=== PATIENT | female | born 1940 | race Caucasian/White ===

== ENCOUNTER 2017-06-15 20:55 | Inpatient (IN) | payer MEDICARE ==
[~2017-06-15] VITALS: Ht 167.6 cm; Wt 92.1 kg
[~2017-06-15 20:55] MED LIST: ARTHROTEC 75 M1 EACH PO; GABAPENTIN300 MG PO; HYDROCODON-ACE1 EA10 PO; IMITREX100 MG PO; KONDREMUL2.5 ML/5 M PO; LISINOPRIL20 MG PO; MOTRIN IB200 MG PO; NORCO 5-325 TA1 EACH PO; PRIMIDONE50 MG PO; PROMETHAZINE HC25 M1 PO; SENNA8.6 MG PO; TOPROL XL100 MG PO; TOPROL XL50 MG PO; TYLENOL WITH C1 EACH PO; ZOCOR20 MG PO
[2017-06-15] MEDS ORDERED: ARTHROTEC 75 M1 EACH PO (21:33)
[2017-06-15] MEDS ORDERED: NORVASC5 MG PO (21:38)
[2017-06-16] MEDS ORDERED: CARBIDOPA-LEVO1 EACH PO (17:01)
--- NOTE | 2017-06-16 17:22 | EKG ---
[facility] [address] [facility] [place] [address] Signed Normal sinus rhythm Normal ECG No previous ECGs available Confirmed by SHYANN CASTAÑEDA MD ([id number]) on 06/16/2017 5:22:24 PM Electronically Signed By: SHYANN CASTAÑEDA MD 06/16/17 1722 PATIENT NAME: LINDSEY SHELLEY Electrocardiogram DATE OF : 42 PHYSICIAN: SHYANN CASTAÑEDA MD REPORT #: [id number] REPORT IS CONFIDENTIAL AND NOT TO BE RELEASED WITHOUT AUTHORIZATION
[2017-06-20] MEDS ORDERED: CEFPODOXIME PR200 MG PO (13:09)
[2017-06-21] MEDS ORDERED: TESSALON PERLE100 MG PO (10:07)
== END 2017-06-21 16:57 | disposition home or self-care (01) | DRG 872 ==
LOC: ED 20:55 → CCU 22:15 → MS 06-18 18:00
PROVIDERS: ADMIT Internal Medicine
PROC: 06HY33Z Insertion of Infusion Device into Lower Vein, Percutaneous Approach (ICD-10-PCS; principal; 2017-06-18 15:45)
DX: A41.51 Sepsis due to Escherichia coli [E. coli] (principal); N10 Acute pyelonephritis; N17.9 Acute kidney failure, unspecified; E87.2 Acidosis; R65.20 Severe sepsis without septic shock; R51 Headache; J01.90 Acute sinusitis, unspecified; D64.9 Anemia, unspecified; I12.9 Hypertensive chronic kidney disease with stage 1 through stage 4 chronic kidney disease, or unspecified chronic kidney disease; G25.0 Essential tremor; G25.81 Restless legs syndrome; E78.5 Hyperlipidemia, unspecified; N28.1 Cyst of kidney, acquired; K57.90 Diverticulosis of intestine, part unspecified, without perforation or abscess without bleeding; I70.0 Atherosclerosis of aorta; K42.9 Umbilical hernia without obstruction or gangrene; Z90.710 Acquired absence of both cervix and uterus; Z88.2 Allergy status to sulfonamides
CPT/HCPCS: 36415; 36556; 71010; 74176; 80053; 80069; 81001; 82607; 82728; 82746; 83540; 83605; 83735; 84100; 84466; 85025; 85045; 87040; 87077; 87088; 87186; 93005; 93010; 96523; 97110; 97116; 97162; J0696; J1650; J2405; J3475; J7030

== ENCOUNTER 2018-06-19 20:34 | Emergency (ER) | payer MEDICARE ==
[~2018-06-19] VITALS: Ht 167.6 cm; Wt 92.1 kg
[~2018-06-19 20:34] MED LIST changes: +CARBIDOPA-LEVO1 EACH PO; +CEFPODOXIME PR200 MG PO; +NORVASC5 MG PO; +TESSALON PERLE100 MG PO
[2018-06-19] MEDS ORDERED: PRIMIDONE50 MG PO ×2 (20:59→21:01)
--- NOTE | 2018-06-20 11:37 | EKG ---
[facility] [address] [place] [address] Signed Poor data quality, interpretation may be adversely affected Undetermined rhythm , Likely Sinus Rhythm. ST \T\ T wave abnormality, consider anterior ischemia Abnormal ECG When compared with ECG of 19-JUN-2018 20:36, (Unconfirmed) Current undetermined rhythm precludes rhythm comparison, needs review ST more depressed in Anterior leads Confirmed by SHYANN CASTAÑEDA MD ([id number]) on 06/20/2018 11:36:27 AM Electronically Signed By: SHYANN CASTAÑEDA MD 06/20/18 1137 PATIENT NAME: LINDSEY SHELLEY Electrocardiogram DATE OF : 42 PHYSICIAN: SHYANN CASTAÑEDA MD REPORT #: [id number] REPORT IS CONFIDENTIAL AND NOT TO BE RELEASED WITHOUT AUTHORIZATION
== END 2018-06-20 00:16 | disposition home or self-care (01) ==
LOC: ED 20:34
DX: R07.9 Chest pain, unspecified (principal); Z88.2 Allergy status to sulfonamides; Z88.8 Allergy status to other drugs, medicaments and biological substances; Z79.899 Other long term (current) drug therapy
CPT/HCPCS: 36415; 71045; 80053; 84484; 85025; 93005; 93010; 99285

== ENCOUNTER 2020-08-07 19:04 | Emergency (ER) | payer MEDICARE, OTHER ==
[~2020-08-07] VITALS: Ht 167.6 cm; Wt 80.7 kg
--- OUTSIDE RECORDS SUMMARY | ~2020-08-07 | XMS | Encounter Summary ---
Demographics + + + | Address | [address] | | | [place] [address] | + + + | Home Phone | | + + + | Preferred Language | Unknown | + + + | Marital Status | Single | + + + | Lutheran Affiliation | LDS | + + + | Race | White | + + + | Ethnic Group | Not or | + + + Author + + + | Organization | Unknown | + + + | Address | Unknown | + + + | Phone | Unavailable | + + + Support + + + + + | Name | Relationship | Address | Phone | + + + + + | Petrona Reece | ECON | [address] | | | | | [place], [place] | | | | | [address] | | + + + + + | Michael Reece | ECON | [address] | | | | | [place], [place] | | | | | [address] | | + + + + + | Wolfjose Reece | ECON | [address] | | | | | [place] | | | | | [address] | | + + + + + Care Team Providers + +------+ + | Care Case Worker Name | Role | Phone | + +------+ + | Agustin Palomares MD | PCP | | + +------+ + Encounter Details +--------+--------+ + + + | Date | Type | Department | Care Team | Description | +--------+--------+ + + + | 10/19/ | Travel | | | | | 2018 | | | | | +--------+--------+ + + + Social History + +-------+ +--------+------+ | Tobacco Use | Types | Packs/Day | Years | Date | | | | | Used | | + +-------+ +--------+------+ | Never Smoker | | | | | + +-------+ +--------+------+ + +---+---+---+ | Smokeless Tobacco: | | | | | Never Used | | | | + +---+---+---+ + + +---------+ + | Alcohol Use | Drinks/Week | oz/Week | Comments | + + +---------+ + | No | | | | + + +---------+ + + + + | Sex Assigned at | Date Recorded | | | | + + + | Not on file | | + + + documented as of this encounter Plan of Treatment +--------+ + + + + | Date | Type | Specialty | Care Team | Description | +--------+ + + + + | 08/22/ | Procedure | Neurology | Cristopher Rosa, | | | 2019 | | | [address] | | | | | | [place], [place] | | | | | | [address] | | | | | | [phone] | | | | | | | | +--------+ + + + + documented as of this encounter Visit Diagnoses Not on filedocumented in this encounter"
--- OUTSIDE RECORDS SUMMARY | ~2020-08-07 | XMS | Encounter Summary ---
Demographics + + + | Address | [address] | | | [place] [address] | + + + | Home Phone | | + + + | Preferred Language | Unknown | + + + | Marital Status | | + + + | Latter-Day Affiliation | 1027 | + + + | Race | White | + + + | Ethnic Group | Not or | + + + Author + + + | Author | [facility] | | | and [place] | + + + | Organization | [facility] | | | and [place] | + + + | Address | Unknown | + + + | Phone | Unavailable | + + + Support + + +---------+ + | Name | Relationship | Address | Phone | + + +---------+ + | Petrona Reece | ECON | Unknown | | + + +---------+ + | Michael Reece | ECON | Unknown | | + + +---------+ + Care Team Providers + +------+ + | Care Client Relationship Manager Name | Role | Phone | + +------+ + | Agustin Palomares MD | PCP | | + +------+ + Encounter Details +--------+ + + + + | Date | Type | Department | Care Team | Description | +--------+ + + + + | 12/14/ | Orders Only | [facility] | Rinku Kim, | Age-related nuclear | | 2019 | | MED CTR PROVIDER | [address] | cataract, right eye | | | | SURGICAL [address] | [place], [place] | (Primary Dx) | | | | [place], | [id number] | | | | | [place] [address] | | | | | | [phone] | | | +--------+ + + + + Social History + +-------+ [...] | +--------+ + + + + | 08/14/ | Appointment | Radiology | Jonathan Farhana | | | 2019 | | | [address] | | | | | | [address] | | | | | | [place] [address] | | | | | | [phone] | | | | | | | | +--------+ + + + + | 09/13/ | Office | Cardiology | Farhana Castillo | | | 2019 | Visit | | [address] | | | | | | [place] [address] | | | | | | [place] [address] | | | | | | [phone] | | | | | | | | +--------+ + + + + documented as of this encounter Visit Diagnoses + + | Diagnosis | + + | Age-related nuclear cataract, right eye - Primary | + + documented in this encounter"
--- OUTSIDE RECORDS SUMMARY | ~2020-08-07 | XMS | Encounter Summary ---
Demographics + + + | Address | [address] | | | [place] [address] | + + + | Home Phone | | + + + | Preferred Language | Unknown | + + + | Marital Status | Single | + + + | Catholic Affiliation | LDS | + + + | Race | White | + + + | Ethnic Group | Not or | + + + Author + + + | Author | [facility] | + + + | Organization | [facility] | + + + | Address | Unknown | + + + | Phone | Unavailable | + + + Support + + + + + | Name | Relationship | Address | Phone | + + + + + | Petrona Reece | ECON | [address] | | | | | [place] | | | | | [phone] | | + + + + + | Michael Reece | ECON | [address] | | | | | [place] | | | | | [phone] | | + + + + + | Wolf Reece | ECON | [address] | | | | | [place] | | | | | [address] | | + + + + + Care Team Providers + +------+ + | Care Front Desk Team Member Name | Role | Phone | + +------+ + | Agustin Palomares MD | PCP | | + +------+ + Reason for Visit AUTH/CERT +--------+--------+ + + + + | Status | Reason | Specialty | Diagnoses / | Referred By | Referred To | | | | | Procedures | Contact | Contact | +--------+--------+ + + + + | | | | | | | +--------+--------+ + + + + Encounter Details +--------+---------+ + + + | Date | Type | Department | Care Team | Description | +--------+---------+ + + + | 07/22/ | Surgery | [facility] | Ne Guevara MD | LEFT ANTERIOR | | 2019 [facility] [address] | IMPLANT OF DEEP | | | | and Healing Surgery | [place], [place] | BRAIN STIMULATOR | | | | Center Admitting | [address] | GENERATOR | | | | Desk Located on the | [phone] | | | | | 4th floor [address] | | | | | | [address] [place], | | | | | | [place] [address] | | | +--------+---------+ + + + Social History + +-------+ [...] + + documented as of this encounter Last Filed Vital Signs + + + + + | Vital Sign | Reading | Time Taken | Comments | + + + + + | Blood Pressure | 127/67 | 07/22/2019 9:00 AM | | | | | PDT | | + + + + + | Pulse | 77 | 07/22/2019 9:00 AM | | | | | PDT | | + + + + + | Temperature | 36.3 C (97.3 F) | 07/22/2019 8:58 AM | | | | | PDT | | + + + + + | Respiratory Rate | 16 | 07/22/2019 9:00 AM | | | | | PDT | | + + + + + | Oxygen Saturation | 97% | 07/22/2019 9:00 AM | | | | | PDT | | + + + + + | Inhaled Oxygen | - | - | | | Concentration | | | | + + + + + | Weight | 87.1 kg (192 lb) | 07/22/2019 6:00 AM | | | | | PDT | | + + + + + | Height | 162.6 cm (5' 4") | 07/22/2019 6:00 AM | | | | | PDT | | + + + + + | Body Mass Index | 32.96 | 07/22/2019 6:00 AM | | | | | PDT | | + + + + + documented in this encounter Medications at Time of Discharge + + + +---------+ + + | Medication | Sig | Dispensed | Refills | Start | End Date | | | | | | Date | | + + + +---------+ + + | ACETAMINOPHEN | Take 650 mg by | | 0 | | | | ORALIndications: Per | mouth. Indications: | | | | | | patient, 2x daily | Per patient, 2x | | | | | | AM, 2x daily PM | daily AM, 2x daily | | | | | | | PM | | | | | + + + +---------+ + + | BENZONATATE ORAL | Take 100 mg by mouth | | 0 | | | | | three times daily | | | | | | | as needed. | | | | | + + + +---------+ + + | carbidopa-levodopa | 1 tablet two times | | 0 | 02/01/20 | | | 10-100 mg oral | daily. | | | 19 | | | tablet | | | | | | + + + +---------+ + + | dilTIAZem CD 24 | Take 180 mg by mouth | | 0 | 06/23/20 | | | hour release 180 mg | once daily. | | | 19 | | | oral | | | | | | | capsule,extended | | | | | | | release 24hr | | | | | | + + + +---------+ + + | fluticasone | Inhale 1 puff by | | 0 | | | | propionate 110 | mouth two times | | | | | | mcg/actuation | daily. | | | | | | inhalation HFA | | | | | | | aerosol inhaler | | | | | | + + + +---------+ + + | gabapentin 300 mg | Take 600 mg by mouth | | 0 | 02/10/20 | | | oral capsule | once daily at | | | 19 | | | | bedtime. | | | | | + + + +---------+ + + | nitroglycerin 0.4 | Place 0.4 mg under | | 0 | | | | mg sublingual | tongue every five | | | | | | tablet, sublingual | minutes as needed | | | | | | | for chest pain. | | | | | | | Place under tongue | | | | | | | and allow to | | | | | | | dissolve. | | | | | | | Administer every 5 | | | | | | | minutes, max of 3 | | | | | | | doses in 15 minutes. | | | | | + + + +---------+ + + | ondansetron ODT 4 | Dissolve 2 tablets | 10 | 1 | 07/21/20 | | | mg oral | on tongue and | tablet | | 19 | | | tablet,disintegratin | swallow every eight | | | | | | g | hours as needed. | | | | | + + + +---------+ + + | promethazine 25 mg | Take 25 mg by mouth. | | 0 | | | | oral tablet | | | | | | + + + +---------+ + + | propranolol 40 mg | 40 mg two times | | 0 | 02/10/20 | | | oral tablet | daily. | | | 19 | | + + + +---------+ + + | simvastatin 20 mg | 20 mg once daily in | | 0 | 02/18/20 | | | oral tablet | the evening. | | | 19 | | + + + +---------+ + + | SUMAtriptan 100 mg | Take 100 mg by | | 0 | | | | oral tablet | mouth. | | | | | + + + +---------+ + + | tamsulosin 0.4 mg | 0.4 mg once daily at | | 0 | 02/18/20 | | | oral capsule | bedtime. | | | 19 | | + + + +---------+ + + documented as of this encounter Progress Twin Boateng MD - 07/22/2019 10:18 AM PDTNeurosurgery Post-Op Check 07/22/2019 10:18 AM Examined in PACU Procedure performed: DBS generator placement Awakening from anesthesia, residual sedation still on board Appropriately interactive PERRL, EOMI FS WALKER AG Incisions c/d/i Please page [phone] with any questions Twin Gaytan M.D. Neurosurgery PGY-2 documented in this enc donovan H&P Abimael Louie MD - 07/22/2019 7:00 AM PDTI have examined the patient and reviewed the History and Physical and have confirmed that it is accurate and current with the following a dditions and or exceptions. S/p stage I DBS, for Stage II today. Abimael Patel MD amath, Abimael Bishop MD - 07/19/2019 9:00 AM PDTNSGY Pre Op Clinic Visit Ms. Reece presents with her family today to sign consents for pre op - bilateral VIM DBS placement scheduled for 07/20 and 07/22. See prior chart notes for full details. Briefly, she is a 79F with essential tremor since s he was a teenager, and was found to be a good candidate for bilateral VIM DBS. She report no new changes in health, and confirm not taking blood thinner/antiplatelet medi cations. Exam: AO x3, OE/reg/follows PERRL, EOMI, TML, FS WALKER good strength 2-3hz intention tremor involving BUEs, neck, jaw The indications, risks, benefits, and alternatives of bilateral VIM DBS placement were expl ained in detail to Ms. Reece and her and daughter in law, risks including bleeding , infection, and the remote possibilities of stroke, coma, or . They expressed understa nding and asked to proceed. Consents were signed today. She reports being claustrophobic and we have arranged for sedation to help facilitate her MRI this afternoon. Abimael Patel MD Fellow, Neurological Surgery documented in this e ncounter Procedure Notes Ne Guevara MD - 07/22/2019 9:48 AM PDTAssociated Order(s): TEACHING PHYSICIANDate of S ervice: 07/22/2019 Attending Surgeon:Ne Guevara MD Frameman(s): Abimael Patel MD Pursuant to Federal Medicare billing regulations, I certify that I was present for and part icipated in the critical parts of the procedure including implantation of DBS IPG, testing a nd programming of the IPG, and closure. I further certify that I was the principal surgeon for this procedure. Preoperative Diagnosis: Essential tremor. Postoperative Diagnosis: Essential tremor. Procedure: Implantation of deep brain stimulation (DBS) internal pulse generator (IPG). Ne Guevara MD KB/MODL /[id number] signed by Ne Guevara MD at 07/26/2019 10:33 AM PD Twin Villatoro MD - 07/22/2019 9:47 AM PDTAssociated Order(s): OPERATION RECORDDate of rvice: 07/22/2019 Attending Surgeon: Ne Guevara MD Frameman(s): Abimael Patel MD. Twin Gaytan MD. Preoperative Diagnosis: Essential tremor. Postoperative Diagnosis: Essential tremor. Procedure Performed: Placement of left-sided DBS [employer] generator. Indications For Procedure: Rula Reece is a 79-year-old female with a history of essentia l tremor since her teenage years. She was determined to be a good candidate for DBS placeme nt. She previously underwent placement of DBS leads on July 20. She returns today for generator placement. A full PARQ discussion was had with the patient including the risks, benefits, and alternatives of surgery, and she is in agreement to proceed. Description Of Procedure In Detail: The patient was identified in the preoperative holding area by name, date of , and medical record number. She was brought to the operating r oom on [facility]. She was transitioned to supine to a standard table. Following in duction of general anesthesia, the eyes were taped shut using Tegaderm, Xeroform gauze was p laced in the ear, and all pressure points were carefully padded. The left side of the head as well as the left anterior chest were then prepped and draped in the usual sterile fashion . A time-out was held confirming correct patient, operative site, and procedure to be perfo rmed. At this point, we were ready to proceed with the operation. Using a 10 blade, a 6 cm incision was made beneath the left clavicle. We used blunt dissec tion down to the level of the fascia and then proceeded to establish a generator pocket unde rneath the superficial adipose tissue. Hemostasis was achieved, at which point we turned ou r attention to the cranial incision. Again, using a 10 blade, a 2 cm incision was made media [facility] over the DBS generator leads. Using a tunneler, we created a passage from the cranial i ncision to the infraclavicular incision. We then passed our electrode leads through this ch olya. Both wires were then connected, ensuring that electrodes were correctly aligned. Th e wires were then connected to our generator battery, again ensuring that the left and right sides corresponded to the correct electrodes. Care was then taken to relieve any tension o n the generator wires so as to prevent the wires from kinking underneath the skin. The gene rator was then placed in our pocket and was interrogated, confirming all settings were corre ct. At this point, we were ready to begin with our closure. Both incisions were irrigated copi ously using a combination of bacitracin and normal saline. For the cranial incision, galea w as closed using interrupted 3-0 Vicryl and skin was closed using a Rapide. The generator wa s secured using two 2-0 tycron ties. For the generator pocket, first, the soft tissue was re approximated using interrupted 3-0 Vicryl. Fascia was closed with interrupted 3-0 Vicryl. Sk in was closed using with running Rapide. irrigant was injected into both incisions prior to skin closure. Both incisions were dressed using Dermabond. The patient was then extubat ed and returned to the recovery area in good condition. There were no complications. All n eedle, sponge, and instrument counts were correct x2 at the end of the case. Dr. Guevara was present for the entire procedure. MD Ne Ferris MD DM/MODL /[id number] documented in this enco unter Miscellaneous Notes Brief Op Note - Twin Gaytan MD - 07/22/2019 8:54 AM PDTFormatting of this note might b e different from the original. Date of procedure: 07/22/2019 Time Time In Time Out Procedure Start 811 [facility] Surgeon(s) and Role: * Ne Guevara MD - Primary Staff: Consultants Intern: Chuyita Osuna RN Scrub: ST [employer]ograph[employer] Machine Operator: Luisito Gaytan MD; Twin Gaytan MD Correction: fellow is Abimael Patel MD Pre Op Dx Essential Tremor Post Op Dx: same Procedure: Left-sided implant of deep brain stimulator generator Anesthesia: General Estimated Blood Loss: minimal Specimens None Implants/Grafts Implant Name Type Inv. Item Serial No. Varnish Melter Lot No. LRB No. Used Action Model Contact Extension Kit [id number] [employer] [id number] Right 1 Implanted Contact Extension Kit [id number] [employer] [id number] Left 1 Implanted Implantable Pulse Generator Kit [id number] [employer] Left 1 Implanted Complications: None Twin Gaytan MD documented in this enc ounter Plan of Treatment +--------+ + + + + | Date | Type | Specialty | Care Team | Description | +--------+ + + + + | 08/22/ | Procedure | Neurology | Cristopher Rosa, | | | 2019 | | | [address] | | | | | | [place], [place] | | | | | | [address] | | | | | | [phone] | | | | | | | | +--------+ + + + + + +---------+--------+ + + | Name | Type | Priori | Associated Diagnoses | Order Schedule | | | | ty | | | + +---------+--------+ + + | INTRAPROCEDURE | Imaging | Routin | | One Time for 1 | | IMAGING | | e | | Occurrences starting | | | | | | 07/22/2019 until | | | | | | 07/22/2019, 1 | | | | | | completed | + +---------+--------+ + + documented as of this encounter Procedures + +--------+ + + + | Procedure Name | Priori | Date/Time | Associated Diagnosis | Comments | | | ty | | | | + +--------+ + + + | PROCEDURE NOTE | Routin | 07/22/2019 | | Results for this | | | e | 10:50 AM | | procedure are in the | | | | PDT | | results section. | + +--------+ + + + | TEACHING PHYSICIAN | | 07/22/2019 | | Results for this | | | | 9:48 AM | | procedure are in the | | | | PDT | | results section. | + +--------+ + + + | OPERATION RECORD | | 07/22/2019 | | Results for this | | | | 9:47 AM | | procedure are in the | | | | PDT | | results section. | + +--------+ + + + | DEEP BRAIN GENERATOR | Electi | 07/22/2019 | Essential Tremor | | | STIMULATOR IMPLANT | ve | 7:36 AM | | | | | Surgic | PDT | | | | | al | | | | + +--------+ + + + | INTRAPROCEDURE | Routin | 07/22/2019 | | Results for this | | IMAGING | e | 6:49 AM | | procedure are in the | | | | PDT | | results section. | + +--------+ + + + documented in this encounter Results PROCEDURE NOTE (07/22/2019 10:50 AM PDT)TEACHING PHYSICIAN (07/22/2019 9:48 AM PDT) + + | Procedure Note | + + | Ne Guevara MD - 07/22/2019 9:48 AM PDT Date of Service: 07/22/2019 Attending | | Surgeon:Ne Guevara MD Frameman(s): Abimael Patel MD Pursuant to Federal | | Medicare billing regulations, I certify that I was present for and participated in the | | critical parts of the procedure including implantation of DBS IPG, testing and | | programming of the IPG, and closure. I further certify that I was the principal surgeon | | for this procedure.Preoperative Diagnosis: Essential tremor.Postoperative Diagnosis: | | Essential tremor.Procedure: Implantation of deep brain stimulation (DBS) internal pulse | | generator (IPG).Ne Guevara MDKB/MODLDD: 07/22/2019 09:24:55DT: 07/22/2019 | | 09:48:11Job #: [id number] | | | | | |Preoperative Diagnosis: Essential tremor. | | | |Postoperative Diagnosis: Essential tremor. | | | |Procedure: Implantation of deep brain stimulation (DBS) internal pulse generator (IPG). | | | | | | | |Ne Guevara MD | |NAYLA/DICKL | | | | | | /[id number] | + + OPERATION RECORD (07/22/2019 9:47 AM PDT) + + | Procedure Note | + + | Twin Gaytan MD - 07/22/2019 9:47 AM PDT Date of Service: 07/22/2019 Attending | | Surgeon: Ne Guveara MD Frameman(s): Abimael Patel MD.Twin Gaytan, | | .Preoperative Diagnosis: Essential tremor.Postoperative Diagnosis: Essential | | tremor.Procedure Performed: Placement of left-sided DBS [employer] | | generator.Indications For Procedure: Rula Reece is a 79-year-old female with a | | history of essential tremor since her teenage years. She was determined to be a good | | candidate for DBS placement. She previously underwent placement of DBS leads on | | July 20. She returns today for generator placement. A full PARQ discussion was | | had with the patient including the risks, benefits, and alternatives of surgery, and she | | is in agreement to proceed.Description Of Procedure In Detail: The patient was | | identified in the preoperative holding area by name, date of , and medical record | | number. She was brought to the operating room on [facility]. She was | | transitioned to supine to a standard table. Following induction of general anesthesia, | | the eyes were taped shut using Tegaderm, Xeroform gauze was placed in the ear, and all | | pressure points were carefully padded. The left side of the head as well as the left | | anterior chest were then prepped and draped in the usual sterile fashion. A time-out | | was held confirming correct patient, operative site, and procedure to be performed. At | | this point, we were ready to proceed with the operation. Using a 10 blade, a 6 cm | | incision was made beneath the left clavicle. We used blunt dissection down to the level | | of the fascia and then proceeded to establish a generator pocket underneath the | | superficial adipose tissue. Hemostasis was achieved, at which point we turned our | | attention to the cranial incision. Again, using a 10 blade, a 2 cm incision was made | | medially over the DBS generator leads. Using a tunneler, we created a passage from the | | cranial incision to the infraclavicular incision. We then passed our electrode leads | | through this channel. Both wires were then connected, ensuring that electrodes were | | correctly aligned. The wires were then connected to our generator battery, again | | ensuring that the left and right sides corresponded to the correct electrodes. Care was | | then taken to relieve any tension on the generator wires so as to prevent the wires | | from kinking underneath the skin. The generator was then placed in our pocket and was | | interrogated, confirming all settings were correct.At this point, we were ready to begin | | with our closure. Both incisions were irrigated copiously using a combination of | | bacitracin and normal saline. For the cranial incision, galea was closed using | | interrupted 3-0 Vicryl and skin was closed using a Rapide. The generator was secured | | using two 2-0 tycron ties. For the generator pocket, first, the soft tissue was | | reapproximated using interrupted 3-0 Vicryl. Fascia was closed with interrupted 3-0 | | Vicryl. Skin was closed using with running Rapide. irrigant was injected into both | | incisions prior to skin closure. Both incisions were dressed using Dermabond. The | | patient was then extubated and returned to the recovery area in good condition. There | | were no complications. All needle, sponge, and instrument counts were correct x2 at the | | end of the case. Dr. Guevara was present for the entire procedure.Sarah Ferris | | ROBERT Guevara/AMINAHD: 07/22/2019 09:14:13DT: 07/22/2019 09:47:14Job #: | | [id number] | |Ne Guevara MD | |ANTONY/DAMIAN | | | | | | /[id number] | + + INTRAPROCEDURE IMAGING (07/22/2019 6:49 AM PDT) + + | Specimen | + + | | + + + + + | Narrative | Performed At | + + + | See admission or procedure notes for details of any intraprocedure | [facility] | | images obtained. | RAD[facility] | + + + + +---------+ + + | Performing | Address | City/State/Zipcode | Phone Number | | Organization | | | | + +---------+ + + | [facility] | | | | + +---------+ + + documented in this encounter Visit Diagnoses Not on filedocumented in this encounter Administered Medications + +--------+ +------+------+ + | Medication Order | MAR | Action | Dose | Rate | Site | | | Action | Date | | | | + +--------+ +------+------+ + | bacitracin 50,000 Units, | Given | 07/22/20 | | | Surgical | | ringers (TIS-U-ROSITA) 1,000 mL | | 19 8:11 | | | Site | | INTRAPROCEDURE PRN, Starting Fri | | AM PDT | | | | | 07/22/19 at 0811, Until Fri | | | | | | | 07/22/19 at 0856 | | | | | | + +--------+ +------+------+ + + +---+ | | | + +---+ | fentaNYL (SUBLIMAZE) injection | | | 25 mcg 25 mcg, intravenous, | | | POSTPROCEDURE PRN, 8 doses, | | | Starting Thu07/22/19 at 0822, | | | Until Thu07/22/19 at 1700, severe | | | pain while in Phase I Recovery | | + +---+ | | | + +---+ | lactated ringers IV 500 mL, | | | intravenous, POSTPROCEDURE PRN, 1 | | | dose, Starting Thu07/22/19 at | | | 0822, Until Thu07/22/19 at 1700, | | | nausea/vomiting due to | | | dehydration | | + +---+ | | | + +---+ | lidocaine (XYLOCAINE) 10 mg/mL | | | (1 %) injection subcutaneous, | | | PREPROCEDURE PRN, Starting Fri | | | 07/22/19 at 0649, Until Fri | | | 07/22/19 at 1700, IV start | | + +---+ | | | + +---+ + +-------+ +-------+---+ + | lidocaine 1% w/ EPI | Given | 07/22/20 | 10 mL | | Surgical | | 1:100K-bupivacaine 0.5% injection | | 19 8:15 | | | Site | | INTRAPROCEDURE PRN, Starting | | AM PDT | | | | | 07/22/19 at 0815, Until Fri | | | | | | | 07/22/19 at 0856 | | | | | | + +-------+ +-------+---+ + +---+---+ | | | +---+---+ + +-------+ +---+---+ + | Mixture - neomycin-polymixin B | Given | 07/22/20 | | | Surgical | | irrigant-NS injection | | 19 8:16 | | | Site | | INTRAPROCEDURE PRN, Starting Fri | | AM PDT | | | | | 07/22/19 at 0816, Until Fri | | | | | | | 07/22/19 at 0856 | | | | | | + +-------+ +---+---+ + + +---+ | | | + +---+ | naloxone (NARCAN) injection | | | intravenous, POSTPROCEDURE PRN, | | | Starting Thu07/22/19 at 0822, | | | Until Thu07/22/19 at 1700, | | | hypopnea | | + +---+ | | | + +---+ + +-------+ +------+---+---+ | oxyCODONE (immediate release) | Given | 07/22/20 | 5 mg | | | | (ROXICODONE) tablet 5-10 mg 5-10 | | 19 9:15 | | | | | mg, oral, EVERY 4 HOURS | | AM PDT | | | | | NEEDED, Starting Thu07/22/19 at | | | | | | | 0702, Until Thu07/22/19 at 1700, | | | | | | | severe pain | | | | | | + +-------+ +------+---+---+ + +---+ | | | + +---+ | PHENYLEPHrine 100 mcg/mL IV | | | syringe 50 mcg, intravenous, | | | POSTPROCEDURE PRN, 4 doses, | | | Starting Thu07/22/19 at 0822, | | | Until Thu07/22/19 at 1700, | | | systolic blood pressure less than | | | 80 mmHg refractory to IV fluids. | | + +---+ | | | + +---+ + + + +---+---+---+ | sodium chloride 0.9 % (NS) IV | given by | 07/22/20 | | | | | infusion 10 mL/hr, intravenous, | | 19 8:41 | | | | | PROCEDURE CONTINUOUS, Starting | anesthes | AM PDT | | | | | Thu07/22/19 at 0700, Until Fri | iology | | | | | | 07/22/19 at 1700 | | | | | | + + + +---+---+---+ +---------+ +---+---+---+ | New Bag | 07/22/20 | | | | | | 19 7:25 | | | | | | AM PDT | | | | +---------+ +---+---+---+ + +---+ | | | + +---+ | sodium chloride 0.9 % (NS) IV | | | infusion 500 mL, intravenous, | | | POSTPROCEDURE PRN, 1 dose, | | | Starting Thu07/22/19 at 0822, | | | Until Thu07/22/19 at 1700, | | | systolic blood pressure less than | | | 80 mmHg. 1st line | | + +---+ | | | + +---+ documented in this encounter
--- OUTSIDE RECORDS SUMMARY | ~2020-08-07 | XMS | Encounter Summary ---
Demographics + + + | Address | [address] | | | [place] [address] | + + + | Home Phone | | + + + | Preferred Language | Unknown | + + + | Marital Status | Single | + + + | Roman Catholic Affiliation | LDS | + + + | Race | White | + + + | Ethnic Group | Not or | + + + Author + + + | Author | [facility] | + + + | Organization | [facility] | + + + | Address | Unknown | + + + | Phone | Unavailable | + + + Support + + + + + | Name | Relationship | Address | Phone | + + + + + | Petrona Reeec | ECON | [address] | | | | | [place] | | | | | [address] | | + + + + + | Michael Reece | ECON | [address] | | | | | [place] | | | | | [address] | | + + + + + | Wolf Reece | ECON | [address] | | | | | [place] | | | | | [address] | | + + + + + Care Team Providers + +------+ + | Care Dump Grader Name | Role | Phone | + +------+ + | Agustin Palomares MD | PCP | | + +------+ + Reason for Referral Diagnostic Testing (Routine) +--------+--------+ + + + + | Status | Reason | Specialty | Diagnoses / | Referred By | Referred To | | | | | Procedures | Contact | Contact | +--------+--------+ + + + + | Closed | | Radiology | Diagnoses | [place], | | | | | | Tremor | Elizabeth Beltran, | | | | | | Disabling | DEAN [address] | | | | | | essential | [address] | | | | | | tremor | [place], [place] | | | | | | Procedures | [address] | | | | | | MRI BRAIN WO | Phone: | | | | | | CONTRAST | [phone] | | | | | | PRE DBS VIM | Fax: | | | | | | | [phone] | | +--------+--------+ + + + + PROC - Inpatient Surgery (Routine) +--------+--------+ + + + + | Status | Reason | Specialty | Diagnoses / | Referred By | Referred To | | | | | Procedures | Contact | Contact | +--------+--------+ + + + + | Closed | | Neurological | Diagnoses | [place], | Alvaradoel, | | | | Surgery | Disabling | Elizabeth L, | MD [address] | | | | | essential | PA-C [address] | | | | | tremor | [address] | [place], [place] | | | | | Procedures | [place], [place] | [address] | | | | | REQUEST TO | [address] | Phone: | | | | | SURGERY | Phone: | [phone] | | | | | BODY LINER | [phone] | Fax: | | | | | [place] IMPLANT | Fax: | [phone] | | | | | NEUROELECTRO | [phone] | | | | | | DE,FIRST [place] | | | | | | | IMPLANT | | | | | | | NEUROELECTRO | | | | | | | DE,ADDL NC | | | | | | | IMP | | | | | | | STIM,CRANIAL | | | | | | | ,SUBQ,1 | | | | | | | ARRAY NC | | | | | | | IMP | | | | | | | STIM,CRANIAL | | | | | | | ,SUBQ,>1 | | | | | | | ARRAY NC | | | | | | | ELECTRONIC | | | | | | | ANALYSIS | | | | | | | BRAIN | | | | | | | NEUROSTIMULA | | | | | | | TOR PGT, 15 | | | | | | | MIN NC | | | | | | | ELECTRONIC | | | | | | | ANALYSIS | | | | | | | BRAIN | | | | | | | NEUROSTIMULA | | | | | | | TOR PGT, EA | | | | | | | ADDL 15 MIN | | | | | | | [address], | | | | | | | [address] - | | | | | | | inpatient | | | | | | | [address], | | | | | | | [address], | | | | | | | [address], [address] | | | | | | | - | | | | | | | outpatient | | | +--------+--------+ + + + + Reason for Visit + + + | Reason | Comments | + + + | Pre-Admission | | + + + Encounter Details +--------+ + + + + | Date | Type | Department | Care Team | Description | +--------+ + + + + | 04/12/ | PreAdmit | Neurosurgery at | Elizabeth Bustillo, | Pre-Admission | | 2019 | Orders | [facility] [address] | PA-C [address] | | | | | [address] [place] for | Ave [facility] [place] | | | | | Health and Healing, | [address] | | | | | [facility] | [phone] | | | | | floor [place], [place] | | | | | | [address] | | | | | | [phone] | | | +--------+ + + + [...] Neurology | Cristopher Rosa, | | | 2020 | | | [address] | | | | | | [place], [place] | | | | | | [address] | | | | | | [phone] | | | | | | | | +--------+ + + + + documented as of this encounter Results MRI BRAIN WO CONTRAST PRE DBS VIM (07/19/2019 6:05 PM PDT) + + | Specimen | + + | | + + + + + | Narrative | Performed At | + + + | EXAM: MRI BRAIN WO PRE DBS- VIM HISTORY: pre-surgery planning | [facility] | | Deep Brain Stimulator COMPARISON: None. TECHNIQUE: | RADIOLOGY VOICE | | Multiplanar multi-sequence MRI of the brain without contrast. | RECOGNITION 2 | | FINDINGS: BRAIN: No acute intracranial abnormality. No evidence of | | | hemorrhage, mass, or acute infarction. The ventricles are normal in | | | size and morphology. SOFT TISSUES AND MARROW: Unremarkable. FACE | | | AND ORBITS: Visualized portions are unremarkable. IMPRESSION: | | | No acute intracranial abnormality. Images acquired for presurgical | | | planning. I have personally reviewed the images and, if necessary, | | | edited the report. I agree with the report as now presented. | | | Final signature: Hipolito Diaz MD 07/19/2019 6:42 PM | | | Preliminary: Hipolito Diaz MD Dictation initiated: Hipolito Ruby | | | MD Emily 07/19/2019 6:42 PM | | + + + + + | Procedure Note | + + | Service Account, Radiant Res In Interface - 07/19/2019 6:43 PM PDT EXAM: MRI BRAIN | | WO PRE DBS- VIM HISTORY: pre-surgery planning Deep Brain Stimulator COMPARISON: None. | | TECHNIQUE: Multiplanar multi-sequence MRI of the brain without contrast. FINDINGS: | | BRAIN: No acute intracranial abnormality. No evidence of hemorrhage, mass, or acute | | infarction. The ventricles are normal in size and morphology. SOFT TISSUES AND MARROW: | | Unremarkable.FACE AND ORBITS: Visualized portions are unremarkable. IMPRESSION: No acute | | intracranial abnormality. Images acquired for presurgical planning. I have personally | | reviewed the images and, if necessary, edited the report. I agree with the report as now | | presented. Final signature: Hipolito Diaz MD 07/19/2019 6:42 PM Preliminary: Hipolito Ruby | | MD Emily Dictation initiated: Hipolito Diaz MD 07/19/2019 6:42 PM | |BRAIN: No acute intracranial abnormality. No evidence of hemorrhage, mass, or acute infarct ion. The ventricles are normal in size and morphology. | | | |SOFT TISSUES AND MARROW: Unremarkable. | |FACE AND ORBITS: Visualized portions are unremarkable. | | | |IMPRESSION: | | | |No acute intracranial abnormality. Images acquired for presurgical planning. | | | |I have personally reviewed the images and, if necessary, edited the report. I agree with [facility] report as now presented. | | | |Final signature: Hipolito Diaz MD 07/19/2019 6:42 PM | |Preliminary: Hipolito Diaz MD | |Dictation initiated: Hipolito Diaz MD 07/19/2019 6:42 PM | + + + +---------+ + + | Performing | Address | City/State/Zipcode | Phone Number | | Organization | | | | + +---------+ + + | [facility] | | | | | VOICE RECOGNITION 2 | | | | + +---------+ + + documented in this encounter Visit Diagnoses + + | Diagnosis | + + | Disabling essential tremor - Primary Essential and other specified forms of tremor | + + | Tremor Abnormal involuntary movements | + + documented in this encounter"
--- OUTSIDE RECORDS SUMMARY | ~2020-08-07 | XMS | Encounter Summary ---
Demographics + + + | Address | [address] | | | [place] [address] | + + + | Home Phone | | + + + | Preferred Language | Unknown | + + + | Marital Status | Single | + + + | Baptist Affiliation | LDS | + + + | Race | White | + + + | Ethnic Group | Not or | + + + Author + + + | Author | [facility] | + + + | Organization | [facility] | + + + | Address | Unknown | + + + | Phone | Unavailable | + + + Support + + + + + | Name | Relationship | Address | Phone | + + + + + | Petrona Reece | ECON | [address] | | | | | [place] | | | | | [address] | | + + + + + | Michael Reece | ECON | [address] | | | | | [place] | | | | | [address] | | + + + + + | Wolf Reece | ECON | [address] | | | | | [place] | | | | | [address] | | + + + + + Care Team Providers + +------+ + | Care Release Engineer Name | Role | Phone | + +------+ + | Agustin Palomares MD | PCP | | + +------+ + Encounter Details +--------+ + + + + | Date | Type | Department | Care Team | Description | +--------+ + + + + | 07/19/ | Pharmacy | Outpatient Retail | | | | 2019 | Visit | [facility] | | | | | | [address] | | | | | | [address] [place], [place] | | | | | | [address] | | | | | | [phone] | | | +--------+ + + + [...] [address] | | | | | | [place], [place] | | | | | | [address] | | | | | | [phone] | | | | | | | | +--------+ + + + + documented as of this encounter Visit Diagnoses Not on filedocumented in this encounter"
--- OUTSIDE RECORDS SUMMARY | ~2020-08-07 | XMS | Encounter Summary ---
Demographics + + + | Address | [address] | | | [place] [address] | + + + | Home Phone | | + + + | Preferred Language | Unknown | + + + | Marital Status | Single | + + + | Oriental Orthodox Affiliation | LDS | + + + | Race | White | + + + | Ethnic Group | Not or | + + + Author + + + | Author | [facility] | + + + | Organization | [facility] | + + + | Address | Unknown | + + + | Phone | Unavailable | + + + Support + + + + + | Name | Relationship | Address | Phone | + + + + + | Petrona Reece | ECON | [address] | | | | | [place] | | | | | [address] | | + + + + + | Michael Reece | ECON | [address] | | | | | [place] | | | | | [address] | | + + + + + | Wolf Reece | ECON | [address] | | | | | [place] | | | | | [address] | | + + + + + Care Team Providers + +------+ + | Care Drapery Rod Assembler Name | Role | Phone | + +------+ + | Agustin Palomares MD | PCP | | + +------+ + Encounter Details +--------+ + + + + | Date | Type | Department | Care Team | Description | +--------+ + + + + | 08/17/ | Documentati | Neurosurgery at | Ne Guevara MD | | | 2019 | on | [facility] [address] | [address] | | | | | Ave [facility] | [place], [place] | | | | | Health and Healing, | [address] | | | | | [facility] | [phone] | | | | | floor [place], [place] | | | | | | [address] | | | | | | [phone] | | | +--------+ + + + [...] + + documented as of this encounter Miscellaneous Notes Telephone Encounter - Chavo Carrero MA - 08/19/2019 6:58 AM PDTFaxed signed documents to [facility], fax #: [phone] Scanned faxed documents to [facility]olo [facility]. elephone Encounter - Elizabeth Ruelas PA-C - 08/18/2019 2:58 PM PDTSigned elephone Encounter - Chavo Carrero MA - 08/17/2019 11:12 AM PDTReceived speech language pathology plan of care from [facility]. Placed plan of care documents in red folder to be reviewed and signed. Electronically sandy d by Chavo Carrero MA at 08/17/2019 11:13 AM PDTdocumented in this encounter Plan of Treatment +--------+ + + + + | Date | Type | Specialty | Care Team | Description | +--------+ + + + + | 08/22/ | Procedure | Neurology | Cristopher Rosa, | | | 2019 | | | [address] | | | | | | [facility] [place] | | | | | | [address] | | | | | | [phone] | | | | | | | | +--------+ + + + + documented as of this encounter Visit Diagnoses Not on filedocumented in this encounter"
--- OUTSIDE RECORDS SUMMARY | ~2020-08-07 | XMS | Encounter Summary ---
Demographics + + + | Address | [address] | | | [place] [address] | + + + | Home Phone | | + + + | Preferred Language | Unknown | + + + | Marital Status | Single | + + + | Congregation Affiliation | LDS | + + + | Race | White | + + + | Ethnic Group | Not or | + + + Author + + + | Author | [facility] | + + + | Organization | [facility] | + + + | Address | Unknown | + + + | Phone | Unavailable | + + + Support + + + + + | Name | Relationship | Address | Phone | + + + + + | Petrona Reece | ECON | [address] | | | | | [place] | | | | | [address] | | + + + + + | Michael Reece | ECON | [address] | | | | | [place] | | | | | [address] | | + + + + + | Wolf Reece | ECON | [address] | | | | | [place] | | | | | [address] | | + + + + + Care Team Providers + +------+ + | Care Perinatal Instructor Name | Role | Phone | + +------+ + | Agustin Palomares MD | PCP | | + +------+ + Encounter Details +--------+ + + + + | Date | Type | Department | Care Team | Description | +--------+ + + + + | 04/12/ | Telephone | Neurology at | Cristopher Rosa, | | | 2019 | | [facility] & | [address] | | | | | [place] [address] | [place], [place] | | | | | Alyce [facility] | [address] | | | | | Health and Healing, | [phone] | | | | | [facility] | | | | | | Floor [place], [place] | | | | | | [address] | | | | | | [phone] | | | +--------+ + + + [...] this encounter Miscellaneous Notes Telephone Encounter - Cristopher Rosa MD - 04/12/2019 3:10 PM PDTI spoke with Ms Reece and answered any remaining questions. She is ready for DBS surgery, and we'll move forward with scheduling this. Target is VIM. Indication is essential tremor. Platform is Acupera . documented in this e ncounter Plan of Treatment +--------+ + + + + | Date | Type | Specialty | Care Team | Description | +--------+ + + + + | 08/22/ | Procedure | Neurology | Cristopher Rosa, | | | 2019 | | | [address] | | | | | | [place], [place] | | | | | | [address] | | | | | | [phone] | | | | | | | | +--------+ + + + + documented as of this encounter Visit Diagnoses Not on filedocumented in this encounter"
--- OUTSIDE RECORDS SUMMARY | ~2020-08-07 | XMS | Encounter Summary ---
Demographics + + + | Address | [address] | | | [place] [address] | + + + | Home Phone | | + + + | Preferred Language | Unknown | + + + | Marital Status | Single | + + + | Shinto Affiliation | LDS | + + + [...] [place], [place] | | | | | [address] | | + + + + + | Michael Reece | ECON | [address] | | | | | [place], [place] | | | | | [address] | | + + + + + | Wolfjose Reece | ECON | [address] | | | | | [place] | | | | | [address] | | + + + + + Care Team Providers + +------+ + | Care Furnace Repairer Name | Role | Phone | + +------+ + | Agustin Palomares MD | PCP | | + +------+ + Encounter Details +--------+--------+ + + + | Date | Type | Department | Care Team | Description | +--------+--------+ + + + | 08/04/ | Travel | | | | | [...] [address] | | | | | | [place], [place] | | | | | | [address] | | | | | | [phone] | | | | | | | | +--------+ + + + + documented as of this encounter Visit Diagnoses Not on filedocumented in this encounter"
--- OUTSIDE RECORDS SUMMARY | ~2020-08-07 | XMS | Encounter Summary ---
Demographics + + + | Address | [address] | | | [place] [address] | + + + | Home Phone | | + + + | Preferred Language | Unknown | + + + | Marital Status | Single | + + + | Episcopal Affiliation | LDS | + + + [...] [place] | | | | | [address] | | + + + + + | Michael Reece | ECON | [address] | | | | | [place] | | | | | [address] | | + + + + + | Wolf Reece | ECON | [address] | | | | | [place] | | | | | [address] | | + + + + + Care Team Providers + +------+ + | Care Mental Health Clinician Name | Role | Phone | + [...] +--------+--------+ + + + + Encounter Details +--------+ + + + + | Date | Type | Department | Care Team | Description | +--------+ + + + + | 07/22/ | Hospital | [facility] | Ne Guevara MD | | | 2019 | Encounter | [facility]AY [address] | [address] | | | | | Ave Mailcode: [facility] | [place], [place] | | | | | [facility] | [address] | | | | | Health and Healing, | [phone] | | | | | [address] | | | | | | [place], [place] | | | | | | [address] | | | | | | [phone] | | | +--------+ + + + [...] + + + | Blood Pressure | 146/67 | 07/22/2019 10:50 AM | | | | | PDT | | + + + + + | Pulse | 63 | 07/22/2019 10:50 AM | | | | | PDT | | + + + + + | Temperature | 37 C (98.6 F) | 07/22/2019 10:50 AM | | | | | PDT | | + + + + + | Respiratory Rate | 18 | 07/22/2019 10:50 AM | | | | | PDT | | + + + + + | Oxygen Saturation | 95% | 07/22/2019 10:50 AM | | | | | PDT [...] FS WALKER AG Incisions c/d/i Please page [phone] with any questions Tiwn Gaytan M.D. Neurosurgery PGY-2 documented in this enc ounter H&P Abimael Louie MD - 07/22/2019 7:00 AM PDTI have examined the patient and reviewed the History and Physical and have confirmed that it is accurate and current with the following a dditions and or exceptions. S/p stage I DBS, for Stage II today. Abimael Patel MD ama, Abimael Bishop MD - 07/19/2019 9:00 AM [...] S ervice: 07/22/2019 Attending Surgeon:Ne Guevara MD Oyster Culturist(s): Abimael Patel MD Pursuant to Federal Medicare [...] pulse generator (IPG). Ne Guevara MD KB/MODL /[id number] signed by Ne Guevara MD at 07/26/2019 10:33 AM PD Twin Villatoro MD - 07/22/2019 9:47 AM PDTAssociated Order(s): OPERATION RECORDDate of rvice: 07/22/2019 Attending Surgeon: Ne Guevara MD Oyster Culturist(s): Abimael Patel MD. Twin Gaytan MD. Preoperative Diagnosis: Essential tremor. Postoperative Diagnosis: Essential tremor. Procedure Performed: Placement of left-sided DBS [employer] generator. Indications For Procedure: Rula Reece [...] brought to the operating r oom on [facility]. She was transitioned to supine to a [...] a 2 cm incision was made media lly over the DBS generator leads. Using a [...] entire procedure. MD Ne Ferris MD DM/MODL /[id number] documented in this enco unter Miscellaneous Notes Brief Op Note - Twin Gaytan MD - 07/22/2019 8:54 AM PDTFormatting of this note might b e different from the original. Date of procedure: 07/22/2019 Time Time In Time Out Procedure Start 811 Location: [facility] SURGERY Surgeon(s) and Role: * Ne Guevara MD - Primary Staff: Franchise Specialist: Chuyita Osuna RN Scrub: ST Toni Glazier Metal Furniture: Luisito Gaytan MD; Twin Gaytan MD Correction: fellow is Abimael Patel MD Pre Op Dx Essential Tremor Post Op Dx: same Procedure: Left-sided implant of deep brain stimulator generator Anesthesia: General Estimated Blood Loss: minimal Specimens None Implants/Grafts Implant Name Type Inv. Item Serial No. Medical Pathology Teacher Lot No. LRB No. Used Action Model Contact Extension Kit [id number] imageloop [id number] Right 1 Implanted Contact Extension Kit [id number] imageloop [id number] Left 1 Implanted Implantable Pulse Generator Kit [id number] imageloop Left 1 Implanted Complications: None Twin Gaytan MD documented in this enc ounter Plan of Treatment +--------+ + + + + | Date | Type | Specialty | Care Team | Description | +--------+ + + + + | 08/22/ | Procedure | Neurology | Cristopher Rosa, | | | 2019 | | | [address] | | | | | | [place], [place] | | | | | | [address] | | | | | | [phone] | | | | | | | [...] 07/22/2019 Attending | | Surgeon:Ne Guevara MD Oyster Culturist(s): Abimael Patel MD Pursuant to Federal | [...] stimulation (DBS) internal pulse | | generator (IPG).FAINA Milton/MODLDD: 07/22/2019 09:24:55DT: 07/22/2019 | | 09:48:11Job #: [id number] | | | | | |Preoperative Diagnosis: Essential tremor. | | | |Postoperative Diagnosis: Essential tremor. | | | |Procedure: Implantation of deep brain stimulation (DBS) internal pulse generator (IPG). | | | | | | | |Ne Guevara MD | |NAYLA/DAMIAN | | | | | | /[id number] | + + OPERATION RECORD (07/22/2019 9:47 AM PDT) + + | Procedure Note | + + | Twin Gaytan MD - 07/22/2019 9:47 AM PDT Date of Service: 07/22/2019 Attending | | Surgeon: Ne Guevara MD Oyster Culturist(s): Abimael Patel MD.Twin Gaytan, | | .Preoperative Diagnosis: Essential tremor.Postoperative Diagnosis: Essential | | tremor.Procedure Performed: Placement of left-sided DBS [employer] | | generator.Indications For Procedure: Rula [...] was brought to the operating room on [facility]. She was | | transitioned to supine [...] the entire procedure.Sarah Ferris | | ROBERT Guevara/DICKLDD: 07/22/2019 09:14:13DT: 07/22/2019 09:47:14Job #: | | [id number] | |Ne Guevara MD | |ANTONY/DAMIAN | | | | | | /[id number] | + + INTRAPROCEDURE IMAGING (07/22/2019 6:49 [...] specified forms of tremor | + + documented in this encounter Administered Medications + +--------+---------+------+------+------+ | Medication Order | MAR | Action | Dose | Rate | Site | | | Action | Date | | | | + +--------+---------+------+------+------+ + +---+ | fentaNYL (SUBLIMAZE) injection | [...]
--- OUTSIDE RECORDS SUMMARY | ~2020-08-07 | XMS | Encounter Summary ---
Demographics + + + | Address | [address] | | | [place] [address] | + + + | Home Phone | | + + + | Preferred Language | Unknown | + + + | Marital Status | Single | + + + | Quaker Affiliation | LDS | + + + | Race | White | + + + | Ethnic Group | Not or | + + + Author + + + | Author | [facility] | + + + | Organization | [facility] | + + + | Address | Unknown | + + + | Phone | Unavailable | + + + Support + + + + + | Name | Relationship | Address | Phone | + + + + + | Petrona Reece | ECON | [address] | | | | | [place] | | | | | [address] | | + + + + + | Michael Reece | ECON | [address] | | | | | [place] | | | | | [address] | | + + + + + | Wolf Reece | ECON | [address] | | | | | [place] | | | | | [address] | | + + + + + Care Team Providers + +------+ + | Care Side Framer Name | Role | Phone | + [...] | | | | Disabling | [address] | | | | | | essential | [address] | | | | | | tremor | [place], [place] | | | | | | Procedures | [address] | | | | | | MRI BRAIN WO | Phone: | | | | | | CONTRAST | [phone] | | | | | | PRE DBS VIM | Fax: | | | | | | | [phone] | | +--------+--------+ + + + + Reason for Visit Diagnostic Testing (Routine) +--------+--------+ + + + [...] | | | | Disabling | [address] | | | | | | essential | [address] | | | | | | tremor | [facility] [place] | | | | | | Procedures | [address] | | | | | | MRI BRAIN WO | Phone: | | | | | | CONTRAST | [phone] | | | | | | PRE DBS VIM | Fax: | | | | | | | [phone] | | +--------+--------+ + + + + Encounter Details +--------+ + + + + | Date | Type | Department | Care Team | Description | +--------+ + + + + | 07/19/ | Hospital | Diagnostic Imaging | Elizabeth Bustillo, | | | 2019 | Encounter | Services at [facility] | [address] | | | | | [address] | [place] [facility] [place] | | | | | Suzie Hinds | [address] | | | | | [facility] | [phone] | | | | | [place], [place] | | | | | | [address] | | | | | | [phone] | | | +--------+ + + + [...] + + documented as of this encounter Medications at Time of Discharge [...] | | | 2019 | | | [address] | | | | | | [place], [place] | | | | | | [address] | | | | | | [phone] | | | | | | | | +--------+ + + + + documented as of this encounter Procedures + +--------+ + + + | Procedure Name | Priori | Date/Time | Associated Diagnosis | Comments | | | ty | | | | + +--------+ + + + | MRI BRAIN WO | Routin | 07/19/2019 | Tremor Disabling | Results for this | | CONTRAST PRE DBS VIM | e | 6:05 PM | essential tremor | procedure are in the | | | | PDT | | results section. | + +--------+ + + + documented in this encounter Results MRI BRAIN WO CONTRAST [...] Preliminary: Hipolito Diaz MD Dictation initiated: Hipolito Modi | Ly Diaz MD 07/19/2019 6:42 PM | | + + [...] necessary, edited the report. I agree [facility] as now presented. | | | [...] + | Diagnosis | + + | Tremor Abnormal involuntary movements | + + | Disabling essential tremor Essential and other specified forms of tremor | + + documented in this encounter Administered Medications + +--------+ +------+------+------+ | Medication Order | MAR | Action | Dose | Rate | Site | | | Action | Date | | | | + +--------+ +------+------+------+ | LORazepam (ATIVAN) tablet 1 mg | Given | 07/19/20 | 1 mg | | | | 1 mg, oral, EVERY 30 MINUTES | | 19 4:45 | | | | | NEEDED, 2 doses, Starting Tue | | PM PDT | | | | | 07/19/19 at 1641, Until Wed | | | | | | | 07/20/19 at 0552, anxiety | | | | | | + +--------+ +------+------+------+ +---+---+ | | | +---+---+ documented in this encounter"
--- OUTSIDE RECORDS SUMMARY | ~2020-08-07 | XMS | Encounter Summary ---
Demographics + + + | Address | [address] | | | [place] [address] | + + + | Home Phone | | + + + | Preferred Language | Unknown | + + + | Marital Status | | + + + | Sabianist Affiliation | [id number] | + + + | Race | White | + + + | Ethnic Group | Not or | + + + Author + + + | Author | [facility] | | | and [place] | + + + | Organization | [facility] | | | and [...] Team Providers + +------+ + | Care Car And Yard Supervisor Name | Role | Phone | + +------+ + | Garfield Palomares MD | PCP | | + +------+ + Reason for Visit + + + | Reason | Comments | + + + | Follow-up | 3 month | + + + Encounter Details +--------+---------+ + + + | Date | Type | Department | Care Team | Description | +--------+---------+ + + + | 09/15/ | Office | [facility] | Rowena Kearney DO | Palpitations | | 2019 | Visit | CARDIOLOGY TI[facility] | [address] | (Primary Dx); SVT | | | | [address] | [place], [place] | (supraventricular | | | | [address] | [id number] | tachycardia) ([facility]LY [facility]); | | | | [place] | | Hypertension, | | | | [address] | | unspecified type | | | | [phone] | | | +--------+---------+ + + + [...] + + + | Blood Pressure | 122/72 | 09/15/2019 9:18 AM | | | | | PST | | + + + + + | Pulse | 85 | 09/15/2019 9:18 AM | | | | | PST | | + + + + + | Temperature | - | - | | + + + + + | Respiratory Rate | - | - | | + + + + + | Oxygen Saturation | 92% | 09/15/2019 9:18 AM | | | | | PST | | + + + + + | Inhaled Oxygen | - | - | | | Concentration | | | | + + + + + | Weight | 86.6 kg (191 lb) | 09/15/2019 9:18 AM | | | | | PST | | + + + + + | Height | 162.6 cm (5' 4") | 09/15/2019 9:18 AM | | | | | PST | | + + + + + | Body Mass Index | 32.79 | 09/15/2019 9:18 AM | | | | | PST | | + + + + + documented in this encounter Progress Notes Rowena Kearney DO - 09/15/2019 9:20 AM PST [facility] Cardiology Follow Up Note Reason for Consultation: PACs Requesting Physician: Garfield Palomares History Obtained From: patient HISTORY OF PRESENT ILLNESS: Cardiac Problem List SVT HTN HLD Non cardiac problem list Essential tremor, ?Parkinsons Arthritis UTIs CKD The patient is a 79-year-old female who presents to the cardiology office for initial consu ltation regarding tachycardia. The patient reports that she first started experiencing episo steve of fast heart rates a few months ago. She noticed them at various times the day, she has noticed them at nighttime and they have woken her up at night in the past. The fast heart r ates are associated with some fatigue. She has checked her heart rates during episodes and t hey have been as high as the 190s but have been lower than this as well. She denies any [facility] triggers. She has not tried any maneuvers to try to break the episodes. She denies any syncopal episodes previously. She does have a history of hypertension and has noticed that h er blood pressures fluctuate quite a bit. She went to the ER for an episode of chest pain re cently, work-up there was negative. The patient denies any exertional chest pains recently. She was given nitroglycerin during that visit which did not help. 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 She does n ot partake in any exercise regularly. She does report that she drinks Pepsi sometimes up to 32 ounces a day. She has never had any thyroid issues in the past. She had a recent 48-hour Holter monitor followed up by a 2-week Zio patch monitor. She christian eves that she had symptoms while wearing the Zio patch. She is unsure is she was symptomatic while wearing the holter monitor. Interim history I last saw the patient 3 months ago. At that time, we increased her diltiazem to 180 mg by mouth daily. Since we last saw each other, she had a deep brain stimulator to help with he r tremors. She has had significant improvement in her tremors since it was placed. With re gards to her palpitations, she has had episodes about twice a week of palpitations. She Christel salvas and this is usually successful in breaking the palpitations. She denies any episode s of syncope or presyncope. She denies any chest pains or shortness of breath. She has oth erwise done well from a cardiac standpoint. She does feel that her palpitations are less fr equent and less intense with the addition of diltiazem. We discussed doing a repeat monitor ing in order to see exactly what arrhythmias precipitating her symptoms. Review of Systems Constitutional: Negative for fatigue. HENT: Negative for nosebleeds. Eyes: Negative for visual disturbance. Respiratory: Negative for cough and shortness of breath. Cardiovascular:see HPI Gastrointestinal: Negative for nausea, vomiting, abdominal pain and blood in stool. Genitourinary: Negative for hematuria or dysuria. Frequent UTIs. Musculoskeletal: Negative for myalgias, back pain. Positive for arthralgias. Skin: Negative for color change. Neurological: Negative for dizziness, syncope and numbness. Positive for essential tremor. Hematological: Does not bruise/bleed easily. Psychiatric/Behavioral: The patient is not nervous/anxious. PAST MEDICAL & SURGICAL HISTORY Past Medical History Diagnosis Date Arthralgia Asthma Atrial premature depolarization Hyperlipidemia Hypertension Osteoarthritis Tremors of nervous system Past Surgical History Procedure Laterality Date APPENDECTOMY CATARACT EXTRACTION Bilateral HYSTERECTOMY TONSILLECTOMY TOTAL HIP ARTHROPLASTY Bilateral TOTAL KNEE ARTHROPLASTY Left MEDICATIONS Home Medications Outpatient Encounter Prescriptions as of 03/17/2019 Medication Sig Dispense Refill ACETAMINOPHEN PO Take 650 mg by mouth. benzonatate (TESSALON) 100 MG capsule Take 100 mg by mouth 3 (three) times daily as nee ded for Cough. carbidopa-levodopa (SINEMET) 10-100 MG per tablet Take 1 tablet by mouth 3 (three) time s daily. fluticasone (FLOVENT HFA) 110 MCG/ACT inhaler Inhale 1 puff into the lungs 2 (two) time s daily. Rinse mouth after use gabapentin (NEURONTIN) 300 MG capsule Take 300 mg by mouth 3 (three) times daily. lisinopril (ZESTRIL) 20 MG tablet Take 20 mg by mouth daily. Metoprolol Succinate 100 MG CS24 Take by mouth. nitroGLYCERIN (NITROSTAT) 0.[address] 0.4 mg under the tongue every 5 (five) minutes as needed for Chest pain. ondansetron (ZOFRAN) 4 MG tablet Take 4 mg by mouth 3 (three) times daily as needed for Nausea. primidone (MYSOLINE) 50 MG tablet Take 50 mg by mouth 4 (four) times daily. promethazine (PHENERGAN) 25 MG tablet Take 25 mg by mouth every 6 (six) hours as needed for Nausea. propranolol (INDERAL) 40 MG tablet Take 40 mg by mouth 3 (three) times daily. simvastatin (ZOCOR) 20 MG tablet Take 20 mg by mouth nightly. sumatriptan (IMITREX) 100 MG tablet Take 100 mg by mouth as needed for Migraine. May re peat dose in 2 hours if no relief. Do not exceed 2 doses in 24 hours. tamsulosin (FLOMAX) 0.4 MG capsule Take 0.4 mg by mouth After dinner. [DISCONTINUED] amLODIPine (NORVASC) 5 MG tablet Take 5 mg by mouth daily. diltiazem (CARDIZEM LA) 120 MG 24 hr tablet Take 1 tablet by mouth daily. 30 tablet 11 No facility-administered encounter medications on file as of 03/17/2019. Allergies Allergies Allergen Reactions Sulfa Antibiotics Hives Amitriptyline Other (See Comments) "just felt weird" FAMILY HISTORY Family History Problem Relation Age of Onset Arrhythmia Mother Heart Problems Mother alcides valve Heart attack Father x 2 Heart Problems Father SOCIAL HISTORY Social History Social History Marital status: Spouse name: N/A Number of children: N/A Years of education: N/A Occupational History Not on file. Social History Main Topics Smoking status: Never Smoker Smokeless tobacco: Never Used Alcohol use No Drug use: No Sexual activity: Not on file Other Topics Concern Not on file Social History Narrative No narrative on file PHYSICAL EXAM Vitals: 09/15/19 0918 BP: 122/72 Pulse: 85 SpO2: 92% Weight: 86.6 kg (191 lb) Height: 1.626 m (5' 4") Physical Exam GENERAL: Well developed, well nourished, in no distress. Appears approximately stated age. Resting tremor. HEENT: Normocephalic, atraumatic. EYES: PERRL, sclerae anicteric, no xanthelsasmas NECK: No JVD, lymphadenopathy, thyromegaly, bruits. Carotid pulses are 2+ bilaterally LUNGS: Clear bilaterally, with no rales, rhonchi or wheezing noted, respirations unlabored HEART: Nondisplaced PMI, regular rate and rhythm, S1, S2 normal. No murmurs, rubs or gallop s noted. ABDOMEN: Soft, nontender, no organomegaly, masses or bruits. Bowel sounds are normal in all 4 quadrants. EXTREMITIES: No edema. Radial pulses 2+ bilaterally. DP and PT pulses are 2+ bilaterally. SKIN: Warm and dry, capillary refill is normal, no lesions. NEUROLOGIC: Awake, alert and oriented x 3. No focal motor deficits. PSYCHIATRIC: Appropriate, affect appears normal DATA Most recent blood work from 08/05/2019 reviewed including total sodium 140, potassium 3.9, chloride 102, carbon dioxide 28, glucose 103, BUN 18, creatinine 1.09, GFR 49, calcium 9.7, AST 12, ALT 10, alkaline phosphatase 60, total bilirubin 0.5, total protein 6.9. EK03/17/2019 ordered and reviewed by myself normal sinus rhythm 70 bpm, normal EKG Last Echo: Impression 1. Left ventricular systolic function is hyperdynamic with an estimated EF of >70%. 2. The left ventricle cavity size is normal. 3. The right ventricle is normal in size and function. 4. The left and right atria are mildly enlarged. 5. There are no hemodynamically significant valve abnormalities. Last stress test: 06/30/2018 Lexiscan Cardiolite stress test was normal Last cath: Carotid US: AAA screening: Lower extremity US: OTHERS: Zio patch 14 day 08/10/18 Predominant rhythm was normal sinus rhythm she had rare PACs and PVCs, there was rare short paroxysmal episodes of SVT, longest of which was 16 beats 48 hour monitor 11/22/18 Normal sinus rhythm episodes of short runs of SVT noted ASSESSMENT & PLAN 1. Paroxysmal SVT 2. HTN 3. HLD 4. Essential tremor 5. Arthritis 6. CKD -The patient is a 79-year-old female who presents to the cardiology office for follow up re garding symptomatic episodes of SVT. Prior Holter monitoring demonstrated short runs of SVT. She had a recent stress test which was normal. Her echo demonstrates normal LF function and mildly enlarged left and right atria. She has had symptom improvement with diltiazem but co ntinues to have break through episodes. These episodes have been successfully broken with va gal maneuvers. We will repeat an ambulatory monitor to try to capture the specific etiology of her palpitations. - Continue Diltiazem to 180 mg by mouth daily - Obtain a 2 week event monitor -The patient was advised to avoid drinking excessive amounts of Pepsi. She was instructed t o drink no more than 1 caffeinated drink per day otherwise, she should switch to decaf. - Follow up in 3 months Thank you for allowing me to participate in the care of this patient. Primary Care Physician: GARFIELD Kearney DO documented in this enco unter Plan of Treatment +--------+ + + + + | Date | Type | Specialty | Care Team | Description | +--------+ + + + + | 08/14/ | Appointment | Radiology | Farhana Castillo | | | 2019 | | | [address] | | | | | | [address] | | | | | | [place] [address] | | | | | | [phone] | | | | | | | | +--------+ + + + + | 09/13/ | Office | Cardiology | GraceFarhana wiseman | | | 2019 | Visit | | [address] | | | | | | [address] | | | | | | [place] [address] | | | | | | [phone] | | | | | | | | +--------+ + + + + + +------+--------+ + + | Name | Type | Priori | Associated Diagnoses | Order Schedule | | | | ty | | | + +------+--------+ + + | Event monitor - 2 | ECG | Routin | Palpitations | Expected: | | week | | e | | 09/22/2019, Expires: | | | | | | 09/15/2020 | + +------+--------+ + + documented as of this encounter Visit Diagnoses + + | Diagnosis | + + | Palpitations - Primary | + + | SVT (supraventricular tachycardia) (HCC) Other specified cardiac dysrhythmias | + + | Hypertension, unspecified type | + + documented in this encounter
--- OUTSIDE RECORDS SUMMARY | ~2020-08-07 | XMS | Encounter Summary ---
Demographics + + + | Address | [address] | | | [place] [address] | + + + | Home Phone | | + + + | Preferred Language | Unknown | + + + | Marital Status | Single | + + + | Jainism Affiliation | LDS | + + + | Race | White | + + + | Ethnic Group | Not or | + + + Author + + + | Author | [facility] | + + + | Organization | [facility] | + + + | Address | Unknown | + + + | Phone | Unavailable | + + + Support + + + + + | Name | Relationship | Address | Phone | + + + + + | Petrona Reece | ECON | [address] | | | | | [place] | | | | | [address] | | + + + + + | Michael Reece | ECON | [address] | | | | | [place] | | | | | [address] | | + + + + + | Wolf Reece | ECON | [address] | | | | | [place] | | | | | [address] | | + + + + + Care Team Providers + +------+ + | Care Production Sound Mixer Name | Role | Phone | + +------+ + | Agustin Palomares MD | PCP | | + +------+ + Encounter Details +--------+---------+ + + + | Date | Type | Department | Care Team | Description | +--------+---------+ + + + | 07/19/ | Office | Preoperative | Olimpia Mireles, | Preop examination | | 2019 | Visit | Medicine Clinic at | [facility]ER [address] [facility] | (Primary Dx); | | | | [facility] | [facility] | Disabling essential | | | | [address] | [place], [place] | tremor; Paroxysmal | | | | [facility] | [address] | SVT | | | | and Healing, | [phone] | (supraventricular | | | | Building [address] | | tachycardia) (HCC); | | | | [place], [place] | | Hypertension, | | | | [address] | | unspecified type; | | | | [phone] | | Hyperlipidemia, | | | | | | unspecified | | | | | | hyperlipidemia type; | | | | | | Asthma, unspecified | | | | | | asthma severity, | | | | | | unspecified whether | | | | | | complicated, | | | | | | unspecified whether | | | | | | persistent; | | | | | | Gastroesophageal | | | | | | reflux disease, | | | | | | esophagitis presence | | | | | | not specified | +--------+---------+ + + + Anesthesia Record + + + + + | Procedure Name | Responsible | Anesthesia Start | Anesthesia Stop Time | | | Anesthesiologist | Time | | + + + + + | LEFT ANTERIOR | Fernanda De Santiago MD | 07/22/19 0734 | 07/22/19 0859 | | IMPLANT OF DEEP | | | | | BRAIN STIMULATOR | | | | | GENERATOR (Left | | | | | Chest) | | | | + + + + + +----+---+ + + | Da | T | Event | Comment | | te | i | | | | | m | | | | | e | | | +----+---+ + + | 09 | 0 | | | | /2 | 7 | | | | 0/ | 3 | | | | 20 | 3 | | | | 19 | | | | +----+---+ + + | | 0 | Pt. Check | Prior to anesthesia start, pt. Identified, examined, chart | | | 7 | | reviewed, PARQ held, anesthetic plan made or approved by | | | 3 | | attending anesthesiologist. NPO status confirmed as appropriate | | | 3 | | for procedure Preoperative evaluation: unchanged | +----+---+ + + | | 0 | An Start | | | | 7 | | | | | 3 | | | | | 4 | | | +----+---+ + + | | 0 | Eq Check | Anesthesia machine checked Equipment verified | | | 7 | | | | | 3 | | | | | 8 | | | +----+---+ + + | | 0 | An Start | | | | 7 | Data | | | | 3 | | | | | 8 | | | +----+---+ + + | | 0 | Vitals | Monitors applied Vital signs checked Patient ready for anesthesia | | | 7 | Checked | | | | 4 | | | | | 2 | | | +----+---+ + + | | 0 | ETT | | | | 7 | | | | | 5 | | | | | 0 | | | +----+---+ + + | | 0 | Ready | | | | 7 | | | | | 5 | | | | | 1 | | | +----+---+ + + | | 0 | Abx | | | | 7 | Administere | | | | 5 | d | | | | 6 | | | +----+---+ + + | | 0 | Local | | | | 8 | Anesthetic | | | | 1 | by Surgeon | | | | 1 | | | +----+---+ + + | | 0 | Incision | | | | 8 | | | | | 1 | | | | | 2 | | | +----+---+ + + | | 0 | Surgery end | | | | 8 | | | | | 5 | | | | | 1 | | | +----+---+ + + | | 0 | An Extubate | Neuromuscular function Intact. Pharynx suctioned. Patient obeys | | | 8 | | commands. Adequate pulmonary mechanics. | | | 5 | | | | | 5 | | | +----+---+ + + | | 0 | an stop | | | | 8 | data | | | | 5 | | | | | 5 | | | +----+---+ + + | | 0 | PACU Rpt | | | | 8 | Given | | | | 5 | | | | | 9 | | | +----+---+ + + | | 0 | Anesthesia | | | | 8 | End | | | | 5 | | | | | 9 | | | +----+---+ + + | | 0 | Post-Op | | | | 9 | Page | | | | 4 | | | | | 5 | | | +----+---+ + + +------+ | Meds | +------+ + + + No medications | on file. | + + + + + | No agents on file. | + + + + | No blood administrations on file. | + + +--------+ + + + | Type | Details | Placement | Removal | +--------+ + + + | Incisi | 07/20/19; Dr. Patel; Left; head | 07/20/19 0000 by | | | on | | Kacey Vann RN | | +--------+ + + + | Incisi | 07/20/19; Dr. Guevara; Right; | 07/20/19 0000 by | | | on | head | Kacey Vann RN | | +--------+ + + + | Periph | 07/22/19; 721; Mame Talamantes RN ; | 07/22/19721 by | | | eral | Right; Forearm; 22 g; Lidocaine; | Bree Talamantes RN | | | IV | Positive | | | +--------+ + + + | Incisi | 07/22/19; 828; MD Paola; | 07/22/19828 by | | | on | Left; head | Chuyita Osuna RN | | +--------+ + + + | Incisi | 07/22/19; 0830; MD Paola; | 07/22/19829 by | | | on | Left; chest | Chuyita Osuna RN | | +--------+ + + + | ETT | 07/22/19; 0750 (created via | 07/22/19 0750 by | 07/22/19 08 by | | | procedure documentation); 7; | Paula Orellana, | Paula Orellana, | | | Oral; Cuffed; 07/22/19; 0851 | SEO STRATEGIST | SEO STRATEGIST | +--------+ + + + documented in this encounter Social History + +-------+ +--------+------+ | Tobacco [...] + + + | Blood Pressure | 119/63 | 07/19/2019 8:11 AM | | | | | PDT | | + + + + + | Pulse | 67 | 07/19/2019 8:11 AM | | | | | PDT | | + + + + + | Temperature | 36.4 C (97.6 F) | 07/19/2019 8:11 AM | | | | | PDT | | + + + + + | Respiratory Rate | 15 | 07/19/2019 8:11 AM | | | | | PDT | | + + + + + | Oxygen Saturation | 97% | 07/19/2019 8:11 AM | | | | | PDT | | + + + + + | Inhaled Oxygen | - | - | | | Concentration | | | | + + + + + | Weight | 87.1 kg (192 lb) | 07/19/2019 8:11 AM | | | | | PDT | | + + + + + | Height | 162.6 cm (5' 4") | 07/19/2019 8:11 AM | neck: 37.8 cm | | | | PDT | | + + + + + | Body Mass Index | 32.96 | 07/19/2019 8:11 AM | | | | | PDT | | + + + + + documented in this encounter Patient Instructions Patient Instructions Olimpia Mireles FNP - 07/19/2019 8:10 AM PDT PREOPERATIVE INSTRUCTIONS If you have a CPAP/BiPAP machine (or other device for Sleep Apnea treatment like a mouth gu emil), please bring it with you on the day of your surgery. Please consider having an influenza vaccination in the near future. There is no contraindic ation to having this done before your surgery. Empty stomach before surgery On the day BEFORE your surgery, drink plenty of fluids and stay well hydrated NOTHING to eat or drink after midnight the night before surgery. This includes water, coffee, candy, mints, gum. Medications Instructions On the evening before your surgery, take ALL your usual evening medications On the morning of surgery TAKE the following medications with a sip of water: Diltiazem Carbidopa-Levodopa Metoprolol Propranolol On the morning of surgery DO NOT TAKE the following medications: Vitamins or Minerals Other medications not specifically mentioned are at your discretion as to taking or not taking on the morning of surgery. Unless otherwise directed by your surgeon, do not take any Aspirin, fish oil supplements , vitamin E or non-steroidal anti-inflammatory (NSAIDs i.e. Advil, Aleve, Ibuprofen, Diclofe nac) or herbal supplements 7 days prior to your surgery. These drugs may interfere with norm al blood clotting and may cause excessive bleeding and bruising during or after the surgery. If you need a pain medication for general purposes, use Tylenol as directed. OK to take it even on the morning of surgery, if needed. If you are in doubt about any medications that you are taking, please contact our office . Skin preparation to help avoid surgical site infections HIBICLENS GUIDE TO GENERAL SKIN CLEANSING AT HOME BEFORE SURGERY Before you bathe or shower: ? Read the instructions given to you by your healthcare practitioner, and begin your genera l skin cleansing protocol as directed. ? Carefully read all directions on the product label. ? Hibiclens is not to be used on the head or face, keep out of the eyes, ears and mouth. ? Hibiclens is not to be used in the genital area. ? Hibiclens should not be used if you are allergic to chlorhexidine gluconate or any other ingredients in this preparation. *See Hibiclens label for full product information and precautions. When you bathe or shower the night before your surgery: ? If you plan to wash your hair, do so with your regular shampoo. Then rinse hair and body thoroughly to remove any shampoo residue. ? Wash your face with your regular soap or water only. ? Thoroughly rinse your body with warm water from neck down. ? Use Hibiclens as you would any other liquid soap. Please do not put the Hibiclens on a wa sh cloth, apply directly to the skin and wash gently. Apply the minimum amount of Hibiclens necessary to cover the skin. Leave the Hibiclens on your skin for 1 minute, then rinse off. ? Rinse thoroughly with warm water. ? Do not use your regular soap after applying and rinsing Hibiclens. When using Hibiclens for a second day in a row (morning of surgery, as soon as you wake up) : ? Shower/bathe again using Hibiclens in the same method as described above. ? Do not apply any lotions, deodorants, powders or perfumes to the body areas that have been cleaned with Hibiclens. Other Important Guidelines ? Do not shave the surgical area Do not smoke, drink alcohol or use recreational drugs for 24 hours before your surgery Watch for any change in your health condition. Let your surgeon know right away if you do not feel well. ? Do not wear makeup, perfume, lotions, deodorant, powder or hairspray. Do not wear any jewelry to the hospital. Wear loose, comfortable clothing. Leave all your valuables at home. Allow enough travel time so you re not late for your check in for surgery. Please remember to brush your teeth the night before and the morning of your procedure. Preventing post op complications while you are in the hospital Use an incentive spirometer or peep breathe to keep your lungs working properly an d to help prevent respiratory complications. It helps you take long, deep breaths. Use it at least once every hour while you are awake. Leg and feet exercises will maintain good circulation and help prevent blood clots in yo ur legs. Sometimes your doctor will order sequential air compression stockings. Compressed air helps the circulation in your legs. Walking and moving will help stimulate normal circulation and deep breathing. After you r surgery, your nurse may ask you to sit, stand or walk. Surgery check-in location: Admitting - [facility], ninth floor lobby--1st Procedure [facility] [place] [address], 1st Floor Lobby--2nd Procedure Surgery Check in Time: The Preoperative Medicine Clinic is not in the position to give you accurate information regarding surgical check in time. We refer you back to your surgical office regarding this important information. Going Home Your surgical team will decide when you are medically ready to go home. If you are released to go home on the same day as your procedure/surgery please note the following: You will not be able to drive yourself A responsible adult MUST escort you home. You may not drive yourself Your responsible adult can drive you or they can accompany you in a taxi, ride share (zazueta ch as Uber/Lyft), or public transportation. An Uber/Lyft/bung driver does not count as the responsible adult who accompanies you. Certified Medical Transport can transport you after surgery as long as a competent adult is waiting for you on arrival at your destination Although not mandatory, it is highly recommended that a patient has a responsible person with you to provide overnight monitoring/support following discharge. It IS required that you have a competent person assist you and look after you on the st night after you have undergone regional blocks (72 hours for patients going home with reg ional block pump) If you stayed in the hospital after surgery, please discuss anticipated discharge time a nd plans with your inpatient team so that transportation plans and other going home arrangem ents can be coordinated If you have questions or concerns after you go home, call your doctor s office. If it is after office hours, call the [facility] wharf operator at [phone] and ask them to page him or h er. documented in this encounter Progress Notes Olimpia Mireles FNP - 07/19/2019 8:10 AM PDTFormatting of this note might be different fro m the original. PREOPERATIVE CONSULT NOTE Author: HAN Luong Referring Physician: Ne Guevara MD Primary Care Provider: Agustin Palomares MD Reason for Consult: Preoperative evaluation and risk assessment Proposed Procedure/Date: BILATERAL CRANIAL IMPLANT OF DEEP BRAIN STIMULATOR ELECTRODES WITH INTRA-OPERATIVE CT on 07/20/2019 LEFT ANTERIOR IMPLANT OF DEEP BRAIN STIMULATOR GENERATOR on 07/22/2019 Proposed Procedure Location: [facility] HISTORY OF PRESENT ILLNESS: Rula Reece is a 79 y.o. female here for preoperative evalua tion of medical problems in anticipation of the above procedure. Pt has dx of Essential Kenny mor. Symptoms related to the diagnosis: poorly controlled tremor. Pertinent medical problems discussed during this visit: Paroxysmal SVT--stable on Diltiazem and Propranolol. Prior Holter monitoring demonstrate d short runs of SVT. She had a recent stress test which was normal. Her echo demonstrates no rmal LF function and mildly enlarged left and right atria, findings included in the note. Fermin barone f/u with Dr. Kearney cardiology in [place], [place]. Hypertension--well controlled Asthma--mild, optimized on daily inhaler HLD--continue statin therapy. GERD--diet controlled and OTC prn At high risk for JOANNE based on today's assessment Frail elderly patient but medically stable Perioperative cardiac risks: CAD no CHF no CVA no CKD with creatinine >2 no DM treated with insulin no Functional Capacity: Low (1-4 mets) Prior complications of anesthesia: none ROS: Prior Anesthetic Problems: No Pulmonary: no shortness of breath no cough no stridor no wheezing no Recent Respiratory Infectio n Pt. Has asthma Classification: allergic asthma Frequency of rescue inhaler use: infrequen t ER Visits/Hospitalizations: none no COPD No dx of sleep apnea Risk factors for sleep ap kelly: Pt SNORE's loudly (louder than talking) Pt. being treated for high blood pressure Age>5 0 pt. 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 Low activity, water aerobics 3 times per week. Endorses sob with activity resolves with rest; no CP. Functional Capacity: Low - cyanosis, palpitations and syncope no chest pain no CHF hypertension well controlled n o CAD Sx no valvular problems/murmurs arrhythmia SVT no Cardiac assist devices no pacemak er/ICD GI/Hepatic: no GI Bleed GERD Control: rare/only with certain foods no liver disease no hepatitis Renal: Patient reports renal insufficiency no renal failure no electrolyte abnormalities no di alysis Urology/Electronic Design Engineer: Urologic Conditions: bladder spasms Endo: no Diabetes: no Endocrine Other no Hx Corticosteroid Use Neuro/Psych: Head Conditions: Parkinson's disease No Spine Conditions No Neuromuscular Conditions Othe r symptoms tremors no Psych Disorder pain (arthritis joint pain.) Current pain score: 2 Chr onic Pain Musculoskeletal: arthritis Type: osteoarthritis Manifestations: TMJ (limited mouth opening) Additional Comme nts: No Muscular Disorders Heme/Onc: Pt. has: no active bleeding no bleeding disorder No clotting disorders No hemoglobin d isorders no malignancy Infectious Disease: no MRSA no VRE Skin: no open wounds no skin conditions AutoImmune Disorders: No autoimmune disorders Current medications reviewed / updated Current Outpatient Medications Medication Sig ACETAMINOPHEN ORAL Take 650 mg by mouth. Indications: Per patient, 2x daily AM, 2x araseli y PM BENZONATATE ORAL Take 100 mg by mouth. carbidopa-levodopa 10-100 mg oral tablet 1 tablet two times daily. cholecalciferol (Vitamin D3) (VITAMIN D3) 1,000 unit oral capsule Take 1,000 Units by m outh once daily. dilTIAZem CD 24 hour release 180 mg oral capsule,extended release 24hr Take 180 mg by m outh once daily. fluticasone propionate (FLOVENT HFA INHL) Inhale 2 puffs once daily. gabapentin 300 mg oral capsule Take 600 mg by mouth once daily at bedtime. nitroglycerin 0.4 mg sublingual tablet, sublingual Place 0.4 mg under tongue every five minutes as needed for chest pain. Place under tongue and allow to dissolve. Administer malika ry 5 minutes, max of 3 doses in 15 minutes. ONDANSETRON ORAL Take 4 mg by mouth as needed. promethazine 25 mg oral tablet Take 25 mg by mouth. propranolol 40 mg oral tablet 80 mg two times daily. simvastatin 20 mg oral tablet 20 mg once daily in the evening. SUMAtriptan 100 mg oral tablet Take 100 mg by mouth. tamsulosin 0.4 mg oral capsule 0.4 mg once daily at bedtime. Level of confidence in medication reconciliation accuracy: High Allergies reviewed / updated Allergies Allergen Reactions Primidone Bleeding Pt states nose bleeds occurs Sulfa (Sulfonamide Antibiotics) Unknown Told I had reaction as a child Amitriptyline Unknown "The feeling is not good even at 1/4 pill" Past medical history reviewed / updated Past Medical History: Diagnosis Date HLD (hyperlipidemia) Hypertension SVT (supraventricular tachycardia) (HCC) Tremor Past surgery reviewed / updated Past Surgical History Procedure Laterality Date Appendectomy Tonsillectomy Left total knee arthroplasty Hip arthroplasty Bilateral Hysterectomy D&c (dilatation and curettage) x3 Cataract surgery Bilateral Sinus surgery Family history reviewed / updated Family History Non contributory Social history reviewed / updated Social History Tobacco Use Smoking status: Never Smoker Smokeless tobacco: Never Used Substance Use Topics Alcohol use: No Drug use: No PHYSICAL EXAM: Last Vitals: BP 119/63 | Pulse 67 | Temp 36.4 C (97.6 F) (Oral) | Resp 15 | Ht 1.62 6 m (5' 4") Comment: neck: 37.8 cm | Wt 87.1 kg (192 lb) | SpO2 97% | BMI 32.96 kg/m | BSA 1.98 m Body mass index is 32.96 kg/m. General: Appearance: Healthy, Age appropriate and No distress LOC: Alert HEENT: Normocephalic/Atraumatic, Normal sclerae/conjunctivae, PERRL, EOMI and No thyromegaly Airway: Dentition: dentures-upper dentures-lower missing teeth Dentition Comments: TMJ Mallampati: 4 Mouth Opening: > 3 cm TM Distance:> 6 cm C-Spine ROM: Limited extension Neck Anatomy: Normal Neck Circumference: 37.8 cm. Jaw Protrusion: Limited (lower incisors only meet upper incis ors) Pulmonary: Respiratory: pulmonary exam normal Breath Sounds: breath sounds normal Cardiovascular: Rhythm: Regular Rate: Normal Cardiovascular comments: No M/G/R; no pedal edema Abdomen: General: Normal Body Habitus: normal Musculoskeletal: Range of Motion: Normal range of motion Musculoskeletal Comments: No obvious deformities n oted. Neuro/Psych: Affect: Normal Cognitive Status: Normal Speech: Normal speech Strength: Normal Muscle Tone: Normal Movement: Normal Gait Station: Normal Cranial Nerves: Normal Sensation: Normal to light touch Comments: No obvious neurologic deficits noted Skin: Color: skin color normal Texture: Normal Turgor: turgor normal Temperature: Warm Other Implanted Devices: Implanted devices: None LABS & DATA REVIEWED/ORDERED No results found for: WBC, HB, HCT, PLT, MCV, RDW No results found for: NA, K, CL, BICARB, BUN, CR, GLU, CA, AST, ALT, AP, TBILI, TP, ALB, DI RBILI No results found for: ABO, RH No results found for: A1C EKG: Personally reviewed. Sinus Rhythm HR:64 normal EKG Outside records reviewed from [facility] and "media" tab. Findings pertinent to this pr eoperative visit are as follows: Echo done on 04/04/2019--[facility] Impression 1. Left ventricular systolic function is hyperdynamic with an estimated EF of >70%. 2. The left ventricle cavity size is normal. 3. The right ventricle is normal in size and function. 4. The left and right atria are mildly enlarged. 5. There are no hemodynamically significant valve abnormalities. Last stress test: 06/30/2018 Lexiscan Cardiolite stress test was normal Zio patch 14 day 08/10/18 Predominant rhythm was normal sinus rhythm she had rare PACs and PVCs, there was rare short paroxysmal episodes of SVT, longest of which was 16 beats 48 hour monitor 11/22/18 Normal sinus rhythm episodes of short runs of SVT noted Perioperative risk calculators 2014 ACC/AHA Perioperative Cardiac Risk Stratification (assumes non-emergent, non-cardiac p rocedure) Are active cardiac conditions present? No Calculate the combined surgical and patient-specific risk: using the [employer]ia perioperative ca rdiac risk calculator, the risk of major adverse cardiac event (MACE) is: less than 1%. No further risk stratification for coronary disease is indicated. Estimated ASA class 3 Other perioperative risk calculators: Not Applicable ASSESSMENT and RECOMMENDATIONS: Perioperative risk assessment: Rula Reece is a 79 y.o. female with diagnosis of Essen tial Tremor, scheduled for BILATERAL CRANIAL IMPLANT OF DEEP BRAIN STIMULATOR ELECTRODES WIT H INTRA-OPERATIVE CT on 07/20/2019, LEFT ANTERIOR IMPLANT OF DEEP BRAIN STIMULATOR GENERATOR on 07/22/2019. Based on the clinical information obtained and reviewed during this visit, th e overall assessment is that the patient is having elective major surgery with identified ri sk factors. The patient is stable / optimized for surgery. Additional testing/optimizatio n is not needed. The patient is also currently scheduled at [facility] and is meeting inclusion criteria for that venue. Medication management recommendations: The patient was advised to continue all usual med ications except as noted in Patient Instructions (After Visit Summary given to pt) Pre-procedure antibiotic recommendation: Per standard protocol. Paroxysmal SVT--stable on Diltiazem and Propranolol. Prior Holter monitoring demonstrate d short runs of SVT. She had a recent stress test which was normal. Her echo demonstrates no rmal LF function and mildly enlarged left and right atria, findings included in the note. Fermin barone f/u with Dr. Kearney cardiology in [place], [place]. Hypertension--well controlled Asthma--mild, optimized on daily inhaler HLD--continue statin therapy. GERD--diet controlled and OTC prn At high risk for JOANNE based on today's assessment Frail elderly patient but medically stable Thank you for the opportunity to contribute to this patient's care. HAN Luong [facility] [address] [place] [id number] I spent time counseling the pt regarding perioperative risk (cardiac/bleeding/ DVT/ respir atory failure/ infection, etc) and methods to mitigate risk. I advised the patient regardin g NPO requirements, hydration before surgery, showering, general body hygiene. All pre-proc edure instructions given to the patient (after-visit summary). All of patient's questions w ere addressed. The patient verbalized understanding of the instructions given. Electronica lly signed by HAN Luong at 07/19/2019 9:56 AM Anne Marie Fish MA - 07/19/2019 8:10 AM PDTVenipuncture performed in clinic, blood sample obtained from Right antecubital s ite documented in this encounter Plan of Treatment +--------+ + + + + | Date | Type | Specialty | Care Team | Description | +--------+ + + + + | 08/22/ | Procedure | Neurology | Cristopher Rosa, | | | 2019 | | | [address] | | | | | | [place], [place] | | | | | | [address] | | | | | | [phone] | | | | | | | | +--------+ + + + + + + +--------+ + + | Name | Type | Priori | Associated Diagnoses | Order Schedule | | | | ty | | | + + +--------+ + + | COMMUNICATION TO [facility] | Procedures | Routin | Preop examination | Ordered: 07/19/2019 | | LAB DRAW | | e | | | + + +--------+ + + documented as of this encounter Procedures + +--------+ + + + | Procedure Name | Priori | Date/Time | Associated Diagnosis | Comments | | | ty | | | | + +--------+ + + + | SC COLLECTION VENOUS | Routin | 07/19/2019 | Preop examination | | | BLOOD,VENIPUNCTURE | e | 9:45 AM | | | | | | PDT | | | + +--------+ + + + | [facility] - CBC ONLY | Routin | 07/19/2019 | Preop examination | Results for this | | | e | 9:45 AM | | procedure are in the | | | | PDT | | results section. | + +--------+ + + + | ANTIBODY SCREEN | Routin | 07/19/2019 | Preop examination | Results for this | | | e | 9:45 AM | | procedure are in the | | | | PDT | | results section. | + +--------+ + + + | TYPE AND SCREEN | Routin | 07/19/2019 | Preop examination | Results for this | | | e | 9:45 AM | | procedure are in the | | | | PDT | | results section. | + +--------+ + + + | ABO & RH TYPE | Routin | 07/19/2019 | Preop examination | Results for this | | | e | 9:45 AM | | procedure are in the | | | | PDT | | results section. | + +--------+ + + + | [facility] - BASIC | Routin | 07/19/2019 | Preop examination | Results for this | | METABOLIC SET | e | 9:44 AM | | procedure are in the | | | | PDT | | results section. | + +--------+ + + + | 12 LEAD ECG | Routin | 07/19/2019 | Preop examination | Results for this | | | e | 9:39 AM | | procedure are in the | | | | PDT | | results section. | + +--------+ + + + documented in this encounter Results ANTIBODY SCREEN (07/19/2019 9:45 AM PDT) + + + + + + | Component | Value | Ref Range | Performed | Pathologist | | | | | At | Signature | + + + + + + | Antibody | Negative | | [facility] | | | Screen | | | LABORATORY | | | | | | SERVICES, | | | | | | TRANSFUSION | | | | | | MEDICINE | | + + + + + + + + | Specimen | + + | Blood - Blood | | (substance) | + + + + + + + | Performing | Address | City/State/Zipcode | Phone Number | | Organization | | | | + + + + + | [facility] | [address] | [place] [address] | | | SERVICES, | [address] | | | | TRANSFUSION MEDICINE | | | | + + + + + ABO & RH TYPE (07/19/2019 9:45 AM PDT) + + + + + + | Component | Value | Ref Range | Performed | Pathologist | | | | | At | Signature | + + + + + + | ABO Group | A | | [facility] | | | | | | LABORATORY | | | | | | SERVICES, | | | | | | TRANSFUSION | | | | | | MEDICINE | | + + + + + + | Rh Type | Positive | | [facility] | | | | | | LABORATORY | | | | | | SERVICES, | | | | | | TRANSFUSION | | | | | | MEDICINE | | + + + + + + + + | Specimen | + + | Blood - Blood | | (substance) | + + + + + + + | Performing | Address | City/State/Zipcode | Phone Number | | Organization | | | | + + + + + | [facility] | [address] | [place] [address] | | | SERVICES, | [address] | | | | TRANSFUSION MEDICINE | | | | + + + + + [facility] - CBC ONLY (07/19/2019 9:45 AM PDT) + + + + + + | Component | Value | Ref Range | Performed | Pathologist | | | | | At | Signature | + + + + + + | WHITE CELL | 8.67 | 3.50 - 10.80 | [facility] | | | COUNT | | K/cu mm | LABORATORY | | | | | | SERVICES, | | | | | | [facility] + | | | | | | [facility]AL[facility] | | + + + + + + | RED CELL | 3.90 (L) | 4.00 - 5.20 | [facility] | | | COUNT | | M/cu mm | LABORATORY | | | | | | SERVICES, | | | | | | [facility] + | | | | | | [facility]AL[facility] | | + + + + + + | HEMOGLOBIN | 12.3 | 12.0 - 16.0 | [facility] | | | | | g/dL | LABORATORY | | | | | | SERVICES, | | | | | | [facility] | [facility] + | | | | | | HEALING | | + + + + + + | HEMATOCRIT | 38.0 | 36.0 - 46.0 % | [facility] | | | | | | LABORATORY | | | | | | SERVICES, | | | | | | [facility] | [facility] + | | | | | | [facility]ALING | | + + + + + + | MCV | 97.4 | 80.0 - 100.0 fL | [facility] | | | | | | LABORATORY | | | | | | SERVICES, | | | | | | [facility] | [facility] + | | | | | | [facility]ALING | | + + + + + + | MCHC | 32.4 | 32.0 - 36.0 | [facility] | | | | | g/dL | LABORATORY | | | | | | SERVICES, | | | | | | [facility] | [facility] + | | | | | | [facility]ALING | | + + + + + + | RDW SD | 47.8 (H) | 35.1 - 46.3 fL | [facility] | | | | | | LABORATORY | | | | | | SERVICES, | | | | | | [facility] + | | | | | | [facility]ALING | | + + + + + + | PLATELET | 288 | 150 - 400 K/cu | [facility] | | | COUNT | | mm | LABORATORY | | | | | | SERVICES, | | | | | | [facility] | [facility] + | | | | | | [facility]ALING | | + + + + + + | MPV | 8.5 (L) | 9.7 - 12.3 fL | [facility] | | | | | | LABORATORY | | | | | | SERVICES, | | | | | | [facility] | [facility] + | | | | | | [facility]ALING | | + + + + + + | NRBC% | 0.0 | 0.0 - 0.3 % | [facility] | | | | | | LABORATORY | | | | | | SERVICES, | | | | | | [facility] | [facility] + | | | | | | [facility]ALING | | + + + + + + | NRBC# | 0.00 | 0.00 - 0.02 | [facility] | | | | | K/cu mm | LABORATORY | | | | | | SERVICES, | | | | | | [facility] | [facility] + | | | | | | [facility]ALING | | + + + + + + + + | Specimen | + + | Blood - Blood | | (substance) | + + + + + + + | Performing | Address | City/State/Zipcode | Phone Number | | Organization | | | | + + + + + | [facility] | [address] | [place] [address] | | | [facility] | | | | | HEALTH + HEALING | | | | + + + + + [facility] - BASIC METABOLIC SET (07/19/2019 9:44 AM PDT) + + + + + + | Component | Value | Ref Range | Performed | Pathologist | | | | | At | Signature | + + + + + + | GLUCOSE, | 126 (H) | 70 - 99 mg/dL | [facility] | | | PLASMA | | | LABORATORY | | | (LAB) | | | SERVICES, | | | | | | [facility] + | | | | | | [facility]ALING | | + + + + + + | BUN, PLASMA | 22 (H) | 6 - 20 mg/dL | [facility] | | | (LAB) | | | LABORATORY | | | | | | SERVICES, | | | | | | [facility] | [facility] + | | | | | | HEALING | | + + + + + + | CREATININE | 1.29 (H) | 0.60 - 1.10 | [facility] | | | PLASMA | | mg/dL | LABORATORY | | | (LAB) | | | SERVICES, | | | | | | [facility] | [facility] | [facility] + | | | | | | HEALING | | + + + + + + | EGFR | 48 (L) | >60 mL/min | [facility] | | | - | | | LABORATORY | | | STATELESS | | | SERVICES, | | | | | | [facility] | [facility] + | | | | | | HEALING | | + + + + + + | EGFR NON | 40 (L) | >60 mL/min | [facility] | | | -ELOY | | | LABORATORY | | | RICAN | | | SERVICES, | | | | | | [facility] | | [facility] + | | | | | | HEALING | | + + + + + + | SODIUM, | 142 | 136 - 145 | [facility] | | | PLASMA | | mmol/L | LABORATORY | | | (LAB) | | | SERVICES, | | | | | | [facility] | [facility] + | | | | | | HEALING | | + + + + + + | POTASSIUM, | 4.1 | 3.4 - 5.0 | [facility] | | | PLASMA | | mmol/L | LABORATORY | | | (LAB) | | | SERVICES, | | | | | | [facility] | | [facility] + | | | | | | HEALING | | + + + + + + | CHLORIDE, | 105 | 97 - 108 mmol/L | [facility] | | | PLASMA | | | LABORATORY | | | (LAB) | | | SERVICES, | | | | | | [facility] | | | [facility] + | | | | | | HEALING | | + + + + + + | TOTAL CO2, | 26 | 21 - 32 mmol/L | [facility] | | | PLASMA | | | LABORATORY | | | (LAB) | | | SERVICES, | | | | | | [facility] | | [facility] + | | | | | | HEALING | | + + + + + + | CALCIUM, | 9.2 | 8.6 - 10.2 | [facility] | | | PLASMA | | mg/dL | LABORATORY | | | (LAB) | | | SERVICES, | | | | | | [facility] | [facility] | | [facility] + | | | | | | HEALING | | + + + + + + | ANION GAP | 11 | 4 - 11 mmol/L | [facility] | | | | | | LABORATORY | | | | | | SERVICES, | | | | | | [facility] | | | [facility] + | | | | | | HEALING | | + + + + + + | POTASSIUM | No Hemo | | [facility] | | | CMNT | | | LABORATORY | | | | | | SERVICES, | | | | | | [facility] | | | | [facility] + | | | | | | HEALING | | + + + + + + + + | Specimen | + + | Blood - Blood | | (substance) | + + + + + | Narrative | Performed At | + + + | GFR is estimated using the MDRD equation recommended by the National | [facility] | | Kidney Disease Education Program. Estimated GFR Interpretive | LABORATORY | | Information: <60 mL/min/1.73 sq m Chronic Kidney | SERVICES, | | Disease <15 mL/min/1.73 sq m Kidney Failure | [facility] FOR | | Estimated GFR greater than 60 mL/min/1.73 sq m is of limited clinical | HEALTH + | | value. The MDRD equation is not valid in the following situations: - | HEALING | | Patients under 18 years of age - Severe malnutrition or obesity - | | | Vegetarian diet - Rapidly changing kidney function - Amputees, | | | paraplegics, or other muscle-wasting diseases | | + + + + + + + + | Performing | Address | City/State/Zipcode | Phone Number | | Organization | | | | + + + + + | [facility] | [address] | [place] [address] | | | SERVICES, [facility] | | | | | [facility] + HEALING | | | | + + + + + 12 LEAD ECG (07/19/2019 9:39 AM PDT) + + + + + + | Component | Value | Ref Range | Performed | Pathologist | | | | | At | Signature | + + + + + + | VENTRICULAR | 64 | bpm | [facility] | | | RATE | | | OF | | | | | | CARDIOLOGY | | + + + + + + | ATRIAL RATE | 64 | ms | [facility] | | | | | | OF | | | | | | CARDIOLOGY | | + + + + + + | P-R | 184 | ms | [facility] | | | INTERVAL | | | OF | | | | | | CARDIOLOGY | | + + + + + + | P AXIS | 68 | deg | [facility] | | | | | | OF | | | | | | CARDIOLOGY | | + + + + + + | QRS | 98 | ms | [facility] | | | DURATION | | | OF | | | | | | CARDIOLOGY | | + + + + + + | QT | 421 | ms | [facility] | | | | | | OF | | | | | | CARDIOLOGY | | + + + + + + | LAMBERT-LALI | 434 | ms | [facility] | | | | | | OF | | | | | | CARDIOLOGY | | + + + + + + | R AXIS | 0 | deg | [facility] | | | | | | OF | | | | | | CARDIOLOGY | | + + + + + + | T AXIS | 27 | deg | [facility] | | | | | | OF | | | | | | CARDIOLOGY | | + + + + + + | ECG | Sinus rhythm- NORMAL ECG | | [facility] | | | IMPRESSION | - | | OF | | | | | | CARDIOLOGY | | + + + + + + | ECG | Electronically signed | | [facility] | | | IMPRESSION | by: EYAD COX | | OF | | | | 07-19-2019 11:44:28 | | CARDIOLOGY | | + + + + + + + + | Specimen | + + | | + + + + + | Narrative | Performed At | + + + | | | + + + + + + + + | Performing | Address | City/State/Zipcode | Phone Number | | Organization | | | | + + + + + | [facility] | [address] | [place], [place] | | | CARDIOLOGY | [address] | [address] | | + + + + + documented in this encounter Visit Diagnoses + + | Diagnosis | + + | Preop examination - Primary Preoperative examination, unspecified | + + | Disabling essential tremor Essential and other specified forms of tremor | + + | Paroxysmal SVT (supraventricular tachycardia) (HCC) Paroxysmal supraventricular | | tachycardia | + + | Hypertension, unspecified type | + + | Hyperlipidemia, unspecified hyperlipidemia type | + + | Asthma, unspecified asthma severity, unspecified whether complicated, unspecified | | whether persistent | + + | Gastroesophageal reflux disease, esophagitis presence not specified | + + documented in this encounter
--- OUTSIDE RECORDS SUMMARY | ~2020-08-07 | XMS | Encounter Summary ---
Demographics + + + | Address | [address] | | | [place] [address] | + + + | Home Phone | | + + + | Preferred Language | Unknown | + + + | Marital Status | | + + + | Bahai Affiliation | 1027 | + + + | Race | White | + + + | Ethnic Group | Not or | + + + Author + + + | Author | [facility] | | | and [place] | + + + | Organization | [facility] | | | and [place] | + + + | Address | Unknown | + + + | Phone | Unavailable | + + + Support + + +---------+ + | Name | Relationship | Address | Phone | + + +---------+ + | Petrona Shelley | ECON | Unknown | | + + +---------+ + | Michael Shelley | ECON | Unknown | | + + +---------+ + Care Team Providers + +------+ + | Care Pediatrics Teacher Name | Role | Phone | + +------+ + | Garfield Moss MD | PCP | | + +------+ + Reason for Visit Auth/Cert +--------+--------+ + + + + | Status | Reason | Specialty | Diagnoses / | Referred By | Referred To | | | | | Procedures | Contact | Contact | +--------+--------+ + + + + | | | | Diagnoses | | [place], | | | | | Chronic | | Jean-Pierre Ruby MD | | | | | pansinusitis | | [address] | | | | | Polyp of | | [address] | | | | | nasal cavity | | [place], | | | | | Procedures | | [place] [address] | | | | | ME EXPLORE | | Phone: | | | | | 3+ SINUSES | | [phone] | | | | | ME EXCISION | | Fax: | | | | | NOSE | | [phone] | | | | | POLYP(S),EXT | | | | | | | ENSIVE | | | | | | | Bilateral | | | | | | | pansinusotom | | | | | | | ies with | | | | | | | polypectomie | | | | | | | s | | | +--------+--------+ + + + + Encounter Details +--------+ + + + + | Date | Type | Department | Care Team | Description | +--------+ + + + + | 06/27/ | Hospital | [facility] | Herb Bostony Flori, | | | 2019 | Encounter | MED CTR [facility] OP | [address] | | | | | [address] | [address] [place], | | | | | [place], [place] | [place] [address] | | | | | [address] | [phone] | | | | | [phone] | | | +--------+ + + + [...] + + + | Blood Pressure | 114/78 | 06/27/2020 11:45 AM | | | | | PDT | | + + + + + | Pulse | 62 | 06/27/2020 11:50 AM | | | | | PDT | | + + + + + | Temperature | 36.2 C (97.2 F) | 06/27/2020 9:45 AM | | | | | PDT | | + + + + + | Respiratory Rate | 16 | 06/27/2020 11:50 AM | | | | | PDT | | + + + + + | Oxygen Saturation | 98% | 06/27/2020 11:50 AM | | | | | PDT | | + + + + + | Inhaled Oxygen | - | - | | | Concentration | | | | + + + + + | Weight | 92.2 kg (203 lb 4.2 | 06/27/2020 8:01 AM | | | | oz) | PDT | | + + + + + | Height | 162.6 cm (5' 4") | 06/27/2020 8:01 AM | | | | | PDT | | + + + + + | Body Mass Index | 34.89 | 06/27/2020 8:01 AM | | | | | PDT | | + + + + + documented in this encounter Medications at Time of Discharge + + + +---------+ + + | Medication | Sig | Dispensed | Refills | Start | End Date | | | | | | Date | | + + + +---------+ + + | acetaminophen | Take 500 mg by mouth | | 0 | | | | (TYLENOL) 500 mg | every 6 hours as | | | | | | tablet | needed for Pain. | | | | | + + + +---------+ + + | cephalexin | Take 1 capsule by | 20 | 0 | 06/27/20 | | | (KEFLEX) 500 mg | mouth 4 times daily. | capsule | | 20 | | | capsule | | | | | | + + + +---------+ + + | diclofenac | | | 0 | 06/25/20 | | | (VOLTAREN) 1% GEL | | | | 20 | | + + + +---------+ + + | dilTIAZem | Take 1 capsule by | 90 | 3 | 06/23/20 | | | (DILTIAZEM CD) 180 | mouth Daily. | capsule | | 19 | | | mg 24 hr capsule | | | | | | + + + +---------+ + + | docusate sodium | Take 100 mg by mouth | | 0 | | | | (COLACE) 100 mg | nightly. | | | | | | capsule | | | | | | + + + +---------+ + + | fluticasone | Inhale 1 puff into | | 0 | | | | (FLOVENT HFA) 110 | the lungs 2 times | | | | | | mcg/puff inhaler | daily. | | | | | + + + +---------+ + + | gabapentin | Take 600 mg by mouth | | 0 | | | | (NEURONTIN) 300 mg | nightly. | | | | | | capsule | | | | | | + + + +---------+ + + | Multiple | Take 1 tablet by | | 0 | | | | Vitamins-Minerals | mouth Daily . | | | | | | (CENTRUM SILVER PO) | | | | | | + + + +---------+ + + | nitrofurantoin | Take 100 mg by mouth | | 0 | | | | (MACROBID) 100 mg | 2 times daily. | | | | | | capsuleIndications: | Indications: Simple | | | | | | Uncomplicated | Infection of the | | | | | | Urinary Tract | Urinary Tract | | | | | | Infection | | | | | | + + + +---------+ + + | nitroglycerin | Place 0.4 mg under | | 0 | | | | (NITROSTAT) 0.4 mg | the tongue every 5 | | | | | | SL tablet | minutes as needed | | | | | | | for Chest pain. | | | | | + + + +---------+ + + | omeprazole | Take 20 mg by mouth | | 0 | | | | (PRILOSEC) 20 mg | 2 times daily. | | | | | | capsule | | | | | | + + + +---------+ + + | Ondansetron 4 MG | Take 4 mg by mouth | | 0 | | | | FILM | every 8 hours as | | | | | | | needed for Nausea. | | | | | + + + +---------+ + + | promethazine | Take 25 mg by mouth | | 0 | | | | (PHENERGAN) 25 mg | every 6 hours as | | | | | | tablet | needed. | | | | | + + + +---------+ + + | propranolol | Take 40 mg by mouth | | 0 | | | | (INDERAL) 40 mg | 2 times daily . | | | | | | tablet | | | | | | + + + +---------+ + + | sertraline | Take 50 mg by mouth | | 0 | | | | (ZOLOFT) 25 mg | every evening . | | | | | | tablet | | | | | | + + + +---------+ + + | simvastatin | Take 20 mg by mouth | | 0 | | | | (ZOCOR) 20 mg tablet | nightly. | | | | | + + + +---------+ + + | SUMAtriptan | Take 100 mg by mouth | | 0 | | | | (IMITREX) 100 mg | as needed for | | | | | | tablet | Migraine. | | | | | + + + +---------+ + + | tamsulosin | Take 0.4 mg by mouth | | 0 | | | | (FLOMAX) 0.4 mg CAPS | daily (after | | | | | | | breakfast). | | | | | + + + +---------+ + + | | Take 1-2 tablets by | 30 | 0 | 06/27/20 | | | HYDROcodone-acetamin | mouth every 4 hours | tablet | | 20 | 0 | | ophen (NORCO) 5-325 | as needed for Pain | | | | | | mg per tablet | for up to 20 days. | | | | | + + + +---------+ + + | rOPINIRole | Take by mouth 2 | | 0 | | | | (REQUIP) 5 MG tablet | times daily 0.5 mg | | | | 0 | | | am and 1 mg nightly. | | | | | + + + +---------+ + + documented as of this encounter Miscellaneous Notes Op Note - Jean-Pierre Boston MD - 06/27/2020 9:55 [address] [address] [id number] OPERATIVE REPORT JEAN-PIERRE BOSTON MD Patient: RULA SHELLEY Admitting: JEAN-PIERRE BOSTON MR #: [id number] LOC: PT TYPE: Adm Date: 06/27/2020 : 1940 OUTPATIENT SURGERY LOCATION: [facility]. DATE OF SERVICE: 06/27/2020. PREOPERATIVE DIAGNOSES: Pansinusitis, polyposis. POSTOPERATIVE DIAGNOSES: Pansinusitis, polyposis. PROCEDURES PERFORMED: Bilateral pansinusotomies, polypectomies. SURGEON: Jean-Pierre Boston MD. ANESTHESIA: General LMA. Luciano Patel MD. PREOPERATIVE HISTORY: Rula is a 80-year-old lady with a several-month history of sinus inf ections, unresponsive to appropriate medications. A CAT scan has shown opacification of the maxillary sinuses and sphenoid sinuses with exam in the office showing polypoid material, m ainly left-sided. She is taken to the operating room for the above-mentioned procedures. OPERATIVE PROCEDURE AND FINDINGS: After informed consent, the patient was taken to the ope rating room, placed in supine position, where general LMA anesthesia was induced. The patie nt and procedure were verified. The preoperative CT was viewed throughout. The patient rec eived preoperative intranasal oxymetazoline and intravenous Ancef. The patient was repositi oned. Headlight speculum exam of the nasal cavity starting on the left side showed extensi ve polypoid material filling the nasal cavity. This was removed with a Verna. This was followed into the maxillary sinus and this polypoid granular somewhat vascular material was removed from the maxillary sinus completely filling the sinus. Curved ring curette was use d to clean out the sinus. Curved Verna used. All material removed. The nasal antral w indow was widened with the Verna and it was deemed to be adequate. Minimal bleeding st opped afterwards. Packing was placed. Kaur pack coated with Neosporin in the middle meata l area and trimmed Merocel pack in the nasal cavity. Specimen was sent to Pathology. The right side was approached. Much less polypoid material on this side. The maxillary si nus was entered with a curved ring curette. There was a purulent mucoid material in the sin us, not much polypoid tissue. The maxillary sinus opening was widened with a Verna. Th e polypoid material was further back in the posterior ethmoid in the sphenoid area and all t his tissue was removed with Verna. The sphenoid sinus was opened. Minimal bleeding. Packing placed per the other side. Packing was tied anteriorly over a pad. Pharynx was suc tioned clear of blood and secretions. Hemostasis was verified. The patient was then awaken ed, extubated, transported to the recovery room in good condition. No complications. BLOOD LOSS: Around 150 mL, mostly left sided. PACKING: Two pieces of Merocel each side. SPECIMEN: Left and right sinus contents to pathology, permanent section separately. COMPLICATIONS: No complications. DRAINS: No drains. JEAN-PIERRE BOSTON MD Dictated by JEAN-PIERRE BOSTON MD 06/27/2020 09:55:37 Transcribed on 06/27/2020 10:04:08 by job# [id number] Confirmation #: [id number] cc: GARFIELD MOSS MD rief Op Note - Jean-Pierre Boston MD - 06/27/2020 9:47 AM PDTFormatting of this note mi ght be different from the original. BRIEF OPERATIVE NOTE [facility] Pt. Name/Age/: Rula Shelley 80 y.o. 1940 Med. 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 Estimated Blood Loss: Minimal, less than 100mL IV Fluids: refer to anesthesia record Blood Transfusion: None Drains: none Specimen (s): ID Type Source Tests Collected by Time Destination A : Left Sinus Tissue Tissue Sinus, Maxillary, Left SPECIMEN TO PATHOLOGY Jean-Pierre Boston MD 06/27/2020 0911 Pathology B : right Sinus Tissue Tissue Sinus, Maxillary, Right SPECIMEN TO PATHOLOGY Jean-Pierre Boston MD 06/27/2020 0934 Pathology Implants: * No implants in log * Counts: Instrument, sponge, and needle counts were correct prior to closure and at the con clusion of the case. Complications: None Disposition: The patient was taken to PACU Immediate Post-Operative Condition: Stable Electronically signed by: Jean-Pierre Boston MD, 06/27/2020, 9:47 AM PDTElectronically sig zan by Jean-Pierre Boston MD at 06/27/2020 9:47 AM PDTInterval H&P Note (unlinked) - Jean-Pierre Boston MD - 06/27/2020 8:48 AM PDT[facility] INTERIM HISTORY AND PHYSICAL UPDATE Pt. Name/Age/: Rula Shelley 80 y.o. 1940 Date of admission: 06/27/2020 The current H&P was reviewed. The patient was reexamined. Re-evaluation of the patient co nfirms the necessity for the scheduled procedure. No change has occurred in the patient s condition since the H&P was completed less than 30 days ago. Electronically signed by: Jean-Pierre Boston MD, 06/27/2020 8:48 AM PDT [facility] documented in this e ncounter Plan of Treatment +--------+ + + + + | Date | Type | Specialty | Care Team | Description | +--------+ + + + + | 08/14/ | Appointment | Radiology | Farhana Castillo | | | 2019 | | | [address] | | | | | | [address] [address] | | | | | | [place] [address] | | | | | | [phone] | | | | | | | | +--------+ + + + + | 09/13/ | Office | Cardiology | Farhana Castillo | | | 2019 | Visit | | [address] | | | | | | [address] | | | | | | [place] [address] | | | | | | [phone] | | | | | | | | +--------+ + + + + documented as of this encounter Procedures + +--------+ + + + | Procedure Name | Priori | Date/Time | Associated Diagnosis | Comments | | | ty | | | | + +--------+ + + + | SEPTOPLASTY W/ OR | | 06/27/2020 | Chronic | | | W/O TURBINATES | | 8:59 AM | pansinusitis Polyp | | | | | PDT | of nasal cavity | | + +--------+ + + + | ECG 12 LEAD | Routin | 06/27/2020 | | Results for this | | | e | 8:46 AM | | procedure are in the | | | | PDT | | results section. | + +--------+ + + + | HEMOGLOBIN | Routin | 06/27/2020 | | Results for this | | | e | 8:23 AM | | procedure are in the | | | | PDT | | results section. | + +--------+ + + + | SURGICAL PATHOLOGY | Routin | 06/27/2020 | | Results for this | | EXAM | e | 12:00 AM | | procedure are in the | | | | PDT | | results section. | + +--------+ + + + documented in this encounter Results ECG 12 lead (06/27/2020 8:46 AM PDT) + + + + + + | Component | Value | Ref Range | Performed | Pathologist | | | | | At | Signature | + + + + + + | VENTRICULAR | 60 | BPM | [facility] | | | RATE EKG | | | | | + + + + + + | ATRIAL RATE | 60 | BPM | [facility] | | + + + + + + | P-R | 196 | ms | [facility] | | | INTERVAL | | | | | + + + + + + | QRS | 54 | ms | [facility] | | | DURATION | | | | | + + + + + + | Q-T | 428 | ms | [facility] | | | INTERVAL | | | | | + + + + + + | Q-T | 428 | ms | [facility] | | | INTERVAL | | | | | | (CORRECTED) | | | | | + + + + + + | P WAVE AXIS | 64 | degrees | [facility] | | + + + + + + | QRS AXIS | 31 | degrees | [facility] | | + + + + + + | T AXIS | 40 | degrees | [facility] | | + + + + + + | INTERPRETAT | Normal sinus rhythmLow | | [facility] | | | ION TEXT | voltage QRSAbnormal | | | | | | ECGNo previous ECGs | | | | | | availableConfirmed by | | | | | | TASIA DUPONT MD ([id number]) | | | | | | on 06/28/2020 5:57:22 AM | | | | + + + + + + + + | Specimen | + + | | + + + + + | Narrative | Performed At | + + + | | | + + + + +---------+ + + | Performing | Address | City/State/Zipcode | Phone Number | | Organization | | | | + +---------+ + + | [facility] | | | | + +---------+ + + Hemoglobin (06/27/2020 8:23 AM PDT) + +-------+ + + + | Component | Value | Ref Range | Performed | Pathologist | | | | | At | Signature | + +-------+ + + + | Hemoglobin | 13.3 | 11.5 - 16.0 | [facility] | | | | | g/dL | [facility] | | | | | [facility] | | | | | [facility] - | | | | | | LABORATORY | | + +-------+ + + + + + | Specimen | + + | Blood | + + + + + + + | Performing | Address | City/State/Zipcode | Phone Number | | Organization | | | | + + + + + | [facility] | [address] | [place] | [phone] | | [facility] | | [id number] | | | - LABORATORY | | | | + + + + + Surgical Pathology Exam (06/27/2020 12:00 AM PDT) + + | Specimen | + + | | + + + + + | Narrative | Performed At | + + + | SPECIMEN(S): A LEFT SINUS SPECIMEN(S): B RIGHT SINUS SPECIMEN | [facility] | | SOURCE: A. LEFT SINUS B. RIGHT SINUS CLINICAL HISTORY: J32.4 | [facility] | | (chronic pansinusitis), J33.0 (polyp of nasal cavity) FINAL | | | PATHOLOGIC DIAGNOSIS: A. 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 B. Right sinus contents: - Inflammatory polyps. | | | DN:[facility]:C2NR MICROSCOPIC EXAMINATION: Histologic sections of all | | | submitted blocks are examined by light microscopy. These findings, | | | together with the gross examination, support the pathologic diagnosis. | | | GROSS DESCRIPTION: Two specimens are received in two containers, | | | labeled "DF." A. The specimen, labeled "DF, left sinus tissue," | | | is received in formalin and consists of multiple fragments of | | | pink-schilling to hemorrhagic soft tissue (4.4 x 4.3 x 1.0 cm in aggregate). | | | The specimen is submitted entirely in cassette A1-A4. | | | Decalcification was not required. B. The specimen, labeled | | | "DF, right sinus tissue," is received in formalin and consists of | | | multiple fragments of pink-schilling soft tissue and red-brown clot (1.7 x | | | 1.0 x 0.5 cm in aggregate). The specimen is submitted entirely in | | | cassette B1. Decalcification was not required. AC (under the direct | | | supervision of a pathologist) The Gross Description was prepared | | | using a voice recognition system. The report was reviewed for | | | accuracy; however, sound-alike word errors, addition and/or deletions | | | may occur. If there is any question about this report, please | | | contact Client Services. PERFORMING LABORATORY: The technical | | | component was performed by [facility], [address] [place] [address], | | | [facility] [address] (Melt Superintendant: Casie George MD; CLIA# [id number]). | | | Professional interpretation was performed by [facility], | | | [facility], [address] [place] [address] | | | [place] [address] (CLIA#: [id number]). Diagnostician: Rinku | | | Etta DEL CID Pathologist Electronically Signed 06/28/2020 | | + + + + +---------+ + + | Performing | Address | City/State/Zipcode | Phone Number | | Organization | | | | + +---------+ + + | [facility] | | | | | [facility] | | | | + +---------+ + + documented in this encounter Visit Diagnoses Not on filedocumented in this encounter Administered Medications + +--------+---------+------+------+------+ | Medication Order | MAR | Action | Dose | Rate | Site | | | Action | Date | | | | + +--------+---------+------+------+------+ + +---+ | acetaminophen (TYLENOL) tablet | | | 1,000 mg 1,000 mg, Oral, SEE | | | ADMIN INSTRUCTIONS, Starting Wed | | | 06/27/20 at 0758, For 1 dose, | | | Nursing to give 60 minutes before | | | time of surgery, Pre-op | | + +---+ | | | + +---+ | albuterol 2.5 mg/3 mL nebulizer | | | solution 2.5 mg 2.5 mg, | | | Nebulization, ONCE PRN, Wheezing, | | | Starting 06/27/20 at 0758, | | | For 1 dose, RT will administer., | | | Pre-op | | + +---+ | | | + +---+ | albuterol 2.5 mg/3 mL nebulizer | | | solution 2.5 mg 2.5 mg, | | | Nebulization, ONCE PRN, Wheezing, | | | Starting Thu06/27/20 at 0950, | | | For 1 dose, Notify anesthesia if | | | patient is wheezing and does not | | | have a history of asthma or COPD | | | or current smoking., | | | Recovery/Phase I | | + +---+ | | | + +---+ | dextrose 50% injection 12.5-25 | | | g 12.5-25 g, Intravenous, EVERY | | | 15 MIN PRN, Low Blood Sugar, Give | | | 12.5g (25 mL) IV if blood | | | glucose 50-69 mg/dL. Give 25g | | | (50 mL) IV if blood glucose < 50, | | | Starting Thu06/27/20 at 0758, | | | Repeat in 15 min if blood glucose | | | remains < 70 mg/dL. Repeat | | | blood glucose in 30 min once | | | blood glucose > 70., Pre-op | | + +---+ | | | + +---+ | dextrose 50% injection 12.5-25 | | | g 12.5-25 g, Intravenous, EVERY | | | 15 MIN PRN, Low Blood Sugar, For | | | hypoglycemia. Give 12.5g (25ml) | | | IV if blood glucose 50-69 | | | mg/dL. Give 25g (50ml) IV if | | | blood glucose < 50, Starting Wed | | | 06/27/20 at 0950, Give over 2 min. | | | Repeat in 15 min if blood | | | glucose remains < 70 mg/dL. | | | Repeat blood glucose in 30 min | | | once blood glucose > 70., | | | Recovery/Phase I | | + +---+ | | | + +---+ | ePHEDrine (AKOVAZ) 50 mg/mL | | | injection 5 mg 5 mg, | | | Intravenous, EVERY 5 MIN PRN, if | | | SBP <90., Starting 06/27/20 at | | | 0950, Hold if HR > 100. Maximum | | | total dose 20mg., Recovery/Phase | | | I | | + +---+ | | | + +---+ | fentaNYL (PF) injection 25-50 | | | mcg 25-50 mcg, Intravenous, | | | EVERY 15 MIN PRN, Pain, Give on | | | direction of physician, Starting | | | 06/27/20 at 0758, For 4 doses, | | | Max total dose 100 mcg., Pre-op | | + +---+ | | | + +---+ + +-------+ +--------+---+---+ | fentaNYL (PF) injection 25-50 | Given | 06/27/20 | 25 mcg | | | | mcg 25-50 mcg, Intravenous, | | 20 10:35 | | | | | EVERY 5 MIN PRN, Pain, Initial | | AM PDT | | | | | postop urgent pain or escalating | | | | | | | pain, Starting 06/27/20 at | | | | | | | 0950, For 4 doses, (2 doses | | | | | | | maximum for opioid naive, 4 doses | | | | | | | maximum for opioid tolerant) | | | | | | | First dose must be lowest dose. | | | | | | | Use Pasero Sedation Scale. | | | | | | | [Opioid tolerant = One week or | | | | | | | longer, etvtwq-two-imhjo use of | | | | | | | at least the following DAILY | | | | | | | dose: 60mg oral morphine, 60mg | | | | | | | oral hydrocodone, 30mg oral | | | | | | | oxycodone, 8mg oral | | | | | | | hydromorphone, fentanyl patch | | | | | | | 25mcg/hr, or equivalent dose of | | | | | | | another opioid], Recovery/Phase I | | | | | | + +-------+ +--------+---+---+ +-------+ +--------+---+---+ | Given | 06/27/20 | 25 mcg | | | | | 20 10:24 | | | | | | AM PDT | | | | +-------+ +--------+---+---+ | Given | 06/27/20 | 25 mcg | | | | | 20 10:03 | | | | | | AM PDT | | | | +-------+ +--------+---+---+ + +---+ | | | + +---+ | hydrALAZINE (APRESOLINE) | | | injection 5 mg 5 mg, | | | Intravenous, EVERY 20 MINUTES | | | PRN, For SBP > 180, DBP > 100, | | | Starting 06/27/20 at 0950, | | | Hold if HR > 100. Maximum total | | | dose 40 mg. Use labetalol first | | | if available., Recovery/Phase I | | + +---+ | | | + +---+ + +-------+ + +---+---+ | HYDROcodone-acetaminophen | Given | 06/27/20 | 1 tablet | | | | (NORCO) 5-325 mg per tablet 1-2 | | 20 11:33 | | | | | tablet 1-2 tablet, Oral, EVERY 4 | | AM PDT | | | | | HOURS PRN, Pain, Moderate Pain, | | | | | | | Starting Thu06/27/20 at 1122, | | | | | | | Post-op/Phase II | | | | | | + +-------+ + +---+---+ + +---+ | | | + +---+ | labetalol (TRANDATE) 5 mg/mL | | | injection 5 mg 5 mg, | | | Intravenous, EVERY 5 MIN PRN, For | | | SBP > 180, DBP > 100, Starting | | | Thu06/27/20 at 0950, Hold if HR < | | | 60. Maximum total dose 300mg. | | | Notify anesthesia if patient | | | requires more than 50mg., | | | Recovery/Phase I | | + +---+ | | | + +---+ + +---------+ +---+-------+---+ | lactated ringers (LR) infusion | New Bag | 06/27/20 | | 100 | | | at 10-100 mL/hr, Intravenous, | | 20 8:13 | | mL/hr | | | CONTINUOUS, Starting Thu06/27/20 | | AM PDT | | | | | at 0815, TKO., Pre-op | | | | | | + +---------+ +---+-------+---+ + +---+ | | | + +---+ | meperidine (DEMEROL) injection | | | 12.5-25 mg 12.5-25 mg, | | | Intravenous, PRN, Shivering, | | | Starting Thu06/27/20 at 0950, For | | | 2 doses, May Repeat once in 5 | | | min., Recovery/Phase I | | + +---+ | | | + +---+ | midazolam (VERSED) 1 mg/mL | | | injection 1 mg 1 mg, | | | Intravenous, PRN, Anxiety, May | | | repeat Q 5 minutes prn, Starting | | | Thu06/27/20 at 0758, For 2 doses, | | | May repeat once in 5min. Hold | | | anxiolytic until after anesthesia | | | and surgical consent is | | | obtained, Pre-op | | + +---+ | | | + +---+ | ondansetron (ZOFRAN) injection | | | 4 mg 4 mg, Intravenous, EVERY 4 | | | HOURS PRN, Nausea, Vomiting, | | | Starting Thu06/27/20 at 0950, | | | Recovery/Phase I | | + +---+ | | | + +---+ + +-------+ + +---+---+ | oxymetazoline (AFRIN) 0.05% | Given | 06/27/20 | 3 sprays | | | | nasal spray 3 spray 3 spray, | | 20 8:24 | | | | | Each Nare, EVERY 10 MIN, First | | AM PDT | | | | | dose on Thu06/27/20 at 0815, For | | | | | | | 2 doses, Administer in | | | | | | | pre-operative area, Pre-op | | | | | | + +-------+ + +---+---+ +-------+ + +---+---+ | Given | 06/27/20 | 3 sprays | | | | | 20 8:10 | | | | | | AM PDT | | | | +-------+ + +---+---+ +---+---+ | | | +---+---+ documented in this encounter
--- OUTSIDE RECORDS SUMMARY | ~2020-08-07 | XMS | Encounter Summary ---
Demographics + + + | Address | [address] | | | [place] [address] | + + + | Home Phone | | + + + | Preferred Language | Unknown | + + + | Marital Status | Single | + + + | Alevism Affiliation | LDS | + + + | Race | White | + + + | Ethnic Group | Not or | + + + Author + + + | Author | [facility] | + + + | Organization | [facility] | + + + | Address | Unknown | + + + | Phone | Unavailable | + + + Support + + + + + | Name | Relationship | Address | Phone | + + + + + | Petrona Reece | ECON | [address] | | | | | [place] | | | | | [address] | | + + + + + | Michael Reece | ECON | [address] | | | | | [place] | | | | | [address] | | + + + + + | Wolf Reece | ECON | [address] | | | | | [place] | | | | | [address] | | + + + + + Care Team Providers + +------+ + | Care Public Health Doctor Name | Role | Phone | + +------+ + PCP | Unavailable | + +------+ + Encounter Details +--------+ + + + + | Date | Type | Department | Care Team | Description | +--------+ + + + + | 11/24/ | Abstract | Neurology Movement | Clinic, Neurology | | | 2019 | | Disorders Clinic at | | | | | | [facility] | | | | | | and Healing [address] | | | | | [address] [facility] | | | | | | Health and Healing, | | | | | | Building [address], | | | | | | Floor [place], [place] | | | | | | [address] | | | | | | [phone] | | | +--------+ + + + + Social History + +-------+ +--------+------+ | Tobacco Use | Types | Packs/Day | Years | Date | | | | | Used | | + +-------+ +--------+------+ | Never Assessed | | | | | + +-------+ +--------+------+ + + + | Sex Assigned at [address] | | | | | | [place], [place] | | | | | | [address] | | | | | | [phone] | | | | | | | | +--------+ + + + + documented as of this encounter Visit Diagnoses Not on filedocumented in this encounter"
--- OUTSIDE RECORDS SUMMARY | ~2020-08-07 | XMS | Encounter Summary ---
Demographics + + + | Address | [address] | | | [place] [address] | + + + | Home Phone | | + + + | Preferred Language | Unknown | + + + | Marital Status | Single | + + + | Cheondoism Affiliation | LDS | + + + | Race | White | + + + | Ethnic Group | Not or | + + + Author + + + | Author | [facility] | + + + | Organization | [facility] | + + + | Address | Unknown | + + + | Phone | Unavailable | + + + Support + + + + + | Name | Relationship | Address | Phone | + + + + + | Petrona Reece | ECON | [address] | | | | | [place] | | | | | [address] | | + + + + + | Michael Reece | ECON | [address] | | | | | [place] | | | | | [address] | | + + + + + | Wolf Reece | ECON | [address] | | | | | [place] | | | | | [address] | | + + + + + Care Team Providers + +------+ + | Care Hand Molder Name | Role | Phone | + +------+ + | Agustin Palomares MD | PCP | | + +------+ + Encounter Details +--------+ + + + + | Date | Type | Department | Care Team | Description | +--------+ + + + + | 07/16/ | Video/TeleH | Neurology Movement | Cristopher Rosa, | | | 2019 | [facility] | Disorders Clinic at | [address] | | | | ulmary | [facility] | [place], [place] | | | | | and Healing [address] | [address] | | | | | [address] [facility] | [phone] | | | | | Health and Healing, | | | | | | [facility] | | | | | | [place], [place] | | | | | | [address] | | | | | | [phone] | | | +--------+ + + + [...] + documented as of this encounter Progress Notes Cristopher Rosa MD - 07/16/2020 2:00 PM PDTNeurology Movement Disorders Clinic at [facility] and [facility] [address] [facility] [address] FLOOR [facility] [address] Primary Care Doctor is Agustin Palomares MD Patient is calling from home today. Chief Complaint: No chief complaint on file. I conducted a virtual visit today with Rula Reece for essential tremor and restless leg s syndrome. Her last visit with me was approx 9 months ago. At that time I'd made some delgado nges to her bilateral VIM DBS settings to further optimize it. The last DBS settings ([employer]out[employer] Recomenda) were: L VIM: C+ 3/4- (25% each) and 6/7- (25% each) 1.3 mA, 185 Hz 60 usec. Right VIM: C+ 13/14- 60 usec 185 Hz 1.6 mA She's not made any changes since that visit. She reports that the R hand remains pretty steady. The L hand tremor breaks through at rosalie es. She is still taking propanolol 40mg BID. Her RLS symptoms have been under decent control; she is no longer taking sinemet, but rathe r continues the ropinirole, 0.5mg in the afternoon, and 1mg in the evening. On video exam: Speech is fluent. No aphasia. Vocal tremor is evident. There is a postural and kinetic tremor in the L hand rated at 2+. Tremor was not seen in th e R upper limb. [id number])@ Assessment/Plan: Ms Reece has essential tremor, and getting benefit with her b/l VIM DBS. The tremor in t he R hemibody remains under excellent control. The tremor in her L upper limb seems to have rebounded and increased somewhat; she would possibly benefit from increasing the current, ho wever her it programmer is not presently set to do this. I reviewed this by video visit with alma delia watson to confirm. I offered an in person appointment to make further DBS programming adjustme nts; there is no gauruntee that we'd get further improvement in her tremor; would likely try to just increase the current. The visit took place via secure, synchronous audio and video technology with the provider lee ann issa located at the distant site of his home office. The patient stated they were locat ed at the originating site of their home. and were in the state of [place] at the time of the virtual visit. The names of all additional persons participating in the virtual visit and their roles are: her daughter. I have spent a total of 44 minutes on this patient's care today. This time includes the vi rtual visit [id number] time with the patient as well as time spent reviewing patient recor ds, coordinating/communicating with care teams and documenting the patient visit. Cristopher Rosa MD documented in this e ncounter Plan of Treatment +--------+ + + + + | Date | Type | Specialty | Care Team | Description | +--------+ + + + + | 08/22/ | Procedure | Neurology | Cristopher Rosa, | | | 2019 | | | [address] | | | | | | [place], [place] | | | | | | [address] | | | | | | [phone] | | | | | | | | +--------+ + + + + documented as of this encounter Visit Diagnoses + + | Diagnosis | + + | Disabling essential tremor - Primary Essential and other specified forms of tremor | + + | Restless legs syndrome (RLS) | + + documented in this encounter"
--- OUTSIDE RECORDS SUMMARY | ~2020-08-07 | XMS | Encounter Summary ---
Demographics + + + | Address | [address] | | | [place] [address] | + + + | Home Phone | | + + + | Preferred Language | Unknown | + + + | Marital Status | Single | + + + | Sabianism Affiliation | LDS | + + + | Race | White | + + + | Ethnic Group | Not or | + + + Author + + + | Author | [facility] | + + + | Organization | [facility] | + + + | Address | Unknown | + + + | Phone | Unavailable | + + + Support + + + + + | Name | Relationship | Address | Phone | + + + + + | Petrona Reece | ECON | [address] | | | | | [place] | | | | | [address] | | + + + + + | Michael Reece | ECON | [address] | | | | | [place] | | | | | [address] | | + + + + + | Wolf Reece | ECON | [address] | | | | | [place] | | | | | [address] | | + + + + + Care Team Providers + +------+ + | Care Cushion Padder Name | Role | Phone | + +------+ + | Agustin Palomares MD | PCP | | + +------+ + Reason for Referral Consultation (Routine) + +--------+ + + + + | Status | Reason | Specialty | Diagnoses / | Referred By | Referred To | | | | | Procedures | Contact | Contact | + +--------+ + + + + | Authorized | | Sleep | Diagnoses | [place], | | | | | Medicine | Snoring | Elizabeth Beltran, | | | | | | Procedures | [address] [address] | | | | | | CONSULT TO | [address] | | | | | | ADULT SLEEP | [place], [place] | | | | | | MEDICINE | [address] | | | | | | | Phone: | | | | | | | [phone] | | | | | | | Fax: | | | | | | | [phone] | | + +--------+ + + + + Speech Therapy (Routine) + +--------+ + + + + | Status | Reason | Specialty | Diagnoses / | Referred By | Referred To | | | | | Procedures | Contact | Contact | + +--------+ + + + + | Authorized | | Speech | Diagnoses | [place], | | | | | Therapy | Disabling | Elizabeth Beltran, | | | | | | essential | PA-C [address] | | | | | | tremor | [address] | | | | | | Expressive | [place], [place] | | | | | | aphasia | [address] | | | | | | Gait | Phone: | | | | | | disturbance | [phone] | | | | | | Procedures | Fax: | | | | | | SPEECH | [phone] | | | | | | THERAPY | | | | | | | REFERRAL | | | + +--------+ + + + + Occupational Therapy (Routine) + +--------+ + + + + | Status | Reason | Specialty | Diagnoses / | Referred By | Referred To | | | | | Procedures | Contact | Contact | + +--------+ + + + + | Authorized | | Occupational | Diagnoses | [place], | | | | | Therapy | Disabling | Elizabeth Beltran, | | | | | | essential | PA-C [address] | | | | | | tremor | [address] | | | | | | Expressive | [place], [place] | | | | | | aphasia | [address] | | | | | | Gait | Phone: | | | | | | disturbance | [phone] | | | | | | Procedures | Fax: | | | | | | | [phone] | | | | | | OCCUPATIONAL | | | | | | | THERAPY | | | | | | | REFERRAL | | | + +--------+ + + + + Physical Therapy (Routine) + +--------+ + + + + | Status | Reason | Specialty | Diagnoses / | Referred By | Referred To | | | | | Procedures | Contact | Contact | + +--------+ + + + + | Authorized | | Physical | Diagnoses | [place], | | | | | Therapy | Disabling | Elizabeth Beltran, | | | | | | essential | PA-C [address] | | | | | | tremor | [address] | | | | | | Expressive | [place], [place] | | | | | | aphasia | [address] | | | | | | Gait | Phone: | | | | | | disturbance | [phone] | | | | | | Procedures | Fax: | | | | | | PHYSICAL | [phone] | | | | | | THERAPY | | | | | | | REFERRAL | | | + +--------+ + + + + Reason for Visit + + + | Reason | Comments | + + + | Postoperative visit | 2wks | + + + Other (Routine) +--------+--------+ + + + + | Status | Reason | Specialty | Diagnoses / | Referred By | Referred To | | | | | Procedures | Contact | Contact | +--------+--------+ + + + + | Closed | | Neurological | Diagnoses | [place] | [place], | | | | Surgery | Disabling | Elizabeth Beltran, | MD [address] | | | | | essential | [facility] [address] | | | | | tremor | [address] | [place], [place] | | | | | Procedures | [place], [place] | [address] | | | | | POSTOP VISIT | [address] | Phone: | | | | | ND IMPLANT | Phone: | [phone] | | | | | | [phone] | Fax: | | | | | NEUROELECTRO | Fax: | [phone] | | | | | DE,FIRST ND | | | | | | | IMPLANT | | | | | | | NEUROELECTRO | | | | | | | DE,ADDL ND | | | | | | | IMP | | | | | | | STIM,CRANIAL | | | | | | | ,SUBQ,1 | | | | | | | ARRAY ND | | | | | | | IMP | | | | | | | STIM,CRANIAL | | | | | | | ,SUBQ,>1 | | | | | | | ARRAY ND | | | | | | | ELECTRONIC | | | | | | | ANALYSIS | | | | | | | BRAIN | | | | | | | NEUROSTIMULA | | | | | | | TOR PGT, 15 | | | | | | | MIN ND | | | | | | | ELECTRONIC | | | | | | | ANALYSIS | | | | | | | BRAIN | | | | | | | NEUROSTIMULA | | | | | | | TOR PGT, EA | | | | | | | ADDL 15 MIN | | | | | | | [address], | | | | | | | [address] - | | | | | | | inpatient | | | | | | | [address], | | | | | | | [address], | | | | | | | [address], [address] | | | | | | | - | | | | | | | outpatient | | | +--------+--------+ + + + + Encounter Details +--------+---------+ + + + | Date | Type | Department | Care Team | Description | +--------+---------+ + + + | 08/04/ | Office | Neurosurgery at | Elizabeth Bustillo, | Disabling essential | | 2019 | Visit | [facility] [address] | PA-C [address] | tremor (Primary Dx); | | | | [facility] | Ave [place], [place] | Expressive aphasia; | | | | Health and Healing, | [address] | Gait disturbance; | | | | [facility] | [phone] | Snoring | | | | floor [place], [place] | | | | | | [address] | | | | | | [phone] | | | +--------+---------+ + + + [...] + + + | Blood Pressure | 123/66 | 08/04/2019 1:43 PM | | | | | PDT | | + + + + + | Pulse | 73 | 08/04/2019 1:43 PM | | | | | PDT | | + + + + + | Temperature | 36.7 C (98.1 F) | 08/04/2019 1:43 PM | | | | | PDT | | + + + + + | Respiratory Rate | 14 | 08/04/2019 1:43 PM | | | | | PDT | | + + + + + | Oxygen Saturation | - | - | | + + + + + | Inhaled Oxygen | - | - | | | Concentration | | | | + + + + + | Weight | 85.2 kg (187 lb 14.4 | 08/04/2019 1:43 PM | | | | oz) | PDT | | + + + + + | Height | - | - | | + + + + + | Body Mass Index | 32.25 | 07/22/2019 6:00 AM | | | | | PDT | | + + + + + documented in this encounter Progress Notes Elizabeth Bustillo PA-C - 08/04/2019 1:30 PM PDT POST OP VISIT Subjective: Rula Reece is a 79 year old female who underwent bilateral VIM DBS w [employer] system on 07/20 and 07/22/20. She came to clinic today with concerns of severe expre ssive aphasia, gait disturbance, and lethargy. Family notes this started the evening after the Stage 1 procedure and continued to worsen through the weekend. They initially attribute d it to the anesthesia but it did not improve so they came to clinic. She does have a history of balance issues but only needs her walker occasionally. She also had daytime sleepiness prior to the surgery, and would fall asleep during a tack, but not it is fatigue throughout the day. From PMC note, she was high risk JOANNE. Objective: BP 123/66 (BP Location: Left upper arm) | Pulse 73 | Temp 36.7 C (98.1 F) | Resp 14 | Wt 85.2 kg (187 lb 14.4 oz) | BMI 32.25 kg/m | BSA 1.96 m General: NAD Neuro: A+O x "[place]" "August" "1919". Severe expressive aphasia. Called hand "phalange s", named finger, glasses appropriately. PERRL, face symmetric, jaw tremor, L>R resting darien mor Incision: C/D/I, no erythema or edema, dissolvable sutures anterior scalp, posterior ear, a nd left chest Motor: 5/5 BUE, 5/5 BLE No pronator drift + rhomberg Wide based gait Assesment: Rula Reece is a 79 y.o. female s/p DBS generator replacement. The patient cuevas s post-operative issues of aphasia and gait disturbance. Plan: Dicussed that my recent research has shown high risk JOANNE patients are more likely to have a phasia, lethargy, and gait disturbance after DBS. This may improve in time, but she needs r ehab sangeeta. Referrals to [facility], PT, OT Advised to use a walker at all times Referral to sleep medicine for workup of JOANNE. Programming with Neurology as planned, emailed her Neurologist about these new issues Do not soak incision for one month post-op Follow up with Dr. Guevara as needed Elizabeth Bustillo PA-C NEUROSURGERY AT [facility] [address] Mailcode: [id number] [address] [phone] signed by Elizabeth Bustillo PA-C at 08/04/2019 3:30 PM PDTdocume nted in this encounter Plan of Treatment +--------+ + + + + | Date | Type | Specialty | Care Team | Description | +--------+ + + + + | 08/22/ | Procedure | Neurology | Cristopher Rosa, | | | 2019 | | | MD [address] | | | | | | [place], [place] | | | | | | [address] | | | | | | [phone] | | | | | | | | +--------+ + + + + documented as of this encounter Visit Diagnoses + + | Diagnosis | + + | Disabling essential tremor - Primary Essential and other specified forms of tremor | + + | Expressive aphasia Aphasia | + + | Gait disturbance Abnormality of gait | + + | Snoring Other dyspnea and respiratory abnormality | + + documented in this encounter
--- OUTSIDE RECORDS SUMMARY | ~2020-08-07 | XMS | Encounter Summary ---
Demographics + + + | Address | [address] | | | [place] [address] | + + + | Home Phone | | + + + | Preferred Language | Unknown | + + + | Marital Status | Single | + + + | Sikh Affiliation | LDS | + + + | Race | White | + + + | Ethnic Group | Not or | + + + Author + + + | Author | [facility] | + + + | Organization | [facility] | + + + | Address | Unknown | + + + | Phone | Unavailable | + + + Support + + + + + | Name | Relationship | Address | Phone | + + + + + | Petrona Reece | ECON | [address] | | | | | [place] | | | | | [address] | | + + + + + | Michael Reece | ECON | [address] | | | | | [place] | | | | | [address] | | + + + + + | Wolf Reece | ECON | [address] | | | | | [place] | | | | | [address] | | + + + + + Care Team Providers + +------+ + | Care Transportation Inspector Name | Role | Phone | + +------+ + | Agustin Palomares MD | PCP | | + +------+ + Reason for Visit + + + | Reason | Comments | + + + | New patient | | | consultation | | + + + Consultation (Routine) +--------+--------+ + + + + | Status | Reason | Specialty | Diagnoses / | Referred By | Referred To | | | | | Procedures | Contact | Contact | +--------+--------+ + + + + | Closed | | Neurological | Diagnoses | [facility] | Vebr[place], | | | | Surgery | Disabling | Disorder | Marcos, PhD | | | | | essential | [address] | [address] [facility] | | | | | tremor | [address] | [place] | | | | | Procedures | [facility] for | [address] [place], | | | | | CONSULT TO | Health and | [place] | | | | | NEUROSURGERY | Healing, | [address] | | | | | [place] NEW | [address], | Phone: | | | | | PATIENT | 8th Floor | [phone] | | | | | [address] [place] | [place], [place] | Fax: | | | | | EST PATIENT | [address] | [phone] | | | | | LEVEL V | Phone: | | | | | | | [phone] | | | | | | | Fax: | | | | | | | [phone] | | +--------+--------+ + + + + Encounter Details +--------+---------+ + + + | Date | Type | Department | Care Team | Description | +--------+---------+ + + + | 02/22/ | Office | Neurosurgery at | Marcos Mae, | Psychological | | 2019 | Visit | [facility] [address] | PhD [address] [facility] | factors affecting | | | | [facility] for | [facility] | medical condition | | | | Health and Healing, | [place], [place] | (Primary Dx) | | | | | [address] | | | | | [place], [place] | [phone] | | | | | [address] | | | | | | [phone] | | | +--------+---------+ + + + [...] documented as of this encounter Progress Notes Marcos Mae, PhD - 02/22/2019 12:30 PM PDTFormatting of this note might be different fr om the original. DBS PRESURGICAL COGNITIVE AND PSYCHOLOGICAL EVALUATION SUMMARY REPORT Patient: Rula Reece Education: 14 years Age: 79 Handedness: Right Date of : 1940 Date of Assessment: 02/22/2019 Date of Report: 02/22/2019 All aspects of the current evaluation were completed by Marcos Mae, Ph.D. Clinical inte rview: 45 minutes. Neuropsychological Assessment: Test administration, data interpretation, and report preparation = 2 hours 45 minutes. Psychological testing: Test administration, s billying, interpreting and report preparation = 25 minutes. PRESENTING PROBLEM: Mrs. Reece was seen for a screening assessment of cognitive and psychological functioning in consideration of deep brain stimulation (DBS). Mrs. Reece is currently considering DBS due to disabling essential tremor. MENTAL STATUS and BEHAVIORAL OBSERVATIONS: Mrs. Reece was accompanied by her oldest son and her ciqcssgb-jg-zsz. Mrs. Reece presen christina with a full-range of affect. Her mood was reported as euthymic in the weeks and months p rior to the current evaluation. Her thought content was organized. Her expressive speech was dysarthric but intelligible. Her grooming was unremarkable and her clothing was neatly arra nged. There were no significant impairments in hearing or vision which were reported to [facility] upon stimuli presented during the assessment. However, her severe tremor interfered with all tasks with a motoric component. Her effort was persistent and frustration tolerance was good. The current assessment is judged to be a valid estimate of Mrs. Reece's current cogn itive and psychological functioning. CURRENT MEDICATIONS: Per [facility] current outpatient medications include: ACETAMINOPHEN ORAL amLODIPine 5 mg oral tablet BENZONATATE ORAL carbidopa-levodopa 10-100 mg oral tablet diclofenac-misoprostol (ARTHROTEC 75) 75-200 mg-mcg oral tablet,IR,delayed rel,biphasic fluticasone propionate (FLOVENT HFA INHL) gabapentin 300 mg oral capsule lisinopril 20 mg oral tablet metoprolol succinate (TOPROL XL) 100 mg oral tablet extended release 24 hr nitroglycerin 0.4 mg sublingual tablet, sublingual ONDANSETRON ORAL primidone 50 mg oral tablet promethazine 25 mg oral tablet propranolol 40 mg oral tablet simvastatin 20 mg oral tablet SUMAtriptan 100 mg oral tablet tamsulosin 0.4 mg oral capsule MEDICAL HISTORY: Mrs. Reece developed a mild, benign tremor in her adolescence. It's grown progressively w orse and only a few months ago she was diagnosed with essential tremor. COGNITIVE FUNCTIONING & ADLS: In terms of cognitive functioning, Mrs. Reece really isn't aware of any notable decline b ut she becomes more frustrated with how hard tasks are for her to complete. She searches for words occasionally, but this is no different than others of her age. She's always struggled with absentmindedness but doesn't feel that her memory has declined. Her family members agr eed with this but her jayaxnzq-id-vku feel that the patient seems to be shorter with people and ill tempered due to her mounting frustration with completing tasks. Mrs. Reece continues to be independent in all ADLs but her uqycbmte-gv-mdw manages financ es because of the patient's difficulty using a keyboard and writing. Mrs. 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 MENTAL HEALTH HISTORY: Mrs. Reece s mental health history is generally non-significant aside from the increasi ng irritability and frustration (described above) related to her worsening ET. She takes no psychotropic medications and has never been diagnosed with any mental health disorders. She specifically denied impulse control disorders, substance use difficulties, or psychoses. She did once have an episode of suicidal ideation back in the when she was suffering from recurrent migraine headaches, but her condition improved dramatically with the use of Imitr ex. SOCIAL HISTORY: Mrs. Reece has no history of any learning disorders or academic difficulties. She graduat ed from high school with a standard diploma and went on to complete an associate's degree [employer]. Mrs. Reece currently lives with her youngest son, his , and their three lenora nicholas. She and her family described a strong support system should she require some assist ance in physical tasks during her post-surgical recovery period. EVALUATION RESULTS PROCEDURES ADMINISTERED: (see appendix for results summary table) ? Bhandari Depression Inventory-II (BDI-II) ? Controlled Oral Word Association Test (COWAT) ? Negro Index of [place] in Activities of Daily Living ? Breann Instrumental Activities of Daily Living Scale ? Luria's Contrasting & Go-No Go Motor Programmes ? Repeatable Battery for the Assessment of Neuropsychological Status (RBANS Version A) ? Oral Torrington Making Test A & B ? Parkinson's Disease Quality of Life Questionnaire (PDQ-39) ? Jam & Kristen Activities of Daily Living ? Stroop Color-Word Interference Task PROCESSING SPEED: Mrs. Jewell ability to quickly count from 1 to 25 (Oral Torrington Making Test Part A) was im paired in regards to speed and she made no errors during this task. On the Stroop task her s peed of word reading was impaired and color naming was impaired but compared to the normed s ample this task almost universally falls well-below average in our clinic population (likely to do with dyskinesias, tremors, or reduced visual tracking) because one is required to hol d a steady visual focus on the page in front of them. NEUROCOGNITIVE ASSESSMENT: Mrs. Jewell ability to immediately recall information on a word list was average. Immedi ate recall for a short story was average. Visuospatial and constructional skills consisting of figure copy were impaired due to her tremor but gross perception of line orientation was average. Crystallized word finding ability was average and more fluid expressive language sk ills (verbal fluency) was average. Mrs. Ramseys brief attention skills appeared to be in t he borderline impaired range (digit span) and her performance on a speeded attention and wor elizabeth memory task (coding) was borderline impaired but this latter task was affected by her t remor. Mrs. Jewell delayed memory was variable depending on task demands. Following a dis traction filled delay she recalled de-contextualized verbal information in the high average range and recognition of that information was borderline impaired. Recall of a story followi ng a distraction filled delay was average. Her recall of visual stimuli was low average. Her total index score of 82 places performance within the low average range for general neuroco gnitive status. VERBAL FLUENCY: On the Controlled Oral Word Association Test, the patient's categorical/semantic fluency pe rformance was in the average range. EXECUTIVE FUNCTIONING: Her verbal phonemic fluency (with rule constraints and therefore with executive functioning components) performance was borderline impaired. Oral set-shifting between numbers and lauren ers in alternating sequence (Oral Trails B) was borderline impaired in terms of speed and sh jose made two errors. Inhibitory control with contrasting responding (Luria's Contrasting) was characterized by no errors out of 20 trials which is within normal limits. Inhibitory contro l with interference resolution (Luria's Go-No Go) was characterized by no errors out of 20 t rials which is within normal limits. On the inhibitory control portion of the Stroop task he r performance was impaired, and borderline impaired relative to her color and word-reading s peeds. MOOD and SELF-REPORT: BDI-II: Mrs. Reece s Bhandari Depression Inventory-II score of 8 suggests minimal symptoms of depre ssion in the two weeks prior to the current evaluation. Parkinson's Disease Quality of Life Questionnaire (PDQ-39): Mrs. Reece completed a brief inventory of quality of life related to PD (but easily appli ed to ET as well) and functioning in multiple domains. Of particular importance to this eval uation were her responses in the Emotional Wellbeing and Cognitive Impairment domains. Her r esponses in those domains were within normal limits. Elevations, however, were seen in the d omains of mobility, efficiency in ADLs, feelings of social stigma, and physical discomfort. Jam & Kristen Activities of Daily Living: On a scale of overall functioning Mrs. Reece rated her functioning as: 70% - indicating that Mrs. Reece is not completely independent. She is having more diffic ulty with some chores and it takes three or four times as long to complete them. She must sp end a large part of the day with chores. Mrs. Reece's family members also completed this rating scale and indicated that the patie nt's functioning is: 50% - indicating that Mrs. Reece is becoming more dependent. She help s with about half of daily chores but at a very slow pace. Negro & [place] ADL Scales: Mrs. Reece's family members rated the patient as generally independent with regards to ph ysical and instrumental activities of daily living, although the ET is to interfere with lindsey e tasks with a motor component. DIAGNOSTIC ASSESSMENT: Essential Tremor SUMMARY AND IMPRESSIONS: Mrs. Reece is a 79 year-old women with essential tremor. She was a lucid personal histori an and is generally independent in ADLs from a cognitive perspective, but her juzjmpls-ta-rl ely does feel that the patient might be having some very mild, but hard to define, changes in her cognitive abilities - mainly how well she can complete instrumental tasks without succum bijan to frustration and irritability. During the current evaluation Mrs. Reece presented w ith a severe tremor which was distracting to her and also impaired her performances on all t asks with a motor component. With that qualification in mind, she did exhibit some mild diff iculties in brief attention and tracking information although her short-term memory abilitie s appear to be within normal limits. Her executive functioning abilities were generally bord rosmery impaired to impaired and this may certainly underscore some of her increased frustrat ion when multi-tasking and confronting IADLs. Although these test scores might be used to zazueta pport a provisional diagnosis of mild cognitive impairment, I think it would be most prudent to offer that diagnosis only after DBS when she can be reevaluated when her very disabling tremor has improved. Even if it is later established that she has some mild cognitive impair ment, she does not present with a cognitive decline at a level of contraindication for movin g forward with DBS. CONCLUSIONS: In sum, based upon this neuropsychological screening evaluation Mrs. Reece appears to be an appropriate candidate for the DBS procedure. PLAN: 1. These favorable neuropsychological test data may be used by the interdisciplinary team t o moving Mrs. Reece forward for DBS. 2. Repeat neuropsychological screening following to reassess for possible mild cognitive im pairment Marcos Mae, Ph.D. Licensed Clinical Psychologist Appendix A NORMS (Converted to Standard Scores M=100, SD=15, unless otherwise noted. WNL=Within Normal Limits. D/C = discontinued) PROCEDURES SCORE DESCRIPTOR INFORMATION PROCESSING SPEED Oral Torrington Making Test Part A Time (raw score:17") 40 Impaired Errors (raw score:0) 100 Average Stroop Word Naming 54 Impaired Stroop Color Naming 66 Impaired COGNITIVE STATUS Repeatable Battery for the Assessment of Neuropsychological Status Immediate Memory 97 Average List Learning 97 Average Story Memory 94 Average Visuospatial/Constructional 81 Low Average Figure Copy 41 Impaired Line Orientation 107 Average Language 99 Average Picture Naming 107 Average Semantic Fluency 97 Average Attention 72 Borderline Impaired Digit Span 73 Borderline Impaired Coding 78 Borderline Impaired Delayed Memory 84 Low Average List Recall 112 High Average List Recognition 72 Borderline Impaired Story Recall 100 Average Figure Recall 84 Low Average Total Score 82 Low Average LANGUAGE Controlled Oral Word Association (COWAT) Category Fluency (Animals, raw:20) 106 Average EXECUTIVE FUNCTIONING Controlled Oral Word Association (COWAT) Phonemic Fluency (FAS, raw:21) 75 Borderline Impaired Oral Torrington Making Test Part B Time (raw score:77") 78 Borderline Impaired Errors (raw score:2) 72 Borderline Impaired Luria's Contrasting & Go-No Go Motor Programmes Contrasting Raw Score 20/20 WNL Go-No Go Raw Score 20/20 WNL Stroop Color Word Interference Color-Word 63 Impaired Interference 75 Borderline Impaired PSYCHOLOGICAL & SELF-REPORT Bhandari Depression Inventory (BDI-II; raw score) 8 Minimal Symptoms Parkinson's Disease Quality of Life Questionnaire (PDQ-39) (Scores as Percentages) Mobility 88 Elevated ADLS 75 Elevated Emotional Wellbeing 46 WNL Stigma 69 Elevated Social Support 33 WNL Cognitive Impairment 31 WNL Communication 67 WNL Bodily Discomfort 83 Elevated [place] IADL Scale - Raw Score 5/8 Negro Index of Big Stone in ADL - Raw Score 5/6 Jam & Heidelberg Activities of Daily Living Patient Form 70% Caregiver/Family Member Form 50% documented in this e ncounter Plan of Treatment +--------+ + + + + | Date | Type | Specialty | Care Team | Description | +--------+ + + + + | 08/22/ | Procedure | Neurology | Cristopher Rosa, | | | 2019 | | | [address] | | | | | | [place], [place] | | | | | | [address] | | | | | | [phone] | | | | | | | | +--------+ + + + + documented as of this encounter Procedures + +--------+ + + + | Procedure Name | Priori | Date/Time | Associated Diagnosis | Comments | | | ty | | | | + +--------+ + + + | [place] | Routin | 02/24/2019 | Psychological | | | NEUROPSYCHOLOGICAL | e | 10:24 AM | factors affecting | | | TESTING EVAL | | PDT | medical condition | | | SERVICES QHP; EA | | | | | | ADDL HOUR | | | | | + +--------+ + + + | [place] | Routin | 02/24/2019 | Psychological | | | NEUROPSYCHOLOGICAL | e | 10:24 AM | factors affecting | | | TESTING EVAL | | PDT | medical condition | | | SERVICES QHP; FIRST | | | | | | HOUR | | | | | + +--------+ + + + | [place] PSYCHOLOGICAL | Routin | 02/24/2019 | Psychological | | | TESTING CIARRA WILLIAMSON; | e | 10:24 AM | factors affecting | | | FIRST HOUR | | PDT | medical condition | | + +--------+ + + + documented in this encounter Visit Diagnoses + + | Diagnosis | + + | Psychological factors affecting medical condition - Primary Psychic factors | | associated with diseases classified elsewhere | + + documented in this encounter
--- OUTSIDE RECORDS SUMMARY | ~2020-08-07 | XMS | Encounter Summary ---
Demographics + + + | Address | [address] | | | [place] [address] | + + + | Home Phone | | + + + | Preferred Language | Unknown | + + + | Marital Status | Single | + + + | Amish Affiliation | LDS | + + + | Race | White | + + + | Ethnic Group | Not or | + + + Author + + + | Author | [facility] | + + + | Organization | [facility] | + + + | Address | Unknown | + + + | Phone | Unavailable | + + + Support + + + + + | Name | Relationship | Address | Phone | + + + + + | Petrona Reece | ECON | [address] | | | | | [place] | | | | | [address] | | + + + + + | Michael Reece | ECON | [address] | | | | | [place] | | | | | [address] | | + + + + + | Wolf Reece | ECON | [address] | | | | | [place] | | | | | [address] | | + + + + + Care Team Providers + +------+ + | Care Superintendent [employer] Name | Role | Phone | + +------+ + | Agustin Palomares MD | PCP | | + +------+ + Encounter Details +--------+ + + + + | Date | Type | Department | Care Team | Description | +--------+ + + + + | 07/19/ | Supervisor Contingents | LAB CORE [address] | Eileen Espinoza, | Preop examination | | 2019 | | [address] | [address] | (Primary Dx) | | | | [place], [place] | [address] | | | | | [address] | [place], [place] | | | | | [phone] | [address] | | | | | | [phone] | | | | | | | [...] [address] | | | | | | [place], [place] | | | | | | [address] | | | | | | [phone] | | | | | | | | +--------+ + + + + documented as of this encounter Procedures + +--------+ + + + | Procedure Name | Priori | Date/Time | Associated Diagnosis | Comments | | | ty | | | | + +--------+ + + + | CONFIRMATORY ABO/RH | Routin | 07/20/2019 | Preop examination | Results for this | | | e | 7:45 AM | | procedure are in the | | | | PDT | | results section. | + +--------+ + + + documented in this encounter Results CONFIRMATORY ABO/RH (07/20/2019 7:45 AM PDT) + + + + + [...] | + + + + + | [facility] | [address] | [place] [address] | | | SERVICES, | [address] | | | | TRANSFUSION MEDICINE | | | | + + + + + documented in this encounter Visit Diagnoses + + | Diagnosis | + + | Preop examination - Primary Preoperative examination, unspecified | + + documented in this encounter"
--- OUTSIDE RECORDS SUMMARY | ~2020-08-07 | XMS | Clinical Summary ---
Demographics + + + | Address | [address] | | | [place] [address] | + + + | Home Phone | | + + + | Preferred Language | Unknown | + + + | Marital Status | | + + + | Catholic Affiliation | 1027 | + + + | Race | White | + + + | Ethnic Group | Not or | + + + Author + + + | Author | [facility] | | | and [place] | + + + | Organization | [facility] | | | [...] Team Providers + +------+ + | Care Digital Program Manager Name | Role | Phone | + +------+ + | Agustin Palomares MD | PCP | | + +------+ + Allergies + + + + + + | Active Allergy | Reactions | Severity | Noted | Comments | | | | | Date | | + + + + + + | Adhesive & Tape | Other (See Comments) | Low | 06/26/20 | Skin very | | | | | 20 | sensitive when | | | | | | bandage removed | + + + + + + | Amitriptyline | Patient's Preference | Low | 12/03/19 | "The feeling is | | | | | 19 | not good even at 11/05 | | | | | | pill" | + + + + + + | Primidone | Other (See Comments) | Low | 06/23/20 | They think it was | | | | | 19 | causing nose bleeds | + + + + + + | Sulfa Antibiotics | Other (See Comments) | | 12/03/19 | Told I had | | | | | 19 | reaction as a child | + + + + + + Medications + + + +---------+------+------+-------+ | Medication | Sig | Dispensed | Refills | Star | End | Statu | | | | | | t | Date | s | | | | | | Date | | | + + + +---------+------+------+-------+ | simvastatin | Take 20 mg by mouth | | 0 | | | Activ | | (ZOCOR) 20 mg tablet | nightly. | | | | | e | + + + +---------+------+------+-------+ | SUMAtriptan | Take 100 mg by mouth | | 0 | | | Activ | | (IMITREX) 100 mg | as needed for | | | | | e | | tablet | Migraine. | | | | | | + + + +---------+------+------+-------+ | promethazine | Take 25 mg by mouth | | 0 | | | Activ | | (PHENERGAN) 25 mg | every 6 hours as | | | | | e | | tablet | needed. | | | | | | + + + +---------+------+------+-------+ | gabapentin | Take 600 mg by mouth | | 0 | | | Activ | | (NEURONTIN) 300 mg | nightly. | | | | | e | | capsule | | | | | | | + + + +---------+------+------+-------+ | acetaminophen | Take 500 mg by mouth | | 0 | | | Activ | | (TYLENOL) 500 mg | every 6 hours as | | | | | e | | tablet | needed for Pain. | | | | | | + + + +---------+------+------+-------+ | propranolol | Take 40 mg by mouth | | 0 | | | Activ | | (INDERAL) 40 mg | 2 times daily . | | | | | e | | tablet | | | | | | | + + + +---------+------+------+-------+ | dilTIAZem | Take 1 capsule by | 90 | 3 | 08/2 | | Activ | | (DILTIAZEM CD) 180 | mouth Daily. | capsule | | 2/20 | | e | | mg 24 hr capsule | | | | 19 | | | + + + +---------+------+------+-------+ | nitrofurantoin | Take 100 mg by mouth | | 0 | | | Activ | | (MACROBID) 100 mg | 2 times daily. | | | | | e | | capsuleIndications: | Indications: Simple | | | | | | | Uncomplicated | Infection of the | | | | | | | Urinary Tract | Urinary Tract | | | | | | | Infection | | | | | | | + + + +---------+------+------+-------+ | Ondansetron 4 MG | Take 4 mg by mouth | | 0 | | | Activ | | FILM | every 8 hours as | | | | | e | | | needed for Nausea. | | | | | | + + + +---------+------+------+-------+ | Multiple | Take 1 tablet by | | 0 | | | Activ | | Vitamins-Minerals | mouth Daily . | | | | | e | | (CENTRUM SILVER PO) | | | | | | | + + + +---------+------+------+-------+ | nitroglycerin | Place 0.4 mg under | | 0 | | | Activ | | (NITROSTAT) 0.4 mg | the tongue every 5 | | | | | e | | SL tablet | minutes as needed | | | | | | | | for Chest pain. | | | | | | + + + +---------+------+------+-------+ | fluticasone | Inhale 1 puff into | | 0 | | | Activ | | (FLOVENT HFA) 110 | the lungs 2 times | | | | | e | | mcg/puff inhaler | daily. | | | | | | + + + +---------+------+------+-------+ | tamsulosin | Take 0.4 mg by mouth | | 0 | | | Activ | | (FLOMAX) 0.4 mg CAPS | daily (after | | | | | e | | | breakfast). | | | | | | + + + +---------+------+------+-------+ | docusate sodium | Take 100 mg by mouth | | 0 | | | Activ | | (COLACE) 100 mg | nightly. | | | | | e | | capsule | | | | | | | + + + +---------+------+------+-------+ | omeprazole | Take 20 mg by mouth | | 0 | | | Activ | | (PRILOSEC) 20 mg | 2 times daily. | | | | | e | | capsule | | | | | | | + + + +---------+------+------+-------+ | sertraline | Take 50 mg by mouth | | 0 | | | Activ | | (ZOLOFT) 25 mg | every evening . | | | | | e | | tablet | | | | | | | + + + +---------+------+------+-------+ | cephalexin | Take 1 capsule by | 20 | 0 | 08/2 | | Activ | | (KEFLEX) 500 mg | mouth 4 times daily. | capsule | | 6/20 | | e | | capsule | | | | 20 | | | + + + +---------+------+------+-------+ +---+ + | | Additional | | | InformationPatient | | | not taking. Reported | | | on 08/01/2020 1:13 | | | PM | +---+ + + + +--------+---+------+------+-------+ | diclofenac | | | 0 | 08/2 | | Activ | | (VOLTAREN) 1% GEL | | | | 4/20 | | e | | | | | | 20 | | | + + +--------+---+------+------+-------+ | rOPINIRole | Take 1 mg by mouth | | 0 | 09/2 | | Activ | | (REQUIP) 1 mg tablet | nightly. | | | 8/ | | e | | | | | | 20 | | | + + +--------+---+------+------+-------+ | rOPINIRole | Take by mouth 2 | | 0 | | /3 | Disco | | (REQUIP) 5 MG tablet | times daily 0.5 mg | | | | 0/20 | ntinu | | | am and 1 mg nightly. | | | | 20 | ed | | | | | | | | (Ther | | | | | | | | apy | | | | | | | | compl | | | | | | | | eted) | + + +--------+---+------+------+-------+ | | Take 1-2 tablets by | 30 | 0 | 08/2 | / | Expir | | HYDROcodone-acetamin | mouth every 4 hours | tablet | | 6/20 | 5/20 | ed | | ophen (NORCO) 5-325 | as needed for Pain | | | 20 | 20 | | | mg per tablet | for up to 20 days. | | | | | | + + +--------+---+------+------+-------+ Active Problems + + + | Problem | Noted Date | + + + | Chest tightness | 08/01/2020 | + + + | Palpitations | 08/01/2020 | + + + | Dyspnea on exertion | 08/01/2020 | + + + | Tremor | 08/01/2020 | + + + | Restless legs syndrome (RLS) | 10/19/2019 | + + + | SVT (supraventricular tachycardia) | 06/25/2019 | + + + | HTN (hypertension) | 06/25/2019 | + + + | HLD (hyperlipidemia) | 06/25/2019 | + + + Encounters +--------+ + + + + | Date | Type | Specialty | Care Team | Description | +--------+ + + + + | 08/02/ | Telephone | Cardiology | Farhana Castillo | Results | | 2019 | | | [facility] | | +--------+ + + + + | 08/01/ | Office | Cardiology | Farhana Castillo | SVT | | 2019 | Visit | | [facility] | (supraventricular | | | | | | tachycardia) (HCC) | | | | | | (Primary Dx); | | | | | | Essential | | | | | | hypertension; Mixed | | | | | | hyperlipidemia; | | | | | | Chest tightness; | | | | | | Palpitations; | | | | | | Dyspnea on exertion; | | | | | | Screening for | | | | | | thyroid disorder; | | | | | | Tremor | +--------+ + + + + | 06/27/ | Anesthesia | | Luciano Patel | | | 2019 | Event | | MD Antoni | | +--------+ + + + + | 06/27/ | Surgery | | Jean-Pierre Meneses, | Bilateral | | 2020 | | | MD | pansinusotomies with | | | | | | polypectomies | +--------+ + + + + | 06/27/ | Hospital | | Jean-Pierre Meneses, | | | 2020 | Encounter | | MD | | +--------+ + + + + | 06/24/ | Clinical | Immediate Care | aGlen Santos, | Preop testing | | 2020 | Support | | MD | (Primary Dx) | +--------+ + + + + | 06/21/ | Imaging | Radiology | Provider, | | | 2019 | Exam | | MD Michael | | +--------+ + + + + | 06/21/ | Telephone | Cardiology | Rowena Kearney DO | Other | | 2019 | | | | | +--------+ + + + + | 06/20/ | Telephone | Cardiology | Rowena Kearney DO | Other | | 2020 | | | | | +--------+ + + + + | 06/14/ | Procedure | Cardiology | Rowena Kearney DO | Palpitations | | 2020 | visit | | | | +--------+ + + + + | 06/14/ | Documentati | Cardiology | Nayeli Jordan, | Other (end of study) | | 2020 | on | | Technologist | | +--------+ + + + + from Last 3 Months Family History + + +------+ + | Medical History | Relation | Name | Comments | + + +------+ + | Heart attack | Father | | x 2 | + + +------+ + | Other (see comment) | Father | | Heart Problems | + + +------+ + | Arrhythmia | Mother | | | + + +------+ + | Other (see comment) | Mother | | Heart Problems - alcides valve | + + +------+ + + +------+ + + | Relation | Name | Status | Comments | + +------+ + + | Father | | | | + +------+ + + | Father | | | | + +------+ + + | Mother | | | | + +------+ + + | Mother | | | | + +------+ + + Social History + +-------+ +--------+------+ [...] on file | | + + + Last Filed Vital Signs + + + + + | Vital Sign | Reading | Time Taken | Comments | + + + + + | Blood Pressure | 128/76 | 08/01/2020 1:07 PM | | | | | PDT | | + + + + + | Pulse | 75 | 08/01/2020 1:07 PM | | | | | PDT [...] + + + | Oxygen Saturation | 96% | 08/01/2020 1:07 PM | | | | | PDT | | + + + + + | Inhaled Oxygen | - | - | | | Concentration | | | | + + + + + | Weight | 91.4 kg (201 lb 8 | 08/01/2020 1:07 PM | | | | oz) | PDT | | + + + + + | Height | 162.6 cm (5' 4") | 08/01/2020 1:07 PM | | | | | PDT | | + + + + + | Body Mass Index | 34.59 | 08/01/2020 1:07 PM | | | | | PDT | | + + + + + Plan of Treatment +--------+ + + + + | Date | Type | Specialty | Care Team | Description | +--------+ + + + + | 08/14/ | Appointment | Radiology | Farhana Castillo | | | 2019 | | | [address] | | | | | | [address] | | | | | | [place] [address] | | | | | | [phone] | | | | | | | | +--------+ + + + + | 09/13/ | Office | Cardiology | Farhana Castillo | | | 2019 | Visit | | [address] | | | | | | [address] | | | | | | [place] [address] | | | | | | [phone] | | | | | | | | +--------+ + + + + + + +-------+ + | Health Maintenance | Due Date | Last | Comments | | | | Done | | + + +-------+ + | Hepatitis C | | | | | Screening | 1 | | | + + +-------+ + | Med Mgmt: BUN | | | | | | 1 | | | + + +-------+ + | Med Mgmt: Cr | | | | | | 1 | | | + + +-------+ + | Med Mgmt: eGFR | | | | | | 1 | | | + + +-------+ + | Medication | | | | | Management | 1 | | | + + +-------+ + | Vaccine: | | | | | Dtap/Tdap/Td (1 - | 0 | | | | Tdap) | | | | + + +-------+ + | Vaccine: Zoster (1 | | | | | of 2) | 1 | | | + + +-------+ + | Breast Cancer | | | | | Screening | 6 | | | + + +-------+ + | Vaccine: | | | | | Pneumococcal 65+ (1 | 6 | | | | of 1 - PPSV23) | | | | + + +-------+ + | Adult Annual | | | | | Wellness Visit | 9 | | | + + +-------+ + | Vaccine: Influenza | | | | | (#1) | 0 | | | + + +-------+ + Implants + +--------+--------+ +--------+--------+--------+ | Implanted | Type | Area | Manufacture | Device | Shelf | Model | | | | | r | | Expira | / | | | | | | Identi | tion | Serial | | | | | | fier | Date | / Lot | + +--------+--------+ +--------+--------+--------+ | Lens Tecnis Preloaded Pcb | Generi | | ZHOU | | 07/01/ | [id number] | | 25.5 - [id number]: | c | | MEDICAL | | 2020 | 0255 | | Qty: 1 on 12/06/2018 by | | | [employer] - | | | /[id number] | | Rinku Kim MD at [facility] | | | [place] | | | [phone] | | [facility] | | | | | | / | | CENTER | | | | | | | + +--------+--------+ +--------+--------+--------+ | Lens Tecnis Preloaded Pcb | Generi | Right: | ZHOU | | 08/13/ | [id number] | | 24.5 - [id number]: | c | Eye | MEDICAL | | 2020 | 0245 | | Qty: 1 on 12/20/2018 by | | | [employer] - | | | /[id number] | | Rinku Kim MD at [facility] | | | [place] | | | [phone] | | [facility] | | | | | | / | | CENTER | | | | | | | + +--------+--------+ +--------+--------+--------+ Procedures + +--------+ + + + | Procedure Name | Priori | Date/Time | Associated Diagnosis | Comments | | | ty | | | | + +--------+ + + + | ANE AIRWAY NOTE | Routin | 06/27/2020 | | Results for this | | | e | 9:13 AM | | procedure are in the [...] | + +--------+ + + + | CORONAVIRUS | Routin | 06/24/2020 | Preop testing | Results for this | | (COVID-19) NAAT | e | 11:00 AM | | procedure are in the | | | | PDT | | results section. | + +--------+ + + + | CT SINUS WO CONTRAST | Routin | 06/14/2020 | | Results for this | | | e | 12:00 AM | | procedure are in the | | | | PDT | | results section. | + +--------+ + + + from Last 3 Months Results Airway (06/27/2020 9:13 AM PDT) + + + | Narrative | Performed At | + + + | Luciano Patel MD 06/27/2020 9:13 AM Anesthesia Airway | | | Placement 06/27/2020 9:05 AM Preprocedure check: patient | | | identified, oxygen, airway assessed, patient reassessment prior to | | | induction, airway equipment checked and suction Rapid Sequence | | | Induction: no Mask ventilation: easy Attempts: 1 Airway type: | | | laryngeal mask Size: 4 Cuffed: cuffed Route, reference point: | | | center of mouth Tube secured with: adhesive tape Trauma: none Tube | | | placement verification: carbon dioxide detection, equal bilateral | | | breath sounds and bilateral chest rise Performing provider: Luciano Corrales | | | MD Jorge Authorizing provider: Luciano Patel MD | | | Comments: Smooth IV induction. LMA placed and well seated. Secured | | | in place. Breathing Circuit attached to LMA. BSEB/ETCO2 | | | (auscultation and capnography) and placement confirmed. Please | | | see intraoperative grid for any additional medication documentation. | | + + + ECG 12 lead (06/27/2020 8:46 AM PDT) [...] | | | | TASIA DUPONT MD ([id number]) | | | | | | on [...] | | | | | g/dL | [facility] | | | | | | [facility] [...] | + + + + + | [facility] | [address] | [place] | [phone] | | [facility] | | [address] | | | - LABORATORY | | [...] contents: - Inflammatory polyps. | | | DN:[facility]:C2NR MICROSCOPIC EXAMINATION: Histologic sections of all | [...] | | | component was performed by [facility], [address], | | | [facility] [address] (Head Of Conservation: Casie George MD; CLIA# [id number]). | | | Professional interpretation was performed by [facility], | | | [facility], [address] [place] [address] | | | [place] [address] (CLIA#: [id number]). Diagnostician: Rinku | | | Etta DEL CID Pathologist Electronically Signed 06/28/2020 | | + + + + +---------+ + + | Performing | Address | City/State/Zipcode | Phone Number | | Organization | | | | + +---------+ + + | [facility] | | | | | [place] | | | | + +---------+ + + Coronavirus (COVID-19) NAAT (06/24/2020 11:00 AM PDT) + + + + + + | Component | Value | Ref Range | Performed | Pathologist | | | | | At | Signature | + + + + + + | SARS-CoV-2, | Not DetectedComment: | Not Detected | REFERENCE | | | NAAT | Testing was performed | | LAB [facility] | | | (COVID-19) | using the Aptima | | - BKR | | | | SARS-CoV-2 assay.This | | | | | | test was developed and | | | | | | its performance | | | | | | characteristics | | | | | | determinedby [facility] | | | | | | Laboratories. This test | | | | | | has not been FDA cleared | | | | | | orapproved. This test | | | | | | has been authorized by | | | | | | FDA under an Emergency | | | | | | UseAuthorization (EUA). | | | | | | This test is only | | | | | | authorized for the | | | | | | duration oftime the | | | | | | declaration that | | | | | | circumstances exist | | | | | | justifying | | | | | | theauthorization of the | | | | | | emergency use of in | | | | | | vitro diagnostic tests | | | | | | fordetection of | | | | | | SARS-CoV-2 virus and/or | | | | | | diagnosis of COVID-19 | | | | | | infectionunder section | | | | | | 564(b)(1) of the Act, 21 | | | | | | U.S.C. 360bbb-3(b)(1), | | | | | | unlessthe authorization | | | | | | is terminated or revoked | | | | | | sooner.When diagnostic | | | | | | testing is negative, the | | | | | | possibility of a | | | | | | falsenegative result | | | | | | should be considered in | | | | | | the context of a | | | | | | patient'srecent | | | | | | exposures and the | | | | | | presence of clinical | | | | | | signs and | | | | | | symptomsconsistent with | | | | | | COVID-19. An individual | | | | | | without symptoms of | | | | | | COVID-19and who is not | | | | | | shedding SARS-CoV-2 | | | | | | virus would expect to | | | | | | have anegative (not | | | | | | detected) result in this | | | | | | assay. | | | | + + + + + + + + | Specimen | + + | Tissue - Specimen | | from throat | | (specimen) | + + + + + | Narrative | Performed At | + + + | Performed at: [address] [facility] [address], | REFERENCE LAB | | [place], [place] [id number] Human Resources Office Manager: Twin Briscoe MD, Phone: | [place] | | [phone] | | + + + + + + + + | Performing | Address | City/State/Zipcode | Phone Number | | Organization | | | | + + + + + | REFERENCE LAB | [address] | [place], [place] | [phone] | | [facility] | [facility] | [address] | | + + + + + CT Sinus wo Contrast (06/14/2020 12:00 AM PDT) + + | Specimen | + + | | + + + + + | Narrative | Performed At | + + + | External films for comparison only | [facility] | | | | | No results will be in the chart. | | + + + + +---------+ + + | Performing | Address | City/State/Zipcode | Phone Number | | Organization | | | | + +---------+ + + | [facility] | | | | + +---------+ + + from Last 3 Months Insurance + +--------+ +--------+ +---------+--------+ | Payer | Benefi | Subscriber | Effect | Phone | Address | Type | | | t Plan | ID | watson | | | | | | / | | Dates | | | | | | Group | | | | | | + +--------+ +--------+ +---------+--------+ | MEDICARE | MEDICA | [id number] | 01/01/20 | [phone] | | Medica | | | RE | | 06-Pre | 5 | | re | | | PART A | | sent | | | | | | AND B | | | | | | + +--------+ +--------+ +---------+--------+ | AARP | AARP | [id number] | 11/02/19 | [phone] | | Indemn | | | MDCR | | 19-Pre | 0 | | ity | | | SUPPL | | sent | | | | + +--------+ +--------+ +---------+--------+ | MEDICARE | MEDICA | [id number] | | [phone] | | Medica | | | RE | | 019-Pr | 5 | | re | | | PART A | | esent | | | | | | AND B | | | | | | + +--------+ +--------+ +---------+--------+ | AARP | AARP | [id number] | | [phone] | | Indemn | | | MDCR | | 019-Pr | 0 | | ity | | | SUPPL | | esent | | | | + +--------+ +--------+ +---------+--------+ + +--------+ +--------+ + + | Guarantor Name | Accoun | Relation to | Date | Phone | Billing Address | | | t Type | Patient | of | | | | | | | | | | + +--------+ +--------+ + + | Rula Reece | Person | Self | [birth year] | [address] | | | al/Fam | | 1940 | [phone] | [place], [place] | | | [place] | | | [address] (Aline) | [address] | + +--------+ +--------+ + + | Rula Reece | Person | Self | [birth year] | [address] | | | al/Fam | | 1940 | [phone] | [place], [place] | | | [place] | | | 7 (Aline) | [address] | + +--------+ +--------+ + + Advance Directives + + + + + | Type | Date Recorded | Patient | Explanation | | | | Edger Operator | | + + + + + | Power of | | | | | Pmo Project Manager | | | | + + + + + | Advance | 12/06/2018 8:08 | | | | Directive | AM | | | + + + + + + + + + + | Code Status | Date | Date | Comments | | | Activated | Inactivated | | + + + + + | Full Code | 12/20/2018 | 12/20/2018 | | | | 4:35 PM | 8:07 PM | | + + + + + + + + +---+ | | | | | + + + +---+ | Full Code | 12/06/2018 | 12/06/2018 | | | | 12:10 PM | 2:17 PM | | + + + +---+
--- OUTSIDE RECORDS SUMMARY | ~2020-08-07 | XMS | Encounter Summary ---
Demographics + + + | Address | [address] | | | [place] [address] | + + + | Home Phone | | + + + | Preferred Language | Unknown | + + + | Marital Status | Single | + + + | Scientologist Affiliation | LDS | + + + [...] [place] | | | | | [address] | | + + + + + | Michael Reece | ECON | [address] | | | | | [place] | | | | | [address] | | + + + + + | Wolf Reece | ECON | [address] | | | | | [place] | | | | | [address] | | + + + + + Care Team Providers + +------+ + | Care Natural Resource Technician Name | Role | Phone | + +------+ + | Agustin Palomares MD | PCP | | + +------+ + Reason for Referral Consultation (Routine) +--------+--------+ + + + + | Status | Reason | Specialty | Diagnoses / | Referred By | Referred To | | | | | Procedures | Contact | Contact | +--------+--------+ + + + + | Closed | | Neurological | Diagnoses | Moe, | Paola | | | | Surgery | Disabling | MD Cristopher | MD [address] | | | | | essential | [address] | [address] | | | | | tremor | Ave | [place], [place] | | | | | Procedures | [place] | [address] | | | | | CONSULT TO | [address] | Phone: | | | | | NEUROSURGERY | Phone: | [phone] | | | | | [place] NEW | [phone] | Fax: | | | | | PATIENT | Fax: | [phone] | | | | | L[place] | [phone] | | | | | | EST PATIENT | | | | | | | LEVEL V | | | +--------+--------+ + + + + Encounter Details +--------+ + + + + | Date | Type | Department | Care Team | Description | +--------+ + + + + | 02/03/ | Video/TeleH | Neurology | Cristopher Rosa, | No Show | | 2019 | ealth-Sched | Telemedicine 3181 | MD [address] | | | | uled | [facility] | [place], [place] | | | | | Rd Mailcode: OP32 | [address] | | | | | [place], [place] | [phone] | | | | | [address] | | | | | | [phone] | | | +--------+ + + + [...] encounter Progress Notes Cristopher Rosa MD - 02/03/2019 11:00 AM PDTGreater than 50% of the time was spent counse ling the patient regarding essential tremor. Cristopher Garcia MD - 02/03/2019 11:00 AM Mili Reece was seen today in consultation for essential tremor. Please see my dictated note for the full detai ls of this consultation. I spent 65 minutes today in consultation with this patient, half o f that time spent in counseling her for essential tremor. documented in this e ncounter Plan of Treatment +--------+ + + + + | Date | Type | Specialty | Care Team | Description | +--------+ + + + + | 08/22/ | Procedure | Neurology | Cristopher Rosa, | | | 2019 | | | [address] | | | | | | [place], [place] | | | | | | [address] | | | | | | [phone] | | | | | | | | +--------+ + + + + documented as of this encounter Visit Diagnoses + + | Diagnosis | + + | Disabling essential tremor - Primary Essential and other specified forms of tremor | + + documented in this encounter"
--- OUTSIDE RECORDS SUMMARY | ~2020-08-07 | XMS | Encounter Summary ---
Demographics + + + | Address | [address] | | | [place] [address] | + + + | Home Phone | | + + + | Preferred Language | Unknown | + + + | Marital Status | Single | + + + | Moravian Affiliation | LDS | + + + | Race | White | + + + | Ethnic Group | Not or | + + + Author + + + | Author | [facility] | + + + | Organization | [facility] | + + + | Address | Unknown | + + + | Phone | Unavailable | + + + Support + + + + + | Name | Relationship | Address | Phone | + + + + + | Petrona Reece | ECON | [address] | | | | | [place] | | | | | [address] | | + + + + + | Michael Reece | ECON | [address] | | | | | [place] | | | | | [address] | | + + + + + | Wolf Reece | ECON | [address] | | | | | [place] | | | | | [address] | | + + + + + Care Team Providers + +------+ + | Care Coagulating Drying Supervisor Name | Role | Phone | + +------+ + | Agustin Palomares MD | PCP | | + +------+ + Encounter Details +--------+ + + + + | Date | Type | Department | Care Team | Description | +--------+ + + + + | 07/22/ | Procedure | [facility] | | | | 2019 | Pass | [facility] | | | | | | [facility] | | | | | | Center Admitting | | | | | | Desk Located on the | | | | | | 4th floor [address] | | | | | | [address] [place], | | | | | | [place] [address] | | | +--------+ + + + [...] [address] | | | | | | [place] | | | | | | [address] | | | | | | [phone] | | | | | | | | +--------+ + + + + documented as of this encounter Visit Diagnoses Not on filedocumented in this encounter"
--- OUTSIDE RECORDS SUMMARY | ~2020-08-07 | XMS | Encounter Summary ---
Demographics + + + | Address | [address] | | | [place] [address] | + + + | Home Phone | | + + + | Preferred Language | Unknown | + + + | Marital Status | Single | + + + | Church Affiliation | LDS | + + + | Race | White | + + + | Ethnic Group | Not or | + + + Author + + + | Author | [facility] | + + + | Organization | [facility] | + + + | Address | Unknown | + + + | Phone | Unavailable | + + + Support + + + + + | Name | Relationship | Address | Phone | + + + + + | Petrona Reece | ECON | [address] | | | | | [place] | | | | | [address] | | + + + + + | Michael Reece | ECON | [address] | | | | | [place] | | | | | [address] | | + + + + + | Wolf Reece | ECON | [address] | | | | | [place] | | | | | [address] | | + + + + + Care Team Providers + +------+ + | Care Director Geophysical Laboratory Name | Role | Phone | + +------+ + | Agustin Palomares MD | PCP | | + +------+ + Encounter Details +--------+ + + + + | Date | Type | Department | Care Team | Description | +--------+ + + + + | 04/12/ | Procedure | Diagnostic Imaging | | | | 2019 | Pass | Services at [facility] | | | | | | [address] | | | | | | [address] [place] | | | | | | [facility] | | | | | | [place], [place] | | | | | | [address] | | | | | | [phone] | | | +--------+ + + + [...] [address] | | | | | | [place], [place] | | | | | | [address] | | | | | | [phone] | | | | | | | | +--------+ + + + + documented as of this encounter Visit Diagnoses Not on filedocumented in this encounter"
--- OUTSIDE RECORDS SUMMARY | ~2020-08-07 | XMS | Encounter Summary ---
Demographics + + + | Address | [address] | | | [place] [address] | + + + | Home Phone | | + + + | Preferred Language | Unknown | + + + | Marital Status | | + + + | Yarsani Affiliation | 1027 | + + + | Race | White | + + + | Ethnic Group | Not or | + + + Author + + + | Author | [facility] | | | and [place] | + + + | Organization | [facility] | | | and [...] Team Providers + +------+ + | Care Service Now Developer Name | Role | Phone | + +------+ + | Agustin Palomares MD | PCP | | + +------+ + Reason for Visit +--------+ + | Reason | Comments | +--------+ + | Other | 14 day monitor | +--------+ + Service/Procedure (Routine) +--------+--------+ + + + + | Status | Reason | Specialty | Diagnoses / | Referred By | Referred To | | | | | Procedures | Contact | Contact | +--------+--------+ + + + + | Closed | | Cardiology | Diagnoses | Ly Kearney | | | | | | DO Rowena | Cardiology | | | | | Palpitations | [address] | [place] | | | | | Procedures | [address] | [address] | | | | | [address] | [place] [address] | | | | | | MONITOR - [address] | [place], [place] | [place] | | | | | WEEK 2 WEEK | [address] | [address] | | | | | | Phone: | Phone: | | | | | | [phone] | [phone] | | | | | | Fax: | Fax: | | | | | | [phone] | [phone] | +--------+--------+ + + + + Encounter Details +--------+ + + + + | Date | Type | Department | Care Team | Description | +--------+ + + + + | 06/14/ | Procedure | [facility] | Rowena Kearney DO | Palpitations | | 2020 | visit | CARDIOLOGY TIARRA | [address] | | | | | [address] | [place], [place] | | | | | [address] | [address] | | | | | [place] | | | | | | [address] | | | | | | [phone] | | | +--------+ + + + [...] documented as of this encounter Progress Notes Tess Anderson CMA - 06/14/2020 3:30 PM PDT14 day cardiac event monitor placed on patie nt. EOB/Billing information discussed. Instructions given and understood.Electronically sign ed by Tess Anderson CMA at 06/14/2020 4:09 PM PDTdocumented in this encounter Plan of Treatment +--------+ + + + + | Date | Type | Specialty | Care Team | Description | +--------+ + + + + | 08/14/ | Appointment | Radiology | Farhana Castillo | | | 2019 | | | [address] | | | | | | [address] | | | | | | [place] [address] | | | | | | [phone] | | | | | | | | +--------+ + + + + | 09/13/ | Office | Cardiology | Farhana Castillo | | | 2019 | Visit | | [address] | | | | | | [address] [address] | | | | | | [place] [address] | | | | | | [phone] | | | | | | | | +--------+ + + + + documented as of this encounter Visit Diagnoses + + | Diagnosis | + + | Palpitations | + + documented in this encounter"
--- OUTSIDE RECORDS SUMMARY | ~2020-08-07 | XMS | Encounter Summary ---
Demographics + + + | Address | [address] | | | [place] [address] | + + + | Home Phone | | + + + | Preferred Language | Unknown | + + + | Marital Status | Single | + + + | Voodoo Affiliation | LDS | + + + | Race | White | + + + | Ethnic Group | Not or | + + + Author + + + | Author | [facility] | + + + | Organization | [facility] | + + + | Address | Unknown | + + + | Phone | Unavailable | + + + Support + + + + + | Name | Relationship | Address | Phone | + + + + + | Petrona Reece | ECON | [address] | | | | | [place] | | | | | [address] | | + + + + + | Michael Reece | ECON | [address] | | | | | [place] | | | | | [address] | | + + + + + | Wolf Reece | ECON | [address] | | | | | [place] | | | | | [address] | | + + + + + Care Team Providers + +------+ + | Care Switchboard Operator Receptionist Name | Role | Phone | + +------+ + | Agustin Palomares MD | PCP | | + +------+ + Encounter Details +--------+ + + + + | Date | Type | Department | Care Team | Description | +--------+ + + + + | 07/21/ | Pharmacy | Outpatient Retail | | | | 2019 | Visit | [facility] | | | | | | [address] | | | | | | [place], [place] | | | | | | [address] | | | | | | [phone] | | | +--------+ + + + [...] [address] | | | | | | [place], [place] | | | | | | [address] | | | | | | [phone] | | | | | | | | +--------+ + + + + documented as of this encounter Visit Diagnoses Not on filedocumented in this encounter"
--- OUTSIDE RECORDS SUMMARY | ~2020-08-07 | XMS | Encounter Summary ---
Demographics + + + | Address | [address] | | | [place] [address] | + + + | Home Phone [...] + + + | Author | [facility] | + + + | Organization | [facility] | + + + | Address | Unknown | + + + | Phone | Unavailable | + + + Support + + + + + | Name | Relationship | Address | Phone | + + + + + | Petrona Reece | ECON | [address] | | | | | [place] | | | | | [address] | | + + + + + | Michael Reece | ECON | [address] | | | | | [place] | | | | | [address] | | + + + + + | Wolf Reece | ECON | [address] | | | | | [place] | | | | | [address] | | + + + + + Care Team Providers + +------+ + | Care Portable Sawmill Operator Name | Role | Phone | + +------+ + | Agustin Palomares MD | PCP | | + +------+ + Reason for Visit + +--------+ + | Reason | Onset | Comments | | | Date | | + +--------+ + | Post-discharge | 07/25/ | | | follow-up | 2019 | | + +--------+ + Encounter Details +--------+ + + + + | Date | Type | Department | Care Team | Description | +--------+ + + + + | 07/25/ | Telephone | Neurosurgery at | Ne Guevara MD | Post-discharge | | 2019 | | [facility] [address] | [address] | follow-up | | | | [facility] | [place], [place] | | | | | [facility], | [address] | | | | | | [phone] | | | | | floor [place], [place] | | | | | | [address] | | | | | | [phone] | | | +--------+ + + + [...] this encounter Miscellaneous Notes Telephone Encounter - Liliane Delgado LPN - 08/18/2019 11:47 AM PDTNo action needed. This patient was seen in clinic. Concerns were address and no additional action is needed at this time. I am closing this encounter. 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 I am contacting you today in re gards to your recent discharge from the hospital. Dr. Guevara and I want to make sure all your needs have been met, that you are doing well and answer any questions or concerns that you may have. I will call back in the next day or two, if you have any questions or concer ns or urgent needs prior to my return call. You can reach the nurse team at [phone]. A voice message was left. If the patient returns my call please connect them to one of the nurses to verify the follow: -How are they doing? -Do they have all the medication they were prescribed and/or restarted at time of discharge ? -Do they have any questions about their post op instructions? -Are they aware of their upcoming appointments including, date, time & location. -Do they have FMLA or short term disability paperwork that needs completing? documented in this encounter Plan of Treatment +--------+ + + + + | Date | Type | Specialty | Care Team | Description | +--------+ + + + + | 08/22/ | Procedure | Neurology | Cristopher Rosa, | | | 2019 | | | [address] | | | | | | [place], [place] | | | | | | [address] | | | | | | [phone] | | | | | | | | +--------+ + + + + documented as of this encounter Visit Diagnoses Not on filedocumented in this encounter"
--- OUTSIDE RECORDS SUMMARY | ~2020-08-07 | XMS | Encounter Summary ---
Demographics + + + | Address | [address] | | | [place] [address] | + + + | Home Phone [...] [place], [place] | | | | | [address] | | + + + + + | Michael Reece | ECON | [address] | | | | | [place], [place] | | | | | [address] | | + + + + + | Wolfjose Reece | ECON | [address] | | | | | [place] | | | | | [address] | | + + + + + Care Team Providers + +------+ + | Care Truck Switcher Name | Role | Phone | + +------+ + | Agustin Palomares MD | PCP | | + +------+ + Encounter Details +--------+--------+ + + + | Date | Type | Department | Care Team | Description | +--------+--------+ + + + | 07/20/ | Travel | | | | | [...] [address] | | | | | | [place], [place] | | | | | | [address] | | | | | | [phone] | | | | | | | | +--------+ + + + + documented as of this encounter Visit Diagnoses Not on filedocumented in this encounter"
--- OUTSIDE RECORDS SUMMARY | ~2020-08-07 | XMS | Encounter Summary ---
Demographics + + + | Address | [address] | | | [place] [address] | + + + | Home Phone [...] Author | [facility] | + + + | Organization | [facility] | + + + | Address | Unknown | + + + | Phone | Unavailable | + + + Support + + + + + | Name | Relationship | Address | Phone | + + + + + | Petrona Reece | ECON | [address] | | | | | [place] | | | | | [address] | | + + + + + | Michael Reece | ECON | [address] | | | | | [place] | | | | | [address] | | + + + + + | Wolf Reece | ECON | [address] | | | | | [place] | | | | | [address] | | + + + + + Care Team Providers + +------+ + | Care Ssis Developer Name | Role | Phone | [...] + + + + | 07/22/ | Anesthesia | [facility] | Fernanda De Santiago MD | | | 2019 | Event | [facility] | [address] | | | | | and Healing Surgery | [address] [place], | | | | | Center Admitting | [place] [address] | | | | | Desk Located on the | [phone] | | | | | 4th floor [address] | | | | | | [address], | [place] | | | | | [place] [address] | D, MEAL ROOM HAND [address] [facility] | | | | | | [address] | | | | | | [place], [place] | | | | | | [address] | | | | | | [phone] | | | | | | | | +--------+ + + + + Anesthesia Record + + + + + | Procedure Name | Responsible | Anesthesia Start | Anesthesia Stop Time | | | Anesthesiologist | Time | | + + + + + | LEFT ANTERIOR | Fernanda De Santiago MD | 07/22/1933 | 07/22/19 0859 | | IMPLANT OF [...] + +------+ | Meds | +------+ + +--------+ | Name | Total | + +--------+ | ceFAZolin (ANCEF) injection 2 g | 2 g | + +--------+ | fentaNYL | 50 mcg | + +--------+ | lidocaine 2% | 60 mg | + +--------+ | propofol | 160 mg | + +--------+ | succinylcholine | 70 mg | + +--------+ | ondansetron | 4 mg | + +--------+ | sodium chloride 0.9 % (NS) IV | 300 mL | | infusion | | + +--------+ + + | Name | + + | O2 FR Avance (Total Liters) | + + | Air FR Avance (l/min) | + + | Insp Sevo | + + | Et Sevo | + + | Insp N2O % | + + + + | No blood administrations on file. | + + +--------+ + + + | Type | Details | Placement | Removal | +--------+ + + + | [place] | 07/20/19; Dr. Patel; Left; head | 07/20/19 0000 by | | | on | | Kacey Vann RN | | +--------+ + + + | [place] | 07/20/19; Dr. Guevara; Right; | 07/20/19 [...] + + + | [place] | 07/22/19; 08; MD Paola; | 07/22/19828 by | | | on | Left; head | Chuyita Osuna RN | | +--------+ + + + | Incisi | 07/22/19; 829; MD Paola; | 07/22/19829 by | | | on | Left; chest | Chuyita Osuna RN | | +--------+ + + + | ETT | 07/22/19; 0750 (created via | 07/22/19 0750 by | 07/22/19 0851 by | | | procedure documentation); 7; | Paula Orellana, | Paula Orellana, | | | Oral; Cuffed; 07/22/19; 0851 | MEAL ROOM HAND | MEAL ROOM HAND | +--------+ + + + documented in [...] + + documented as of this encounter [place] Notes Anesthesia Postprocedure Evaluation - Fernanda De Santiago MD - 07/22/2019 9:39 AM PDT Rula Fuller [place] [id number] Vitals Value Taken Time BP 138/99 07/22/2019 9:45 AM Temp 36.5 C (97.7 F) 07/22/2019 9:45 AM Pulse 77 07/22/2019 9:45 AM Resp 20 07/22/2019 9:45 AM SpO2 94 % 07/22/2019 9:45 AM EVALUATION VS (BP, HR, RR, SpO2, and Temp) and hydration status are stable ROS including Cards, Resp, Neuro, and GI without evidence of adverse effects No PONV Pain controlled No altered mental status Patient was feeling restless as she did not take her sinemet this morning. She reports that this sensation is consistent with how she feels when she does not take her sinemet. The josef johnson's family member did have this medication for her. nesthesia Procedure Notes - Paula Orellana CRNA - 8:03 AM PDTAssociated Order(s): ETTAIRWAY MANAGEMENT - ETT Time of Placement: 07/22/2019 7:50 AM Intubation Reason: For surgical procedure Positioning: Supine Location Performed:OR OXYGENATION Patient was preoxygenated Grade: Grade 1 - Ventilated by mask Induction:Routine INTUBATION ATTEMPT 1 Blade Type: Middleton Blade #: 3 Laryngoscopic View: Grade I ETT DETAILS ETT Type:Standard, Hi-Lo Cuffed Intubation Type: Oral Cuff Status: Cuffed Size: 7 ETT secured with adhesive tape Depth at Lip: 21 cm Airway Leak: No CONFIRMATION Number of Attempts: 1 Atraumatic placement Positive for EtCO2:Waveform capnography Breath Sounds: Bilateral and equal NARRATIVE Attending was physically present for the critical portions of the procedure as described in the procedure note Attending/Authorizing Provider: Fernanda De Santiago MD Performing Provider: Paula Orellana CRNA nesthesia Preprocedure Evaluation - Paula Orellana CRNA - 07/22/2019 7:33 AM PDTFormatting of this note mi ght be different from the original. Rula Fuller [place] [id number] Allergies Allergen Reactions Primidone Bleeding Pt states nose bleeds occurs Sulfa (Sulfonamide Antibiotics) Unknown Told I had reaction as a child Amitriptyline Unknown "The feeling is not good even at 1/4 pill" NPO: before midnight Last Vitals Temp: 36.6 C (97.9 F) Heart Rate: 65 Resp: 18 BP: 156/78 SpO2: 100 % O2 Delivery Device: None (room air) Preg Status/LMP HCG Test: Not performed Patient Active Problem List Diagnosis Disabling essential tremor Past Surgical History Procedure Laterality Date Appendectomy Tonsillectomy Left total knee arthroplasty Hip arthroplasty Bilateral Hysterectomy D&c (dilatation and curettage) x3 Cataract surgery Bilateral Sinus surgery Current Medication List Name Sig Last Dose ACETAMINOPHEN ORAL Take 650 mg by mouth. Indications: Per patient, 2x daily AM, 2x daily PM 07/21/2019 BENZONATATE ORAL Take 100 mg by mouth. Within last 30 days CARBIDOPA 10 MG-LEVODOPA 100 MG TABLET 1 tablet two times daily. 07/21/2019 CHOLECALCIFEROL (VITAMIN D3) 1,000 UNIT CAPSULE Take 1,000 Units by mouth once daily. 2018 DILTIAZEM CD 180 MG CAPSULE,EXTENDED RELEASE 24 HR Take 180 mg by mouth once daily. 019 FLUTICASONE PROPIONATE 110 MCG/ACTUATION HFA AEROSOL INHALER Inhale 1 puff by mouth two rosalie es daily. Within last 7 days GABAPENTIN 300 MG CAPSULE Take 600 mg by mouth once daily at bedtime. 07/21/2019 NITROGLYCERIN 0.[address] 0.4 mg under tongue every five minutes as need ed for chest pain. Place under tongue and allow to dissolve. Administer every 5 minutes, ma x of 3 doses in 15 minutes. Not Taking ONDANSETRON 4 MG DISINTEGRATING TABLET Dissolve 2 tablets on tongue and swallow every eight hours as needed. Within last 7 days OXYCODONE 5 MG TABLET Take 1 to 2 tablets by mouth every four hours as needed for moderate pain unresponsive to non-opioid medication. 07/21/2019 POLYETHYLENE GLYCOL 3350 17 GRAM ORAL POWDER PACKET Mix 1 packet and take orally once daily as needed (1st line - for no BM for 2 days). 07/21/2019 PROMETHAZINE 25 MG TABLET Take 25 mg by mouth. Within last 7 days PROPRANOLOL 40 MG TABLET 80 mg two times daily. 07/21/2019 SIMVASTATIN 20 MG TABLET 20 mg once daily in the evening. 07/21/2019 SUMATRIPTAN 100 MG TABLET Take 100 mg by mouth. Within last 7 days TAMSULOSIN 0.4 MG CAPSULE 0.4 mg once daily at bedtime. 07/21/2019 Lab Results Component Value Date RATE 64 07/19/2019 ATRIALRATE 64 07/19/2019 DE 184 07/19/2019 QRS 98 07/19/2019 QT 421 07/19/2019 PAXIS 68 07/19/2019 RAXIS 0 07/19/2019 TAXIS 27 07/19/2019 ANESTHESIA PLAN ASA 3 NPO Status: NPO by protocol ANESTHETIC TECHNIQUE Technique Used: General MONITORS/LINES TO BE USED Standard POSTOP PAIN IV analgesics INFORMED CONSENT PARQ and risks/benefits of anesthetic plan discussed with Patient PATIENT'S CODE STATUS IN OR FULL - full code documented in this enco unter Miscellaneous Notes Addendum Note - Fernanda De Santiago MD - 07/22/2019 1:31 PM PDT Addendum created 07/22/19 1331 by Fernanda De Santiago MD Sign clinical note [facility] PreOp Note - R Paula correa CRNA - 07/22/2019 7:32 AM PDTROS: HPI: 79F with hx of SVT, HTN, asthma and essential tremor who presents for BILATERAL CRANIAL IM PLANT OF DEEP BRAIN STIMULATOR ELECTRODES WITH INTRA-OPERATIVE CT (Bilateral ) Prior Anesth etic Problems: No Pulmonary: no shortness of breath [...] at high risk of JOANNE 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 Low activity, water [...] failure no electrolyte abnormalities no di alysis Urology/Lay Out Maker: Urologic Conditions: BPH Endo: no Diabetes: no Endocrine Other no [...] skin conditions AutoImmune Disorders: No autoimmune disorders Physical Exam General: Appearance: Age appropriate and No distress LOC: Alert HEENT: Normocephalic/Atraumatic, Normal sclerae/conjunctivae, PERRL, EOMI and No thyromegaly Airway: Dentition: dentures-upper dentures-lower missing teeth Dentition Comments: TMJ Mallampati: 3 Mouth Opening: > 3 cm TM Distance:> [...] Warm Other Implanted Devices: Implanted devices: None [facility] PreOp Note - Olimpia Mireles FNP - 07/19/2019 8:36 AM PDTROS: HPI: Prior Anesthetic Problems: No Pulmonary: no shortness [...] at high risk of JOANNE 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 Low activity, water [...] failure no electrolyte abnormalities no di alysis Urology/Lay Out Maker: Urologic Conditions: BPH Endo: no Diabetes: no Endocrine Other no [...] skin conditions AutoImmune Disorders: No autoimmune disorders Physical Exam General: Appearance: Healthy, Age appropriate and No [...] Warm Other Implanted Devices: Implanted devices: None documented in this en counter Plan of Treatment +--------+ + + + + | Date | Type | Specialty | Care Team | Description | +--------+ + + + + | 08/22/ | Procedure | Neurology | Cristopher Rosa, | | | 2019 | | | [address] | | | | | | [place], [place] | | | | | | [address] | | | | | | [phone] | | | | | | | | +--------+ + + + + documented as of this encounter Procedures + +--------+ + + + | Procedure Name | Priori | Date/Time | Associated Diagnosis | Comments | | | ty | | | | + +--------+ + + + | ANE ETT | Routin | 07/22/2019 | | Results for this | | | e | 8:03 AM | | procedure are in the | | | | PDT | | results section. | + +--------+ + + + documented in this encounter Results ETT (07/22/2019 8:03 AM PDT) + + + | Narrative | Performed At | + + + | Paula Orellana CRNA 07/22/2019 8:04 AM AIRWAY | | | MANAGEMENT - ETT Time of Placement: 07/22/2019 7:50 AM Intubation | | | Reason: For surgical procedure Positioning: Supine Location | | | Performed:OR OXYGENATION Patient was preoxygenated Grade: Grade | | | 1 - Ventilated by mask Induction:Routine INTUBATION ATTEMPT | | | 1 Blade Type: Middleton Blade #: 3 Laryngoscopic View: Grade I | | | ETT DETAILS ETT Type:Standard, Hi-Lo Cuffed Intubation Type: Oral | | | Cuff Status: Cuffed Size: 7 ETT secured with adhesive tape Depth | | | at Lip: 21 cm Airway Leak: No CONFIRMATION Number of Attempts: | | | 1 Atraumatic placement Positive for EtCO2:Waveform capnography | | | Breath Sounds: Bilateral and equal NARRATIVE Attending was | | | physically present for the critical portions of the procedure as | | | described in the procedure note Attending/Authorizing Provider: | | | Fernanda De Santiago MD Performing Provider: Paula Orellana CRNA | | | | | + + + documented in this encounter Visit Diagnoses Not on filedocumented in this encounter Administered Medications + +--------+ +------+------+------+ | Medication Order | MAR | Action | Dose | Rate | Site | | | Action | Date | | | | + +--------+ +------+------+------+ | ceFAZolin (ANCEF) injection 2 g | Given | 07/22/20 | 2 g | | | | 2 g, intravenous, PREPROCEDURE | | 19 7:56 | | | | | ONCE, 1 dose, Starting Fri | | AM PDT | | | | | 07/22/19 at 0649, Until Fri | | | | | | | 07/22/19 at 0756 | | | | | | + +--------+ +------+------+------+ +---+---+ | | | +---+---+ + +-------+ +--------+---+---+ | fentaNYL (SUBLIMAZE) injection | Given | 07/22/20 | 50 mcg | | | | INTRAPROCEDURE PRN, Starting Fri | | 19 7:45 | | | | | 07/22/19 at 0745, Until Fri | | AM PDT | | | | | 19 at 0856 | | | | | | + +-------+ +--------+---+---+ +---+---+ | | | +---+---+ + +-------+ +-------+---+---+ | lidocaine (XYLOCAINE MPF) 2 % | Given | 07/22/20 | 60 mg | | | | (20 mg/mL) injection | | 19 7:45 | | | | | INTRAPROCEDURE PRN, Starting Fri | | AM PDT | | | | | 07/22/19 at 0745, Until Fri | | | | | | | 19 at 0856 | | | | | | + +-------+ +-------+---+---+ +---+---+ | | | +---+---+ + +-------+ +------+---+---+ | ondansetron (ZOFRAN) injection | Given | 07/22/20 | 4 mg | | | | INTRAPROCEDURE PRN, Starting Fri | | 19 8:34 | | | | | 19 at 0834, Until Fri | | AM PDT | | | | | 19 at 0856 | | | | | | + +-------+ +------+---+---+ +---+---+ | | | +---+---+ + +-------+ +-------+---+---+ | propofol (DIPRIVAN) injection | Given | 07/22/20 | 60 mg | | | | INTRAPROCEDURE PRN, Starting Fri | | 19 8:18 | | | | | 19 at 0748, Until Fri | | AM PDT | | | | | 19 at 0856 | | | | | | + +-------+ +-------+---+---+ +-------+ +--------+---+---+ | Given | 07/22/20 | 100 mg | | | | | 19 7:48 | | | | | | AM PDT | | | | +-------+ +--------+---+---+ +---+---+ | | | +---+---+ + + + +---+---+---+ | sodium chloride 0.9 % (NS) IV | given by | 07/22/20 | | | | | infusion 10 mL/hr, intravenous, | | 19 8:41 | | | | | PROCEDURE CONTINUOUS, Starting | anesthes | AM PDT | | | | | 07/22/19 at 0700, Until Fri | iology | | | | | | 07/22/19 at 1700 | | | | | | + + + +---+---+---+ +---------+ +---+---+---+ | New Bag | 07/22/20 | | | | | | 19 7:25 | | | | | | AM PDT | | | | +---------+ +---+---+---+ +---+---+ | | | +---+---+ + +-------+ +-------+---+---+ | succinylcholine (ANECTINE) | Given | 07/22/20 | 70 mg | | | | injection INTRAPROCEDURE PRN, | | 19 7:48 | | | | | Starting 07/22/19 at 0748, | | AM PDT | | | | | Until 07/22/19 at 0856 | | | | | | + +-------+ +-------+---+---+ +---+---+ | | | +---+---+ documented in this encounter
--- OUTSIDE RECORDS SUMMARY | ~2020-08-07 | XMS | Encounter Summary ---
Demographics + + + | Address | [address] | | | [place] [address] | + + + | Home Phone | | + + + | Preferred Language | Unknown | + + + | Marital Status | Single | + + + | Synagogue Affiliation | LDS | + + + | Race | White | + + + | Ethnic Group | Not or | + + + Author + + + | Author | [facility] | + + + | Organization | [facility] | + + + | Address | Unknown | + + + | Phone | Unavailable | + + + Support + + + + + | Name | Relationship | Address | Phone | + + + + + | Petrona Reece | ECON | [address] | | | | | [place] | | | | | [id number] | | + + + + + | Michael Reece | ECON | [address] | | | | | [place] | | | | | [address] | | + + + + + | Wolf Reece | ECON | [address] | | | | | [place] | | | | | [address] | | + + + + + Care Team Providers + +------+ + | Care Building Drafting Officer Name | Role | Phone | + [...] | +--------+ + + + + | 07/20/ | Anesthesia | 6A Intra Op [id number] | Eileen Espinoza, | | | 2019 | Event | [address] | [address] | | | | | [facility] | [address] | | | | | Hospital Admitting | [place], [place] | | | | | Desk Located on the | [address] | | | | | 9th floor | [phone] | | | | | [place], [place] | | | | | | [address] | Arnol Chavarria MD | | | | | | [address] | | | | | | Suzie Martínez [place], | | | | | | [place] [address] | | | | | | [phone] | | | | | | | | +--------+ + + + + Anesthesia Record + + + + + | Procedure Name | Responsible | Anesthesia Start | Anesthesia Stop Time | | | Anesthesiologist | Time | | + + + + + | BILATERAL CRANIAL | Eileen Espinoza MD | 07/20/19 0735 | 07/20/19 1146 | | IMPLANT OF DEEP | | | | | BRAIN STIMULATOR | | | | | ELECTRODES WITH | | | | | INTRA-OPERATIVE CT | | | | | (Bilateral ) | | | | + + + + + +----+---+ + + | Da | T | Event | Comment | | te | i | | | | | m | | | | | e | | | +----+---+ + + | 09 | 0 | Eq Check | Anesthesia machine checked Equipment verified | | /1 | 6 | | | | 8/ | 5 | | | | 20 | 8 | | | | 19 | | | | +----+---+ + + | | 0 | Pt. Check | Prior to anesthesia start, pt. Identified, examined, chart | | | 7 | | reviewed, PARMagda held, anesthetic plan made or approved by | | | 2 | | attending anesthesiologist. NPO status confirmed as appropriate | | | 0 | | for procedure Preoperative evaluation: unchanged | +----+---+ + + | | 0 | An Start | | | | 7 | | | | | 3 | | | | | 5 | | | +----+---+ + + | | 0 | An Start | | | | 7 | Data | | | | 4 | | | | | 0 | | | +----+---+ + + | | 0 | Vitals | Monitors applied Vital signs checked Patient ready for anesthesia | | | 7 | Checked | | | | 4 | | | | | 4 | | | +----+---+ + + | | 0 | ETT | | | | 7 | | | | | 5 | | | | | 0 | | | +----+---+ + + | | 0 | Ready | | | | 7 | | | | | 5 | | | | | 2 | | | +----+---+ + + | | 0 | Head Pins | | | | 8 | Applied | | | | 0 | | | | | 9 | | | +----+---+ + + | | 0 | Abx | | | | 8 | Administere | | | | 2 | d | | | | 6 | | | +----+---+ + + | | 0 | Incision | | | | 8 | | | | | 3 | | | | | 0 | | | +----+---+ + + | | 1 | Surgery end | | | | 1 | | | | | 3 | | | | | 1 | | | +----+---+ + + | | 1 | An Extubate | Neuromuscular function Intact. Pharynx suctioned. Patient obeys | | | 1 | | commands. Adequate pulmonary mechanics. | | | 3 | | | | | 6 | | | +----+---+ + + | | 1 | an stop | | | | 1 | data | | | | 3 | | | | | 7 | | | +----+---+ + + | | 1 | PACU Rpt | | | | 1 | Given | | | | 4 | | | | | 6 | | | +----+---+ + + | | 1 | Anesthesia | | | | 1 | End | | | | 4 | | | | | 6 | | | +----+---+ + + | | 1 | an stop | | | | 1 | data | | | | 5 | | | | | 0 | | | +----+---+ + + | | 1 | Post-Op | | | | 3 | Page | | | | 3 | | | | | 0 | | | +----+---+ + + +------+ | Meds | +------+ + + + | Name | Total | + + + | ceFAZolin (ANCEF) injection 2 g | 2 g | + + + | fentaNYL | 400 mcg | + + + | lidocaine 2% | 80 mg | + + + | propofol | 250 mg | + + + | rocuronium | 70 mg | + + + | ePHEDrine | 20 mg | + + + | EPINEPHrine | 5 mcg | + + + | ondansetron | 4 mg | + + + | dexamethasone | 8 mg | + + + | neostigmine syr | 4 mg | + + + | glycopyrrolate | 0.6 mg | + + + | sodium chloride 0.9 % (NS) IV | 1,600 mL | | infusion | | + + + + + | Name | + + | O2 FR Avance (Total Liters) | + + | Air FR Avance (l/min) | + + | Insp Iso | + + | Et Iso | + + + + | No [...] +--------+ + + + | Periph | 07/20/19 (present on arrival to | 07/20/19 0000 by | 07/21/19 1403 by | | aidee | PACU); (present on arrival to | Eugenie Greenberg RN | Marimar Pro RN | | IV | PACU); Right; Hand; 18 g; | | | | | 07/21/19; 1403 | | | +--------+ + + + | Periph | 07/20/19; 0715; KP Khan; Left; | 07/20/19 0715 by Casie | 07/21/19 1403 by | | eral | Antecubital; 20 g; 07/21/19; 1403 | Alina Moore RN | Marimar Pro RN | | IV | | | | +--------+ + + + | ETT | 07/20/19; 0750 (created via | 07/20/19 0750 by | 07/20/19 1136 by | | | procedure documentation); 7.5; | Arnol Chavarria MD | Arnol Chavarria MD | | | Oral; Uncuffed; 07/20/19; 1136 | | | +--------+ + + + documented in [...] encounter OR Notes Anesthesia Postprocedure Evaluation - Arnol Chavarria MD - 07/20/2019 11:48 AM PDTFormatti ng of this note might be different from the original. Rula Reece [id number] Vitals Value Taken Time BP 89/59 07/20/2019 11:45 AM Temp 36 C (96.8 F) 07/20/2019 11:43 AM Pulse 66 07/20/2019 11:43 AM Resp 17 07/20/2019 11:46 AM SpO2 95 % 07/20/2019 11:47 AM Vitals shown include unvalidated device data. EVALUATION VS (BP, HR, RR, SpO2, and Temp) and hydration status are stable ROS including Cards, Resp, Neuro, and GI without evidence of adverse effects No PONV Pain controlled No altered mental status nesthesia Procedur e Notes - Arnol Chavarria MD - 07/20/2019 8:41 AM PDTAssociated Order(s): ETTAIRWAY MANAGE MENT - ETT Time of Placement: 07/20/2019 7:50 AM Intubation Reason: For surgical procedure Positioning: Supine Location Performed:OR OXYGENATION Patient was not preoxygenated Grade: Grade 2 - Ventilated by mask with oral airway/adjuvant Manual in-Line Stabilization: No Induction:Routine, without Cricoid Pressure INTUBATION ATTEMPT 1 Blade Type: Radha Blade #: 4 Laryngoscopic View: Grade I ETT DETAILS ETT Type:Standard, Hi-Lo Cuffed Intubation Type: Oral Cuff Status: Uncuffed Size: 7.5 ETT secured with adhesive tape and ETT romero Depth at Lip: 20 cm Airway Leak: No CONFIRMATION Number of Attempts: 1 Atraumatic placement Positive for EtCO2:Waveform capnography Breath Sounds: Bilateral and equal NARRATIVE Attending/Authorizing Provider: Eileen Espinoza MD Performing Provider: Arnol Chavarria MD Procedure Comments: Edentulous, easy airway. nesthesia Preproce dure Evaluation - Arnol Chavarria MD - 07/20/2019 7:25 AM PDT Rula Reece [id number] Allergies Allergen Reactions Primidone Bleeding Pt states nose bleeds occurs Sulfa (Sulfonamide Antibiotics) Unknown Told I had reaction as a child Amitriptyline Unknown "The feeling is not good even at 1/4 pill" NPO: before MN Last Vitals Temp: 36.2 C (97.2 F) Heart Rate: 63 Resp: 16 BP: 130/67 SpO2: 99 % O2 Delivery Device: None (room air) Preg Status/LMP Patient Active Problem List Diagnosis Disabling essential tremor Past Surgical History Procedure Laterality Date Appendectomy Tonsillectomy Left total knee arthroplasty Hip arthroplasty Bilateral Hysterectomy D&c (dilatation and curettage) x3 Cataract surgery Bilateral Sinus surgery Current Medication List Name Sig Last Dose ACETAMINOPHEN ORAL Take 650 mg by mouth. Indications: Per patient, 2x daily AM, 2x daily PM 07/19/2019 BENZONATATE ORAL Take 100 mg by mouth. Within last 7 days CARBIDOPA 10 MG-LEVODOPA 100 MG TABLET 1 tablet two times daily. 07/20/2019 CHOLECALCIFEROL (VITAMIN D3) 1,000 UNIT CAPSULE Take 1,000 Units by mouth once daily. 2018 DILTIAZEM CD 180 MG CAPSULE,EXTENDED RELEASE 24 HR Take 180 mg by mouth once daily. 019 FLOVENT HFA INHL Inhale 2 puffs once daily. 07/19/2019 GABAPENTIN 300 MG CAPSULE Take 600 mg by mouth once daily at bedtime. 07/19/2019 LORAZEPAM 0.5 MG TABLET Take 1 tablet by mouth 45 min prior to MRI, repeat once 20 min prio r as needed. Unknown NITROGLYCERIN 0.[address] 0.4 mg under tongue every five minutes as need ed for chest pain. Place under tongue and allow to dissolve. Administer every 5 minutes, ma x of 3 doses in 15 minutes. Not Taking ONDANSETRON ORAL Take 4 mg by mouth as needed. Within last 7 days PROMETHAZINE 25 MG TABLET Take 25 mg by mouth. Within last 7 days PROPRANOLOL 40 MG TABLET 80 mg two times daily. 07/20/2019 SIMVASTATIN 20 MG TABLET 20 mg once daily in the evening. 07/19/2019 SUMATRIPTAN 100 MG TABLET Take 100 mg by mouth. Within last 7 days TAMSULOSIN 0.4 MG CAPSULE 0.4 mg once daily at bedtime. 07/19/2019 Lab Results Component Value Date RATE 64 07/19/2019 ATRIALRATE 64 07/19/2019 NM 184 07/19/2019 QRS 98 07/19/2019 QT 421 07/19/2019 PAXIS 68 07/19/2019 RAXIS 0 07/19/2019 TAXIS 27 07/19/2019 ANESTHESIA PLAN ASA 3 NPO Status: NPO by protocol ANESTHETIC TECHNIQUE Technique Used: General Induction: Intravenous MONITORS/LINES TO BE USED Standard ANESTHETIC CONSIDERATIONS IV when asleep POSTOP PAIN Oral analgesics IV analgesics BLOOD PRODUCTS T and S INFORMED CONSENT PARQ and risks/benefits of anesthetic plan discussed with Patient Additional Consent Issues: Risk/benefit of blood products discussed Dental Risk not discussed with patient PATIENT'S CODE STATUS IN OR FULL - full code documented in this encounter Miscellaneous Notes PMC/ANE PreOp Note - Arnol Chavarria MD - 07/20/2019 7:24 AM PDTROS: HPI: 79F with hx of [...] at high risk of JOANNE Cardiovascular: 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 Low activity, water [...] failure no electrolyte abnormalities no di alysis Urology/Pediatric Clinical Nurse Specialist: Urologic Conditions: BPH Endo: no Diabetes: no [...] [address] | | | | | | [place], [place] | | | | | | [address] | | | | | | [phone] | | | | | | | | +--------+ + + + + documented as of this encounter Procedures + +--------+ + + + | Procedure Name | Priori | Date/Time | Associated Diagnosis | Comments | | | ty | | | | + +--------+ + + + | ANE ETT | Routin | 07/20/2019 | | Results for this | | | e | 8:41 AM | | procedure are in the | | | | PDT | | results section. | + +--------+ + + + documented in this encounter Results ETT (07/20/2019 8:41 AM PDT) + + + | Narrative | Performed At | + + + | Arnol Chavarria MD 07/20/2019 8:42 AM AIRWAY MANAGEMENT - | | | ETT Time of Placement: 07/20/2019 7:50 AM Intubation Reason: For | | | surgical procedure Positioning: Supine Location Performed:OR | | | OXYGENATION Patient was not preoxygenated Grade: Grade 2 - | | | Ventilated by mask with oral airway/adjuvant Manual in-Line | | | Stabilization: No Induction:Routine, without Cricoid Pressure | | | INTUBATION ATTEMPT 1 Blade Type: Radha Blade #: 4 | | | Laryngoscopic View: Grade I ETT DETAILS ETT Type:Standard, Hi-Lo | | | Cuffed Intubation Type: Oral Cuff Status: Uncuffed Size: 7.5 | | | ETT secured with adhesive tape and ETT romero Depth at Lip: 20 cm | | | Airway Leak: No CONFIRMATION Number of Attempts: 1 Atraumatic | | | placement Positive for EtCO2:Waveform capnography Breath Sounds: | | | Bilateral and equal NARRATIVE Attending/Authorizing Provider: | | | Eileen Espinoza MD Performing Provider: Arnol Chavarria MD | | | Procedure Comments: Edentulous, easy airway. | | + + + documented in this encounter Visit Diagnoses Not on filedocumented in this encounter Administered Medications + +--------+ +------+------+------+ | Medication Order | MAR | Action | Dose | Rate | Site | | | Action | Date | | | | + +--------+ +------+------+------+ | ceFAZolin (ANCEF) injection 2 g | Given | 07/20/20 | 2 g | | | | 2 g, intravenous, PREPROCEDURE | | 19 8:26 | | | | | ONCE, 1 dose, Starting Wed | | AM PDT | | | | | 07/20/19 at 0609, Until Wed | | | | | | | 07/20/19 at 0826 | | | | | | + +--------+ +------+------+------+ +---+---+ | | | +---+---+ + +-------+ +------+---+---+ | dexamethasone (DECADRON) | Given | 07/20/20 | 8 mg | | | | injection INTRAPROCEDURE PRN, | | 19 9:28 | | | | | Starting Thu07/20/19 at 0928, | | AM PDT | | | | | Until Thu07/20/19 at 1137 | | | | | | + +-------+ +------+---+---+ +---+---+ | | | +---+---+ + +-------+ +-------+---+---+ | ePHEDrine injection | Given | 07/20/20 | 10 mg | | | | INTRAPROCEDURE PRN, Starting Wed | | 19 8:21 | | | | | 07/20/19 at 0802, Until Wed | | AM PDT | | | | | 07/20/19 at 1137 | | | | | | + +-------+ +-------+---+---+ +-------+ +-------+---+---+ | Given | 07/20/20 | 10 mg | | | | | 19 8:02 | | | | | | AM PDT | | | | +-------+ +-------+---+---+ +---+---+ | | | +---+---+ + +-------+ +-------+---+---+ | EPINEPHrine (ADRENALIN) | Given | 07/20/20 | 5 mcg | | | | injection INTRAPROCEDURE PRN, | | 19 8:33 | | | | | Starting 07/20/19 at 0858, | | AM PDT | | | | | Until 07/20/19 at 1137 | | | | | | + +-------+ +-------+---+---+ +---+---+ | | | +---+---+ + +-------+ +--------+---+---+ | fentaNYL (SUBLIMAZE) injection | Given | 07/20/20 | 50 mcg | | | | INTRAPROCEDURE PRN, Starting Wed | | 19 11:25 | | | | | 07/20/19 at 0745, Until Wed | | AM PDT | | | | | 07/20/19 at 1137 | | | | | | + +-------+ +--------+---+---+ +-------+ +--------+---+---+ | Given | 07/20/20 | 50 mcg | | | | | 19 11:06 | | | | | | AM PDT | | | | +-------+ +--------+---+---+ | Given | 07/20/20 | 50 mcg | | | | | 19 9:58 | | | | | | AM PDT | | | | +-------+ +--------+---+---+ +---+---+ | | | +---+---+ + +-------+ +--------+---+---+ | glycopyrrolate (PF) (TONY) | Given | 07/20/20 | 0.6 mg | | | | injection soln INTRAPROCEDURE | | 19 11:24 | | | | | PRN, Starting Thu07/20/19 at | | AM PDT | | | | | 1124, Until Thu07/20/19 at 1137 | | | | | | + +-------+ +--------+---+---+ +---+---+ | | | +---+---+ + +-------+ +-------+---+---+ | lidocaine (XYLOCAINE MPF) 2 % | Given | 07/20/20 | 80 mg | | | | (20 mg/mL) injection | | 19 7:45 | | | | | INTRAPROCEDURE PRN, Starting Wed | | AM PDT | | | | | 07/20/19 at 0745, Until Wed | | | | | | | 07/20/19 at 1137 | | | | | | + +-------+ +-------+---+---+ +---+---+ | | | +---+---+ + +-------+ +------+---+---+ | neostigmine (PROSTIGMIN) | Given | 07/20/20 | 4 mg | | | | injection intravenous, | | 19 11:24 | | | | | INTRAPROCEDURE PRN, Starting Wed | | AM PDT | | | | | 07/20/19 at 1124, Until Wed | | | | | | | 07/20/19 at 1137 | | | | | | + +-------+ +------+---+---+ +---+---+ | | | +---+---+ + +-------+ +------+---+---+ | ondansetron (ZOFRAN) injection | Given | 07/20/20 | 4 mg | | | | INTRAPROCEDURE PRN, Starting Wed | | 19 10:35 | | | | | 07/20/19 at 1035, Until Wed | | AM PDT | | | | | 07/20/19 at 1137 | | | | | | + +-------+ +------+---+---+ +---+---+ | | | +---+---+ + +-------+ +-------+---+---+ | propofol (DIPRIVAN) injection | Given | 07/20/20 | 50 mg | | | | INTRAPROCEDURE PRN, Starting Wed | | 19 11:06 | | | | | 07/20/19 at 0745, Until Wed | | AM PDT | | | | | 07/20/19 at 1137 | | | | | | + +-------+ +-------+---+---+ +-------+ +--------+---+---+ | Given | 07/20/20 | 50 mg | | | | | 19 9:58 | | | | | | AM PDT | | | | +-------+ +--------+---+---+ | Given | 07/20/20 | 150 mg | | | | | 19 7:45 | | | | | | AM PDT | | | | +-------+ +--------+---+---+ +---+---+ | | | +---+---+ + +-------+ +-------+---+---+ | rocuronium injection | Given | 07/20/20 | 20 mg | | | | INTRAPROCEDURE PRN, Starting Wed | | 19 9:58 | | | | | 07/20/19 at 0747, Until Wed | | AM PDT | | | | | 07/20/19 at 1137 | | | | | | + +-------+ +-------+---+---+ +-------+ +-------+---+---+ | Given | 07/20/20 | 50 mg | | | | | 19 7:47 | | | | | | AM PDT | | | | +-------+ +-------+---+---+ +---+---+ | | | +---+---+ + + + +---+---+---+ | sodium chloride 0.9 % (NS) IV | given by | 07/20/20 | | | | | infusion 10 mL/hr, intravenous, | | 19 11:35 | | | | | PROCEDURE CONTINUOUS, Starting | anesthes | AM PDT | | | | | 07/20/19 at 0615, Until Wed | iology | | | | | | 07/20/19 at 1422 | | | | | | + + + +---+---+---+ + + +---+---+---+ | given by anesthesiology | 07/20/20 | | | | | | 19 10:34 | | | | | | AM PDT | | | | + + +---+---+---+ | given by anesthesiology | 07/20/20 | | | | | | 19 9:45 | | | | | | AM PDT | | | | + + +---+---+---+ +---+---+ | | | +---+---+ documented in this encounter
--- OUTSIDE RECORDS SUMMARY | ~2020-08-07 | XMS | Encounter Summary ---
Demographics + + + | Address | [address] | | | [place] [address] | + + + | Home Phone | | + + + | Preferred Language | Unknown | + + + | Marital Status | | + + + | Advent Affiliation | 1027 | + + + | Race | White | + + + | Ethnic Group | Not or | + + + Author + + + | Author | [facility] | | | and [place] | + + + | Organization | [facility] | | | and [...] Team Providers + +------+ + | Care Motor Setter Name | Role | Phone | + +------+ + | Agustin Palomares MD | PCP | | + +------+ + Encounter Details +--------+ + + + + | Date | Type | Department | Care Team | Description | +--------+ + + + + | 12/06/ | Anesthesia | [facility] | Adán Herring MD | | | 2019 | Event | [facility] | [address] | | | | | [address] | [place] | | | | | [place] | [address] | | | | | [address] | | | | | | [phone] | | | +--------+ + + + + Anesthesia Record + + + + + | Procedure Name | Responsible | Anesthesia Start | Anesthesia Stop Time | | | Anesthesiologist | Time | | + + + + + | LEFT EXTRACTION | Adán Herring MD | 12/06/18 1052 | 12/06/18 1135 | | CATARACT WITH LENS | | | | | IMPLANT (Left Eye) | | | | + + + + + +----+---+ + + | Da | T | Event | Comment | | te | i | | | | | m | | | | | e | | | +----+---+ + + | 02 | 0 | | | | /0 | 9 | | | | 4/ | 3 | | | | 20 | 5 | | | | 19 | | | | +----+---+ + + | | 1 | An Checkout | Pre-use anesthesia machine/equipment checkout. | | | 0 | | | | | 5 | | | | | 2 | | | +----+---+ + + | | 1 | An Start | | | | 0 | Data | | | | 5 | | | | | 2 | | | +----+---+ + + | | 1 | An Start | Reassessment prior to anesthesia induction/procedure. | | | 0 | | | | | 5 | | | | | 2 | | | +----+---+ + + | | 1 | AN | Per surgeon request | | | 0 | Antibiotic | | | | 5 | declined | | | | 2 | | | +----+---+ + + | | 1 | Preoxygenat | | | | 0 | ed | | | | 5 | | | | | 3 | | | +----+---+ + + | | 1 | An | | | | 0 | Induction | | | | 5 | | | | | 4 | | | +----+---+ + + | | 1 | An | | | | 0 | Intubation | | | | 5 | | | | | 5 | | | +----+---+ + + | | 1 | Pre-Procedu | | | | 1 | ral Timeout | | | | 0 | Completed | | | | 5 | | | +----+---+ + + | | 1 | First | | | | 1 | Inc/Proc St | | | | 0 | | | | | 6 | | | +----+---+ + + | | 1 | An Patient | | | | 1 | Move | | | | 0 | | | | | 8 | | | +----+---+ + + | | 1 | Breathing | | | | 1 | Spontaneous | | | | 3 | ly | | | | 1 | | | +----+---+ + + | | 1 | Extubated | | | | 1 | Awake | | | | 3 | | | | | 1 | | | +----+---+ + + | | 1 | an stop | | | | 1 | data | | | | 3 | | | | | 1 | | | +----+---+ + + | | 1 | An Stop | Patient handed off to recovery nurse. | | | 3 | | | | | 5 | | | +----+---+ + + +------+ | Meds | +------+ + +--------+ | Name | Total | + +--------+ | propofol (DIPRIVAN) injection | 100 mg | | (bolus) (20 mL) | | + +--------+ | lidocaine 2% | 40 mg | + +--------+ | lactated ringers (LR) infusion | 250 mL | + +--------+ + + | Name | + + | N2O Flow Rate (L/Min) | + + | O2 Flow Rate (L/Min) | + + | Insp O2 | + + | Exp SEV | + + | Air Flow Rate (L/Min) | + + + + | No blood administrations on file. | + + +--------+ + + + | Type | Details | Placement | Removal | +--------+ + + + | Periph | 12/06/18; 0841; Right; | 12/06/18 08 by | 12/06/18 1154 by | | eral | Antecubital; [id number] | Cindy A Meggan, | Tawnia K | | IV | catheter system; 20 gauge, 1 11/05 | RN | KP Dickey | | | in length; intradermal injection, | | | | | tolerated well; 12/06/18; 1154 | | | +--------+ + + + | Airway | Placement Date: 12/06/18; | 12/06/18 1055 by | 12/06/18 1131 by | | | Placement Time: 1055 (created via | Adán Herring MD | Adán Herring MD | | | procedure documentation); Mask | | | | | Ventilation: EZ; Attempts: 1; | | | | | Airway Type: laryngeal mask; | | | | | Size: 4; Trauma: none; Placement | | | | | Check: exhaled CO2 detection | | | | | device, bilateral chest rise; | | | | | Removal Date: 12/06/18; Removal | | | | | Time: 1131 | | | +--------+ + + + | Wound | 12/06/18; 1106; Incision; Left; | 12/06/18 1106 by | 12/20/18 1706 by | | | eye; 12/20/18; 170 | Elba Maldonado RN | Farhana Thurman RN | +--------+ + + + documented in [...] encounter OR Notes Anesthesia Postprocedure Evaluation - Adán Herring MD - 12/06/2018 12:48 PM PSTFormattin g of this note might be different from the original. ANESTHESIA POSTANESTHESIA EVALUATION Rula Reece 78 y.o. female 1940 [id number] Procedure(s) LEFT EXTRACTION CATARACT WITH LENS IMPLANT (Left Eye) Cooperates? Yes Mental Status Performs simple tasks. Respiratory Satisfactory - Airway patent (self maintained). Cardiovascular Satisfactory - Blood pressure and heart rate acceptable Temperature Satisfactory Pain Satisfactory N/V Control Satisfactory Hydration Satisfactory - No signs of dehydration Complications None apparent Vitals: 12/06/18 1134 12/06/18 1140 12/06/18 1145 BP: (!) 127/101 120/56 108/87 Pulse: 73 68 Temp: 36.3 C (97.3 F) Resp: 11 21 SpO2: 97% 99% Electronically signed by Adán Herring MD 12/06/2018 12:48 [facility] Adán Herring MD at 12/06 12:48 PM PSTAnesthesia Procedure Notes - Adán Herring MD - 12/06/2018 11:02 AM PSTA ssociated Order(s): ANE AIRWAY NOTEAnesthesia Airway Placement 12/06/2018 10:55 Preprocedure check: patient identified, suction, oxygen, airway equipment checked, airway a ssessed and patient reassessment prior to induction Mask ventilation: easy Attempts: 1 Airway type: laryngeal mask Size: 4 Cuffed: cuffed Route, reference point: center of mouth Tube secured with: adhesive tape Trauma: none Tube placement verification: bilateral chest rise and carbon dioxide detection Performing provider: ADÁN HERRING Electronically Signed by: Adán Herring MD ESig date/time: 12/06 11:02 nesthesia Preprocedur e Evaluation - Adán Herring MD - 12/06/2018 9:32 AM PST ANESTHESIA PREANESTHESIA EVALUATION Rula Reece 78 y.o. female 1940 [id number] Procedure(s): LEFT EXTRACTION CATARACT WITH OR WITHOUT LENS IMPLANT (Left Eye) Medical history, anesthesia, medications, allergy, NPO status verified histories reviewed. Review of Systems / Med History Cardiovascular (+) hypertension Pulmonary (+) asthma Neurology tremor. (+) headaches Other (+) arthritis Physical Exam Airway MP I, TM >3 FB, Mouth opening >2 FB. Neck: full ROM, extends >30 degrees. Jaw protrusi on normal. Dental Grossly normal except where noted below.; (+) dentures-lower and dentures-upper. CV Rhythm regular. Rate Normal. (-) murmur. Pulm Clear to auscultation bilaterally. Neuro Grossly normal. Anesthesia Plan ASA 3 Type: General. Induction: Intravenous. Potential problems: None anticipated. Monitors: Standard ASA monitors. Consent statement:Anesthetic plan, alternatives, risks and benefits discussed with patient. Risks discussed included (but were not limited to): sore throat, respiratory events, heart problems, dental injury, . Consenting person understands and agrees to proceed. documented in this enc ounter Plan of Treatment +--------+ + + + + | Date | Type | Specialty | Care Team | Description | +--------+ + + + + | 08/14/ | Appointment | Radiology | Farhana Castillo | | | 2019 | | | [address] | | | | | | [place] | | | | | | [place] [address] | | | | | | [phone] | | | | | | | | +--------+ + + + + | 09/13/ | Office | Cardiology | Farhana Castillo | | | 2019 | Visit | | [address] | | | | | | [place] | | | | | | [place] [address] | | | | | | [phone] | | | | | | | | +--------+ + + + + documented as of this encounter Procedures + +--------+ + + + | Procedure Name | Priori | Date/Time | Associated Diagnosis | Comments | | | ty | | | | + +--------+ + + + | ANE AIRWAY NOTE | Routin | 12/06/2018 | | Results for this | | | e | 11:02 AM | | procedure are in the | | | | PST | | results section. | + +--------+ + + + documented in this encounter Results Anesthesia Airway Note (12/06/2018 11:02 AM PST) + + + | Narrative | Performed At | + + + | Adán Herring MD 12/06/2018 11:03 Anesthesia Airway Placement | | | 12/06/2018 10:55 Preprocedure check: patient identified, suction, | | | oxygen, airway equipment checked, airway assessed and patient | | | reassessment prior to induction Mask ventilation: easy Attempts: 1 | | | Airway type: laryngeal mask Size: 4 Cuffed: cuffed Route, | | | reference point: center of mouth Tube secured with: adhesive tape | | | Trauma: none Tube placement verification: bilateral chest rise and | | | carbon dioxide detection Performing provider: ADÁN HERRING | | | Electronically Signed by: Adán Herring MD | | | Spencer date/time: 12/06/2018 11:02 | | | | | + + + + + | Procedure Note | + + | Adán Herring MD - 12/06/2018 11:02 AM PST Anesthesia Airway Placement12/06/2018 | | 10:55Preprocedure check: patient identified, suction, oxygen, airway equipment checked, | | airway assessed and patient reassessment prior to inductionMask ventilation: | | easyAttempts: 1Airway type: laryngeal maskSize: 4Cuffed: cuffedRoute, reference point: | | center of mouthTube secured with: adhesive tapeTrauma: noneTube placement verification: | | bilateral chest rise and carbon dioxide detectionPerforming provider: ADÁN HERRING | | LElectronically Signed by: MD Spencer Rios date/time: | | 12/06/2018 11:02 | |Cuffed: cuffed | |Route, reference point: center of mouth | |Tube secured with: adhesive tape | |Trauma: none | |Tube placement verification: bilateral chest rise and carbon dioxide detection | |Performing provider: ADÁN HERRING | | | | | |Electronically Signed by: MD Spencer Rios date/time: 12/06 11:02 | | | + + documented in this encounter Visit Diagnoses Not on filedocumented in this encounter Administered Medications + +--------+ +-------+------+------+ | Medication Order | MAR | Action | Dose | Rate | Site | | | Action | Date | | | | + +--------+ +-------+------+------+ | lidocaine (PF) 2% injection | Given | 12/06/19 | 40 mg | | | | Intravenous, PRN, Starting Mon | | 19 10:54 | | | | | 12/06/18 at 1054, Anesthesia | | AM PST | | | | | Intra-op | | | | | | + +--------+ +-------+------+------+ +---+---+ | | | +---+---+ + +-------+ +--------+---+---+ | propofol (DIPRIVAN) injection | Given | 12/06/19 | 100 mg | | | | Intravenous, PRN, Starting Mon | | 19 10:54 | | | | | 12/06/18 at 1054, Anesthesia | | AM PST | | | | | Intra-op | | | | | | + +-------+ +--------+---+---+ +---+---+ | | | +---+---+ documented in this encounter"
--- OUTSIDE RECORDS SUMMARY | ~2020-08-07 | XMS | Encounter Summary ---
Demographics + + + | Address | [address] | | | [place] [address] | + + + | Home Phone | | + + + | Preferred Language | Unknown | + + + | Marital Status | Single | + + + | Christianity Affiliation | LDS | + + + [...] [place], [place] | | | | | [address] | | + + + + + | Michael Reece | ECON | [address] | | | | | [place], [place] | | | | | [address] | | + + + + + | Wolfjose Reece | ECON | [address] | | | | | [place] | | | | | [address] | | + + + + + Care Team Providers + +------+ + | Care Drawer Liner Name | Role | Phone | + +------+ + | Agustin Palomares MD | PCP | | + +------+ + Encounter Details +--------+--------+ + + + | Date | Type | Department | Care Team | Description | +--------+--------+ + + + | 07/22/ | Travel | | | | | [...] [address] | | | | | | [place], [place] | | | | | | [address] | | | | | | [phone] | | | | | | | | +--------+ + + + + documented as of this encounter Visit Diagnoses Not on filedocumented in this encounter"
--- OUTSIDE RECORDS SUMMARY | ~2020-08-07 | XMS | Encounter Summary ---
Demographics + + + | Address | [address] | | | [place] [address] | + + + | Home Phone | | + + + | Preferred Language | Unknown | + + + | Marital Status | Single | + + + | Hinduism Affiliation | LDS | + + + | Race | White | + + + | Ethnic Group | Not or | + + + Author + + + | Author | [facility] | + + + | Organization | [facility] | + + + | Address | Unknown | + + + | Phone | Unavailable | + + + Support + + + + + | Name | Relationship | Address | Phone | + + + + + | Petrona Shelley | ECON | [address] | | | | | [place] | | | | | [address] | | + + + + + | Michael Shelley | ECON | [address] | | | | | [place] | | | | | [address] | | + + + + + | Wolf Shelley | ECON | [address] | | | | | [place] | | | | | [address] | | + + + + + Care Team Providers + +------+ + | Care Senior Ux Developer Name | Role | Phone | + +------+ + | Unknown | PCP | Unavailable | + +------+ + Encounter Details +--------+ + + + + | Date | Type | Department | Care Team | Description | +--------+ + + + + | 02/03/ | Letter-[facility] | Neurology Movement | Cristopher Rosa, | Letters | | 2019 | scribed | [facility] at | MD [address] | | | | | [facility] | [place], [place] | | | | | and Healing [address] | [address] | | | | | [address] [facility] | [phone] | | | | | Health and Healing, | | | | | | [facility] | | | | | | [place], [place] | | | | | | [address] | | | | | | [phone] | | | +--------+ + + + [...] documented as of this encounter Miscellaneous Notes Letter - Cristopher Rosa MD - 02/04/2019 7:22 PM PDTApril 2018 MD Jelani Chau [address] [address] RE: RULA SHELLEY MR #: [id number] Dear Dr. Palomares: Today, I had the pleasure of seeing Rula Shelley for evaluation of her essential tremor. S he was with her son and rkhygfbu-tk-fmd for this visit. Mrs. Shelley was referred for [facility] evaluation of her essential tremor and consideration of deep brain stimulation for this. As you know, Mrs. Shelley is a 79-year-old right-handed woman who has had tremors since she was in her teens. They have steadily progressed over the last approximately 60 years. How ever, they have become quite disabling over the last 3 years. Her speech has become particu larly affected the last 2 years. 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 She al so used to try to spend time crocheting, but she can no longer do this. She is disabled by her tremor. In addition to not being able to romario, she can no longer write, she has extr live difficulty eating using utensils, and she can no longer drink bringing a cup to her mout h. She has to use a straw to drink beverages. She has tried using weighted utensils, but t hese were of no help. In addition, her speech has become much more difficult to understand because of the tremor. The tremor affects both upper limbs, as well as her head and her voice. She has quite a significant family history of tremor. Her paternal grandmother and her fat her both had significant tremors. She has a brother, age 76, who also has had fairly severe tremor for the past 10 years. She has a sister with tremor that she calls considerable, wh o is 72 years old. She has 3 children, all boys, and one of them also has some degree of tr emor. He is 43 years old. The other 2 children appear to her unaffected. Mrs. Shelley denies significant slowed movements. She denies muscular rigidity. She does not typically have a resting tremor. She has had no exposure to dopamine blocking medications and no significant history of head injury nor stroke. Mrs. Shelley lives at home independently. 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 Review of her medical history otherwise is noncontributory. She did recently have a hospit alization due to urosepsis in June 2017, and notes after this 1-week hospitalization, ther e was a significant progression in her tremor. On review of systems, when speaking with her nsjeikrf-jm-uxq, she thinks there has been lindsey e difficulty with her cognition over the last couple of years that she rates as moderate. Pertinent on exam, she has a severe vocal tremor. She has a jaw tremor rated at 3+. She h as a mixed type head tremor. On lpdcfe-qk-hbgl-to-finger, there is severe kinetic tremor of both upper limbs. The left arm is rated at 4+ and the right arm is rated at 3+. She also has a postural component rated at 3+ in each upper limb. Leg tremor is noted and rated at 2 + in each leg. When performing rapid alternating sequential movements, there is some mild bradykinesia jasmina dent, in the left hand slightly greater than the right hand and in the left foot slightly gr eater than the right foot. Otherwise, her general neuro exam appears normal at this visit. When she gets up and walk, she does have a poor bilateral arm swing. Impression: Mrs. Shelley has a history and signs today most consistent with disabling esse ntial tremor. Superimposed on this may be a slight bit of parkinsonism, but I do not think this is making a significant contribution to her symptoms nor exam. Of note, Mrs. Shelley has been through a number of medication trials for her tremor. She h as taken primidone for several years, however, only takes 150 mg in the morning and 100 mg i n the evening. She has never been on a higher dose than this, and when asked, she says she is not aware of any side effects with the primidone. In addition, she takes gabapentin 300 mg twice a day. She has been taking this for many years, she thinks since she had left knee surgery and bilateral hip replacements in 2007 and 2009, respectively. She does not think she has ever been on a higher dose of gabapentin. She does not note any side effects with t he gabapentin. She thinks at some point in the past she was on propranolol. However, she is not sure exac tly when and not sure of the dose. She is not aware of having had any side effects with pro pranolol. In addition to her symptoms of tremor, she does have a slight bit of restless legs syndrome . She takes carbidopa/levodopa 50 mg or a half tablet when she goes to bed and then an kenny tional half tablet at around 2 in the morning. Other medications include nitroglycerin p.r.n., Flovent p.r.n., acetaminophen, and tamsulos in. Impression is as above. I discussed with her treatments for essential tremor. I do think there is a limited likelihood of higher doses of primidone or propranolol to help her. Jhonatan roque, that said, I think it would be worth, since she has never had side effects, to push the dose higher to see how her tremor might respond. Typical therapeutic dose ranges for propr anolol in a woman of her body mass index would be in the 140-200 mg range. Therefore, I thi nk it would be worth restarting her on propranolol and pushing the dose up into this dose ra daniela to see how she responds. In addition, therapeutic dose range for primidone is up to 250 mg 3 times a day or 750 mg total daily. She has never had side effects on the low-dose ken midone she is taking, so I think it also is worth exploring pushing this dose higher. In mo re severe cases like hers, I often give primidone and propranolol in combination, as there c an be a synergistic effect. Aside from that, I do think Mrs. Shelley would likely be a good candidate for deep brain st imulation surgery of the bilateral thalamic VIM nuclei. Given the amplitude and general sev erity of her tremor, she is unlikely to get a satisfactory response with higher doses of the above-mentioned medications. Therefore, as she and her family are much interested in pursu ing this, I will set up referral for our neurosurgery group for further evaluation for DBS c onsideration. As her qvkmvrma-xq-dai has noted some cognitive difficulties and given her ag e, I think it would be worth performing careful neuropsych screening for Mrs. Shelley in thi s regard. I think it reasonable to give her the higher dose primidone and propranolol trial while she is awaiting these evaluations here at [facility] in [place]. Mrs. Shelley has an appointment back with you in another week to discuss this with you furt her. Please do not hesitate to contact me with any questions regarding the recommended medi cation trials or anything else regarding planned treatment for her. We will set up the appo intment with Dr. Ne Guevara, as well as our neuropsych team here to further evaluate and c deandreel she and her family. We are happy to perform all the followup programming care for he r DBS system should we go that route. It is a pleasure to participate in the care of Mrs. Shelley, and I thank you for the referr al. Most sincerely, MD LIANE Harris/DAMIAN /[id number] CC: Hugh Grijalva MD Tdocumented in this encounter Plan of Treatment +--------+ + + + + | Date | Type | Specialty | Care Team | Description | +--------+ + + + + | 08/22/ | Procedure | Neurology | Cristopher Rosa, | | | 2019 | | | [address] | | | | | | [place] | | | | | | [address] | | | | | | [phone] | | | | | | | | +--------+ + + + + documented as of this encounter Visit Diagnoses Not on filedocumented in this encounter"
--- OUTSIDE RECORDS SUMMARY | ~2020-08-07 | XMS | Encounter Summary ---
Demographics + + + | Address | [address] | | | [place] [address] | + + + | Home Phone | | + + + | Preferred Language | Unknown | + + + | Marital Status | | + + + | Hoahaoism Affiliation | 1027 | + + + | Race | White | + + + | Ethnic Group | Not or | + + + Author + + + | Author | [facility] | | | and [place] | + + + | Organization | [facility] | | | and [...] Team Providers + +------+ + | Care Credit And Collections Representative Name | Role | Phone | + [...] | | | | Diagnoses | | [place], | | | | | Chronic | | Jean-Pierre Ruby MD | | | | | pansinusitis | | [address] | | | | | Polyp of | | [address] | | | | | nasal cavity | | [place], | | | | | Procedures | | [place] [address] | | | | | [place] | | Phone: | | | | | 3+ SINUSES | | [phone] | | | | | [place] EXCISION | | Fax: | | | | | NOSE | | [phone] | | | | | POLYP(S),EXT | [...] + + | 06/27/ | Anesthesia | [facility] | Luciano Patel | | | 2019 | Event | [facility] | MD Antoni [address] | | | | | [address] | [address] [place], [place] | | | | | [place], [place] | [address] | | | | | [address] | | | | | | [phone] | | | +--------+ + + + + Anesthesia Record + + + + + | Procedure Name | Responsible | Anesthesia Start | Anesthesia Stop Time | | | Anesthesiologist | Time | | + + + + + | Bilateral | Luciano Patel, | 06/27/20857 | 06/27/20948 | | pansinusotomies with | MD | | | | polypectomies | | | | | (Bilateral Nares) | | | | + + + + + +----+---+ + + | Da | T | Event | Comment | | te | i | | | | | m | | | | | e | | | +----+---+ + + | 08 | 0 | | | | /2 | 8 | | | | 6/ | 3 | | | | 20 | 8 | | | | 20 | | | | +----+---+ + + | | 0 | An Checkout | Pre-use anesthesia machine/equipment checkout. | | | 8 | | | | | 4 | | | | | 7 | | | +----+---+ + + | | 0 | An Start | Reassessment prior to anesthesia induction/procedure. | | | 8 | | | | | 5 | | | | | 8 | | | +----+---+ + + | | 0 | Antibiotic | | | | 8 | Given | | | | 5 | | | | | 8 | | | +----+---+ + + | | 0 | Preoxygenat | | | | 9 | ed | | | | 0 | | | | | 1 | | | +----+---+ + + | | 0 | An | | | | 9 | Induction | | | | 0 | | | | | 4 | | | +----+---+ + + | | 0 | An | | | | 9 | Intubation | | | | 0 | | | | | 5 | | | +----+---+ + + | | 0 | AN Bite | | | | 9 | Block | | | | 0 | | | | | 6 | | | +----+---+ + + | | 0 | First | | | | 9 | Inc/Proc St | | | | 1 | | | | | 0 | | | +----+---+ + + | | 0 | Breathing | | | | 9 | Spontaneous | | | | 1 | ly | | | | 1 | | | +----+---+ + + | | 0 | Extubation/ | | | | 9 | Airway LDA | | | | 4 | Removal | | | | 3 | | | +----+---+ + + | | 0 | An Stop | Patient handed off to recovery nurse. | | | 4 | | | | | 9 | | | +----+---+ + + +------+ | Meds | +------+ + + + | Name | Total | + + + | fentaNYL injection (2 mL) | 100 mcg | + + + | lidocaine 2% (PF) | 60 mg | + + + | propofol (DIPRIVAN) injection | 150 mg | | (bolus) (20 mL) | | + + + | propofol | 258.16 mg | + + + | dexamethasone | 6 mg | + + + | phenylephrine (BIORPHEN) | 50 mcg | | injection 0.1 mg/mL (5 mL ampule) | | + + + | ondansetron (ZOFRAN) injection 4 | 4 mg | | mg | | + + + | ePHEDrine (AKOVAZ) injection 50 | 50 mg | | mg/mL | | + + + | ceFAZolin (ANCEF, KEFZOL) 100 | 2 g | | mg/mL IV Push syringe 2 g | | + + + | lactated ringers (LR) infusion | 300 mL | + + + + + | [...] Removal | +--------+ + + + | Wound | 12/20/18; 1548; Incision; Right; | 12/20/18 1548 by | | | | eye | Elba Maldonado RN | | +--------+ + + + | Periph | 06/27/20; 0830; Right; Posterior | 06/27/20 08 by | 06/27/20 1205 by | | eral | (dorsal); Hand; [id number] | Joy Garcia RN | Shelia Orlando RN | | IV | catheter system; 20 gauge; | | | | | Hematology; no longer indicated, | | | | | catheter/device intact, removed | | | | | per policy/procedure; 06/27/20; | | | | | 1205 | | | +--------+ + + + | Airway | Placement Date: 06/27/20; | 06/27/20904 by | 06/27/20942 by | | | Placement Time: 904 (created via | Luciano Patel, | Luciano Patel, | | | procedure documentation); Mask | MD | MD | | | Ventilation: EZ; Attempts: 1; | | | | | Airway Type: laryngeal mask; | | | | | Size: 4; Trauma: none; Placement | | | | | Check: exhaled CO2 detection | | | | | device, bilateral chest rise, | | | | | breath sounds equal bilaterally; | | | | | Removal Date: 06/27/20; Removal | | | | | Time: 942; Additional Comments: | | | | | Smooth IV induction. LMA placed | | | | | and well seated. Secured in | | | | | place. Breathing Circuit attached | | | | | to LMA. BSEB/ETCO2 | | | | | (auscultation and capnography) | | | | | and placement confirmed. | | | +--------+ + + + | Wound | 06/27/20; 0912; Incision; | 06/27/20 0912 by | 06/27/20 1210 by | | | Bilateral; nose; Healing; | Elba Maldonado RN | Chandler Vicente RN | | | 06/27/20; 1210 | | | +--------+ + + + [...] encounter OR Notes Anesthesia Postprocedure Evaluation - Luciano Patel MD - 06/27/2020 9:55 AM PDTForma tting of this note might be different from the original. ANESTHESIA POSTANESTHESIA EVALUATION Rula Reece 80 y.o. female 1940 [id number] Procedure(s) Bilateral pansinusotomies with polypectomies (Bilateral Nares) Cooperates? Yes Mental Status Performs simple tasks. Respiratory Satisfactory - Airway patent (self maintained). Cardiovascular Satisfactory - Blood pressure and heart rate acceptable Temperature Satisfactory Pain Satisfactory N/V Control Satisfactory Hydration Satisfactory - No signs of dehydration Adverse Events ADVERSE EVENTS: No adverse events Vitals Value Taken Time Temp 36.2 C (97.2 F) 06/27/20 0945 Pulse 73 06/27/20 0955 Resp 18 06/27/20 0955 BP 136/62 06/27/20 0955 Arterial Line BP Arterial Line BP 2 SpO2 96 % 06/27/20 0955 Vitals shown include unvalidated device data. Electronically signed by Luciano Patel MD 06/27/2020 9:55 AM PDT [facility] signed by Luciano Patel MD at 0 06/27/2020 9:55 AM PDTAnesthesia Procedure Notes - Luciano Patel MD - 06/27/2020 9:13 AM PDTAssociated Order(s): AirwayAnesthesia Airway Placement 06/27/2020 9:05 AM Preprocedure check: patient identified, oxygen, airway assessed, patient reassessment prior to induction, airway equipment checked and suction Rapid Sequence Induction: no Mask ventilation: easy Attempts: 1 Airway type: laryngeal mask Size: 4 Cuffed: cuffed Route, reference point: center of mouth Tube secured with: adhesive tape Trauma: none Tube placement verification: carbon dioxide detection, equal bilateral breath sounds and bi lateral chest rise Performing provider: Luciano Patel MD Authorizing provider: Luciano Patel MD Comments: Smooth IV induction. LMA placed and well seated. Secured in place. Breathing Circuit attached to LMA. BSEB/ETCO2 (auscultation and capnography) and placement confirmed. Please see intraoperative grid for any additional medication documentation. nesthesia Preproc edure Evaluation - Luciano Patel MD - 06/26/2020 8:44 PM PDTFormatting of this note m ight be different from the original. ANESTHESIA PREANESTHESIA EVALUATION Rula Reece 80 y.o. female 1940 [id number] Procedure(s): Bilateral pansinusotomies with polypectomies (Bilateral ) Medical,anesthesia, drug, allergy histories reviewed, NPO status verified. Labs reviewed. Review of Systems / Med History Anesthesia History (+) previous surgery or anesthesia.(-) PONV, difficult intubation, malignant hyperthermia . Family Anesthesia History Family Anesthesia Negative except where noted below. Cardiovascular Exercise tolerance >4 METS (+) hypertension (+) Dysrhythmias: (-) coronary artery disease. . Pulmonary (+) asthma. Gastrointestinal/Hepatic (+) hypercholesterolemia. Cancer Negative except where noted below. Neuromuscular (+) arthritis, history of headaches. Physical Exam Airway MP II, TM >3 FB, Mouth opening >2 FB. Neck: full ROM, extends >30 degrees. Jaw protrus ion normal. Dental grossly normal except where noted below. (+) dentures-lower and dentures-upper. CV Rhythm regular. Rate Normal. (-) murmur, carotid bruit, peripheral edema, JVD and weak pulses. Pulm Clear to auscultation bilaterally. (-) wheezing, rhonchi, decreased breath sounds, rales a nd stridor. Neuro grossly normal. Anesthesia Plan ASA: 3 (asthma, HO PSVT tremor with deep brain stim.) Type: General. Induction: Intravenous. Potential problems: None anticipated. Monitors: Standard ASA monitors. Consent statement: Anesthetic plan, alternatives, risks and benefits discussed with patient and family. discus sed risks to teeth, disability, heart problems, ICU placement, muscle aches, nausea, periope rative CV events, respiratory events, sore throat, voice injury, delirium Consenting person understands and agrees to proceed. PARQ. Risks and benefits of general anesthetic discussed with patient and available family member s. They agree to proceed, answered all questions.. Electronically Signed by: Luciano Patel MD ESig date/time: 06/27/2020 8:04 AM PDT documented in this encounter Miscellaneous Notes Anesthesia Post-op Handoff - Luciano Patel MD - 06/27/2020 9:48 AM PDT ANESTHESIA HANDOFF NOTE Rula Reece 80 y.o. female 1940 [id number] Bilateral pansinusotomies with polypectomies (Bilateral Nares) HANDOFF NOTE Handoff Protocol Used: post-procedure handoff checklist completed The following were completed during the transfer of care: 1. Identification of patient 2. Identification of responsible practitioner (primary service) 3. Discussion of pertinent medical history 4. Discussion of the surgical/procedure course (procedure, reason for surgery, procedure pe rformed) 5. Intraoperative anesthetic management and issues/concerns 6. Expectations/plans for the early post-procedure period 7. Opportunity for questions and acknowledgement of understanding of report from receiving team Patient Location: Phase I Condition: sedated Airway/O2: other (see comments) Multimodal analgesia: multimodal analgesia used between 6 hours prior to anesthesia start t o PACU discharge Two or more JOANNE mitigation strategies used: perioperative obstructive sleep apnea intervent ions applied Comments: Supplemental Oxygen used as necessary to maintain Oxygen Saturation at or above 9 2% The significant anesthesia concerns and VS in Epic were reviewed with the receiving team. Luciano Patel MD 06/27/2020 9:48 AM PDT [facility] by Luciano Patel MD at 0 06/27/2020 9:48 AM PDTdocumented in this encounter Plan of Treatment +--------+ + + + + | Date | Type | Specialty | Care Team | Description | +--------+ + + + + | 08/14/ | Appointment | Radiology | Farhana Castillo | | | 2019 | | | [address] | | | | | | [address] | | | | | | [place] [address] | | | | | | [phone] | | | | | | | | +--------+ + + + + | 09/13/ | Office | Cardiology | Farhana Castillo | | | 2019 | Visit | | [address] | | | | | | [address] | | | | | | [place] [address] | | | | | | [phone] | | | | | | | [...] + + documented in this encounter Results Airway (06/27/2020 9:13 AM PDT) + [...] medication documentation. | | + + + documented in this encounter Visit Diagnoses Not on filedocumented in this encounter Administered Medications + +--------+ +------+------+------+ | Medication Order | MAR | Action | Dose | Rate | Site | | | Action | Date | | | | + +--------+ +------+------+------+ | ceFAZolin (ANCEF, KEFZOL) 100 | Given | 06/27/20 | 2 g | | | | mg/mL IV Push syringe 2 g 2 g, | | 20 8:58 | | | | | Intravenous, Prior to Incision, | | AM PDT | | | | | Starting 06/27/20 at 0857, For | | | | | | | 1 dose, Give IV Push over 3-5 | | | | | | | minutes., Pre-op, Indications: | | | | | | | Surgical Prophylaxis | | | | | | + +--------+ +------+------+------+ +---+---+ | | | +---+---+ + +-------+ +------+---+---+ | dexamethasone (PF) 10 mg/mL | Given | 06/27/20 | 6 mg | | | | injection Intravenous, PRN, | | 20 9:04 | | | | | Starting 06/27/20 at 0904, | | AM PDT | | | | | Anesthesia Intra-op | | | | | | + +-------+ +------+---+---+ +---+---+ | | | +---+---+ + +-------+ +-------+---+---+ | ePHEDrine (AKOVAZ) 50 mg/mL | Given | 06/27/20 | 30 mg | | | | injection Intravenous, PRN, | | 20 9:09 | | | | | Starting 06/27/20 at 0906, | | AM PDT | | | | | Anesthesia Intra-op | | | | | | + +-------+ +-------+---+---+ +-------+ +-------+---+---+ | Given | 06/27/20 | 10 mg | | | | | 20 9:07 | | | | | | AM PDT | | | | +-------+ +-------+---+---+ | Given | 06/27/20 | 10 mg | | | | | 20 9:06 | | | | | | AM PDT | | | | +-------+ +-------+---+---+ +---+---+ | | | +---+---+ + +-------+ +---------+---+---+ | fentaNYL (PF) injection PRN, | Given | 06/27/20 | 100 mcg | | | | Starting Thu06/27/20 at 0902, | | 20 9:02 | | | | | Anesthesia Intra-op | | AM PDT | | | | + +-------+ +---------+---+---+ +---+---+ | | | +---+---+ + +-------+ +-------+---+---+ | lidocaine (PF) 2% injection | Given | 06/27/20 | 60 mg | | | | PRN, Starting Thu06/27/20 at | | 20 9:04 | | | | | 0904, Anesthesia Intra-op | | AM PDT | | | | + +-------+ +-------+---+---+ +---+---+ | | | +---+---+ + +-------+ +------+---+---+ | ondansetron (ZOFRAN) injection | Given | 06/27/20 | 4 mg | | | | 4 mg 4 mg, Intravenous, ONCE | | 20 9:04 | | | | | PRN, Nausea, Starting Thu06/27/20 | | AM PDT | | | | | at 0758, For 1 dose, Pre-op | | | | | | + +-------+ +------+---+---+ +---+---+ | | | +---+---+ + +-------+ +--------+---+---+ | phenylephrine (BIORPHEN) 0.1 | Given | 06/27/20 | 50 mcg | | | | mg/mL injection Intravenous, | | 20 9:12 | | | | | PRN, Starting Thu06/27/20 at | | AM PDT | | | | | 0912, Anesthesia Intra-op | | | | | | + +-------+ +--------+---+---+ +---+---+ | | | +---+---+ + +-------+ +--------+---+---+ | propofol (DIPRIVAN) injection | Given | 06/27/20 | 150 mg | | | | PRN, Starting 06/27/20 at | | 20 9:04 | | | | | 0904, Anesthesia Intra-op | | AM PDT | | | | + +-------+ +--------+---+---+ +---+---+ | | | +---+---+ + +---------+ + +-------+---+ | propofol (DIPRIVAN) injection | New Bag | 06/27/20 | 100 | 55.3 | | | Intravenous, CONTINUOUS PRN, | | 20 9:12 | mcg/kg/m | mL/hr | | | Starting 06/27/20 at 0912, | | AM PDT | in | | | | Anesthesia Intra-op | | | | | | + +---------+ + +-------+---+ +---+---+ | | | +---+---+ documented in this encounter"
--- OUTSIDE RECORDS SUMMARY | ~2020-08-07 | XMS | Encounter Summary ---
Demographics + + + | Address | [address] | | | [place] [address] | + + + | Home Phone | | + + + | Preferred Language | Unknown | + + + | Marital Status | | + + + | Congregation Affiliation | 1027 | + + + | Race | White | + + + | Ethnic Group | Not or | + + + Author + + + | Author | [facility] | | | and [place] | + + + | Organization | [facility] | | | and [...] Team Providers + +------+ + | Care Adjunct Latin Professor Name | Role | Phone | + +------+ + | Garfield Palomares MD | PCP | | + +------+ + Encounter Details +--------+ + + + + | Date | Type | Department | Care Team | Description | +--------+ + + + + | 12/06/ | Hospital | [facility] | Lela Kim, | | | 2019 | Encounter | MED CTR OR INTRA OP | MD [address] | | | | | [address] | [place], [place] | | | | | [place], [place] | [address] | | | | | [address] | | | | | | [phone] | | | +--------+ + + + [...] + + + | Blood Pressure | 108/87 | 12/06/2018 11:45 AM | | | | | PST | | + + + + + | Pulse | 68 | 12/06/2018 11:40 AM | | | | | PST | | + + + + + | Temperature | 36.3 C (97.3 F) | 12/06/2018 11:34 AM | | | | | PST | | + + + + + | Respiratory Rate | 21 | 12/06/2018 11:40 AM | | | | | PST | | + + + + + | Oxygen Saturation | 99% | 12/06/2018 11:40 AM | | | | | PST | | + + + + + | Inhaled Oxygen | - | - | | | Concentration | | | | + + + + + | Weight | 87.6 kg (193 lb 2 | 12/06/2018 8:09 AM | | | | oz) | PST | | + + + + + | Height | 162.6 cm (5' 4") | 12/06/2018 8:09 AM | | | | | PST | | + + + + + | Body Mass Index | 33.15 | 12/06/2018 8:09 AM | | | | | PST | | + + + + + documented in this encounter Medications at Time of Discharge + + + +---------+--------+ + | Medication | Sig | Dispensed | Refills | Start | End Date | | | | | | Date | | + + + +---------+--------+ + | acetaminophen | Take 500 mg by mouth | | 0 | | | | (TYLENOL) 500 mg | every 6 hours as | | | | | | tablet | needed for Pain. | | | | | + + + +---------+--------+ + | gabapentin | Take 600 mg by mouth | | 0 | | | | (NEURONTIN) 300 mg | nightly. | | | | | | capsule | | | | | | + + + +---------+--------+ + | promethazine | Take 25 mg by mouth | | 0 | | | | (PHENERGAN) 25 mg | every 6 hours as | | | | | | tablet | needed. | | | | | + + + +---------+--------+ + | simvastatin | Take 20 mg by mouth | | 0 | | | | (ZOCOR) 20 mg tablet | nightly. | | | | | + + + +---------+--------+ + | SUMAtriptan | Take 100 mg by mouth | | 0 | | | | (IMITREX) 100 mg | as needed for | | | | | | tablet | Migraine. | | | | | + + + +---------+--------+ + | | Take 1 tablet by | | 0 | | | | acetaminophen-codein | mouth every 4 hours | | | | 9 | | e (TYLENOL #3) | as needed for Pain. | | | | | | 300-30 mg per tablet | | | | | | + + + +---------+--------+ + | amLODIPine | Take 5 mg by mouth | | 0 | | | | (NORVASC) 5 mg | Daily. | | | | 9 | | tablet | | | | | | + + + +---------+--------+ + | | Take 1 tablet by | | 0 | | | | diclofenac-misoprost | mouth 2 times daily. | | | | 9 | | ol (ARTHROTEC 75) | | | | | | | 75-0.2 mg per tablet | | | | | | + + + +---------+--------+ + | lisinopril | Take 20 mg by mouth | | 0 | | | | (PRINIVIL, ZESTRIL) | Daily. | | | | 9 | | 20 mg tablet | | | | | | + + + +---------+--------+ + | metoprolol | Take 100 mg by mouth | | 0 | | | | succinate (TOPROL | nightly. | | | | 9 | | XL) 100 mg ER tablet | | | | | | + + + +---------+--------+ + | primidone | Take 50 mg by mouth | | 0 | | | | (MYSOLINE) 50 mg | nightly. Two at | | | | 9 | | tablet | bedtime | | | | | + + + +---------+--------+ + documented as of this encounter H&P Notes Lela Kim MD - 12/06/2018 10:[address] [facility] SURGICAL/PROCEDURALINTERVAL HISTORY AND PHYSICAL NOTE Pt. Name/Age/: Rula Shelley 78 y.o. 1940 Date of admission: 12/06/2018 The current H&P was reviewed. The patient was reexamined. Re-evaluation of the patient confirms the necessity for the scheduled procedure.No change has occurred in the patient 's condition since the H&P was completed less than 30 days ago. PHYSICIAN'S VERIFICATION OF INFORMED CONSENT The patient was counseled regarding the procedure, its indications, risks, potential compli cations and alternatives and any questions were answered. Consent was obtained. PLANNED PROCEDURE/TREATMENT Procedures (Laterality):LEFT EXTRACTION CATARACT WITH LENS IMPLANT (Left) PHYSICIAN'S VERIFICATION OF INFORMED CONSENT FOR BLOOD TRANSFUSION There is not a reasonable possibility that blood transfusion will be necessary as a result of the patient's procedure. INFORMED CONSENT The patient has been informed of: The nature of the proposed care, treatment, services, medications, interventions or proc edures. Potential benefits, risks or side effects, including potential problems related to recup eration. The likelihood of achieving care treatment and service goals. Reasonable alternatives to the proposed care, treatment and service. The relevant risks, benefits and side effects related to alternatives, including the pos sible results of not receiving care, treatment and services. When indicated, any limitations on the confidentiality of information learned from or ab out the patient. If appropriate, the risks, benefits and alternatives of the drugs to be used for sedatio n/analgesia including moderate sedation. If appropriate, patient has been provided information on the risks, benefits and alterna tives to the transfusion of blood and/or blood products. If appropriate, patient has been provided information regarding the [place] Blood Act. If appropriate, patient was given the state mandated brochure concerning breast surgery. Electronically signed by: Lela Kim, 12/06/2018 10:46 [facility] Lela Carmen MD - 12/04/2018 11:22 PM [facility] [address] [facility] [address] HISTORY AND PHYSICAL LELA KIM MD Patient: RULA SHELLEY Admitting: LELA Bishop OCTAVIA MR #: [id number] LOC: PT TYPE: Adm Date: : 1940 DATE OF SURGERY: 12/06/2018 CHIEF COMPLAINT: Decreased vision in both eyes. HISTORY OF PRESENT ILLNESS: The patient is a 78-year-old female who complains that she is having trouble with reading, seeing street signs and driving. She is having difficulty with glare, difficulty with watching TV or movies, reading, writing, and performing a detailed w ork. This is affecting both eyes. PAST MEDICAL HISTORY: Arthritis, asthma, hypertension, migraine, tremor. PAST OCULAR HISTORY: Amblyopia, cataract, narrow angle. PAST SURGICAL HISTORY: Left total knee, right hip, left hip surgery, sinus surgery. FAMILY HISTORY: Hypertension, arthritis, cancer, thyroid disorder. SOCIAL HISTORY: Nondrinker, nonsmoker, no illicit drug use. REVIEW OF SYSTEMS: A 13-point review of systems was performed and was negative except for arthritis and back pain. MEDICATIONS: Amlodipine 5 mg daily. Primidone 50 mg tablet at bedtime. Gabapentin-hydrocodone 300/30 mg tablet. Promethazine 25 mg tablet. Sumatriptan 100 mg tablet. Arthrotec 75 mg tablet. Simvastatin 20 mg tablet. Metoprolol 100 mg extended release. Lisinopril 20 mg. ALLERGIES: AMITRIPTYLINE AND SULFA. PHYSICAL EXAMINATION: VITAL SIGNS: Blood pressure 196/77 with a heart rate of 65. GENERAL: The patient was awake, alert and oriented times 4, no acute distress, healthy ap pearing. She does have a tremor. CARDIOVASCULAR: Regular rate and rhythm. No murmurs, rubs or gallops. LUNGS: Clear to auscultation bilaterally. EXTREMITIES: No clubbing, cyanosis or edema. NEUROLOGIC: Slow slurred speech, but normal mentation and interaction. OPHTHALMIC EXAMINATION: Best corrected visual acuity in the right eye was 20/30-2, and bes t corrected visual acuity in the left eye was 20/40. She is a high hyperopia with a +3.50 o f refraction in each eye. She glared down to 20/100 on a high glare in the right eye and 20 /80 on high glare in the left. Intraocular pressures were 14 in the right eye and 13 in the left. Pupils are equally round and reactive to light. The patient was orthotropic with f ull extraocular motility. She did show a 10 esophoria on all gazes with alternate cover tan ting, but she was orthotropic on binocular viewing. Visual ortez were full to count finger s bilaterally. Anterior segment examination revealed significant dermatochalasis in both up per eyelids. Her lids were otherwise unremarkable. The conjunctivae were white and quiet. Her corneas were clear without guttata. 2+ deep and quiet anterior chambers. Dilated ex amination revealed a 2+ nuclear sclerotic cataract with vacuoles and 1+ cortical wedge in th e right eye and a 2+ nuclear sclerotic cataract with vacuoles and 1+ cortical wedge in the l eft eye. The iris was normal. A dilated fundus examination revealed a cup to disc ratio of 0.7 in the right eye and 0.5 in the left eye. The macula, vessels, periphery and vitreous were unremarkable in both eyes. ASSESSMENT: The patient is a 78-year-old female referred by Dr. Grant for moderate nucl ear cataracts and cortical cataracts that are visually significant, specifically hindering h er ability to read and drive at night. She glares down as well. She has narrow occludable angles, and the cataract surgery will alleviate the narrow angles as well. She has a head t remor, so general anesthesia is preferable. The patient has a history of patching the left eye for amblyopia treatment as a child. She also has high hyperopia, but normal axial gerry ths. PLAN: Plan for cataract extraction in the left eye under general anesthesia due to her hea d tremor with placement of monofocal nontoric posterior chamber intraocular lens targeting f or emmetropia. She shows borderline dilation. She has a high hyperopia with narrow anterio r chamber, but normal axial lengths. LELA KIM MD Dictated by LELA KIM MD 12/04/2018 23:22:46 Transcribed on 12/04/2018 23:56:40 by in job# [id number] Confirmation #: [id number] cc: GARFIELD PALOMARES MD documented in this encounter Miscellaneous Notes Op Note - Lela Kim [facility] Pt[facility] Name/Age/: Rula Shelley 78 y.o. 1940 Date of Surgery: 12/06/2018 PREOPERATIVE DIAGNOSIS: 1. Visually significant cataract, left eye. 2. Narrow angles POSTOPERATIVE DIAGNOSIS: 1. Visually significant cataract, left eye. 2. Floppy iris with constriction at the end of the case. OPERATION: 1. Cataract extraction for the left eye using phacoemulsification with a cumulative dispers watson energy of 6, and intracapsular implantation of a 25.5 diopter PCBOO intraocular lens, se rial number [id number], via a temporal clear corneal incision. SURGEON: Lela Kim MD CHRONOGRAPH OPERATOR: None. ANESTHESIA: General anesthesia due to a head tremor. ESTIMATED BLOOD LOSS: Less than 1 cc. FLUIDS: Please see anesthesia note. COMPLICATIONS: None. INDICATIONS: Progressive, painless decrease in vision of the left eye due to a visually sig nificant cataract that is affecting activities of daily living. All inherent risks, benefit s, alternatives, and expectations of the procedure were discussed with the patient. The bill ent verbalized understanding and desire to proceed, and informed consent was obtained. SUMMARY PROCEDURE: Preoperatively, three sets of Akten, flurbiprofen, 1% cyclogyl, 1% tropi camide, and 2.5% phenylephrine were administered to the operative eye. The [employer] phacoem ulsification system was primed and found to be in good working order. The patient was then transferred to the operating room and a "procedural time out was performed to confirm the appropriate patient, procedure and eye laterality. The patient was prepped and draped in the usual sterile ophthalmic fashion. Straight scisso rs were used to open the plastic drape, and a speculum was placed to separate the eyelids. The microscope was brought into position, properly focused, and the illumination intensity w as appropriately set. An angled side port blade was used to make a limbal paracentesis located roughly 60-90 degr ees from the site of the intended temporal clear corneal incision. Approximately 0.05-0.1cc of preservative free 1% lidocaine was injected intracamerally via the paracentesis. Viscoat was injected through the paracentesis to fill the anterior chamber. The iris quivered and ir regular dilated and constricted with viscoat. A self-sealing temporal clear corneal incisio n was made using a [place] blade and a 2.4 mm keratome. A continuous curvilinear cap sulorhexis was created using capsulorhexis forceps. Hydrodissection and hydrodelineation we re achieved by injection of BSS using a Finch cannula. The lens was rotated without difficul ty. Nucleofractis was performed by phacoemulsification and the [id number] technique with a C DE of 6. A nuclear groove was created and the lens was cracked into vitaliy-sections. The nucle ar vitaliy-sections were further segmented and removed using horizontal chopping. The cortex wa s removed in a centripetal stripping fashion using the irrigation/aspiration handpiece. Gent le polishing of the posterior and anterior capsule was performed. The capsular bag was filled with viscoelastic. A "time out" was performed to confirm the co rrect selection of the intraocular lens model and power. A 25.5 diopter PCBOO pre-loaded IOL /cartridge was primed and the IOL was injected into the capsular bag. The lens was then rota christina into proper position with the Vitor chopper. The remaining viscoelastic material was r emoved from the anterior chamber and capsular bag using the irrigation/aspiration handpiece. Approximately 0.1cc of brandname Vigamox was injected intracamerally and the remainder was used to hydrate the wounds. The wounds were tested with Weck cell candelario and were watertight . The eye was palpated and there was good intraocular pressure. The anterior chamber remain ed deep and formed, the pupil round, and the intraocular lens remained well centered. An in ferior subconjunctival injection 0.3cc of Kenalog 10 was administered. The speculum was rem gladys without complication under direct visualization. The drape was removed and the periocu lar area was rinsed and dried. A protective clear eye shield was placed. The patient tolerated the procedure well and no complications occurred. The patient was ta keegan to the postoperative recovery room in stable condition. Lela Kim 12/06/2018 20:40 [facility] rief Op Note - Iron is, Lela Urbina MD - 12/06/2018 11:31 AM PST Brief Operative Note Rula Shelley 78 y.o. female 1940 [id number] Proc. Date 12/06/2018 Preop Dx Age-related nuclear cataract of left eye [H25.12] Postop Dx * Age-related nuclear cataract of left eye [H25.12] Procedure LEFT EXTRACTION CATARACT WITH LENS IMPLANT (Left) Anesthesia General Surgeon Lela Kim MD - [employer] Rep[employer]r EBL Minimal Findings Findings consistent with scheduled procedure. No other abnormalities found. Complications none Specimens * No specimens in log * Drains Electronically signed by: Lela Kim MD 12/06/2018 11:31 [facility] MD at 11:31 AM PSTdocumented in this encounter Plan of Treatment +--------+ + + + + | Date | Type | Specialty | Care Team | Description | +--------+ + + + + | 08/14/ | Appointment | Radiology | JonathanFarhana | | | 2019 | | | [address] | | | | | | [address] | | | | | | [place] [address] | | | | | | [phone] | | | | | | | | +--------+ + + + + | 09/13/ | Office | Cardiology | Farhana Castillo | | | 2019 | Visit | | [address] | | | | | | [address] | | | | | | [place] [address] | | | | | | [phone] | | | | | | | | +--------+ + + + + documented as of this encounter Procedures + +--------+ + + + | Procedure Name | Priori | Date/Time | Associated Diagnosis | Comments | | | ty | | | | + +--------+ + + + | EXTRACTION CATARACT | | 12/06/2018 | Age-related | | | W/ OR W/O LENS | | 10:51 AM | nuclear cataract of | | | IMPLANT | | PST | left eye | | + +--------+ + + + documented in this encounter Visit Diagnoses Not on filedocumented in this encounter Administered Medications + +--------+ +--------+------+------+ | Medication Order | MAR | Action | Dose | Rate | Site | | | Action | Date | | | | + +--------+ +--------+------+------+ | apraclonidine (IOPIDINE) 1 % | Given | 12/06/19 | 1 drop | | | | ophthalmic solution 1 drop 1 | | 19 8:43 | | | | | drop, Left Eye, EVERY 5 MIN PRN, | | AM PST | | | | | start time per RN discretion, | | | | | | | Starting 12/06/18 at 0816, For | | | | | | | 3 doses, Pre-op | | | | | | + +--------+ +--------+------+------+ +-------+ +--------+---+---+ | Given | 12/06/19 | 1 drop | | | | | 19 8:34 | | | | | | AM PST | | | | +-------+ +--------+---+---+ | Given | 12/06/19 | 1 drop | | | | | 19 8:27 | | | | | | AM PST | | | | +-------+ +--------+---+---+ +---+---+ | | | +---+---+ + +-------+ +--------+---+---+ | cyclopentolate (CYCLOGYL) 1% | Given | 12/06/19 | 1 drop | | | | ophthalmic solution 1 drop 1 | | 19 8:42 | | | | | drop, Left Eye, EVERY 5 MIN PRN, | | AM PST | | | | | prep eye for procedure, Starting | | | | | | | 12/06/18 at 0816, For 3 doses, | | | | | | | Pre-op | | | | | | + +-------+ +--------+---+---+ +-------+ +--------+---+---+ | Given | 12/06/19 | 1 drop | | | | | 19 8:33 | | | | | | AM PST | | | | +-------+ +--------+---+---+ | Given | 12/06/19 | 1 drop | | | | | 19 8:27 | | | | | | AM PST | | | | +-------+ +--------+---+---+ + +---+ | | | + +---+ | fentaNYL (PF) injection 25-50 | | | mcg 25-50 mcg, Intravenous, | | | EVERY 5 MIN PRN, Pain, Starting | | | 12/06/18 at 1129, Maximum total | | | dose 100 mcg. PACU IV Narcotic | | | Priority: Only use fentanyl for | | | immediate post-op pain (one dose) | | | or breakthrough pain when any | | | other IV narcotics ordered have | | | been ineffective (if ordered). | | | If both morphine and | | | hydromorphone are ordered, use | | | morphine first, and use | | | hydromorphone if morphine | | | ineffective., Recovery/Phase I | | + +---+ | | | + +---+ + +-------+ +--------+---+---+ | flurbiprofen (OCUFEN) 0.03% | Given | 12/06/19 | 1 drop | | | | ophthalmic solution 1 drop 1 | | 19 8:33 | | | | | drop, Left Eye, EVERY 5 MIN PRN, | | AM PST | | | | | prep eye for procedure, Starting | | | | | | | 12/06/18 at 0816, For 3 doses, | | | | | | | Use 1 drop every 30 minutes | | | | | | | beginning 2 hours before surgery | | | | | | | (total of 4 drops)., Pre-op | | | | | | + +-------+ +--------+---+---+ +-------+ +--------+---+---+ | Given | 12/06/19 | 1 drop | | | | | 19 8:25 | | | | | | AM PST | | | | +-------+ +--------+---+---+ +---+---+ | | | +---+---+ + +---------+ +---+-------+---+ | lactated ringers (LR) infusion | New Bag | 12/06/19 | | 100 | | | at 10-100 mL/hr, Intravenous, | | 19 8:41 | | mL/hr | | | CONTINUOUS, Starting 12/06/18 | | AM PST | | | | | at 0845, TKO., Pre-op | | | | | | + +---------+ +---+-------+---+ +---+---+ | | | +---+---+ + +-------+ +--------+---+---+ | lidocaine (AKTEN) 3.5% | Given | 12/06/19 | 1 drop | | | | ophthalmic gel 1 drop 1 drop, | | 19 8:42 | | | | | Left Eye, EVERY 5 MIN PRN, prep | | AM PST | | | | | eye for procedure, Starting Mon | | | | | | | 12/06/18 at 0816, For 3 doses, | | | | | | | Pre-op | | | | | | + +-------+ +--------+---+---+ +-------+ +--------+---+---+ | Given | 12/06/19 | 1 drop | | | | | 19 8:33 | | | | | | AM PST | | | | +-------+ +--------+---+---+ | Given | 12/06/19 | 1 drop | | | | | 19 8:24 | | | | | | AM PST | | | | +-------+ +--------+---+---+ + +---+ | | | + +---+ | ondansetron (ZOFRAN) injection | | | 4 mg 4 mg, Intravenous, ONCE | | | PRN, Nausea, Starting 12/06/18 | | | at 1129, For 1 dose, | | | Recovery/Phase I | | + +---+ | | | + +---+ + +-------+ +--------+---+---+ | phenylephrine (SAV-SYNEPHRINE) | Given | 12/06/19 | 1 drop | | | | 2.5% ophthalmic solution 1 drop | | 19 8:42 | | | | | 1 drop, Left Eye, EVERY 5 MIN | | AM PST | | | | | PRN, prep eye for procedure, | | | | | | | Starting 12/06/18 at 0816, For | | | | | | | 3 doses, Pre-op | | | | | | + +-------+ +--------+---+---+ +-------+ +--------+---+---+ | Given | 12/06/19 | 1 drop | | | | | 19 8:33 | | | | | | AM PST | | | | +-------+ +--------+---+---+ | Given | 12/06/19 | 1 drop | | | | | 19 8:25 | | | | | | AM PST | | | | +-------+ +--------+---+---+ + +---+ | | | + +---+ | promethazine (PHENERGAN) (IV | | | ONLY) injection 6.25 mg 6.25 mg, | | | Intravenous, EVERY 15 MIN PRN, | | | Nausea, Vomiting, Starting Mon | | | 12/06/18 at 1129, For 4 doses, | | | TAKE PRECAUTIONS WHEN | | | ADMINISTERING Dilute to 10-20mL | | | with NS. Give over 2-3 minutes | | | into large vein. Use ondansetron | | | first if both are ordered., | | | Recovery/Phase I | | + +---+ | | | + +---+ + +-------+ +--------+---+---+ | tropicamide (MYDRIACYL) 1% | Given | 12/06/19 | 1 drop | | | | ophthalmic solution 1 drop 1 | | 19 8:43 | | | | | drop, Left Eye, EVERY 5 MIN PRN, | | AM PST | | | | | prep eye for procedure, Starting | | | | | | | 12/06/18 at 0816, For 3 doses, | | | | | | | Pre-op | | | | | | + +-------+ +--------+---+---+ +-------+ +--------+---+---+ | Given | 12/06/19 | 1 drop | | | | | 19 8:34 | | | | | | AM PST | | | | +-------+ +--------+---+---+ +---+---+ | | | +---+---+ documented in this encounter
--- OUTSIDE RECORDS SUMMARY | ~2020-08-07 | XMS | Encounter Summary ---
Demographics + + + | Address | [address] | | | [place] [address] | + + + | Home Phone | | + + + | Preferred Language | Unknown | + + + | Marital Status | | + + + | [employer] Affiliation | 1027 | + + + | Race | White | + + + | Ethnic Group | Not or | + + + Author + + + | Author | [facility] | | | and [place] | + + + | Organization | [facility] | | [...] Team Providers + +------+ + | Care Dietetics Teacher Name | Role | Phone | + +------+ + | Garfield Palomares MD | PCP | | + +------+ + Encounter Details +--------+---------+ + + + | Date | Type | Department | Care Team | Description | +--------+---------+ + + + | 12/06/ | Surgery | [facility] | Lela Kim, | LEFT EXTRACTION | | 2019 | | [facility] | [address] | CATARACT WITH LENS | | | | [address] | [place], [place] | IMPLANT | | | | [place], [place] | [address] | | | | | [address] | | | | | | [phone] | | | +--------+---------+ + + + [...] Lela Kim MD - 12/06/2018 10:45 AM [facility] SURGICAL/PROCEDURALINTERVAL HISTORY AND PHYSICAL NOTE Pt. [...] has been provided information regarding the [place] Blood Act. If appropriate, patient was given the state mandated brochure concerning breast surgery. Electronically signed by: Lela Kim, 12/06/2018 10:46 [facility] Lela Carmen MD - 12/04/2018 11:22 PM [facility] [address] [facility] [id number] HISTORY AND PHYSICAL LELA KIM MD Patient: RULA SHELLEY Admitting: LELA KIM MR #: [id number] LOC: PT TYPE: Adm Date: : 1940 [...] Transcribed on 12/04/2018 23:56:40 by in job# [id number] Confirmation #: [id number] cc: GARFIELD PALOMARES MD documented in this encounter Miscellaneous Notes Op Note - Lela Kim [facility] Pt. Name/Age/: Rula Shelley [...] diopter PCBOO intraocular lens, se rial number [id number], via a temporal clear corneal incision. 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 ANESTHESIA: General anesthesia due to a [...] were administered to the operative eye. The [employer] phacoem ulsification system was primed and found [...] incisio n was made using a guarded nikolski blade and a 2.4 mm keratome. A continuous curvilinear cap sulorhexis was created using capsulorhexis forceps. Hydrodissection and hydrodelineation we re achieved by injection of BSS using a Finch cannula. The lens was rotated without difficul ty. Nucleofractis was performed by phacoemulsification and the [id number] technique with a C DE of 6. [...] in stable condition. Lela Kim 12/06/2018 20:40 [facility] rief Op Note - Iron is, Lela Urbina MD - 12/06/2018 11:31 AM PST Brief Operative Note Rula Shelley 78 y.o. female 1940 [id number] Proc. 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 No other abnormalities found. Complications none Specimens * No specimens in log * Drains Electronically signed by: Lela Kim MD 12/06/2018 11:31 [facility] Lela Kim MD at 11:31 [...] | | | | | | [place] [address] | | | | | | [phone] | | | | | | | | +--------+ + + + + | 09/13/ | Office | Cardiology | [facility] | | | 2019 | Visit | | [address] | | | | | | [address] | | | | | | [place] [address] | | | | | | [phone] | | | | | | | [...] Diagnosis | + + | Age-related nuclear cataract of left eye Senile nuclear sclerosis | + + documented in this encounter [...] +---+---+ | | | +---+---+ + +-------+ + +---+ + | balanced salts sterile | Given | 12/06/19 | 1 | | Surgical | | ophthalmic irrigation solution | | 19 11:07 | Applicat | | Site | | PRN, Starting Thu12/06/18 at 1107, | | AM PST | ion | | | | Intra-op | | | | | | + +-------+ + +---+ + +---+---+ | | | +---+---+ + [...] | | | | | | | Thu12/06/18 at 0816, For 3 doses, | | [...] +---+---+ | | | +---+---+ + +-------+ +--------+---+ + | EPINEPHrine 1 mg/mL injection | Given | 12/06/19 | 0.4 mg | | Surgical | | PRN, Starting 12/06/18 at 1107, | | 19 11:07 | | | Site | | Intra-op | | AM PST | | | | + +-------+ +--------+---+ + + +---+ | | | + [...] | | +---+---+ + +-------+ +-------+---+---+ | hyaluronate & chondroitin | Given | 12/06/19 | 1 kit | | | | hyaluronate (DUOVISC) intraocular | | 19 11:07 | | | | | kit PRN, Starting 12/06/18 at | | AM PST | | | | | 1107, Intra-op | | | | | | + +-------+ +-------+---+---+ +---+---+ | | | +---+---+ + +---------+ [...] +---+---+ | | | +---+---+ + +-------+ +------+---+ + | lidocaine (PF) 1% injection | Given | 12/06/19 | 1 mL | | Surgical | | PRN, Starting 12/06/18 at 1107, | | 19 11:07 | | | Site | | Intra-op | | AM PST | | | | + +-------+ +------+---+ + +---+---+ | | | +---+---+ + +-------+ +--------+---+ + | moxifloxacin (VIGAMOX) 0.5 % | Given | 12/06/19 | 0.5 mg | | Eye-Left | | intracameral injection PRN, | | 19 11:23 | | | | | Starting 12/06/18 at 1123, | | AM PST | | | | | Intra-op | | | | | | + +-------+ +--------+---+ + + +---+ | | | + [...] | | +---+---+ + +-------+ +---------+---+---+ | povidone-iodine 5 % ophthalmic | Given | 12/06/19 | 2 drops | | | | solution PRN, Starting Mon | | 19 10:59 | | | | | 12/06/18 at 1059, Intra-op | | AM PST | | | | + +-------+ +---------+---+---+ + +---+ | | | + +---+ [...] | | | + +---+ + +-------+ +--------+---+ + | triamcinolone acetonide | Given | 12/06/19 | 2.5 mg | | Eye-Left | | (KENALOG-10) 10 mg/mL injection | | 19 11:23 | | | | | PRN, Starting 12/06/18 at 1123, | | AM PST | | | | | Intra-op | | | | | | + +-------+ +--------+---+ + +---+---+ | | | +---+---+ + +-------+ +--------+---+---+ | tropicamide (MYDRIACYL) 1% [...]
--- OUTSIDE RECORDS SUMMARY | ~2020-08-07 | XMS | Encounter Summary ---
Demographics + + + | Address | [address] | | | [place] [address] | + + + | Home Phone [...] Author + + + | Author | [facility] | + + + | Organization | [facility] | + + + | Address | Unknown | + + + | Phone | Unavailable | + + + Support + + + + + | Name | Relationship | Address | Phone | + + + + + | Petrona Reece | ECON | [address] | | | | | [place] | | | | | [address] | | + + + + + | Michael Reece | ECON | [address] | | | | | [place] | | | | | [address] | | + + + + + | Wolf Reece | ECON | [address] | | | | | [place] | | | | | [address] | | + + + + + Care Team Providers + +------+ + | Care Software Application Tester Name | Role | Phone | + [...] Description | +--------+---------+ + + + | 07/20/ | Surgery | 6A Intra Op 3181 | Ne Guevara MD | BILATERAL CRANIAL | | 2019 | | [address] | [address] | IMPLANT OF DEEP | | | | Rd [facility] | [place], [place] | BRAIN STIMULATOR | | | | Hospital Admitting | [phone] | ELECTRODES WITH | | | | Desk Located on the | [phone] | INTRA-OPERATIVE CT | | | | 9 floor | | | | | | [place], [place] | | | | | | [address] | | | +--------+---------+ + + + [...] + + + | Blood Pressure | 130/67 | 07/20/2019 7:00 AM | | | | | PDT | | + + + + + | Pulse | 63 | 07/20/2019 7:00 AM | | | | | PDT | | + + + + + | Temperature | 36.2 C (97.2 F) | 07/20/2019 7:00 AM | | | | | PDT | | + + + + + | Respiratory Rate | 16 | 07/20/2019 7:00 AM | | | | | PDT | | + + + + + | Oxygen Saturation | 99% | 07/20/2019 7:00 AM | | | | | PDT | | + + + + + | Inhaled Oxygen | - | - | | | Concentration | | | | + + + + + | Weight | 87.9 kg (193 lb 12.6 | 07/20/2019 6:00 AM | | | | oz) | PDT | | + + + + + | Height | 162.6 cm (5' 4") | 07/20/2019 6:00 AM | | | | | PDT | | + + + + + | Body Mass Index | 33.26 | 07/20/2019 6:00 AM | | | | | [...] documented as of this encounter Progress Notes Elizabeth Bustillo PA-C - 07/21/2019 7:22 AM PDT NEUROSURGERY INPATIENT PROGRESS NOTE Hospital Day:1 Author; Elizabeth Bustillo PA-C Attending Physician: Ne Guevara MD Interval Hx: Patient reports KATZ near L eye, swelling also. Otherwise feels at baseline. The patient denies change in vision (when she manually opens L eye) N/V, CP, SOB. Objective: Last Vitals: BP 151/66 (BP Location: Left upper arm, Patient Position: Sitting) | Pulse 80 | Temp 36.7 C (98.1 F) (Oral) | Resp 12 | Ht 1.626 m (5' 4") | Wt 87.9 kg (193 lb 1 2.6 oz) | SpO2 97% | BMI 33.26 kg/m | BSA 1.99 m O2 Delivery Device: None (room air) (07/21/19 0526) 24 Hour Vital Min/Max: Systolic (24hrs), Av , Min:90 , Max:151 Diastolic (24hrs), Av, Min:38, Max:71 Pulse Min: 44 Max: 84 Temp Min: 36 C (96.8 F) Max: 37.8 C (100 F) Resp Min: 12 Max: 17 SpO2 Min: 95 % Max: 100 % Intake/Output Summary (Last 24 hours) at 07/21/2019 0722 Last data filed at 07/21/2019 0000 Gross per 24 hour Intake 1710 ml Output 1050 ml Net 660 ml MEDICATIONS Current Facility-Administered Medications Medication acetaminophen (TYLENOL) tablet 650 mg artificial tears (dextran 70-hypromellose) (NATURE'S TEARS) 0.1-0.3 % ophthalmic drops 1 drop bisacodyl (DULCOLAX) suppository 10 mg carbidopa-levodopa (SINEMET) 10-100 mg 1 tablet dilTIAZem CD 24 hour release (CARDIZEM CD) capsule 180 mg gabapentin (NEURONTIN) capsule 600 mg HYDROmorphone (DILAUDID) injection 0.2 mg nitroglycerin (NITROSTAT) tablet 0.4 mg ondansetron ODT (ZOFRAN ODT) tablet 8 mg oxyCODONE (immediate release) (ROXICODONE) tablet 5-10 mg polyethylene glycol (MIRALAX) packet 34 g prochlorperazine (COMPAZINE) injection 5-10 mg prochlorperazine (COMPAZINE) tablet 5-10 mg propranolol (INDERAL) tablet 80 mg senna-docusate (SENOKOT S) 8.6-50 mg 1 tablet simvastatin (ZOCOR) tablet 20 mg SUMAtriptan (IMITREX) tablet 100 mg tamsulosin (FLOMAX) capsule 0.4 mg Physical Exam: General: adult female in NAD Incision: bilateral horseshoe incisions on frontal scalp, small incisions from head control clerk. All absorbable. C/D/I, no erythema or edema Neurological Examination: Mental status: A+Ox3, speech with slight stuttering Cranial nerves: PERRL, EOMI, face w L periorbital edema Motor: Canoe Inspector Bicep Tricep Delt R 5 5 5 5 L 5 5 5 5 HF Quad DF PF EHL R 5 5 5 5 5 L 5 5 5 5 5 Sensory: Intact to light touch. Severe tremor L>R at rest, yes/yes jaw tremor Psychiatric: Appropriate and cooperative Assessment: Rula Reece is a 79 y.o. female with pSVT, HTN, asthma, HLD, GERD, high risk JOANNE, and essential tremor now s/p bilateral VIM DBS electrode placement with Massdrop. Plan: Neuro: exam stable, continue home meds for ET: primidone and propranolol (also on sinemet?) Pain: tylenol prn, Cardiovascular: BP elevated before morning meds, home diltiazem, statin Resp: satting well on room air, home inhalers prn GI: oral diet; anti-emetics prn; GI ppx / Renal: voiding at baseline Musculoskeletal / Skin: Routine decubitus ulcer prevention. Wound care: Incision care reviewed. Wound care per protocol DVT prophylaxis: mobilize out of bed; SCDs Disposition: DC today, back tomorrow for Stage 2 [facility] [address] [place] [address] Pg. [id number] Jorge Peter MD,MPH - 07/20/2019 11:55 AM PDT NEUROSURGERY POST-OP CHECK Author: Jorge Strange MD,MPH Date: 07/20/2019 Attending Physician: Ne Guevara MD STATUS POST: Bilateral VIM DBS placement Patient examined in PACU Denies chest pain and shortness of breath. VITAL SIGNS: BP 90/60 | Pulse 66 | Temp 36 C (96.8 F) (Temporal) | Resp 15 | Ht 1.626 m (5' 4") | Wt 87.9 kg (193 lb 12.6 oz) | SpO2 98% | BMI 33.26 kg/m | BSA 1.99 m PHYSICAL EXAM FINDINGS: Awake, alert, oriented Following commands briskly Speech fluent PERRL Face symmetric Shoulder shrug equal bilaterally Tongue midline Strength: No pronator drift WALKER AG to command SILT Incisions clean/dry/intact without erythema, swelling, or drainage A/P: Neurologically stable. Continue care: - Frequent neuro checks and vital signs - Keep incision and dressings clean/dry/intact - Maintain adequate analgesia - PACU to parr Jorge Strange MD MPH Neurological Surgery R2 Resident Physician documented in this enc ounter H&P Notes Jorge Strange MD,MPH - 07/20/2019 6:12 AM PDTI have examined the patient and reviewed the Hi story and Physical and have confirmed that it is accurate and current. Briefly, the patient is a 79F with essential tremor since she was a teenager The patient denies any changes to their health since their clinic appointment. No new cardi ac, pulmonary, or renal disease. No interval hospitalizations or trips to the emergency room . Denies chest pain and shortness of breath. PARQ discussion held with the patient and family. All questions were answered to their sati sfaction. Written consent was obtained at previous clinic visit. The surgical site was adams patino. On examination, the patient has 2-3hz intention tremor involving BUEs, neck, jaw - no other deficits. We will proceed with the planned bilateral VIM DBS. Olimpia Casper FNP - 07/19/2019 8:10 AM PDT PREOPERATIVE CONSULT NOTE Author: HAN Luong Referring Physician: Ne Guevara MD Primary Care Provider: Agustin Palomares MD Reason for Consult: Preoperative evaluation and risk assessment Proposed Procedure/Date: BILATERAL CRANIAL IMPLANT OF DEEP BRAIN STIMULATOR ELECTRODES WITH INTRA-OPERATIVE CT on 07/20/2019 LEFT ANTERIOR IMPLANT OF DEEP BRAIN STIMULATOR GENERATOR on 07/22/2019 Proposed Procedure Location[place] [facility] [place] [facility] HISTORY OF PRESENT ILLNESS: Rula Reece [...] the note. Fermin barone f/u with Dr. eKarney cardiology in [place], [place]. 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 Low activity, water [...] failure no electrolyte abnormalities no di alysis Urology/Field Scout: Urologic Conditions: bladder spasms Endo: no Diabetes: [...] HR:64 normal EKG [facility] and "media" tab. Findings pertinent to this pr eoperative visit are as follows: Echo done on 04/04/2019--[facility] Impression 1. Left ventricular systolic function [...] The patient is also currently scheduled at [facility] and is meeting inclusion criteria for that [...] barone f/u with Dr. Kearney cardiology in [place], [place]. Hypertension--well controlled Asthma--mild, optimized on daily inhaler HLD--continue statin therapy. GERD--diet controlled and OTC prn At high risk for JOANNE based on today's assessment Frail elderly patient but medically stable Thank you for the opportunity to contribute to this patient's care. HAN Luong [facility] [place] [address] [place] [phone] I spent time counseling the pt [...] by HAN Luong at 07/19/2019 9:56 AM PDTdocumented in this encounter Procedure Notes Ne Guevara MD - 07/20/2019 3:50 PM PDTAssociated Order(s): TEACHING PHYSICIANDate [facility] stephanye: 07/20/2019 Attending Surgeon:Ne Guevara MD Director Dance(s): MD Jorge Alcocer MD, MPH Pursuant to Federal Medicare billing regulations, I certify that I was present for and part icipated in the critical parts of the procedure including computer-assisted stereotactic harry igation, placement of left and right VIM DBS electrodes, and closure. I further certify alejandro t I was the principal surgeon for this procedure. Preoperative Diagnosis: Essential tremor. Postoperative Diagnosis: Essential tremor. Procedure: 1.Computer-assisted stereotactic navigation. 2.Placement of left ventralis intermedius (VIM) deep brain stimulation (DBS) electrode. 3.Placement of right VIM DBS electrode. Ne Guevara MD KB/MODL /[id number] signed by Ne Guevara MD at 07/21/2019 7:54 AM PD Tdocumented in this encounter Miscellaneous Notes Plan of Care - Marimar Pro RN - 07/21/2019 2:03 PM PDTPIVs were removed. Belongings were collected and sent taken with family and patient. 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 AVS was reviewed with family and patient, all ques tions were answered. Pt was taken off the floor by and daughter in WC. andoff - Carolyn Cat RN - 2:41 AM PDTNursing Handoff [facility] IP NURSE HANDOFF: Penny hospital course events: 07/20- DBS for essential tremor SAFETY Patient/Family Target: no dizziness Will ambulated without complications Progress to Target: Improving As evidenced by: Up walking with FWW( baseline at home for longer distance) 1/2 lap in small. Steady on feet. No dizziness or light headed COMFORT/ANXIETY/BEHAVIOR Patient/Family Target: Pain will be well managed with tylenol Progress to Target: Improving As evidenced by: States after tylenol pain is manageable and no need for opioid meds at this time RESTORATIVE MEASURES/SELF-MANAGEMENT Patient/Family Target: Rula will be able to void independently Progress to Target: Improving As evidenced by: Flomax at baseline Now voiding 300-400ml at a time Recommendations Forward: Continue to promote ambulation Monitor urine- cloudy Tylenol for pain Barriers to discharge: Tomorrow 07/21 lan of Jalen - Obed López RCP - 07/20/2019 2:46 PM PDT Problem: RT Goals & Interventions Goal: Evaluation Flowsheets (Taken 07/20/2019 6525) $ Patient Evaluated This Shift?: Yes Note: History and Assessment Pulmonary problems: hx of asthma Smoking history: Social History Tobacco Use Smoking Status Never Smoker Smokeless Tobacco Never Used Results of recent Chest X-ray: No results found for: CXR Pain:Numeric Pain Score: 7 Oxygen requirement: Heart rate:45 Respiratory rate: 13 Temperature: Temp: 36.5 C (97.7 F) Breathsounds: Cough and sputum production: Respiratory Acuity and Protocol Plan A respiratory evaluation has been completed. Based on this assessment Evaluated for treatme nt under home maintenance therapy. andoff - Asfa Greenberg RN - 07/20/2019 12:21 PM PDTMeets Phase I Discharge Criteria (Stable For Transfer): yes Major deviations/events or pertinent findings of carla-operative stay: uneventful PACU recov chris. Patient anxious and tearful at times Anticipated post-op needs/devices/follow up: post op pain control * No Diagnosis Codes entered * Surgical Procedure Planned - Actual Procedure Performed: Procedure(s): BILATERAL CRANIAL IMPLANT OF DEEP BRAIN STIMULATOR ELECTRODES WITH INTRA-OPERATIVE CT Anesthesia: General Length of procedure: In Room/Out of Room: 3 Hr 59 Min 39 Sec Surgeon(s) and Role: * Ne Guevara MD - Primary * Abimael Patel MD - Fellow OR positioning comments: refer to MD note Neuro: POSS Sedation Level: 2 Last pain medication given: Pain medication totals: 50mcg IV fentanyl Additional pain medication information: Functional Epidural: No [employer] OFFICER: No Respiratory: RR: 15 , O2 Sat: 96 % , O2 Delivery: Nasal cannula Breath Sounds: WDL MARGE: LLL: RUL: RLL: JOANNE No Comment: Cardiac: BP: 137/55 HR: 50 GI: Nausea/Vomiting Status: No Signs/Symptoms: Interventions: Assessment: Comments: tolerating PO fluids : Last void: preop - bladder scanned in OR Contact Name: daughter in law Petrona Contact Number: [phone] Family contacted: Yes Comment:[id number] Rubi updated Belongings:no belongings in PACU p Note - Trang Patel MD - 07/20/2019 10:51 AM PDTFormatting of this note might be different from the origin al. Patient: Rula Reece : 1940 Date of procedure: 07/20/2019 Time Time In Time Out Procedure Start 824 Location: [facility] Surgeon(s) and Role: * Ne Guevara MD - Primary * Abimael Patel MD - Fellow Staff: Product Management Manager: Kacey Vann RN Scrub: ST [employer] Product Management Manager Relief: Tess Murphy RN Supervisor Special Services: Jorge Strange MD,MPH Clinical Navigation Specialist: Nina Lopez Pre Op Dx Essential Tremor Post Op Dx: Same Procedure: Bilateral VIM DBS electrode placement ([employer]) Anesthesia: General Complications: None Estimated Blood Loss: 150cc Drains: * No LDAs found * Specimens None Implants/Grafts Implant Name Type Inv. Item Serial No. Cylinder Sander Operator Lot No. LRB No. Used Action SureTek [place] Hole Cover Kit [employer] [id number] Left 1 Implanted Vercise Cartesia 45cm 8 Contact DBS Lead Kit [id number] [employer] Left 1 Implanted SureTek Clarissa Hole Cover Kit [employer] [id number] Right 1 Implanted Vercise Cartesia 45cm 8 Contact DBS Lead Kit [id number] [employer] Right 1 Implanted Indications For Procedure: Ms. Reece is a 79F with severe disabling essential tremor, wh o was found to be a good candidate for deep brain stimulator implantation. After discussion of the risks, benefits, indications, and alternatives of the procedure, she expressed unders tanding and asked to proceed. Description Of Procedure: The patient was positively identified in the holding area and br ought back to the operating room. General endotracheal anesthesia was administered and the patient was positioned supine on the operating table with the head affixed with a Jeanne head control clerk. The Jeanne pins were tightened with a torque wrench to a force of 0.72 Newtons. The he ad was shaved and sterilely prepped. Next, a surgical pause was done to verify the correct patient, procedure, site, and side, and to address any operating room staff concerns. Following this, five skull fiducials were placed as follows: Local anesthesia was infiltra christina at the selected points around the scalp. A stab incision was made at each point with a # 15 blade. An electric screwdriver was used to screw in the bone fiducials at the predetermin ed points. Following this, a CT scan was performed intraoperatively. This CT scan was merge d to the patient's pre-existing MRI and the bone fiducials were selected for registration. A fter this, the nonsterile registration was performed to an error of less than 0.5mm, and the tentative entry points were marked on the scalp according to the pre-planned trajectories. A curvilinear incision was marked around each entry point. Local anesthesia was infiltrated and the area was once again prepped in sterile fashion. An awl was used to create a small di vot on the skull through the skin. Sterile drapes and Ioban were applied in the usual fashio n. Next, a #10 blade was used to incise the preplanned curvilinear incisions. Hemostasis w as achieved with monopolar and bipolar cautery. A joker instrument was used to create a pock et on the left side of the head, and around each incision for the wires, as well as between the two incisions in preparation for tunneling. Next, a pega developer drill was used to fashion a clarissa hole at the planned entry site, at the pre-marked divot in the skull. The clarissa hole was widened with Kerrison rongeurs and the DBS port was affixed to the bur hole with 2 screw s. The NexFrame apparatus was then affixed to the skull with 3 screws, and the cranial maria r tration frame was affixed to the right sided NexFrame. Registration was again performed to a n error of less than 0.5mm. The NexFrame probe was then inserted into the dome, which was ma neuvered and locked onto the pre-planned target. Once satisfied with the trajectory locked into place, the entry point was updated on the [facility] and the "distance to target" was used to calibrate the electrode mount to the appropri ate distance. The NexFrame probe was removed and the electrode mount, set to the correct dis tance, was placed. The Akbar-Gun and extension frame were also placed. Next, the cannula with stylet was passed down to the dura and used to identify the site of dural opening. The dura was sharply opened and coagulated. The cannula was then gently passed intracranially down t o the target. The inner stylet was removed. The JiaheEM system was then registered t o the bone fiducials, and the EM stylet was inserted to verify that we were at the target. Following this, the electrode itself was placed down the cannula to the target. The outer ca nnula was retracted back and the plastic "pac-man" cap was placed into the port to keep the electrode in place, and a small gal made on the electrode at the port for reference. Durase al was then injected over the port to seal off any leaks. The cannula was fully removed, and the loose end of the electrode was passed down and coiled loosely into the NexFrame dome. T his same procedure was repeated on the contralateral side. Now that both electrodes were in place, an intraoperative CT scan was performed. We superim posed this CT to the prior trajectory to verify satisfactory electrode placement. Once this was done, the NexFrame apparati were taken off each side and locking caps were affixed to pr otect the electrodes in their final position. Rubber caps were placed on the free ends of ea ch electrode, with a tie and cut-end identifying the left-sided electrode. The right-sided electrode was then tunneled over to the left side, and both electrodes were tunneled down le ftward into the subcutaneous scalp pocket. The wires were tucked under the scalp and both w ounds were copiously irrigated. We then closed both wounds in layers with 3-0 Vicryl for the galea, followed by irrigation with irrigant, and a running Vicryl Rapide for the skin, followed by a final application of Dermabond. Finally, the bone fiducials were each taken out, irrigated, and closed with a single [id number] Vicryl Rapide stitch. The drapes were then removed and the head was carefully taken out of the Jeanne head control clerk. The patient was turned over to Anesthesia for wake-up. Complications: None noted immediately following the procedure. Please note this procedure was performed by Dr. Guevara, Dr. Patel, and Dr. Strange, with Dr. Guevara as the attending surgeon of record for this procedure. Abimael Patel MD rief Op Note - Abimael Medrano MD - 07/20/2019 10:50 AM PDTFormatting of this note might be different from billy goff. Date of procedure: 07/20/2019 Time Time In Time Out Procedure Start 824 Location: [facility] Surgeon(s) and Role: * Ne Guevara MD - Primary * Abimael Patel MD - Fellow Staff: Product Management Manager: Kacey Vann RN Scrub: ST [employer] Product Management Manager Relief: Tess Murphy RN Supervisor Special Services: Jorge Strange MD,MPH Clinical Navigation Specialist: Nina Lopez Pre Op Dx Essential Tremor Post Op Dx: Same Procedure: Bilateral VIM DBS electrode placement ([employer]) Anesthesia: General Estimated Blood Loss: 150cc Specimens None Implants/Grafts Implant Name Type Inv. Item Serial No. Cylinder Sander Operator Lot No. LRB No. Used Action SureTek [place] Hole Cover Kit [employer] [id number] Left 1 Implanted Vercise Cartesia 45cm 8 Contact DBS Lead Kit [id number] [employer] Left 1 Implanted SureTek Clarissa Hole Cover Kit [employer] [id number] Right 1 Implanted Vercise Cartesia 45cm 8 Contact DBS Lead Kit [id number] [employer] Right 1 Implanted Complications: None apparent Abimael Patel MD documented in this e ncounter Plan of Treatment +--------+ + + + + | Date | Type | Specialty | Care Team | Description | +--------+ + + + + | 08/22/ | Procedure | Neurology | Cristopher Rosa, | | | 2019 | | | [address] | | | | | | [place], [place] | | | | | | [address] | | | | | | [phone] | | | | | | | | +--------+ + + + + + +---------+--------+ + + | Name | Type | Priori | Associated Diagnoses | Order Schedule | | | | ty | | | + +---------+--------+ + + | INTRAPROCEDURE | Imaging | Routin | Disabling | One Time for 1 | | IMAGING | | e | essential tremor | Occurrences starting | | | | | | 07/20/2019 until | | | | | | 07/20/2019, 1 | | | | | | completed | + +---------+--------+ + + documented as of this encounter Procedures + +--------+ + + + | Procedure Name | Priori | Date/Time | Associated Diagnosis | Comments | | | ty | | | | + +--------+ + + + | PROCEDURE NOTE | Routin | 07/21/2019 | | Results for this | | | e | 2:33 PM | | procedure are in the | | | | PDT | | results section. | + +--------+ + + + | TEACHING PHYSICIAN | | 07/20/2019 | | Results for this | | | | 3:50 PM | | procedure are in the | | | | PDT | | results section. | + +--------+ + + + | CT PORTABLE HEAD WO | Urgent | 07/20/2019 | | Results for this | | CONTRAST | | 10:30 AM | | procedure are in the | | | | PDT | | results section. | + +--------+ + + + | CT PORTABLE HEAD WO | Urgent | 07/20/2019 | | Results for this | | CONTRAST | | 10:29 AM | | procedure are in the | | | | PDT | | results section. | + +--------+ + + + | BILATERAL DEEP BRAIN | Electi | 07/20/2019 | Essential Tremor | | | STIMULATOR | ve | 7:40 AM | | | | ELECTRODE PLACEMENT | Surgic | PDT | | | | WITH INTRA-OPERATIVE | al | | | | | CT | | | | | + +--------+ + + + | CAPILLARY BLOOD | Routin | 07/20/2019 | Disabling | Results for this | | GLUCOSE (NO CHG), | e | 7:12 AM | essential tremor | procedure are in the | | POC | | PDT | | results section. | + +--------+ + + + | INTRAPROCEDURE | Routin | 07/20/2019 | Disabling | Results for this | | IMAGING | e | 6:09 AM | essential tremor | procedure are in the | | | | PDT | | results section. | + +--------+ + + + | CARDIOLOGY | | 07/20/2019 | | Results for this | | | | 12:00 AM | | procedure are in the | | | | PDT | | results section. | + +--------+ + + + documented in this encounter Results PROCEDURE NOTE (07/21/2019 2:33 PM PDT)TEACHING PHYSICIAN (07/20/2019 3:50 PM PDT) + + | Procedure Note | + + | Ne Guevara MD - 07/20/2019 3:50 PM PDT Date of Service: 07/20/2019 Attending | | Surgeon:Ne Guevara MD Director Dance(s): MD Jorge Alcocer MD, MPH | | Pursuant to Federal Medicare billing regulations, I certify that I was present for and | | participated in the critical parts of the procedure including computer-assisted | | stereotactic navigation, placement of left and right VIM DBS electrodes, and closure. I | | further certify that I was the principal surgeon for this procedure.Preoperative | | Diagnosis: Essential tremor.Postoperative Diagnosis: Essential tremor.Procedure: | | 1.Computer-assisted stereotactic navigation.2.Placement of left ventralis intermedius | | (VIM) deep brain stimulation (DBS) electrode.3.Placement of right VIM DBS electrode.Ne | | FAINA Guevara/MODLDD: 07/20/2019 15:35:16DT: 07/20/2019 15:50:20Job #: | | [id number] | | | |Preoperative Diagnosis: Essential tremor. | | | |Postoperative Diagnosis: Essential tremor. | | | |Procedure: | |1.Computer-assisted stereotactic navigation. | |2.Placement of left ventralis intermedius (VIM) deep brain stimulation (DBS) electrode. | |3.Placement of right VIM DBS electrode. | | | | | | | |Ne Guevara MD | |NAYLA/DAMIAN | | | | | | /[id number] | + + CT PORTABLE HEAD WO CONTRAST (07/20/2019 10:30 AM PDT) + + | Specimen | + + | | + + + + + | Narrative | Performed At | + + + | EXAM: Portable CT head without contrast HISTORY: intra op DBS | [facility] | | COMPARISON: Preoperative MRI 07/19/2019. TECHNIQUE: Multiple | RADIOLOGY VOICE | | Portable CT of the head without contrast. FINDINGS: Initial CT | RECOGNITION 2 | | head: No acute intracranial abnormality. No evidence of hemorrhage, | | | mass, or acute territorial infarction. The ventricles are normal in | | | size and morphology. SOFT TISSUES: Presence of fiducial markers. | | | SKULL AND SKULL BASE: No fractures . Mastoids and middle ears are | | | unremarkable. FACE/ORBITS: Visualized portions are unremarkable. | | | PARANASAL SINUSES: Opacification of the paranasal sinuses | | | redemonstrated. Follow-up CT head: There has been interval | | | placement of bilateral frontal approach deep brain stimulators with | | | tips near the subthalamic nuclei. No associated hemorrhage identified. | | | No shift of midline structures or hydrocephalus. IMPRESSION: | | | Pre and post deep brain stimulator placement without apparent | | | complications. I have personally reviewed the images and, if | | | necessary, edited the report. I agree with the report as now | | | presented. Final signature: Sharonda Vasquez MD 07/20/2019 | | | 12:22 PM Preliminary: Sharonda Vasquez MD Dictation | | | initiated: Sharonda Vasquez MD 07/20/2019 12:20 PM | | + + + + + | Procedure Note | + + | Service Account, Radiant Res In Interface - 07/21/2019 1:59 PM PDT EXAM: Portable CT | | head without contrast HISTORY: intra op DBS COMPARISON: Preoperative MRI 07/19/2019. | | TECHNIQUE: Multiple Portable CT of the head without contrast. FINDINGS:Initial CT | | head:No acute intracranial abnormality. No evidence of hemorrhage, mass, or acute | | territorial infarction. The ventricles are normal in size and morphology. SOFT TISSUES: | | Presence of fiducial markers.SKULL AND SKULL BASE: No fractures . Mastoids and middle | | ears are unremarkable.FACE/ORBITS: Visualized portions are unremarkable.PARANASAL | | SINUSES: Opacification of the paranasal sinuses redemonstrated. Follow-up CT head: There | | has been interval placement of bilateral frontal approach deep brain stimulators with | | tips near the subthalamic nuclei. No associated hemorrhage identified. No shift of | | midline structures or hydrocephalus. IMPRESSION: Pre and post deep brain stimulator | | placement without apparent complications. I have personally reviewed the images and, if | | necessary, edited the report. I agree with the report as now presented. Final | | signature: Sharonda Vasquez MD 07/20/2019 12:22 PM Preliminary: Sharonda Vasquez MD | | Dictation initiated: Sharonda Vasquez MD 07/20/2019 12:20 PM | |PARANASAL SINUSES: Opacification of the paranasal sinuses redemonstrated. | | | |Follow-up CT head: | | | |There has been interval placement of bilateral frontal approach deep brain stimulators with tips near the subthalamic nuclei. No associated hemorrhage identified. No shift of midline structures or hydrocephalus. | | | |IMPRESSION: | | | |Pre and post deep brain stimulator placement without apparent complications. | | | |I have personally reviewed the images and, if necessary, edited the report. I agree with th e report as now presented. | | | |Final signature: Sharonda Vasquez MD 07/20/2019 12:22 PM | |Preliminary: Sharonda Vasquez MD | |Dictation initiated: Sharonda Vasquez MD 07/20/2019 12:20 PM | + + + +---------+ + + | Performing | Address | City/State/Zipcode | Phone Number | | Organization | | | | + +---------+ + + | [facility] | | | | | VOICE RECOGNITION 2 | | | | + +---------+ + + CT PORTABLE HEAD WO CONTRAST (07/20/2019 10:29 AM PDT) + + | Specimen | + + | | + + + + + | Narrative | Performed At | + + + | EXAM: Portable CT head without contrast HISTORY: intra op DBS | [facility] | | COMPARISON: Preoperative MRI 07/19/2019. TECHNIQUE: Multiple | RADIOLOGY VOICE | | Portable CT of the head without contrast. FINDINGS: Initial CT | RECOGNITION 2 | | head: No acute intracranial abnormality. No evidence of hemorrhage, | | | mass, or acute territorial infarction. The ventricles are normal in | | | size and morphology. SOFT TISSUES: Presence of fiducial markers. | | | SKULL AND SKULL BASE: No fractures . Mastoids and middle ears are | | | unremarkable. FACE/ORBITS: Visualized portions are unremarkable. | | | PARANASAL SINUSES: Opacification of the paranasal sinuses | | | redemonstrated. Follow-up CT head: There has been interval | | | placement of bilateral frontal approach deep brain stimulators with | | | tips near the subthalamic nuclei. No associated hemorrhage identified. | | | No shift of midline structures or hydrocephalus. IMPRESSION: | | | Pre and post deep brain stimulator placement without apparent | | | complications. I have personally reviewed the images and, if | | | necessary, edited the report. I agree with the report as now | | | presented. Final signature: Sharonda Vasquez MD 07/20/2019 | | | 12:22 PM Preliminary: Sharonda Vasquez MD Dictation | | | initiated: Sharonda Vasquez MD 07/20/2019 12:20 PM | | + + + + + | Procedure Note | + + | Service Account, Radiant Res In Interface - 07/21/2019 1:59 PM PDT EXAM: Portable CT | | head without contrast HISTORY: intra op DBS COMPARISON: Preoperative MRI 07/19/2019. | | TECHNIQUE: Multiple Portable CT of the head without contrast. FINDINGS:Initial CT | | head:No acute intracranial abnormality. No evidence of hemorrhage, mass, or acute | | territorial infarction. The ventricles are normal in size and morphology. SOFT TISSUES: | | Presence of fiducial markers.SKULL AND SKULL BASE: No fractures . Mastoids and middle | | ears are unremarkable.FACE/ORBITS: Visualized portions are unremarkable.PARANASAL | | SINUSES: Opacification of the paranasal sinuses redemonstrated. Follow-up CT head: There | | has been interval placement of bilateral frontal approach deep brain stimulators with | | tips near the subthalamic nuclei. No associated hemorrhage identified. No shift of | | midline structures or hydrocephalus. IMPRESSION: Pre and post deep brain stimulator | | placement without apparent complications. I have personally reviewed the images and, if | | necessary, edited the report. I agree with the report as now presented. Final | | signature: Sharonda Vasquez MD 07/20/2019 12:22 PM Preliminary: Sharonda Vasquez MD | | Dictation initiated: Sharonda Vasquez MD 07/20/2019 12:20 PM | |PARANASAL SINUSES: Opacification of the paranasal sinuses redemonstrated. | | | |Follow-up CT head: | | | |There has been interval placement of bilateral frontal approach deep brain stimulators with tips near the subthalamic nuclei. No associated hemorrhage identified. No shift of midline structures or hydrocephalus. | | | |IMPRESSION: | | | |Pre and post deep brain stimulator placement without apparent complications. | | | |I have personally reviewed the images and, if necessary, edited the report. I agree with th e report as now presented. | | | |Final signature: Sharonda Vasquez MD 07/20/2019 12:22 PM | |Preliminary: Sharonda Vasquez MD | |Dictation initiated: Sharonda Vasquez MD 07/20/2019 12:20 PM | + + + +---------+ + + | Performing | Address | City/State/Zipcode | Phone Number | | Organization | | | | + +---------+ + + | [facility] | | | | | VOICE RECOGNITION 2 | | | | + +---------+ + + CAPILLARY BLOOD GLUCOSE (NO CHG), POC (07/20/2019 7:12 AM PDT) + +-------+ + + + | Component | Value | Ref Range | Performed | Pathologist | | | | | At | Signature | + +-------+ + + + | BLOOD | 97 | 70 - 99 mg/dL | [facility] - | | | GLUCOSE, | | | [facility] | | | POC | | | [facility] | | | | | | OF CARE | | | | | | TESTS | | + +-------+ + + + + + | Specimen | + + | Blood | + + + + + + + | Performing | Address | City/State/Zipcode | Phone Number | | Organization | | | | + + + + + | [facility] | [address] | [place], [place] | | | [facility] | [address] | [address] | | | TESTS | | | | + + + + + INTRAPROCEDURE IMAGING (07/20/2019 6:09 AM PDT) + + | Specimen | [...] | | | + +---------+ + + CARDIOLOGY (07/20/2019 12:00 AM PDT) + + + | Narrative | Performed At | + + + | | | + + + documented in this encounter Visit Diagnoses Not on filedocumented in this encounter Administered Medications + +--------+ +--------+------+------+ | Medication Order | MAR | Action | Dose | Rate | Site | | | Action | Date | | | | + +--------+ +--------+------+------+ | acetaminophen (TYLENOL) tablet | Given | 07/21/20 | 650 mg | | | | 650 mg 650 mg, oral, EVERY 4 | | 19 11:12 | | | | | HOURS NEEDED, Starting Wed | | AM PDT | | | | | 07/20/19 at 1157, Until Brunilda | | | | | | | 07/21/19 at 2033, mild pain, first | | | | | | | line, multimodal pain control | | | | | | + +--------+ +--------+------+------+ +-------+ +--------+---+---+ | Given | 07/21/20 | 650 mg | | | | | 19 5:27 | | | | | | AM PDT | | | | +-------+ +--------+---+---+ | Given | 07/20/20 | 650 mg | | | | | 19 9:47 | | | | | | PM PDT | | | | +-------+ +--------+---+---+ +---+---+ | | | +---+---+ + +-------+ + +---+ + | bacitracin 50,000 Units, | Given | 07/20/20 | 1,010 mL | | Surgical | | ringers (TIS-U-ROSITA) 1,000 mL | | 19 8:31 | | | Site | | INTRAPROCEDURE PRN, Starting Wed | | AM PDT | | | | | 07/20/19 at 0831, Until Wed | | | | | | | 07/20/19 at 1139 | | | | | | + +-------+ + +---+ + +---+---+ | | | +---+---+ + +-------+ +---------+---+------+ | bacitracin ointment | Given | 07/20/20 | 1 strip | | Head | | INTRAPROCEDURE PRN, Starting Wed | | 19 8:30 | | | | | 07/20/19 at 0830, Until Wed | | AM PDT | | | | | 07/20/19 at 1139 | | | | | | + +-------+ +---------+---+------+ +---+---+ | | | +---+---+ + +-------+ + +---+---+ | carbidopa-levodopa (SINEMET) | Given | 07/21/20 | 1 tablet | | | | 10-100 mg 1 tablet 1 tablet, | | 19 8:22 | | | | | oral, TWICE DAILY, First dose on | | AM PDT | | | | | Thu07/20/19 at 1330, Until | | | | | | | Discontinued | | | | | | + +-------+ + +---+---+ +-------+ + +---+---+ | Given | 07/20/20 | 1 tablet | | | | | 19 8:03 | | | | | | PM PDT | | | | +-------+ + +---+---+ +---+---+ | | | +---+---+ + +-------+ +--------+---+---+ | dilTIAZem CD 24 hour release | Given | 07/21/20 | 180 mg | | | | (CARDIZEM CD) capsule 180 mg 180 | | 19 8:22 | | | | | mg, oral, DAILY, First dose on | | AM PDT | | | | | 07/20/19 at 1445, Until | | | | | | | Discontinued | | | | | | + +-------+ +--------+---+---+ +---+---+ | | | +---+---+ + +-------+ +--------+---+---+ | gabapentin (NEURONTIN) capsule | Given | 07/20/20 | 600 mg | | | | 600 mg 600 mg, oral, AT BEDTIME, | | 19 8:06 | | | | | First dose on Thu07/20/19 at | | PM PDT | | | | | 2200, Until Discontinued | | | | | | + +-------+ +--------+---+---+ +---+---+ | | | +---+---+ + +-------+ +------+---+ + | lidocaine 1% w/ EPI | Given | 07/20/20 | 7 mL | | Surgical | | 1:100K-bupivacaine 0.5% injection | | 19 9:13 | | | Site | | INTRAPROCEDURE PRN, Starting | | AM PDT | | | | | Thu07/20/19 at 0854, Until Wed | | | | | | | 07/20/19 at 1139 | | | | | | + +-------+ +------+---+ + +-------+ +------+---+ + | Given | 07/20/20 | 9 mL | | Surgical | | | 19 8:54 | | | Site | | | AM PDT | | | | +-------+ +------+---+ + +---+---+ | | | +---+---+ + +-------+ +-------+---+ + | NaCl (PF) 0.9 % injection | Given | 07/20/20 | 10 mL | | Surgical | | INTRAPROCEDURE PRN, Starting Wed | | 19 8:52 | | | Site | | 07/20/19 at 0852, Until Wed | | AM PDT | | | | | 07/20/19 at 1139 | | | | | | + +-------+ +-------+---+ + +---+---+ | | | +---+---+ + +-------+ +------+---+ + | neomycin-polymyxin B (NEOSPORIN | Given | 07/20/20 | 1 mL | | Surgical | | ) irrigant INTRAPROCEDURE | | 19 8:53 | | | Site | | PRN, Starting Thu07/20/19 at | | AM PDT | | | | | 0853, Until Thu07/20/19 at 1139 | | | | | | + +-------+ +------+---+ + +---+---+ | | | +---+---+ + +-------+ +------+---+---+ | oxyCODONE (immediate release) | Given | 07/21/20 | 5 mg | | | | (ROXICODONE) tablet 5-10 mg 5-10 | | 19 12:23 | | | | | mg, oral, EVERY 4 HOURS | | PM PDT | | | | | NEEDED, Starting Thu07/20/19 at | | | | | | | 1157, Until Brunilda 07/21/19 at 2033, | | | | | | | moderate pain, unresponsive to | | | | | | | non-opioid medication | | | | | | + +-------+ +------+---+---+ +-------+ +------+---+---+ | Given | 07/21/20 | 5 mg | | | | | 19 8:22 | | | | | | AM PDT | | | | +-------+ +------+---+---+ +---+---+ | | | +---+---+ + +-------+ +-------+---+---+ | propranolol (INDERAL) tablet 80 | Given | 07/21/20 | 80 mg | | | | mg 80 mg, oral, TWICE DAILY, | | 19 8:22 | | | | | First dose on Brunilda 07/21/19 at | | AM PDT | | | | | 0900, Until Discontinued | | | | | | + +-------+ +-------+---+---+ +---+---+ | | | +---+---+ + +-------+ + +---+---+ | senna-docusate (SENOKOT S) | Given | 07/21/20 | 1 tablet | | | | 8.6-50 mg 1 tablet 1 tablet, | | 19 2:21 | | | | | oral, TWICE DAILY NEEDED, | | PM PDT | | | | | Starting 07/20/19 at 1441, | | | | | | | Until Brunilda 07/21/19 at 2033, | | | | | | | constipation | | | | | | + +-------+ + +---+---+ +---+---+ | | | +---+---+ + +-------+ +-------+---+---+ | simvastatin (ZOCOR) tablet 20 | Given | 07/20/20 | 20 mg | | | | mg 20 mg, oral, EVERY EVENING, | | 19 8:03 | | | | | First dose on Thu07/20/19 at | | PM PDT | | | | | 2100, Until Discontinued | | | | | | + +-------+ +-------+---+---+ +---+---+ | | | +---+---+ + +-------+ +--------+---+---+ | tamsulosin (FLOMAX) capsule 0.4 | Given | 07/20/20 | 0.4 mg | | | | mg 0.4 mg, oral, AT BEDTIME, | | 19 8:03 | | | | | First dose on Thu07/20/19 at | | PM PDT | | | | | 2200, Until Discontinued | | | | | | + +-------+ +--------+---+---+ +---+---+ | | | +---+---+ + +-------+ +--------+---+ + | thrombin 5000 unit topical | Given | 07/20/20 | 5,000 | | Surgical | | solution INTRAPROCEDURE PRN, | | 19 8:32 | Units | | Site | | Starting Thu07/20/19 at 0832, | | AM PDT | | | | | Until Thu07/20/19 at 1139 | | | | | | + +-------+ +--------+---+ + +---+---+ | | | +---+---+ documented in this encounter
--- OUTSIDE RECORDS SUMMARY | ~2020-08-07 | XMS | Encounter Summary ---
Demographics + + + | Address | [address] | | | [place] [address] | + + + | Home Phone | | + + + | Preferred Language | Unknown | + + + | Marital Status | | + + + | Orthodox Affiliation | 1027 | + + + [...] Team Providers + +------+ + | Care Data Center Architect Name | Role | Phone | + +------+ + | Agustin Palomares MD | PCP | | + +------+ + Reason for Visit +--------+ + | Reason | Comments | +--------+ + | Other | Telemedicine Appointment | +--------+ + Encounter Details +--------+ + + + + | Date | Type | Department | Care Team | Description | +--------+ + + + + | 02/03/ | Documentati | [facility] | Lavell Camp, | Other (Telemedicine | | 2019 | on | [facility] | RN | Appointment) | | | | [facility] [address] | | | | | | [address] [facility], | | | | | | [place] [address] | | | | | | [phone] | | | +--------+ + + + [...] + documented as of this encounter Progress Lavell Ayala RN - 02/03/2019 4:18 PM PDTPt. at [facility] for Telemedicine appointment with Dr. Cristopher Rosa, [facility] Movement Disorders, [facility], [place]. Lavell Camp RN [facility] umented in this encounter Plan of Treatment +--------+ + + + + | Date | Type | Specialty | Care Team | Description | +--------+ + + + + | 08/14/ | Appointment | Radiology | Farhana Castillo | | | 2019 | | | [address] | | | | | | [address] | | | | | | [place] [address] | | | | | | [phone] | | | | | | | | +--------+ + + + + | 09/13/ | Office | Cardiology | Farhana Castillo | | | 2019 | Visit | | [address] | | | | | | [address] | | | | | | [place] [address] | | | | | | [phone] | | | | | | | | +--------+ + + + + documented as of this encounter Visit Diagnoses Not on filedocumented in this encounter"
--- OUTSIDE RECORDS SUMMARY | ~2020-08-07 | XMS | Encounter Summary ---
Demographics + + + | Address | [address] | | | [place] [address] | + + + | Home Phone | | + + + | Preferred Language | Unknown | + + + | Marital Status | Single | + + + | Uatsdin Affiliation | LDS | + + + | Race | White | + + + | Ethnic Group | Not or | + + + Author + + + | Author | [facility] | + + + | Organization | [facility] | + + + | Address | Unknown | + + + | Phone | Unavailable | + + + Support + + + + + | Name | Relationship | Address | Phone | + + + + + | Petrona Reece | ECON | [address] | | | | | [place] | | | | | [address] | | + + + + + | Michael Reece | ECON | [address] | | | | | [place] | | | | | [address] | | + + + + + | Wolf Reece | ECON | [address] | | | | | [place] | | | | | [address] | | + + + + + Care Team Providers + +------+ + | Care Overage Shortage And Damage Clerk Name | Role | Phone | + +------+ + | Agustin Palomares MD | PCP | | + +------+ + Reason for Visit + +--------+ + | Reason | Onset | Comments | | | Date | | + +--------+ + | housing accomodation | 09/02/ | | | | 2018 | | + +--------+ + Encounter Details +--------+ + + + + | Date | Type | Department | Care Team | Description | +--------+ + + + + | 09/02/ | Telephone | SOCIAL WORK | Christopher Barr, | housing accomodation | | 2018 | | [address] | [address] | | | | | [address] | [address] | | | | | Mailcode: CH6A | [place], [place] | | | | | [place], [place] | [address] | | | | | [address] | | | | | | [phone] | | | +--------+ + + + [...] this encounter Miscellaneous Notes Telephone Encounter - Lemuel Lubin - 09/02/2019 3:02 PM PDTReceived vm from Yasmin garcia seeking lodging for upcoming appts for pt. [facility] called Bethany, she was seeking lodging for appt 10/19/19 @ 11am. The current request is not qualified, because it does not meet travel distance requirements. Pt would be able to leave home at 5am and arrive to appt on time. Lemuel [facility]ac[facility] [phone] P M PDTdocumented in this encounter Plan of Treatment +--------+ + + + + | Date | Type | Specialty | Care Team | Description | +--------+ + + + + | 08/22/ | Procedure | Neurology | Cristopher Rosa, | | | 2019 | | | [address] | | | | | | [place], [place] | | | | | | [address] | | | | | | [phone] | | | | | | | | +--------+ + + + + documented as of this encounter Visit Diagnoses Not on filedocumented in this encounter"
--- OUTSIDE RECORDS SUMMARY | ~2020-08-07 | XMS | Encounter Summary ---
Demographics + + + | Address | [address] | | | [place] [address] | + + + | Home Phone | | + + + | Preferred Language | Unknown | + + + | Marital Status | | + + + | Restorationist Affiliation | 1027 | + + + | Race | White | + + + | Ethnic Group | Not or | + + + Author + + + | Author | [facility] | | | and [place] | + + + | Organization | [facility] | | [...] Team Providers + +------+ + | Care Punching Machine Operator Name | Role | Phone | + +------+ + | Agustin Palomares MD | PCP | | + +------+ + Encounter Details +--------+ + + + + | Date | Type | Department | Care Team | Description | +--------+ + + + + | 12/20/ | Anesthesia | [facility] | Edward Sewellik | | | 2019 | Event | MED [facility] OR INTRA OP | [place], [address] | | | | [address] | [address] [facility] | | | | | [place], [place] | [place] [address] | | | | | [address] | [phone] | | | | | [phone] | | | +--------+ + + + + Anesthesia Record + + + + + | Procedure Name | Responsible | Anesthesia Start | Anesthesia Stop Time | | | Anesthesiologist | Time | | + + + + + | RIGHT EXTRACTION | Nam Sewell, | 12/20/18 1535 | 12/20/18 1626 | | CATARACT WITH LENS | DO | | | | IMPLANT (Right Eye) | | | | + + + + + +----+---+ + + | Da | T | Event | Comment | | te | i | | | | | m | | | | | e | | | +----+---+ + + | 02 | 1 | | | | /1 | 4 | | | | 8/ | 3 | | | | 20 | 6 | | | | 19 | | | | +----+---+ + + | | 1 | An Checkout | Pre-use anesthesia machine/equipment checkout. | | | 5 | | | | | 3 | | | | | 3 | | | +----+---+ + + | | 1 | An Start | Reassessment prior to anesthesia induction/procedure. | | | 5 | | | | | 3 | | | | | 5 | | | +----+---+ + + | | 1 | An | | | | 5 | Induction | | | | 3 | | | | | 9 | | | +----+---+ + + | | 1 | An | | | | 5 | Intubation | | | | 4 | | | | | 0 | | | +----+---+ + + | | 1 | Pre-Procedu | | | | 5 | ral Timeout | | | | 5 | Completed | | | | 4 | | | +----+---+ + + | | 1 | First | | | | 5 | Inc/Proc St | | | | 5 | | | | | 4 | | | +----+---+ + + | | 1 | Extubated | | | | 6 | Awake | | | | 2 | | | | | 1 | | | +----+---+ + + | | 1 | an stop | | | | 6 | data | | | | 2 | | | | | 2 | | | +----+---+ + + | | 1 | An Stop | Patient handed off to recovery nurse. | | | 2 | | | | | 6 | | | +----+---+ + + +------+ | Meds | +------+ + +--------+ | Name | Total | + +--------+ | propofol (DIPRIVAN) injection | 120 mg | | (bolus) (20 mL) | | + +--------+ | lidocaine 2% (PF) | 100 mg | + +--------+ | ePHEDrine | 10 mg | + +--------+ | lactated ringers (LR) infusion | 0 mL | + +--------+ + + | [...] 1706 by | | | eye; 12/20/18; 1706 | Elba Maldonado RN | Farhana Thurman RN | +--------+ + + + | Periph | 12/20/18; 1431; Right; | 12/20/18 1431 by | 12/20/18 1740 by | | eral | Antecubital; [id number] | Cindy Broderick, | Farhana Thurman RN | | IV | catheter system; 20 gauge, 1 11/05 | RN | | | | in length; intradermal injection, | | | | | tolerated well; no longer | | | | | indicated; 12/20/18; 1740 | | | +--------+ + + + | Airway | Placement Date: 12/20/18; | 12/20/18 1540 by | 12/20/18 1621 by | | | Placement Time: 154 (created via | Nam Sewell, | Nam Sewell, | | | procedure documentation); Mask | DO | DO | | | Ventilation: EZ; Attempts: 1; | | | | | Airway Type: laryngeal mask; | | | | | Size: 4; Trauma: none; Placement | | | | | Check: exhaled CO2 detection | | | | | device; Removal Date: 12/20/18; | | | | | Removal Time: 1621 | | | +--------+ + + + [...] encounter OR Notes Anesthesia Postprocedure Evaluation - Nam Sewell DO - 12/20/2018 5:03 PM PSTFor matting of this note might be different from the original. ANESTHESIA POSTANESTHESIA EVALUATION Rula Reece 78 y.o. female 1940 [id number] Procedure(s) RIGHT EXTRACTION CATARACT WITH LENS IMPLANT (Right Eye) Cooperates? Yes Mental Status Performs simple tasks. Respiratory Satisfactory - Airway patent (self maintained). Cardiovascular Satisfactory - Blood pressure and heart rate acceptable Temperature Satisfactory Pain Satisfactory N/V Control Satisfactory Hydration Satisfactory - No signs of dehydration Complications None apparent Vitals: 12/20/18 1630 12/20/18 1635 12/20/18 1645 BP: 105/48 123/59 125/56 Pulse: 70 69 66 Temp: Resp: 18 16 SpO2: 98% 100% 100% Electronically signed by Nam Sewell DO 12/20/2018 17:03 [facility] nesthesia Procedure Notes - Nam Sewell DO - 12/20/2018 3:44 PM PSTAssociated Order(s): ANE AIRWAY NOTEAnesthesia Airway Placement 12/20/2018 15:40 Preprocedure check: patient identified, oxygen, airway assessed, patient reassessment prior to induction, airway equipment checked and suction Rapid Sequence Induction: no Mask ventilation: easy Attempts: 1 Airway type: laryngeal mask Size: 4 Route, reference point: center of mouth Tube secured with: adhesive tape Trauma: none Tube placement verification: carbon dioxide detection Performing provider: NAM SEWELL Electronically Signed by: Nam Sewell DO ESig date/time: 12/03 15:44 nesthesia Prepr ocedure Evaluation - Nam Sewell DO - 12/17/2018 9:06 AM PSTFormatting of this no te might be different from the original. ANESTHESIA PREANESTHESIA EVALUATION Rula Reece 78 y.o. female 1940 [id number] Procedure(s): RIGHT EXTRACTION CATARACT WITH OR WITHOUT LENS IMPLANT (Right Eye) Medical history, anesthesia, medications, allergy, NPO status verified histories reviewed. ECG reviewed. Labs reviewed. Review of Systems / Med History Anesthesia History (-) PONV, difficult intubation, malignant hyperthermia Cardiovascular (+) hypertension(-) CAD, angina , Exercise tolerance >4 METS Pulmonary (+) asthma(-) COPD(-) sleep apnea: Neurology (+) headaches Renal No results found for: CREA, BUN, NA, K, CL, CO2 . (-) end-stage renal disease Gastrointestinal/Hepatic (-) reflux/GERD. Endocrine (-) Diabetes. Other No results found for: WBC, HGB, HCT, MCV, LABPLAT, PLT . (+) arthritis Physical Exam Dental ; (+) dentures-lower and dentures-upper. Anesthesia Plan ASA 2 Type: General. Induction: Intravenous. Potential problems: None anticipated. Monitors: Standard ASA monitors. Consent statement:Anesthetic plan, alternatives, risks and benefits discussed with patient. Risks discussed included (but were not limited to): dental injury, pain, sore throat, nause a, respiratory events, perioperative CV events, . Consenting person understands and agrees to proceed. PARQ. Electronically Signed by: DO Ender Danielsg date/time: 12/17/2018 9:06 documented in th is encounter Plan of Treatment +--------+ + + + + | Date | Type | Specialty | Care Team | Description | +--------+ + + + + | 08/14/ | Appointment | Radiology | Farhana Castillo | | | 2019 | | | [address] | | | | | | [address] | | | | | | [place] [address] | | | | | | [phone] | | | | | | | | +--------+ + + + + | 09/13/ | Office | Cardiology | Farhana Castillo | | | 2019 | Visit | | [address] | | | | | | [address] | | | | | | [place] [address] | | | | | | [phone] | | | | | | | | +--------+ + + + + documented as of this encounter Procedures + +--------+ + + + | Procedure Name | Priori | Date/Time | Associated Diagnosis | Comments | | | ty | | | | + +--------+ + + + | ANE AIRWAY NOTE | Routin | 12/20/2018 | | Results for this | | | e | 3:44 PM | | procedure are in the | | | | PST | | results section. | + +--------+ + + + documented in this encounter Results Anesthesia Airway Note (12/20/2018 3:44 PM PST) + + + | Narrative | Performed At | + + + | Nam Sewell DO 12/20/2018 15:44 Anesthesia Airway | | | Placement 12/20/2018 15:40 Preprocedure check: patient identified, | | | oxygen, airway assessed, patient reassessment prior to induction, | | | airway equipment checked and suction Rapid Sequence Induction: no | | | Mask ventilation: easy Attempts: 1 Airway type: laryngeal mask | | | Size: 4 Route, reference point: center of mouth Tube secured with: | | | adhesive tape Trauma: none Tube placement verification: carbon | | | dioxide detection Performing provider: NAM SEWELL | | | Electronically Signed by: Nam Sewell DO | | | ESig date/time: 12/20/2018 15:44 | | | | | + + + + + | Procedure Note | + + | Nam Sewell DO - 12/20/2018 3:44 PM PST Anesthesia Airway | | Placement12/20/2018 15:40Preprocedure check: patient identified, oxygen, airway assessed, | | patient reassessment prior to induction, airway equipment checked and suctionRapid | | Sequence Induction: noMask ventilation: easyAttempts: 1Airway type: laryngeal maskSize: | | 4Route, reference point: center of mouthTube secured with: adhesive tapeTrauma: | | noneTube placement verification: carbon dioxide detectionPerforming provider: MELODIE | | NAM BOSEElectronically Signed by: DO Ender Danielsg | | date/time: 12/20/2018 15:44 | |Size: 4 | |Route, reference point: center of mouth | |Tube secured with: adhesive tape | |Trauma: none | |Tube placement verification: carbon dioxide detection | |Performing provider: NAM SEWELL | | | | | |Electronically Signed by: DO Spencer Daniels date/time: 12/03 15:44 | | | + + documented in this encounter Visit Diagnoses Not on filedocumented in this encounter Administered Medications + +--------+ +------+------+------+ | Medication Order | MAR | Action | Dose | Rate | Site | | | Action | Date | | | | + +--------+ +------+------+------+ | ePHEDrine (AKOVAZ) 50 mg/mL | Given | 12/20/19 | 5 mg | | | | injection PRN, Starting Mon | 3:59 | | | | | 12/20/18 at 1554, Anesthesia | | PM PST | | | | | Intra-op | | | | | | + +--------+ +------+------+------+ +-------+ +------+---+---+ | Given | 12/20/19 | 5 mg | | | | | 19 3:54 | | | | | | PM PST | | | | +-------+ +------+---+---+ +---+---+ | | | +---+---+ + +-------+ +--------+---+---+ | lidocaine (PF) 2% injection | Given | 12/20/19 | 100 mg | | | | PRN, Starting 12/20/18 at | | 19 3:39 | | | | | 1539, Anesthesia Intra-op | | PM PST | | | | + +-------+ +--------+---+---+ +---+---+ | | | +---+---+ + +-------+ +--------+---+---+ | propofol (DIPRIVAN) injection | Given | 12/20/19 | 120 mg | | | | PRN, Starting 12/20/18 at | | 19 3:39 | | | | | 1539, Anesthesia Intra-op | | PM PST | | | | + +-------+ +--------+---+---+ +---+---+ | | | +---+---+ documented in this encounter"
--- OUTSIDE RECORDS SUMMARY | ~2020-08-07 | XMS | Encounter Summary ---
Demographics + + + | Address | [address] | | | [place] [address] | + + + | Home Phone | | + + + | Preferred Language | Unknown | + + + | Marital Status | | + + + | Restorationism Affiliation | 1027 | + + + | Race | White | + + + | Ethnic Group | Not or | + + + Author + + + | Author | [facility] | | | and [place] | + + + | Organization | [facility] | | [...] Team Providers + +------+ + | Care Waste Elimination Name | Role | Phone | + [...] Description | +--------+---------+ + + + | 06/23/ | Office | [facility] | Rowena Kearney DO | SVT | | 2019 | Visit | CARDIOLOGY [place] | [address] | (supraventricular | | | | [address] | [place], [place] | tachycardia) ([facility]); | | | | [address] | [address] | Hypertension, | | | | [place], [place] | | unspecified type; | | | | [address] | | Hyperlipidemia, | | | | [phone] | | unspecified | | | | | | hyperlipidemia type | +--------+---------+ + + + Social History [...] + + + | Blood Pressure | 132/62 | 06/23/2019 11:34 AM | | | | | PDT | | + + + + + | Pulse | 68 | 06/23/2019 11:34 AM | | | | | PDT | | + + + + + | Temperature | - | - | | + + + + + | Respiratory Rate | - | - | | + + + + + | Oxygen Saturation | 96% | 06/23/2019 11:34 AM | | | | | PDT | | + + + + + | Inhaled Oxygen | - | - | | | Concentration | | | | + + + + + | Weight | 86.9 kg (191 lb 8 | 06/23/2019 11:34 AM | | | | oz) | PDT | | + + + + + | Height | 162.6 cm (5' 4") | 06/23/2019 11:34 AM | | | | | PDT | | + + + + + | Body Mass Index | 32.87 | 06/23/2019 11:34 AM | | | | | PDT | | + + + + + documented in this encounter Progress Notes Rowena Kearney DO - 06/23/2019 11:20 AM PDT [facility] Cardiology Cardiology Consult Note Reason for Consultation: PACs Requesting Physician: [...] this as well. She denies any spec [facility] triggers. She has not tried any maneuvers [...] 3 months ago. At that time, we discontinued her amlodipine and star christina her on diltiazem 120 mg by mouth daily. We discontinued her metoprolol as she was alrea dy on propranolol. Since we last saw each other, she reports that she continues to get occa sional palpitations. Last week, she had an episode that lasted all day. She would check he r pulse and it would occasionally go up to the 160s and then would come back down. This wa s only a prolonged episode that she has had. Usually, they last just a few minutes. She cuevas s been trying to decrease her intake of caffeinated beverages. She denies any episodes of s yncope or pre-syncope. She tolerated the diltiazem well, but has not noticed a significant change in her symptoms. Review of Systems Constitutional: Negative [...] No narrative on file PHYSICAL EXAM Vitals: 06/23/19 1134 BP: 132/62 Pulse: 68 SpO2: 96% Weight: 86.9 kg (191 lb 8 oz) Height: 1.626 m (5' 4") Physical Exam [...] deficits. PSYCHIATRIC: Appropriate, affect appears normal DATA Recent blood work from 11/22/2018 reviewed including AST 14, ALT 62, creatinine 1.24, calciu m 9.6, total bilirubin 0.3, protein 6.7, albumin 4.2, BUN 22, glucose 109, chloride 103, car bon dioxide 20, sodium 138, potassium 5.2, GFR 42, ALT 9, hemoglobin A1c 5.6, TSH 3.89 white blood cell count 6.8, hemoglobin 12.4, hematocrit 36, platelets 306 EK03/17/2019 ordered and reviewed by myself normal [...] co ntinues to have break through episodes. - increase Diltiazem to 180 mg by mouth daily - Consider repeat monitoring next visit if she continues to be symptomatic -The patient was advised to avoid drinking [...] | Radiology | Farhana Castillo | | 2019 | | | [address] | | | | | | [address] | | | | | | [place] [address] | | | | | | [phone] | | | | | | | | +--------+ + + + + | 09/13/ | Office | Cardiology | Farhana Castillo | | 2019 | Visit | | [address] | | | | | | [address] | | | | | | [place] [address] | | | | | | [phone] | | | | | | | | +--------+ + + + + documented as of this encounter Visit Diagnoses + + | Diagnosis | + + | SVT (supraventricular tachycardia) (HCC) Other specified cardiac dysrhythmias | + + | Hypertension, unspecified type | + + | Hyperlipidemia, unspecified hyperlipidemia type | + + documented in this encounter
--- OUTSIDE RECORDS SUMMARY | ~2020-08-07 | XMS | Encounter Summary ---
Demographics + + + | Address | [address] | | | [place] [address] | + + + | Home Phone | | + + + | Preferred Language | Unknown | + + + | Marital Status | | + + + | Adventist Affiliation | 1027 | + + + | Race | White | + + + | Ethnic Group | Not or | + + + Author + + + | Author | [facility] | | | and [place] | + + + | Organization | [facility] | | | [...] Team Providers + +------+ + | Care Telephone Clerk Name | Role | Phone | + +------+ + | Agustin Palomares MD | PCP | | + +------+ + Reason for Visit +--------+--------+ + | Reason | Onset | Comments | | | Date | | +--------+--------+ + | Other | 06/21/ | | | | 2020 | | +--------+--------+ + Encounter Details +--------+ + + + + | Date | Type | Department | Care Team | Description | +--------+ + + + + | 06/21/ | Telephone | [facility] | Rowena Kearney DO | Other | | 2020 | | CARDIOLOGY [place] | [address] | | | | | [address] | [place], [place] | | | | | [place], [place] | [address] | | | | | [address] | | | | | | [phone] | | | +--------+ + + + [...] this encounter Miscellaneous Notes Telephone Encounter - Nayeli Jordan, Technologist - 06/21/2020 8:56 AM Albert patino and said that her monitor that was placed 06/14/20 (14 day event monitor) cannot cone picker an y information because patient is wearing a stimulator. Pt mailed back monitor to [facility]. I called patient and she said that she is extremely tired all of the time.Electronically si gned by Nayeli Jordan, Technologist at 06/21/2020 8:57 AM PDTdocumented in this encounter Plan of Treatment +--------+ + + + + | Date | Type | Specialty | Care Team | Description | +--------+ + + + + | 08/14/ | Appointment | Radiology | Farhana Castillo | | 2019 | | | [address] | | | | | | [address] | | | | | | [place] [address] | | | | | | [phone] | | | | | | | | +--------+ + + + + | 09/13/ | Office | Cardiology | Farhana Castillo | | 2019 | Visit | | [address] | | | | | | [address] | | | | | | [place] [address] | | | | | | [phone] | | | | | | | | +--------+ + + + + documented as of this encounter Visit Diagnoses Not on filedocumented in this encounter"
--- OUTSIDE RECORDS SUMMARY | ~2020-08-07 | XMS | Encounter Summary ---
Demographics + + + | Address | [address] | | | [place] [address] | + + + | Home Phone | | + + + | Preferred Language | Unknown | + + + | Marital Status | | + + + | Spiritism Affiliation | 1027 | + + + | Race | White | + + + | Ethnic Group | Not or | + + + Author + + + | Author | [facility] | | | and [place] | + + + | Organization | [facility] | | [...] Team Providers + +------+ + | Care City Planning Aide Name | Role | Phone | + +------+ + | Agustin Palomares MD | PCP | | + +------+ + Reason for Visit +--------+--------+ + | Reason | Onset | Comments | | | Date | | +--------+--------+ + | Other | 06/20/ | | | | 2020 | | +--------+--------+ + Encounter Details +--------+ + + + + | Date | Type | Department | Care Team | Description | +--------+ + + + + | 06/20/ | Telephone | [facility] | Rowena Kearney DO | Other | | 2020 | | CARDIOLOGY [place] | [address] | | | | | [address] | [place], [place] | | | | | [place], [place] | [address] | | | | | [address] | | | | | | [phone] | | | +--------+ + + + [...] encounter Miscellaneous Notes Telephone Encounter - Nayeli Jordan Technologist - 06/20/2020 2:49 PM PDTmedilymag patino and they had to send a second monitor to Patient. Her study will be pushed back a couple of days. docu mented in this encounter Plan of Treatment +--------+ + + + + | Date | Type | Specialty | Care Team | Description | +--------+ + + + + | 08/14/ | Appointment | Radiology | Farhana Castillo | | 2019 | | | [address] | | | | | | [address] | | | | | | [place] [address] | | | | | | [phone] | | | | | | | | +--------+ + + + + | 09/13/ | Office | Cardiology | Farhana Castillo | | 2019 | Visit | | [address] | | | | | | [address] | | | | | | [place] [address] | | | | | | [phone] | | | | | | | | +--------+ + + + + documented as of this encounter Visit Diagnoses Not on filedocumented in this encounter"
--- OUTSIDE RECORDS SUMMARY | ~2020-08-07 | XMS | Encounter Summary ---
Demographics + + + | Address | [address] | | | [place] [address] | + + + | Home Phone | | + + + | Preferred Language | Unknown | + + + | Marital Status | Single | + + + | Mu-Ism Affiliation | LDS | + + + | Race | White | + + + | Ethnic Group | Not or | + + + Author + + + | Author | [facility] | + + + | Organization | [facility] | + + + | Address | Unknown | + + + | Phone | Unavailable | + + + Support + + + + + | Name | Relationship | Address | Phone | + + + + + | Petrona Reece | ECON | [address] | | | | | [place] | | | | | [address] | | + + + + + | Michael Reece | ECON | [address] | | | | | [place] | | | | | [address] | | + + + + + | Wolf Reece | ECON | [address] | | | | | [place] | | | | | [address] | | + + + + + Care Team Providers + +------+ + | Care Vehicle Maintenance Supervisor Name | Role | Phone | + +------+ + | Agustin Palomares MD | PCP | | + +------+ + Encounter Details +--------+---------+ + + + | Date | Type | Department | Care Team | Description | +--------+---------+ + + + | 10/19/ | Office | Neurology at | Cristopher Rosa, | Essential tremor | | 2019 | Visit | [place] [facility] | MD [address] | (Primary Dx); | | | | and Healing [address] | [place], [place] | Restless legs | | | | [address] [facility] | [address] | syndrome (RLS) | | | | Health and Healing, | [phone] | | | | | [address] | | | | | | [place], [place] | | | | | | [address] | | | | | | [phone] | | | +--------+---------+ + + + [...] + + + | Blood Pressure | 134/62 | 10/19/2019 11:11 AM | | | | | PST | | + + + + + | Pulse | 88 | 10/19/2019 11:11 AM | | | | | PST [...] + + + + | Weight | 83.9 kg (185 lb) | 10/19/2019 11:10 AM | | | | | PST | | + + + + + | Height | - | - | | + + + + + | Body Mass Index | 31.76 | 07/22/2019 6:00 AM | | | | | PDT | | + + + + + documented in this encounter Progress Notes Cristopher Rosa MD - 10/19/2019 11:15 AM JOSHUARula Reece is here for follow up evaluati on of her essential tremor. She was last seen here in clinic approx 6 weeks ago Since her l ast visit, she reports that her tremor is under much better control. She can now write pedro r, and eating/drinking is much easier. Other ADLs also much easier to perform. She feels there is still some residual tremor in the R arm/hand that affects her. Her speech/language has continued to also gradually improve. She is still taking propanolol, reduced to 40mg BID. Also continues to take ropinirole 0.5mg and carbidopa/Ldopa 25/100 in the evening for RLS. She has some tingling in the L arm and leg that is intermittent when she first turns the pr ogrammer on. The system is a little intense when it first starts up for her. Otherwise she is very satisfied overall. On exam: Speech is fluent. No aphasia. There is a fine end-point tremor at target, rated 1+ in the R hand and 1+ in the L hand. T here is almost no detectable postural tremor of the hands. No vocal tremor. No head tremor . Lower limbs unaffected. DBS was interrogated left VIM C+ 3/4- 60 usec 185 Hz 0.9 mA Right VIM C+ 13/14- 60 usec 185 Hz 1.6 mA I spent time reprogramming her DBS today, with two goals, to improve the tremor in the R juanita dy, and to reduce the effects when she first turns on the system every morning. First with the L VIM lead, I increased the current to 1.3mA at which point she had some tin gling in the R hand. I then pushed the active contacts rostrally, co-activating contact 3/4 and 6/7. When these were co-activated at equal amounts (25% current delivered to each) her R hand the tingling resolved, and tremor improved. Final L VIM setting: C+ 3/4- (25% each) and 6/7- (25% each) 1.3 mA, 185 Hz 60 usec. R VIM remain unchanged: Right VIM C+ 13/14- 60 usec 185 Hz 1.6 mA I then increased the IPG ramp time from 3 sec to 10 sec. I had her demo turning OFF and ON her DBS with her clinical data programmer, and she no longer felt the i ntense sensory symptoms when she turned it ON. I advised she could further reduce the propanolol to 40mg once/day, however she does have a history of HTN, and I've advised her to consult with her PCP regarding appropriate blood pr essure management before making this change. I recommended she try iron supplements to help her RLS; and consider discontinuing the Ldop a and staying with the low dose ropinirole for the RLS. She will continue with ongoing speech and occupational therapy. I spent 54 minutes programming Ms Reece's DBS today for her essential tremor. I spent an additional 12 minutes with Ms Reece, 50% of that time counseling her regarding her restless legs syndrome. She should follow up in 6 months for followup. documented in this e ncounter Plan of Treatment +--------+ + + + + | Date | Type | Specialty | Care Team | Description | +--------+ + + + + | 08/22/ | Procedure | Neurology | Cristopher Rosa, | | | 2019 | | | [address] | | | | | | [place], [place] | | | | | | [address] | | | | | | [phone] | | | | | | | | +--------+ + + + + documented as of this encounter Procedures + +--------+ + + + | Procedure Name | Priori | Date/Time | Associated Diagnosis | Comments | | | ty | | | | + +--------+ + + + | HI ELECTRONIC | Routin | 10/19/2019 | Essential tremor | | | ANALYSIS BRAIN | e | 11:52 AM | | | | NEUROSTIMULATOR PGT, | | PST | | | | EA ADDL 15 MIN | | | | | + +--------+ + + + | HI ELECTRONIC | Routin | 10/19/2019 | Essential tremor | | | ANALYSIS BRAIN | e | 11:52 AM | | | | NEUROSTIMULATOR PGT, | | PST | | | | 15 MIN | | | | | + +--------+ + + + documented in this encounter Visit Diagnoses + + | Diagnosis | + + | Essential tremor - Primary Essential and other specified forms of tremor | + + | Restless legs syndrome (RLS) | + + documented in this encounter"
--- OUTSIDE RECORDS SUMMARY | ~2020-08-07 | XMS | Encounter Summary ---
Demographics + + + | Address | [address] | | | [place] [address] | + + + | Home Phone | | + + + | Preferred Language | Unknown | + + + | Marital Status | Single | + + + | Confucianist Affiliation | LDS | + + + | Race | White | + + + | Ethnic Group | Not or | + + + Author + + + | Author | [facility] | + + + | Organization | [facility] | + + + | Address | Unknown | + + + | Phone | Unavailable | + + + Support + + + + + | Name | Relationship | Address | Phone | + + + + + | Petrona Reece | ECON | [address] | | | | | [place] | | | | | [address] | | + + + + + | Michael Reece | ECON | [address] | | | | | [place] | | | | | [address] | | + + + + + | Wolf Reece | ECON | [address] | | | | | [place] | | | | | [address] | | + + + + + Care Team Providers + +------+ + | Care Urban Planning Teacher Name | Role | Phone | + +------+ + | Agustin Palomares MD | PCP | | + +------+ + Reason for Visit + + + | Reason | Comments | + + + | Pre-operative | | | evaluation | | + + + Encounter Details +--------+---------+ + + + | Date | Type | Department | Care Team | Description | +--------+---------+ + + + | 07/19/ | Office | Neurosurgery at | Ne Guevara MD | Disabling essential | | 2019 | Visit | [facility] [address] | [address] | tremor (Primary Dx) | | | | [facility] | [place], [place] | | | | | Health and Healing, | [address] | | | | | [facility] | [phone] | | | | | [place], [place] | | | | | | [address] | | | | | | [phone] | | | +--------+---------+ + + + [...] | Blood Pressure | 119/63 | 07/19/2019 9:02 AM | | | | | PDT | | + + + + + | Pulse | 67 | 07/19/2019 9:02 AM | | | | | PDT | | + + + + + | Temperature | 36.4 C (97.6 F) | 07/19/2019 9:02 AM | | | | | PDT | | + + + + + | Respiratory Rate | 15 | 07/19/2019 9:02 AM | | | | | PDT | | + + + + + | Oxygen Saturation | 97% | 07/19/2019 9:02 AM | | | | | PDT | | + + + + + | Inhaled Oxygen | - | - | | | Concentration | | | | + + + + + | Weight | 87.1 kg (192 lb) | 07/19/2019 9:02 AM | | | | | PDT | | + + + + + | Height | 162.6 cm (5' 4") | 07/19/2019 9:02 AM | | | | | PDT | | + + + + + | Body Mass Index | 32.96 | 07/19/2019 9:02 AM | | | | | PDT | | + + + + + documented in this encounter Progress Notes Abimael Patel MD - 07/19/2019 9:00 AM PDTNSGY Pre [...] Neurological Surgery documented in this e ncounter Plan of Treatment +--------+ + + + + | Date | Type | Specialty | Care Team | Description | +--------+ + + + + | 08/22/ | Procedure | Neurology | Cristopher Rosa, | | | 2019 | | | [address] | | | | | | [place], [place] | | | | | | [address] | | | | | | [phone] | | | | | | | | +--------+ + + + + documented as of this encounter Visit Diagnoses + + | Diagnosis | + + | Disabling essential tremor - Primary Essential and other specified forms of tremor | + + documented in this encounter
--- OUTSIDE RECORDS SUMMARY | ~2020-08-07 | XMS | Encounter Summary ---
Demographics + + + | Address | [address] | | | [place] [address] | + + + | Home Phone | | + + + | Preferred Language | Unknown | + + + | Marital Status | | + + + | Scientology Affiliation | [phone] | + + + | Race | White | + + + | Ethnic Group | Not or | + + + Author + + + | Author | [facility] | | | and [place] | + + + | Organization | [facility] | | | [...] Providers + +------+ + | Care Director Of Group Counseling Program Name | Role | Phone | + +------+ + | Agustin Palomares MD | PCP | | + +------+ + Reason for Visit +--------+ + | Reason | Comments | +--------+ + | Other | end of study | +--------+ + Encounter Details +--------+ + + + + | Date | Type | Department | Care Team | Description | +--------+ + + + + | 06/14/ | Documentati | [facility] | Nayeli Jordan, | Other (end of study) | | 2020 | on | CARDIOLOGY [place] | Technologist | | | | | [address] | | | | | | [place] | | | | | | [address] | | | | | | [phone] | | | +--------+ + + + [...] documented as of this encounter Progress Notes Nayeli Jordan, Technologist - 06/14/2020 11:59 PM PDT Cardiac Stamp Collector Date of Event Monitor: 06/14/20 Referring Physician: Maddie Patient:Rula Reece : 1940 Age: 80 y.o. female INDICATIONS: R00.[address] [place] patient Associated attestation - Tal Mena MD - 07/18/2020 4:37 PM PDTA cardiac rhythm anal ysis was performed on 2 leads for 6 days, 16 hours, 11 minutes, corresponding to 105,274 lexx ts. During the monitored time period, only 12.75% of the total recording yielded tracings th at were capable of being analyzed (a total of 2 days, 3 hours, with interrupted recordings o roque 4 of the days she was supposed to be monitored), which showed the following: The predominant rhythm was sinus, with an average heart rate of 85 bpm, ranging from 59-133 bpm. Sinus bradycardia was present for 0.02% of the recording. Sinus tachycardia was prese nt for approximately 1% of the time. There was no evidence of atrioventricular block, and no clinically significant pauses were noted. The overall ventricular ectopy burden was less than 0.01%. There were 89 isolated PVCs. Th ere were no complex ventricular arrhythmias and no evidence of ventricular tachycardia. The overall atrial ectopic rhythm burden was 0.12%. There were 1043 isolated PACs. There w ere 38 atrial couplets and 2 atrial triplets. There were 2 runs of paroxysmal supraventricul ar tachycardia (PSVT) during the monitored time period, the maximum duration of which was 6 consecutive beats. The maximum recorded heart rate during any of these runs was a 5 beat run at 178 bpm. There was no evidence of paroxysmal atrial fibrillation or atrial flutter No symptoms were reported. No significant ST segment abnormalities were noted. CONCLUSION: This is a mildly abnormal event monitor recording. Only 2 days, 3 hours of th e total of 7 days were recorded. This showed sinus rhythm, rare PVCs, PACs, and 2 very brie f runs of PSVT. documented in this encounter Plan of Treatment +--------+ + + + + | Date | Type | Specialty | Care Team | Description | +--------+ + + + + | 08/14/ | Appointment | Radiology | Farhana Castillo | | | 2019 | | | [address] | | | | | | [address] | | | | | | [place] [address] | | | | | | [phone] | | | | | | | | +--------+ + + + + | 09/13/ | Office | Cardiology | Farhana Castillo | | | 2019 | Visit | | [address] | | | | | | [address] | | | | | | [place] [address] | | | | | | [phone] | | | | | | | | +--------+ + + + + documented as of this encounter Visit Diagnoses Not on filedocumented in this encounter"
--- OUTSIDE RECORDS SUMMARY | ~2020-08-07 | XMS | Clinical Summary ---
Demographics + + + | Address | [address] | | | [place] [address] | + + + | Home Phone | | + + + | Preferred Language | Unknown | + + + | Marital Status | Single | + + + | Protestant Affiliation | LDS | + + + | Race | White | + + + | Ethnic Group | Not or | + + + Author + + + | Author | [facility] | + + + | Organization | [facility] | + + + | Address | Unknown | + + + | Phone | Unavailable | + + + Support + + + + + | Name | Relationship | Address | Phone | + + + + + | Petrona Reece | ECON | [address] | | | | | [place], [place] | | | | | [address] | | + + + + + | Michael Reece | ECON | [address] | | | | | [place], [place] | | | | | [address] | | + + + + + | Wolf Reece | ECON | [address] | | | | | [place] | | | | | [address] | | + + + + + Care Team Providers + +------+ + | Care Quality Worker Name | Role | Phone | + +------+ + | Agustin Palomares MD | PCP | | + +------+ + Source Comments [facility] is fully live on both EpicCare Ambulatory and EpicCare InPatient.[facility] Allergies + + + + + + | Active Allergy | Reactions | Severity | Noted | Comments | | | | | Date | | + + + + + + | Amitriptyline | Unknown | Low | 12/03/19 | "The feeling is | | | | | 19 | not good even at 11/05 | | | | | | pill" | + + + + + + | Primidone | Bleeding | | 07/19/20 | Pt states nose | | | | | 19 | bleeds occurs | + + + + + + | Sulfa (Sulfonamide | Unknown | | 12/03/19 | Told I had | | Antibiotics) | | | 19 | reaction as a child | + + + + + + Medications + + + +---------+------+------+-------+ | Medication | Sig | Dispensed | Refills | Star | End | Statu | | | | | | t | Date | s | | | | | | Date | | | + + + +---------+------+------+-------+ | simvastatin 20 mg | 20 mg once daily in | | 0 | 01/31 | | Activ | | oral tablet | the evening. | | | 06/21 | | e | | | | | | 19 | | | + + + +---------+------+------+-------+ | SUMAtriptan 100 mg | Take 100 mg by | | 0 | | | Activ | | oral tablet | mouth. | | | | | e | + + + +---------+------+------+-------+ | promethazine 25 mg | Take 25 mg by mouth. | | 0 | | | Activ | | oral tablet | | | | | | e | + + + +---------+------+------+-------+ | propranolol 40 mg | 40 mg two times | | 0 | 04/1 | | Activ | | oral tablet | daily. | | | 0/20 | | e | | | | | | 19 | | | + + + +---------+------+------+-------+ | gabapentin 300 mg | Take 600 mg by mouth | | 0 | 04/1 | | Activ | | oral capsule | once daily at | | | 0/20 | | e | | | bedtime. | | | 19 | | | + + + +---------+------+------+-------+ | carbidopa-levodopa | 1 tablet two times | | 0 | 04/0 | | Activ | | 10-100 mg oral | daily. | | | 1/20 | | e | | tablet | | | | 19 | | | + + + +---------+------+------+-------+ | tamsulosin 0.4 mg | 0.4 mg once daily at | | 0 | 04/1 | | Activ | | oral capsule | bedtime. | | | 8/20 | | e | | | | | | 19 | | | + + + +---------+------+------+-------+ | nitroglycerin 0.4 | Place 0.4 mg under | | 0 | | | Activ | | mg sublingual | tongue every five | | | | | e | | tablet, sublingual | minutes as [...] 15 minutes. | | | | | | + + + +---------+------+------+-------+ | BENZONATATE ORAL | Take 100 mg by mouth | | 0 | | | Activ | | | three times daily | | | | | e | | | as needed. | | | | | | + + + +---------+------+------+-------+ | ACETAMINOPHEN | Take 650 mg by | | 0 | | | Activ | | ORALIndications: Per | mouth. Indications: | | | | | e | | patient, 2x daily | Per patient, 2x | | | | | | | AM, 2x daily PM | daily AM, 2x daily | | | | | | | | PM | | | | | | + + + +---------+------+------+-------+ | dilTIAZem CD 24 | Take 180 mg by mouth | | 0 | 06/03 | | Activ | | hour release 180 mg | once daily. | | | 12/22 | | e | | oral | | | | 19 | | | | capsule,extended | | | | | | | | release 24hr | | | | | | | + + + +---------+------+------+-------+ | fluticasone | Inhale 1 puff by | | 0 | | | Activ | | propionate 110 | mouth two times | | | | | e | | mcg/actuation | daily. | | | | | | | inhalation HFA | | | | | | | | aerosol inhaler | | | | | | | + + + +---------+------+------+-------+ | ondansetron ODT 4 | Dissolve 2 tablets | 10 | 1 | 07/03 | | Activ | | mg oral | on tongue and | tablet | | 07/22 | | e | | tablet,disintegratin | swallow every eight | | | 19 | | | | g | hours as needed. | | | | | | + + + +---------+------+------+-------+ | rOPINIRole 0.5 mg | Take 0.5 mg by mouth | | 0 | | | Activ | | oral tablet | once daily. | | | | | e | + + + +---------+------+------+-------+ | folic | Take by mouth once | | 0 | | | Activ | | acid/multivit-min/thanh | daily. | | | | | e | | tein (CENTRUM SILVER | | | | | | | | ORAL) | | | | | | | + + + +---------+------+------+-------+ Active Problems + + + | Problem | Noted Date | + + + | Restless legs syndrome (RLS) | 10/19/2019 | + + + | Disabling essential tremor | 02/04/2019 | + + + Encounters +--------+ + + + + | Date | Type | Specialty | Care Team | Description | +--------+ + + + + | 07/16/ | Video/TeleH | Neurology | Cristopher Rosa, | | | 2019 | ealth-Sched | | MD | | | | ulmary | | | | +--------+ + + + + from Last 3 Months Social History + +-------+ +--------+------+ | Tobacco [address] | | | | | | [place], [place] | | | | | | [address] | | | | | | [phone] | | | | | | | | +--------+ + + + + + + + + + | Health Maintenance | Due Date | Last | Comments | | | | Done | | + + + + + | Pneumococcal | | | | | vaccination (1 of 1 | 6 | | | | - PPSV23) | | | | + + + + + | Influenza (Flu) | | 09/10/20 | | | vaccination (#1) | 0 | 18, | | | | | 09/02/20 | | | | | 17, | | | | | 08/21/20 | | | | | 06 | | + + + + + Implants + +------+--------+ +--------+--------+--------+ | Implanted | Type | Area | Manufacture | Device | Shelf | Model | | | | | r | | Expira | / | | | | | | Identi | tion | Serial | | | | | | fier | Date | / Lot | + +------+--------+ +--------+--------+--------+ | Margarita Connelly Cover | | Left: | [place] | | 03/06/ | DB-[id number] | | KitImplanted: Qty: 1 on | | Brain | SCIENTIFIC | | 2020 | 0-C / | | 07/20/2019 by Ne Guevara, | | | | | | /[id number] | | MD at [facility] INPATIENT REV LOC | | | | | | 512 | + +------+--------+ +--------+--------+--------+ | Vercise Cartesia 45cm 8 | | Left: | [place] | | 05/19/ | DB-220 | | Contact Dbs Lead | | Brain | SCIENTIFIC | | 2020 | 2-45 | | KitImplanted: Qty: 1 on | | | | | | /[id number] | | 07/20/2019 by Ne Guevara, | | | | | | 96 / | | MD at [facility] INPATIENT REV LOC | | | | | | | + +------+--------+ +--------+--------+--------+ | Margarita Foley | | Right: | [employer] | | 04/03/ | DB-460 | | KitImplanted: Qty: 1 on | | Brain | SCIENTIFIC | | 2020 | 0-C / | | 07/20/2019 by Ne Guevara, | | | | | | /[id number] | | MD at [facility] INPATIENT REV LOC | | | | | | 480 | + +------+--------+ +--------+--------+--------+ | Vercise Cartesia 45cm 8 | | Right: | [employer] | | 12/27/ | DB-220 | | Contact Dbs Lead | | Brain | SCIENTIFIC | | 2020 | 2-45 | | KitImplanted: Qty: 1 on | | | | | | /[id number] | | 07/20/2019 by Ne Guevara, | | | | | | 80 / | | MD at [facility] REV LOC | | | | | | | + +------+--------+ +--------+--------+--------+ | Model Contact Extension | | Right: | [place] | | 05/30/ | [id number] | | KitImplanted: Qty: 1 on | | Head | SCIENTIFIC | | 2020 | [id number] | | 07/22/2019 by Ne Guevara, | | | | | | 0 | | MD at [facility] INPATIENT REV LOC | | | | | | /[id number] | | | | | | | | 75 | | | | | | | | /[id number] | | | | | | | | 75 | + +------+--------+ +--------+--------+--------+ | Contact Extension Kit | | Left: | [place] | | 05/30/ | [id number] | | Implanted: Qty: 1 on | | Head | SCIENTIFIC | | 2020 | [id number] | | 07/22/2019 by Ne Guevara, | | | | | | 0 / | | MD at [facility] INPATIENT REV LOC | | | | | | /[id number] | | | | | | | | 27 | + +------+--------+ +--------+--------+--------+ + + | Description:[id number] | + + + +---+--------+ +---+--------+--------+ | Implantable Pulse Generator | | Left: | [place] | | 11/22/ | DB-[id number] | | KitImplanted: Qty: 1 on | | Chest | SCIENTIFIC | | 2020 | 0-S | | 07/22/2019 by Ne Guevara, | | | | | | /[id number] | | MD at [facility] REV LOC | | | | | | 8 / | + +---+--------+ +---+--------+--------+ | V Ipg, 2 55cm Ext, Rc3 | | Left: | [place] | | | DB-104 | | Implanted: Qty: 1 on | | Head | SCIENTIFIC | | | 0-B / | | 07/22/2019 by Ne Guevara, | | | | | | / | | MD at [facility] INPATIENT REV LOC | | | | | | | + +---+--------+ +---+--------+--------+ Results Not on filefrom Last 3 Months Insurance + +--------+ +--------+ + +--------+ | Payer | Benefi | Subscriber | Effect | Phone | Address | Type | | | t Plan | ID | watson | | | | | | / | | Dates | | | | | | Group | | | | | | + +--------+ +--------+ + +--------+ | MEDICARE | MEDICA | [id number] | 01/01/20 | [phone] | [address] | Medica | | | RE A & | | 06-Pre | 1 | [phone] | re | | | B | | sent | | [place] | | | | | | | | [address] | | + +--------+ +--------+ + +--------+ | [employer] | [employer] | [id number] | 11/02/19 | [phone] | [address] | Indemn | | RETIRED PEOPLE | | | 19-Pre | 9 | [id number] | ity | | | | | sent | | [place] | | | | | | | | [phone] | | + +--------+ +--------+ + +--------+ + +--------+ +--------+ + + | Guarantor Name | Accoun | Relation to | Date | Phone | Billing Address | | | t Type | Patient | of | | | | | | | | | | + +--------+ +--------+ + + | Rula Reece | Person | Self [birth year] | [birth year] | | | al/Fam | | 1940 | [phone] | [place] [address] | | | magdaleno | | | 5 (Home) | | + +--------+ +--------+ + + Advance Directives + + + + + | Code Status | Date | Date | Comments | | | Activated | Inactivated | | + + + + + | Full Code | 07/22/2019 | 07/22/2019 | | | | 6:49 AM | 5:05 PM | | + + + + + + + + +---+ | | | | | + + + +---+ | Full Code | 07/20/2019 | 07/21/2019 | | | | 2:41 PM | 8:38 PM | | + + + +---+
--- OUTSIDE RECORDS SUMMARY | ~2020-08-07 | XMS | Encounter Summary ---
Demographics + + + | Address | [address] | | | [place] [address] | + + + | Home Phone | | + + + | Preferred Language | Unknown | + + + | Marital Status | Single | + + + | Mosque Affiliation | LDS | + + + | Race | White | + + + | Ethnic Group | Not or | + + + Author + + + | Author | [facility] | + + + | Organization | [facility] | + + + | Address | Unknown | + + + | Phone | Unavailable | + + + Support + + + + + | Name | Relationship | Address | Phone | + + + + + | Petrona Reece | ECON | [address] | | | | | [place] | | | | | [address] | | + + + + + | Michael Reece | ECON | [address] | | | | | [place] | | | | | [address] | | + + + + + | Wolf Reece | ECON | [address] | | | | | [place] | | | | | [address] | | + + + + + Care Team Providers + +------+ + | Care Pork Cutlet Maker Name | Role | Phone | + +------+ + | Agustin Palomares MD | PCP | | + +------+ + Encounter Details +--------+ + + + + | Date | Type | Department | Care Team | Description | +--------+ + + + + | 07/19/ | Telephone | Neurosurgery at | Ne Guevara MD | | | 2019 | | [facility] [address] | [address] | | | | | Ave [facility] | [place], [place] | | | | | [facility], | [address] | | | | | [facility] | [phone] | | | | | floor [place], [place] | | | | | | [address] | | | | | | [phone] | | | +--------+ + + + [...] this encounter Miscellaneous Notes Telephone Encounter - Elizabeth Bustillo PA-C - 07/19/2019 10:00 AM PDTSent to PPVElectronanel valle signed by Elizabeth Bustillo PA-C at 07/19/2019 10:00 AM PDTTelephone Encounter - Jailene Miller - 07/19/2019 6:38 AM PDTPlease send script for oral anxiolytic to [facility] pharmacy f or patient to take prior to pre-DBS MRI tonight at 5p. Pt is claustrophobic documented in this encou nter Plan of Treatment +--------+ + + + + | Date | Type | Specialty | Care Team | Description | +--------+ + + + + | 08/22/ | Procedure | Neurology | Cristopher Rosa, | | | 2019 | | | [address] | | | | | | [place], [place] | | | | | | [address] | | | | | | [phone] | | | | | | | | +--------+ + + + + documented as of this encounter Visit Diagnoses Not on filedocumented in this encounter"
--- OUTSIDE RECORDS SUMMARY | ~2020-08-07 | XMS | Encounter Summary ---
Demographics + + + | Address | [address] | | | [place] [address] | + + + | Home Phone [...] Author + + + | Author | [facility] | + + + | Organization | [facility] | + + + | Address | Unknown | + + + | Phone | Unavailable | + + + Support + + + + + | Name | Relationship | Address | Phone | + + + + + | Petrona Reece | ECON | [address] | | | | | [place] | | | | | [address] | | + + + + + | Michael Reece | ECON | [address] | | | | | [place] | | | | | [address] | | + + + + + | Wolf Reece | ECON | [address] | | | | | [place] | | | | | [address] | | + + + + + Care Team Providers + +------+ + | Care Naval Marine Engineer Name | Role | Phone | + +------+ + | Unknown | PCP | Unavailable | + +------+ + Reason for Visit + + + | Reason | Comments | + + + | Outside Records | Telemed Intake 02/03/2019 | | Received | | + + + Encounter Details +--------+ + + + + | Date | Type | Department | Care Team | Description | +--------+ + + + + | 02/03/ | Documentati | Neurology Movement | Cristopher Rosa, | Outside Records | | 2019 | on | Disorders Clinic at | MD [address] | Received (Telemed | | | | [facility] | [place], [place] | Intake 02/03/2019) | | | | and Healing [address] | [address] | | | | | [address] [place] for | [phone] | | | | | Health and Healing, | | | | | | | | | | | | [facility] [place] | | | | | | [address] | | | | | | [phone] | | | +--------+ + + + [...] this encounter Miscellaneous Notes Telephone Encounter - Niall Cruz - 02/03/2019 11:06 AM Radha Pulido provides Telemed Intake 02/03/2019 for 's review. Uploaded to chart and attached here. No signature required. Routing to Dr. Rosa documented in this encoun ter Plan of Treatment +--------+ + + + + | Date | Type | Specialty | Care Team | Description | +--------+ + + + + | 08/22/ | Procedure | Neurology | Cristopher Rosa, | | | 2019 | | | [address] | | | | | | [place] | | | | | | [address] | | | | | | [phone] | | | | | | | | +--------+ + + + + documented as of this encounter Visit Diagnoses Not on filedocumented in this encounter"
--- OUTSIDE RECORDS SUMMARY | ~2020-08-07 | XMS | Encounter Summary ---
Demographics + + + | Address | [address] | | | [place] [address] | + + + | Home Phone | | + + + | Preferred Language | Unknown | + + + | Marital Status | Single | + + + | Buddhism Affiliation | LDS | + + + [...] [place], [place] | | | | | [address] | | + + + + + | Michael Reece | ECON | [address] | | | | | [place], [place] | | | | | [address] | | + + + + + | Wolfjose Reece | ECON | [address] | | | | | [place] | | | | | [address] | | + + + + + Care Team Providers + +------+ + | Care Customs And Border Protection Inspector Name | Role | Phone | + +------+ + | Agustin Palomares MD | PCP | | + +------+ + Encounter Details +--------+--------+ + + + | Date | Type | Department | Care Team | Description | +--------+--------+ + + + | 07/19/ | Travel | | | | | [...] | 08/22/ | Procedure | Neurology | rCistopher Rosa, | | | 2019 | | | [address] | | | | | | [place], [place] | | | | | | [address] | | | | | | [phone] | | | | | | | | +--------+ + + + + documented as of this encounter Visit Diagnoses Not on filedocumented in this encounter"
--- OUTSIDE RECORDS SUMMARY | ~2020-08-07 | XMS | Encounter Summary ---
Demographics + + + | Address | [address] | | | [place] [address] | + + + | Home Phone | | + + + | Preferred Language | Unknown | + + + | Marital Status | | + + + | Adventist Affiliation | [id number] | + + + | Race | White | + + + | Ethnic Group | Not or | + + + Author + + + | Author | [facility] | | | and [place] | + + + | Organization | [facility] | | | and [...] Team Providers + +------+ + | Care Aviation Safety Equipment Technician Name | Role | Phone | + +------+ + | Agustin Palomares MD | PCP | | + +------+ + Reason for Referral Diagnostic/Screening (Routine) + +--------+ + + + + | Status | Reason | Specialty | Diagnoses / | Referred By | Referred To | | | | | Procedures | Contact | Contact | + +--------+ + + + + | Authorized | | Radiology | Diagnoses | Gracebowen, | Richard | | | | | SVT | Farhana Bruno, | Cardiology | | | | | (supraventri | 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 [address] | [address] | | | | | cular | [address] | [address] | | | | | tachycardia) | [address] | [address] | | | | | (HCC) | [place], [place] | [place] | | | | | Chest | [address] | [address] | | | | | tightness | Phone: | Phone: | | | | | Palpitations | [phone] | [phone] | | | | | Dyspnea on | Fax: | Fax: | | | | | exertion | [phone] | [phone] | | | | | Procedures | | | | | | | NM Nuclear | | | | | | | Stress Test | | | | | | | (Exercise) | | | + +--------+ + + + + Reason for Visit + + + | Reason | Comments | + + + | Follow-up | | + + + Encounter Details +--------+---------+ + + + | Date | Type | Department | Care Team | Description | +--------+---------+ + + + | 08/01/ | Office | [facility] | Farhana Castillo | SVT | | 2020 | Visit | CARDIOLOGY [place] | [address] | (supraventricular | | | | [address] | [address] | tachycardia) (HCC) | | | | [address] | [place] [address] | (Primary Dx); | | | | [address] | [phone] | Essential | | | | [phone] | | hypertension; Mixed | | | | | | hyperlipidemia; | | | | | | Chest tightness; | | | | | | Palpitations; | | | | | | Dyspnea on exertion; | | | | | | Screening for | | | | | | thyroid disorder; | | | | | | Tremor | +--------+---------+ + + + Social History [...] in this encounter Patient Instructions Patient Instructions Farhana Castillo FNP - 08/01/2020 1:00 PM PDTI have ordered you fasting labs to be done at [facility] labs in next 2 weeks , but can drink water prior to having labs done I also ordered you a stress test to be done at [facility] , as I am concerned about your chest tightness, and shortness of breath Please see if you can get copy of sleep study and bring to next appointment I want you to stop all caffeine, especially diet pepsi for 2 weeks, and drink at least 48 o z of water daily, and aim for 60 , and drink three - fout 16 oz bottles per day, one when yo u get up, and then one with every meal I made no changes to medications Write down heart rate and blood pressure twice a day and bring to appt See me back in 6 weeks documented in this encounter Progress Notes Farhana Castillo FNP - 08/01/2020 1:00 PM PDTFormatting of this note might be differe nt from the original. Date of visit: 08/02/2020 Primary Care Physician: Agustin Palomares MD CHIEF COMPLAINT: Chief Complaint Patient presents with Follow-up HISTORY OF PRESENT ILLNESS: Ms. Rula Reece is a 80 year old woman who is here today to follow up on her event monit or, and also overdue for follow-up. She is a patient of Dr. Kearney and last seen by her 09/15/2019 . Today, I reviewed all previous documentation available to me in electronic medical isak rds and from external sources. She has a history of SVT, hypertension, hyperlipidemia, chronic kidney disease, essential tremor, sleep apnea diagnosed 03/06/2020, arthritis, and chronic UTI's. Dr. Kearney had started her on diltiazem to help with her fast heart rates and palpitations wh ich had been as high as the 190's. She noted that she had a deep brain stimulator placed to help with tremors which was helpful, still having palpitations twice a week and using Valsa lva maneuver which broke the palpitations. She had no syncope or presyncope or chest pains o r shortness of breath with her palpitations. Dr. Kearney ordered her a repeat 1 week event norman pelaez, unfortunately her stimulator prevented the monitor from reading anything but 2 days of 1 week, and had to have first monitor replaced as not functioning. Her current and previous testing and procedures are detailed below. Our interview today somewhat hampered with her speech difficulties, and using words she di d not mean , and word searching . She described her BP monitor as recording her angina , when she meant fast heart rates an d palpitations. She reports her heart rates still variable from 68-1 60 and, and reports inc reased fatigue with it, and also reports now has chest tightness which she thinks occurs malika ry 2 hours. She notices her palpitations about the time she wakes up about 4:00 in the morn ing to go to the bathroom, though she goes back to bed and also at night. She does not think she has any dizziness with her episodes, but does have ongoing balance issues and frequent falls. She denies any syncope, or signs or symptoms of stroke, but repo rts she has ongoing difficulty with word searching and using incorrect words. She reports s he has improved tremendously since her deep brain stimulator placed 1 year ago at that has h elped with her tremors, and she can now use a computer. She reports she usually goes to bed at 11 AM, and wakes up at 4 AM to use the bathroom, and then gets out of bed to start her day at 7 AM. I saw her sleep study AFTER our clinic ashleyi t performed in March which is documented below which documents mild sleep apnea, but severe in REM sleep with decreased amount of REM, CPAP treatment recommended. 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 She did not bring her medications to the clinic today, but I personally reviewed her [employer] dispense record with her. REVIEW OF SYSTEMS: Negative except for pertinent items noted in HPI. Constitutional: Denies fatigue or unexplained weight loss. Appetite is good. Weight is st able. Denies night sweats fevers or chills HENT: Sinus surgery for chronic sinusitis 06/27/2020: denies nosebleeds. Denies hearing pr oblems. Mild Dysphagia, improved with brain stimulator Eyes: History of bilateral cataract removal, glaucoma. Denies visual disturbance or double vision. Respiratory/Sleep:: Asthma. VALENTINE. With ADL. Cough with PND, and asthma Denies hemoptysi s or excessive sputum production. Occasional snoring . Denies orthopnea, PND. Poor sleep and daytime sleepiness, Cardiovascular: See HPI, palpitations ,and mild pedal edema, chest tightness Denies histor y of rheumatic fever. Denies claudication . Denies AAA. Gastrointestinal: Denies GERD . Denies nausea, vomiting, abdominal pain and blood in stoo l.Denies PUD . History of cholecystectomy 12/2019 Genitourinary: Denies hematuria. Hx of hysterectomy. Chronic UTI's Musculoskeletal: Osteoarthritis with knee replacement hip replacement bilaterally denies my algias, back pain . Skin: Denies color change. Denies rash or lesions Neurological: Tremors treated with deep brain stimulation. Hx migraines , now seldom , wo rse when young . Denies history of stroke/Transient ischemic attack.Denies history of seizu res. Denies dizziness, syncope and numbness. Hematological/Oncology . Bruises easily. Denies bleeding Denies history of cancer., but p recancer of uterus and nasal/ sinuses . Denies Hx blood transfusion Endocrine: Denies diabetes or thyroid disease. Denies excessive thirst or hunger. Psychiatric/Behavioral: denies any history of depression or anxiety or other psychiatric il lness. Vaccines: Current on 2019 flu vaccine. Current on Post 65 pneumonia vaccine. Habits/Social : Denies history of smoking. Denies EtOH use. Drinks two 7.5 oz diet pepsi. Denies recreational or illicit drug use. Exercises with and tolerates. Lives in . Outpatient Medications Prior to Visit Medication Sig Dispense Refill acetaminophen (TYLENOL) 500 mg tablet Take 500 mg by mouth every 6 hours as needed for Pain. cephalexin (KEFLEX) 500 mg capsule Take 1 capsule by mouth 4 times daily. (Patient not taking: Reported on 08/01/2020.) 20 capsule 0 diclofenac (VOLTAREN) 1% GEL dilTIAZem (DILTIAZEM CD) 180 mg 24 hr capsule Take 1 capsule by mouth Daily. 90 capsule 3 docusate sodium (COLACE) 100 mg capsule Take 100 mg by mouth nightly. fluticasone (FLOVENT HFA) 110 mcg/puff inhaler Inhale 1 puff into the lungs 2 times sarah ly. gabapentin (NEURONTIN) 300 mg capsule Take 600 mg by mouth nightly. Multiple Vitamins-Minerals (CENTRUM SILVER PO) Take 1 tablet by mouth Daily . nitrofurantoin (MACROBID) 100 mg capsule Take 100 mg by mouth 2 times daily. Indication s: Simple Infection of the Urinary Tract nitroglycerin (NITROSTAT) 0.[address] 0.4 mg under the tongue every 5 minute s as needed for Chest pain. omeprazole (PRILOSEC) 20 mg capsule Take 20 mg by mouth 2 times daily. Ondansetron 4 MG FILM Take 4 mg by mouth every 8 hours as needed for Nausea. promethazine (PHENERGAN) 25 mg tablet Take 25 mg by mouth every 6 hours as needed. propranolol (INDERAL) 40 mg tablet Take 40 mg by mouth 2 times daily . rOPINIRole (REQUIP) 1 mg tablet Take 1 mg by mouth nightly. rOPINIRole (REQUIP) 5 MG tablet Take by mouth 2 times daily 0.5 mg am and 1 mg nightly. sertraline (ZOLOFT) 25 mg tablet Take 50 mg by mouth every evening . simvastatin (ZOCOR) 20 mg tablet Take 20 mg by mouth nightly. SUMAtriptan (IMITREX) 100 mg tablet Take 100 mg by mouth as needed for Migraine. tamsulosin (FLOMAX) 0.4 mg CAPS Take 0.4 mg by mouth daily (after breakfast). No facility-administered medications prior to visit. PHYSICAL EXAM: Wt Readings from Last 3 Encounters: 08/01/20 91.4 kg (201 lb 8 oz) 06/27/20 92.2 kg (203 lb 4.2 oz) 09/15/19 86.6 kg (191 lb) Temp Readings from Last 3 Encounters: 06/27/20 36.2 C (97.2 F) (Temporal) 12/20/18 36 C (96.8 F) (Temporal) 12/06/18 36.3 C (97.3 F) (Skin) BP Readings from Last 3 Encounters: 08/01/20 128/76 06/27/20 114/78 09/15/19 122/72 Pulse Readings from Last 3 Encounters: 08/01/20 75 06/27/20 62 09/15/19 85 GENERAL: Well developed, well nourished, elderly woman in no distress. Appears approximat radha stated age. HEENT: Normocephalic, atraumatic. EYES: PERRL, EOM normal. MOUTH: Mask in place throughout visit, due to COVID-19. Oral exam not performed NECK: No JVD, lymphadenopathy, thyromegaly, bruits. Carotid pulses are 2+ bilaterally LUNGS/CHEST: Clear bilaterally, with no rales, rhonchi or wheezing noted, respirations unl abored HEART: Nondisplaced PMI, regular rate and rhythm, S1, S2 normal. No murmurs, rubs or gall ops noted. ABDOMEN: Soft, nontender, no organomegaly, masses or bruits. Bowel sounds are normal in a ll 4 quadrants. The abdominal aortic pulsation is not palpable. EXTREMITIES: No edema. Radial pulses 2+ bilaterally. Femoral pulses are 2+ bilaterally wi thout bruits. DP and PT pulses are 2+ bilaterally. No clubbing. SKIN: Warm and dry, capillary refill is normal, no lesions. NEUROLOGIC: Awake, alert and oriented x 3. No focal motor or sensory deficits. PSYCHIATRIC: Appropriate, affect appears normal DATA: Blood tests: Lab Results Component Value Date HGB 13.3 06/27/2020 No results found for: NA, K, CL, CO2, ANIONGAP, GLUF, BUN, CREATININE, EGFR No results found for: CHOL, TRIG, LDL, LDL, GLUF No results found for: BNP, TSH, CRP No results found for: TOTEPI CARDIAC PROCEDURES/IMAGING Stress test 06/30/2018: [facility]: EKG: Baseline EKG normal sinus rhythm, rate 61 bpm, baseline b lood pressure 144/71. With Lexiscan infusion she experienced mild chest tightness. Stress EKG showed <[address] segment depressions in V3 and V4 with T wave flattening in the same leads but no significant ST segment changes noted. Occasional PAC's. Her heart rate increa sed to 93 bpm with occasional PAC which was 65% of maximum age-predicted heart rate. Her ma ximum blood pressure was 146/70 reported as electrocardiographically negative pharmacologic al stress with no significant ST segment changes images:Imaging: Images at stress and rest well matched, no evidence of ischemia or infarct. Transient cavity dilation score normal. EF 76%. Bulls eyes images showed normal muscle thickening, and cine images showed normal wa ll motion VASCULAR TESTING AND PROCEDURES ECHO Echo: 04/01/2019: EF >70%, LV normal in size and wall thickness, no regional wall motion abn ormalities, normal diastolic function. RV normal in size and function. Mild biatrial enlar gement. Aortic valve trileaflet, mild aortic sclerosis without stenosis trace AI, valve mil dly thickened. Mitral valve normal trace MR. Tricuspid valve normal, unable to assess pulm onary artery pressures due to absence of adequate TR jet. Pulmonic valve not well visualize d trace NH. No pericardial effusion. IVC WNL, CVP 5-10. Aortic root, ascending aorta, and aortic arch are normal. No mass, no clot, no ASD, no VSD NON CARDIAC PROCEDURES/IMAGING Sleep study: 03/06/2020 ([facility]) sleep efficiency 63.1. REM 10.4%. AHI 17.5, REM AHI 52 supin e 17.8 mean SPO2 94.4 annie 81% less than 88% 4.3 minutes. Sinus rhythm highest heart rate 199 bpm, average heart rate 68.7 lowest heart rate 40.3. No PLMS. Sleep staging difficult to score due to artifact from deep brain stimulator. Recommend auto CPAP 5-20 or CPAP titr ation study if difficulty with CPAP. EKG/EVENT MONITOR 1-week event monitor: 06/14/2020: 2 days of data collected :sinus rhythm, average heart rate 85 bpm, range 59-133. Sinus bradycardia burden 0.02%. Sinus tachycardia 1%. No AV blocks , no clinically significant pauses noted. Ventricular ectopy burden 0.01%, isolated PVC's, no complex ventricular arrhythmias and no evidence of V. tach. Ectopic burden 0.12%, isolat ed PVC's, couplets and triplets, 2 runs of PSVT maximum duration was 6 consecutive beats, ma ximum recorded rate for any of these runs was a 5 beat run at 178 bpm. No atrial fib or flu tter. No symptoms recorded, no [address] segment abnormalities noted. 48 hour monitor : 11/22/2018: Normal sinus rhythm episodes of short runs of SVT noted 2 week Zio Patch: 08/10/2018: Predominant rhythm was normal sinus rhythm she had rare PAC's and PVC's, there was rare short paroxysmal episodes of SVT, longest of which was 16 beats EK03/17/2019: Normal sinus rhythm, T wave flattening leads, III, aVL. Low voltage QRS ra te 70 bpm, NH 176 ms, QRS 84 ms, QTC 429 ms, tracing personally reviewed by me EK06/27/2020: Normal sinus rhythm, low voltage QRS, T wave flattening V2 3 aVL. Rate 60 bpm, NH 196 ms, QRS 54 ms, QTC 428 , tracing personally reviewed by me LABS Labs: 08/05/2019: CMP: Sodium 140, potassium 3.9, chloride 102, glucose 103, BUN 18, creati nine 1.09, GFR 49, AST 12, ALT 10, alk phos 60, total bili 0.5, albumin 4 Labs: 12/21/2019: ( gall bladder surgery) : CBC: WBC 10.86, RBC 3.39, hemoglobin 10.4, hemat ocrit 32.7, platelets 191. CMP: Sodium 136, potassium 3.9, chloride 103, glucose 83, BUN 17 , creatinine 1.06, GFR 50, albumin 3.1, total bili 0.9, alk phos 74, AST 25, ALT 9 Labs: 03/14/2020: BMP: Sodium 139, potassium 4.4, chloride 101, glucose 101, BUN 14, creatin ine 1.06, GFR 50. Hemoglobin A1c 5.6 (114). Ferritin 63.49. CRP 3.3. CBC: WBC 7.6, RBC 3 .93, hemoglobin 12.4, hematocrit 37.2, platelets 325. Iron deficiency panel: Iron 103.27, T IBC 301, percent sat 34.3, ferritin 59.8, U IBC 198, transferrin 215.16 ASSESSMENT & PLAN: She was here to follow up on event monitor, as well as ongoing symptoms with palpitations , and SVT. She has problems as detailed below Her 1 week event monitor performed in June only collected data for 2 days as discussed in HPI and only 12.75 of the total recording needle yielded tracings that were capable of b eing analyzed so, so total of 2 days and 3 hours with interrupted recordings over for the da y she was supposed to be monitored. Dr. Mena reported predominantly sinus rhythm with an a verage heart rate of 85 bpm with a range of 59-133 and sinus bradycardia was present for 0.0 2% of the recording in sinus tachycardia for 1% of the time, and there was no evidence of AV block and no clinically significant pauses. Ventricular ectopy burden <0.01% with isolated PVC's and no complex ventricular arrhythmias and no evidence of V. tach. Ectopic rhythm wa s 0.12%, there were isolated PAC's, atrial couplets and 2 atrial triplets and 2 runs of PSVT with a maximum duration of 6 consecutive beats and maximum recorded heart rate was a 5 beat run at 178 bpm, there was no evidence of paroxysmal atrial flutter or flutter. No signific ant ST segment abnormalities and reported as a mildly abnormal event monitor with only 2 day s of total 7 days needed I reviewed the tests results in detail with her . I also discussed my concerns with her that she seemed to be much more symptomatic than when she saw Dr. Kearney as now complaining of ongoing chest tightness and more symptomatic with pa lpitations and also having some dyspnea with exertion, and palpitations, as could have ische sherry etiology Her previous 2018 stress test had been reported as low risk, did have symptoms of chest tig htness, and mild ST segment changes on EKG, but I think she would benefit from an updated st ress test given her symptoms, and I have ordered her a nuclear stress test to be performed a [facility] with a 2-day protocol to get a good evaluation. Of also suggested that she stop caffeine and drink more water for 2 weeks to see if makes a ny difference in her symptoms, as she still drinks diet Pepsi on a daily basis, though less than previously I made no changes to cardiac medications today, and she should continue diltiazem 180 mg daily, propranolol 40 mg twice daily which she is taking for tremor but also affects her hea rt rate, simvastatin 20 mg nightly. I also ordered her an updated CMP and lipid panel, as well as TSH with copies to be sent to her PCP, Dr. Palomares. Palpitations and arrhythmias, especially atrial arrhythmias, are also contributed to by uncorrected sleep apnea, and her previous sleep study had indicated some mild sleep apnea, but severe in REM, and she would benefit from having this treated, and I had my medical assi carlitost call her today as I received the sleep study results after our clinic visit, and advis ed her to pursue treatment. Her stress test will be performed on August 14 and August 15 for 2 day protocol, and I will follow-up with her about the results on September 13. She will follow-up again with Dr. Kearney after December 2020 when she has returned from her maternity leave 1. SVT (supraventricular tachycardia) (HCC) 2. Essential hypertension 3. Mixed hyperlipidemia 4. Chest tightness 5. Palpitations 6. Dyspnea on exertion 7. Screening for thyroid disorder 8. Tremor Orders Placed This Encounter Procedures Comprehensive Metabolic Panel Lipid Panel TSH, Reflex Free T4 NM Nuclear Stress Test (Exercise) The following portions of the patient's history were personally reviewed by me and updated as appropriate: EKG tracings, other specialty provider and PCP notes,any Hospital admission and discharge summaries, any ER records , current and previous cardiac testing and procedure reports and d addis, medication bottles NOT brought to visit today Allergies, current medications.labs Family history, past medical history, past social history, past surgical history. Problem list. This encounter was dictated with voice recognition software and may contain inadvertent rec ognition errors. Portions of this chart may have been copied from previous notes for continuity of care purp ose Ginny [facility] Cardiology 08/02/2020 docume nted in this encounter Plan of Treatment +--------+ + + + + | Date | Type | Specialty | Care Team | Description | +--------+ + + + + | 08/14/ | Appointment | Radiology | Farhana Castillo | | | 2019 | | | [address] | | | | | | [address] | | | | | | [place] [address] | | | | | | [phone] | | | | | | | | +--------+ + + + + | 09/13/ | Office | Cardiology | JonathanFarhana | | | 2020 | Visit | | [address] | | | | | | [address] | | | | | | [place] [address] | | | | | | [phone] | | | | | | | | +--------+ + + + + + + +--------+ + + | Name | Type | Priori | Associated Diagnoses | Order Schedule | | | | ty | | | + + +--------+ + + | Comprehensive | Lab | Routin | Mixed | Expected: | | Metabolic Panel | | e | hyperlipidemia | 08/01/2020, Expires: | | | | | | 08/01/2021 | + + +--------+ + + | Lipid Panel | Lab | Routin | Mixed | Expected: | | | | e | hyperlipidemia | 08/01/2020, Expires: | | | | | | 08/01/2021 | + + +--------+ + + | NM Nuclear Stress | Cardiac | Routin | SVT | Expected: | | Test (Exercise) | Nuclear | e | (supraventricular | 08/01/2020, Expires: | | | Medicine | | tachycardia) (HCC) | 08/01/2021 | | | | | Chest tightness | | | | | | Palpitations | | | | | | Dyspnea on exertion | | + + +--------+ + + | TSH, Reflex Free T4 | Lab | Routin | Screening for | Expected: | | | | e | thyroid disorder | 08/01/2020, Expires: | | | | | | 08/01/2021 | + + +--------+ + + documented as of this encounter Visit Diagnoses + + | Diagnosis | + + | SVT (supraventricular tachycardia) (HCC) - Primary Other specified cardiac | | dysrhythmias | + + | Essential hypertension Unspecified essential hypertension | + + | Mixed hyperlipidemia | + + | Chest tightness Other chest pain | + + | Palpitations | + + | Dyspnea on exertion Other dyspnea and respiratory abnormality | + + | Screening for thyroid disorder | + + | Tremor Abnormal involuntary movements | + + documented in this encounter
--- OUTSIDE RECORDS SUMMARY | ~2020-08-07 | XMS | Encounter Summary ---
Demographics + + + | Address | [address] | | | [place] [address] | + + + | Home Phone [...] Author + + + | Author | [facility] | + + + | Organization | [facility] | + + + | Address | Unknown | + + + | Phone | Unavailable | + + + Support + + + + + | Name | Relationship | Address | Phone | + + + + + | Petrona Reece | ECON | [address] | | | | | [place] | | | | | [phone] | | + + + + + | Michael Reece | ECON | [address] | | | | | [place] | | | | | [address] | | + + + + + | Wolf Reece | ECON | [address] | | | | | [place] | | | | | [address] | | + + + + + Care Team Providers + +------+ + | Care Mine Captain Name | Role | Phone | + +------+ + | Agustin Palomares MD | PCP | | + +------+ + Encounter Details +--------+ + + + + | Date | Type | Department | Care Team | Description | +--------+ + + + + | 08/05/ | Telephone | [facility] | Cristopher Rosa, | | | 2018 | | [facility] at [facility] | MD [address] | | | | | [place] [address] | [place], [place] | | | | | [address] [facility] | [address] | | | | | [facility], | [phone] | | | | | [facility] [address] | | | | | | [place], [place] | | | | | | [address] | | | | | | [phone] | | | +--------+ + + + [...] Telephone Encounter - Cristopher Rosa MD - 08/05/2019 12:29 PM [facility] spoke with Ms Reece 's daughter in law today after being contacted by Elizabeth Bustillo yesterday afternoon. Ms Richard aguilar, since the DBS cerebral implant, has been having an expressive aphasia; there are not s ymptoms of a receptive aphasia. There have been no other reported neurologic deficits. T he aphasia has slightly improved over the past week, but is still persisting. 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 They will followup with us, and she is scheduled to see me for initial programming on Aug 04. In the meantime she has been referred for speech language therapy. I've updated Dr Guevara about these turn of events as well. Cristopher Rosa M.D. documented in this e ncounter Plan of Treatment +--------+ + + + + | Date | Type | Specialty | Care Team | Description | +--------+ + + + + | 08/22/ | Procedure | Neurology | Cristopher Rosa, | | | 2019 | | | [address] | | | | | | [place] | | | | | | [address] | | | | | | [phone] | | | | | | | | +--------+ + + + + documented as of this encounter Visit Diagnoses Not on filedocumented in this encounter"
--- OUTSIDE RECORDS SUMMARY | ~2020-08-07 | XMS | Encounter Summary ---
Demographics + + + | Address | [address] | | | [place] [address] | + + + | Home Phone | | + + + | Preferred Language | Unknown | + + + | Marital Status | | + + + | Anabaptist Affiliation | [phone] | + + + | Race | White | + + + | Ethnic Group | Not or | + + + Author + + + | Author | [facility] | | | and [place] | + + + | Organization | [facility] | | | and [...] Team Providers + +------+ + | Care Lumber Tailer Name | Role | Phone | + +------+ + | Agustin Palomares MD | PCP | | + +------+ + Encounter Details +--------+ + + + + | Date | Type | Department | Care Team | Description | +--------+ + + + + | 06/21/ | Imaging | [facility] | Provider, | | | 2020 | Exam | [facility] | MD [address] | | | | | IMAGING [address] | | | | | [address] [place] | [place] [address] | | | | | [place] [address] | | | | | | [phone] | | | +--------+ + + + [...] Radiology | Farhana Castillo | | | 2020 | | | [address] | | | | | | [address] | | | | | | [place] [address] | | | | | | [phone] | | | | | | | | +--------+ + + + + | 09/13/ | Office | Cardiology | Jonathan Farhana | | | 2019 | Visit | | [address] | | | | | | [address] | | | | | | [place] [address] | | | | | | [phone] | | | | | | | [...] + + documented in this encounter Results CT Sinus wo Contrast (06/14/2020 12:00 AM [...]
--- OUTSIDE RECORDS SUMMARY | ~2020-08-07 | XMS | Encounter Summary ---
Demographics + + + | Address | [address] | | | [place] [address] | + + + | Home Phone [...] + + + | Author | [facility] | | | and [place] | + + + | Organization | [facility] | | | [...] Team Providers + +------+ + | Care Exercise Equipment Repair Technician Name | Role | Phone | + +------+ + | Garfield Palomares MD | PCP | | + +------+ + Encounter Details +--------+---------+ + + + | Date | Type | Department | Care Team | Description | +--------+---------+ + + + | 12/20/ | Surgery | [facility] | Lela Kim, | RIGHT EXTRACTION | | 2019 | | [facility] | [address] | CATARACT WITH LENS | | | | [address] | [place], [place] | IMPLANT | | | | [place], [place] | [address] | | | | | [address] | | | | | | [phone] | | | +--------+---------+ + + + [...] + + + | Blood Pressure | 146/55 | 12/20/2018 5:00 PM | | | | | PST | | + + + + + | Pulse | 66 | 12/20/2018 5:00 PM | | | | | PST | | + + + + + | Temperature | 36 C (96.8 F) | 12/20/2018 4:24 PM | | | | | PST | | + + + + + | Respiratory Rate | 16 | 12/20/2018 4:35 PM | | | | | PST | | + + + + + | Oxygen Saturation | 99% | 12/20/2018 5:00 PM | | | | | PST | | + + + + + | Inhaled Oxygen | - | - | | | Concentration | | | | + + + + + | Weight | 87.8 kg (193 lb 9 | 12/20/2018 1:58 PM | | | | oz) | PST | | + + + + + | Height | 162.6 cm (5' 4") | 12/20/2018 1:58 PM | | | | | PST | | + + + + + | Body Mass Index | 33.23 | 12/20/2018 1:58 PM | | | | | PST | | + + + + + documented in this encounter Discharge Instructions Farhana Monae RN - 12/20/2018 Recovery After Procedural Sedation (Adult) You have been given medicine by vein to make you sleep during your procedure. This may have included both a pain medicine and sleeping medicine. Most of the effects have worn off. But you may still have some drowsiness for the next 6 to 8 hours. Home care Follow these guidelines when you get home: For the next 8 hours, you should be watched by a responsible adult. This person should m leeroy sure your condition is not getting worse. Don't drink any alcoholfor the next [address], operate dangerous machinery,make important business or personal decisions , or sign legal documentsduring the next 24 hours. Note: Your healthcare provider may tell you not to take any medicine by mouth for pain or s leep in the next 4 hours. These medicines may react with the medicines you were given in the hospital. This could cause a much stronger response than usual. Follow-up care Follow up with your healthcare provider if you are not alert and back to your usual level o f activity within 12 hours. When to seek medical advice Call your healthcare provider right away if any of these occur: Drowsiness gets worse Weakness or dizziness gets worse Repeated vomiting You can't be awakened Date Last Reviewed: 08/19/201619995672-8440 [employer]. [address] [place] [address], [place] [address]. All righ ts reserved. This information is not intended as a substitute for professional medical care. Always follow your healthcare professional's instructions. documented in this encounter Medications at Time [...] encounter H&P Notes Lela Kim MD - 12/20/2018 2:39 [facility] SURGICAL/PROCEDURALINTERVAL HISTORY AND PHYSICAL NOTE Pt. Name/Age/: Rula Shelley 78 y.o. 1940 Date of admission: 12/20/2018 The current H&P was reviewed. The patient [...] answered. Consent was obtained. PLANNED PROCEDURE/TREATMENT Procedures (Laterality):RIGHT EXTRACTION CATARACT WITH OR WITHOUT LENS IMPLANT (Right) PHYSICIAN'S VERIFICATION OF INFORMED CONSENT FOR BLOOD [...] has been provided information regarding the [place] Blood Act. If appropriate, patient was given the state mandated brochure concerning breast surgery. Electronically signed by: Lela Kim, 12/20/2018 14:39 [facility] - 12/14/2018 5:[address] [id number] HISTORY AND PHYSICAL LELA KIM MD Patient: RULA SHELLEY Admitting: LELA KIM MR #: [id number] LOC: PT TYPE: Adm Date: : 1940 DATE OF SURGERY: 12/20/2018. CHIEF COMPLAINT: Decreased vision in the right eye with a history of cataract. HISTORY OF PRESENT ILLNESS: The patient is a 78-year-old female who complains that there i s poor vision in her right eye and is much more bothersome and noticeable after having catar act surgery in her left eye recently. She would like to proceed with surgery in the right e ye, so the 2 eyes can work better together. PAST MEDICAL HISTORY: Arthritis, asthma, hypertension, migraine, tremor. PAST SURGICAL HISTORY: Sinus surgery, left total knee replacement, right and left hip surg chris, and recent cataract surgery in the left eye on 12/06/2018. FAMILY HISTORY: Hypertension, arthritis, cancer, thyroid disorder. SOCIAL HISTORY: No alcohol use, nonsmoker, no recreational drug use. CURRENT MEDICATIONS: 1. Amlodipine 5 mg 1 tablet by mouth daily. 2. Primidone 50 mg at bedtime. 3. Gabapentin 300 mg. 4. Promethazine 25 mg tablet as needed. 5. Sumatriptan 100 mg tablet as needed. 6. Arthrotec 75 mg tablet 3 times a day. 7. Simvastatin 20 mg tablet daily. 8. Metoprolol 100 mg tablet extended-release daily. 9. Lisinopril 20 mg tablet daily. ALLERGIES: AMITRIPTYLINE. REVIEW OF SYSTEMS: A 13-point review of systems was performed and was negative except for arthritis and back pain. PHYSICAL EXAMINATION: GENERAL: The patient was awake, alert and oriented times 4, in no acute distress, healthy appearing, but she did have a generalized tremor. CARDIOVASCULAR: Regular rate and rhythm. No murmurs, rubs, or gallops. LUNGS: Clear to auscultation bilaterally. EXTREMITIES: No clubbing, cyanosis, or edema. NEUROLOGIC: A slow slurred speech with a tremor, but normal mentation and interaction. OP HTHALMIC EXAMINATION: The best corrected visual acuity in the right eye was 20/50 and uncor rected visual acuity in the left eye was 20/40. Intraocular pressures were 19 in the right eye and 15 in the left. There was no relative afferent pupillary defect and the pupils were equally round and reactive to light. The extraocular movements were full bilaterally and the patient was orthotropic. Visual ortez are full to count fingers bilaterally. Anterior segment examination revealed moderate dermatochalasis in both upper eyelids. The corneas w ere clear without guttata. The anterior chamber was 2+ deep and quiet in the right eye and 4+ deep and quiet in the left eye. There was a 2+ nuclear sclerotic cataract with vacuoles and a 1+ cortical wedge in the right eye and posterior chamber intraocular lens well center ed in the left eye. The iris showed borderline dilation. Dilated fundus examination showed an increased optic nerve cupping in the right eye with a cup-to-disc ratio of 0.7 in the right eye and 0.5 in the left eye. The macula, vessels, per iphery and vitreous were unremarkable in both eyes. ASSESSMENT: The patient is a 78-year-old female with a visually significant nuclear and co rtical cataract in the right eye that was affecting activities of daily living, especially r eading and driving. She has occludable narrow angles that will be treated by cataract surge ry as well. She has high hyperopia and narrow angles, but a normal axial length. 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 She also has a tremor, but did well under general anesthesia prev iously. PLAN: Plan for cataract extraction in the right eye under general anesthesia due to tremor with placement of a monofocal nontoric posterior chamber intraocular lens targeting for eriberto etropia. She has borderline dilation with IFIS tendency and may require pupillary expanding device. LELA KIM MD Dictated by LELA KIM MD 12/14/2018 17:41:14 Transcribed on 12/14/2018 19:35:15 by in job# [id number] Confirmation #: [id number] cc: GARFIELD PALOMARES MD [facility] - 12/04/2018 11:[address] [address] HISTORY AND PHYSICAL LELA KIM MD Patient: RULA SHELLEY Admitting: LELA KIM MR #: [id number] LOC: PT TYPE: Adm Date: : 1940 [...] Transcribed on 12/04/2018 23:56:40 by in job# [id number] Confirmation #: [id number] cc: GARFIELD PALOMARES MD documented in this encounter Miscellaneous Notes Op Note - Lela Kim MD - 12/20/2018 5:56 PM PSTPREOPERATIVE DIAGNOSIS: 1. Visually significant cataract,the right eye POSTOPERATIVE DIAGNOSIS: 1. Visually significant cataract, the right eye. 2. Idiopathic floppy iris OPERATION: 1. Cataract extraction of the the right eye by phacoemulsification with a cumulative disper sive energy of 5.4, and intracapsular implantation of a 24.5 diopter PCBOO intraocular lens serial number [id number] via a temporal clear corneal incision. SURGEON: Lela Kim MD ECHO VASCULAR TECH: None. ANESTHESIA: General due to tremor ESTIMATED BLOOD LOSS: Less than 1 cc. FLUIDS: Please see anesthesia note. COMPLICATIONS: None. INDICATIONS: Progressive, painless decrease in vision of the the right eye due to a visuall y significant cataract that is affecting activities of daily living. All inherent risks, be nefits, alternatives, and expectations of the procedure were discussed with the patient. The patient verbalized understanding and desire to proceed, and informed consent was obtained. SUMMARY PROCEDURE: Preoperatively, three sets of 3.5% lidocaine gel, flurbiprofen, 1% cyclo gyl, 1% tropicamide, and 2.5% phenylephrine were administered to the operative eye. The Eved phacoemulsification system was primed and found to be in good working order. The bill ent was then transferred to the operating room and a "procedural time out was performed t o confirm the appropriate patient, procedure and eye laterality. The patient was prepped and draped in the usual sterile ophthalmic fashion. A speculum was placed to separate the eyelids. The microscope was brought into position, properly focused, and the illumination intensity was appropriately set. A limbal paracentesis was made roughly 60-90 degrees from the site of the intended temporal clear corneal incision. Approximately 0.05-0.1cc of preservative free 1% lidocaine was inje cted intracamerally via the paracentesis. Viscoat was injected to fill the anterior chamber. The iris quivered but the pupil enlarged enough with viscodilation to not need a pupillary mergers and acquisitions banker. A 2.4 mm self-sealing temporal clear corneal incision was made using a guarded be aver blade and a keratome. A continuous curvilinear capsulorhexis was created using capsulo rhexis forceps. Hydrodissection and hydrodelineation were achieved by injection of BSS usin g a Finch cannula. The lens was rotated without difficulty. Nucleofractis was performed by phacoemulsification using the [id number] technique with a CDE of 5.4. A nuclear groove was created and the lens was cracked into vitaliy-sections. The n uclear vitaliy-sections were further segmented and removed using horizontal chopping. The epinu clear shell was then aspirated. Cortical clean-up and posterior capsule polishing were perfo rmed using the irrigation/aspiration handpiece. The capsular bag was filled with viscoelastic. A "time out" was performed to confirm the co rrect selection of the intraocular lens model and power. A 24.5 diopter PCBOO pre-loaded IOL /cartridge was primed and the IOL was injected into the capsular bag. The lens was then rota christina into proper position with the Vitor chopper. The remaining viscoelastic was removed fr om the anterior chamber and capsular bag using the irrigation/aspiration handpiece. BSS was injected around the anterior chamber angle to clear any hidden material. Approximat radha 0.1cc of brandname Vigamox was injected intracamerally and the remainder was used to hyd rate the wounds. The incisions were challenged with Wek candelario and were watertight. The eye was palpated and there was good intraocular pressure. The anterior chamber remained deep an d formed, the pupil round, and the intraocular lens in good position. An inferior subconjun ctival injection 0.3cc of Kenalog 10 was administered. The speculum was removed without com plication under direct visualization. The drape was removed and the periocular area was rin sed and dried. A protective clear eye shield was placed. The patient tolerated the procedure well and no complications occurred. The patient was ta keegan to the postoperative recovery room in stable condition rief Op Note - Iron is, Lela Urbina MD - 12/20/2018 4:21 PM PST Brief Operative Note Rula Shelley 78 y.o. female 1940 [id number] Proc. Date 12/20/2018 Preop Dx Age-related nuclear cataract of right eye [H25.11] Postop Dx * Age-related nuclear cataract of right eye [H25.11] Procedure RIGHT EXTRACTION CATARACT WITH LENS IMPLANT (Right) Anesthesia General Surgeon Lela Kim MD - Primary Jewellery Designer EBL Minimal Findings Findings consistent with scheduled procedure. No other abnormalities found. Complications none Specimens * No specimens in log * Drains Electronically signed by: Lela Kim MD 12/20/2018 16:[address] [facility] by Lela Kim MD at 4:22 PM PSTdocumented in this encounter Plan of Treatment [...] | | | | | [place] [address] | | | | | | [phone] | | | | | | | | +--------+ + + + + | 09/13/ | Office | Cardiology | Farhana Castillo | | | 2020 | Visit | | [address] | | | | | | [address] | | | | | | [place] [address] | | | | | | [phone] | | | | | | | | +--------+ + + + + documented as of this encounter Procedures + +--------+ + + + | Procedure Name | Priori | Date/Time | Associated Diagnosis | Comments | | | ty | | | | + +--------+ + + + | EXTRACTION CATARACT | | 12/20/2018 | Age-related | | | W/ OR W/O LENS | | 3:35 PM | nuclear cataract of | | | IMPLANT | | PST | right eye | | + +--------+ + + + documented in this encounter Visit Diagnoses + + | Diagnosis | + + | Age-related nuclear cataract of right eye Senile nuclear sclerosis | + + documented in this encounter Administered Medications + +--------+ +-------+------+------+ | Medication Order | MAR | Action | Dose | Rate | Site | | | Action | Date | | | | + +--------+ +-------+------+------+ | albuterol-ipratropium 2.5-0.5 | Given | 12/20/19 | 3 mLs | | | | mg/3 mL nebulizer solution 3 mL | | 19 2:41 | | | | | 3 mL, Nebulization, ONCE PRN, | | PM PST | | | | | Wheezing, Starting 12/20/18 at | | | | | | | 1406, For 1 dose, Pre-op | | | | | | + +--------+ +-------+------+------+ + +---+ | | | + +---+ | albuterol-ipratropium 2.5-0.5 | | | mg/3 mL nebulizer solution 3 mL | | | 3 mL, Nebulization, ONCE PRN, | | | Wheezing, Shortness of Breath, | | | Starting 12/20/18 at 1618, For | | | 1 dose, Recovery/Phase I | | + +---+ | | | + +---+ + +-------+ +--------+---+---+ | apraclonidine (IOPIDINE) 1 % | Given | 12/20/19 | 1 drop | | | | ophthalmic solution 1 drop 1 | | 19 2:24 | | | | | drop, Right Eye, EVERY 5 MIN PRN, | | PM PST | | | | | prep eye for procedure, Starting | | | | | | | 12/20/18 at 1406, For 3 | | | | | | | doses, Pre-op | | | | | | + +-------+ +--------+---+---+ +-------+ +--------+---+---+ | Given | 12/20/19 | 1 drop | | | | | 19 2:18 | | | | | | PM PST | | | | +-------+ +--------+---+---+ | Given | 12/20/19 | 1 drop | | | | | 19 2:15 | | | | | | PM PST | | | | +-------+ +--------+---+---+ +---+---+ | | | +---+---+ + +-------+ + +---+ + | balanced salts sterile | Given | 12/20/19 | 1 | | Surgical | | ophthalmic irrigation solution | | 19 3:54 | Applicat | | Site | | PRN, Starting 12/20/18 at | | PM PST | ion | | | | 1554, Intra-op | | | | | | + +-------+ + +---+ + +---+---+ | | | +---+---+ + +-------+ +--------+---+---+ | cyclopentolate (CYCLOGYL) 1% | Given | 12/20/19 | 1 drop | | | | ophthalmic solution 1 drop 1 | | 19 2:24 | | | | | drop, Right Eye, EVERY 5 MIN PRN, | | PM PST | | | | | prep eye for procedure, Starting | | | | | | | 12/20/18 at 1406, For 3 | | | | | | | doses, Pre-op | | | | | | + +-------+ +--------+---+---+ +-------+ +--------+---+---+ | Given | 12/20/19 | 1 drop | | | | | 19 2:18 | | | | | | PM PST | | | | +-------+ +--------+---+---+ | Given | 12/20/19 | 1 drop | | | | | 19 2:12 | | | | | | PM PST | | | | +-------+ +--------+---+---+ +---+---+ | | | +---+---+ + +-------+ +------+---+---+ | dexamethasone (DECADRON) tablet | Given | 12/20/19 | 8 mg | | | | 8 mg 8 mg, Oral, ONCE, Mon | | 19 2:20 | | | | | 12/20/18 at 1430, For 1 dose, | | PM PST | | | | | Pre-op | [...] glucose < 50, | | | Starting 12/20/18 at 1406, | | | Repeat in 15 min [...] | | blood glucose < 50, Starting Mon | | | 12/20/18 at 1618, Give over 2 min. | | | Repeat in 15 min if blood | | | glucose remains < 70 mg/dL. | | | Repeat blood glucose in 30 min | | | once blood glucose > 70., | | | Recovery/Phase I | | + +---+ | | | + +---+ | ePHEDrine 50 mg/mL injection 5 | | | mg 5 mg, Intravenous, EVERY 5 | | | MIN PRN, if SBP <90., Starting | | | 12/20/18 at 1618, Hold if HR > | | | 100. Maximum total dose 20mg., | | | Recovery/Phase I | | + +---+ | | | + +---+ + +-------+ +--------+---+ + | EPINEPHrine 1 mg/mL injection | Given | 12/20/19 | 0.4 mg | | Surgical | | PRN, Starting 12/20/18 at | | 19 3:54 | | | Site | | 1554, Intra-op | | PM PST | | | | + +-------+ +--------+---+ + + +---+ | | | + +---+ | fentaNYL (PF) injection 25-50 | | | mcg 25-50 mcg, Intravenous, | | | EVERY 5 MIN PRN, Pain, Starting | | | 12/20/18 at 1618, Maximum | | | total dose 250 mcg. PACU IV | | | Narcotic Priority: Only use | | | fentanyl for immediate post-op | | | pain (one dose) or breakthrough | | | pain when any other IV narcotics | | | ordered have been ineffective (if | | | ordered). If both morphine and | | | hydromorphone are ordered, use | | | morphine first, and use | | | hydromorphone if morphine | | | ineffective., Recovery/Phase I | | + +---+ | | | + +---+ + +-------+ +--------+---+---+ | flurbiprofen (OCUFEN) 0.03% | Given | 12/20/19 | 1 drop | | | | ophthalmic solution 1 drop 1 | | 19 2:24 | | | | | drop, Right Eye, EVERY 5 MIN PRN, | | PM PST | | | | | prep eye for procedure, Starting | | | | | | | 12/20/18 at 1406, For 3 | | | | | | | doses, Use 1 drop every 30 | | | | | | | minutes beginning 2 hours before | | | | | | | surgery (total of 4 drops)., | | | | | | | Pre-op | | | | | | + +-------+ +--------+---+---+ +-------+ +--------+---+---+ | Given | 12/20/19 | 1 drop | | | | | 19 2:18 | | | | | | PM PST | | | | +-------+ +--------+---+---+ | Given | 12/20/19 | 1 drop | | | | | 19 2:12 | | | | | | PM PST | | | | +-------+ +--------+---+---+ + +---+ | | | + +---+ | glycopyrrolate (TONY) | | | injection 0.2 mg 0.2 mg, | | | Intravenous, PRN, Bradycardia, | | | For HR <50, Starting 12/20/18 | | | at 1618, For 2 doses, May repeat | | | one time after 1min, | | | Recovery/Phase I | | + +---+ | | | + +---+ + +-------+ +-------+---+---+ | hyaluronate & chondroitin | Given | 12/20/19 | 1 kit | | | | hyaluronate (DUOVISC) intraocular | | 19 3:54 | | | | | kit PRN, Starting 12/20/18 | | PM PST | | | | | at 1554, Intra-op | | | | | | + +-------+ +-------+---+---+ + +---+ | | | + +---+ | hydrALAZINE (APRESOLINE) | | | injection 5 mg 5 mg, | | | Intravenous, EVERY 20 MINUTES | | | PRN, For SBP > 180, DBP > 100, | | | Starting 12/20/18 at 1618, | | | Hold if HR > 100. Maximum total | | | dose 40 mg. Use labetalol first | | | if available., Recovery/Phase I | | + +---+ | | | + +---+ | HYDROmorphone (DILAUDID) | | | injection 0.2-0.5 mg 0.2-0.5 mg, | | | Intravenous, EVERY 5 MIN PRN, | | | Pain, Starting 2/18/19 at | | | 1618, Maximum total dose 4 mg. | | | PACU IV Narcotic Priority: Only | | | use fentanyl for immediate | | | post-op pain (one dose) or | | | breakthrough pain when any other | | | IV narcotics ordered have been | | | ineffective (if ordered). If | | | both morphine and hydromorphone | | | are ordered, use morphine first, | | | and use hydromorphone if morphine | | | ineffective., Recovery/Phase I | | + +---+ | | | + +---+ | labetalol (TRANDATE) 5 mg/mL | | | injection 5 mg 5 mg, | | | Intravenous, EVERY 5 MIN PRN, For | | | SBP > 180, DBP > 100, Starting | | | Thu12/20/18 at 1618, Hold if HR < | | | 60. Maximum total dose 300mg. | | | Notify anesthesia if patient | | | requires more than 50mg., | | | Recovery/Phase I | | + +---+ | | | + +---+ + +---------+ +---+-------+---+ | lactated ringers (LR) infusion | New Bag | 12/20/19 | | 100 | | | at 10-100 mL/hr, Intravenous, | | 19 2:31 | | mL/hr | | | CONTINUOUS, Starting 12/20/18 | | PM PST | | | | | at 1430, TKO. Use unless patient | | | | | | | is on dialysis., Pre-op | | | | | | + +---------+ +---+-------+---+ +---+---+ | | | +---+---+ + +-------+ +--------+---+---+ | lidocaine (AKTEN) 3.5% | Given | 12/20/19 | 1 drop | | | | ophthalmic gel 1 drop 1 drop, | | 19 2:24 | | | | | Right Eye, EVERY 5 MIN PRN, prep | | PM PST | | | | | eye for procedure., Starting Mon | | | | | | | 12/20/18 at 1406, For 3 doses, | | | | | | | Pre-op | | | | | | + +-------+ +--------+---+---+ +-------+ +--------+---+---+ | Given | 12/20/19 | 1 drop | | | | | 19 2:18 | | | | | | PM PST | | | | +-------+ +--------+---+---+ | Given | 12/20/19 | 1 drop | | | | | 19 2:12 | | | | | | PM PST | | | | +-------+ +--------+---+---+ +---+---+ | | | +---+---+ + +-------+ +-------+---+ + | lidocaine (PF) 1% injection | Given | 12/20/19 | 2 mLs | | Surgical | | PRN, Starting 12/20/18 at | | 19 3:55 | | | Site | | 1555, Intra-op | | PM PST | | | | + +-------+ +-------+---+ + +---+---+ | | | +---+---+ + +-------+ +--------+---+ + | moxifloxacin (VIGAMOX) 0.5 % | Given | 12/20/19 | 0.5 mg | | [facility] | | intracameral injection PRN, | | 19 4:05 | | | t | | Starting 12/20/18 at 1605, | | PM PST | | | | | Intra-op | | | | | | + +-------+ +--------+---+ + +---+---+ | | | +---+---+ + +-------+ +------+---+---+ | ondansetron (ZOFRAN ODT) | Given | 12/20/19 | 8 mg | | | | disintegrating tablet 8 mg 8 mg, | | 19 2:20 | | | | | Oral, ONCE, Thu12/20/18 at 1430, | | PM PST | | | | | For 1 dose, Pre-op | | | | | | + +-------+ +------+---+---+ + +---+ | | | + +---+ | ondansetron (ZOFRAN) injection | | | 4 mg 4 mg, Intravenous, ONCE | | | PRN, Nausea, Starting Thu12/20/18 | | | at 1618, For 1 dose, | | | Recovery/Phase I | | + +---+ | | | + +---+ + +-------+ +--------+---+---+ | phenylephrine (SAV-SYNEPHRINE) | Given | 12/20/19 | 1 drop | | | | 2.5% ophthalmic solution 1 drop | | 19 2:24 | | | | | 1 drop, Right Eye, EVERY 5 MIN | | PM PST | | | | | PRN, prep eye for procedure, | | | | | | | Starting 12/20/18 at 1406, For | | | | | | | 3 doses, Pre-op | | | | | | + +-------+ +--------+---+---+ +-------+ +--------+---+---+ | Given | 12/20/19 | 1 drop | | | | | 19 2:18 | | | | | | PM PST | | | | +-------+ +--------+---+---+ | Given | 12/20/19 | 1 drop | | | | | 19 2:12 | | | | | | PM PST | | | | +-------+ +--------+---+---+ +---+---+ | | | +---+---+ + +-------+ +--------+---+---+ | povidone-iodine 5 % ophthalmic | Given | 12/20/19 | 1 drop | | | | solution PRN, Starting Mon | | 19 3:45 | | | | | 12/20/18 at 1545, Intra-op | | PM PST | | | | + +-------+ +--------+---+---+ + +---+ | | | + +---+ | sodium chloride 0.9% (NS) | | | infusion at 10-100 mL/hr, | | | Intravenous, CONTINUOUS, Starting | | | 12/20/18 at 1430, TKO. Use | | | this instead of LR if patient is | | | on dialysis., Pre-op | | + +---+ | | | + +---+ + +-------+ +--------+---+ + | triamcinolone acetonide | Given | 12/20/19 | 2.5 mg | | [facility] | | (KENALOG-10) 10 mg/mL injection | | 19 3:55 | | | t | | PRN, Starting 12/20/18 at | | PM PST | | | | | 1555, Intra-op | | | | | | + +-------+ +--------+---+ + +---+---+ | | | +---+---+ + +-------+ +--------+---+---+ | tropicamide (MYDRIACYL) 1% | Given | 12/20/19 | 1 drop | | | | ophthalmic solution 1 drop 1 | | 19 2:24 | | | | | drop, Right Eye, EVERY 5 MIN PRN, | | PM PST | | | | | prep eye for procedure, Starting | | | | | | | 12/20/18 at 1406, For 3 | | | | | | | doses, Pre-op | | | | | | + +-------+ +--------+---+---+ +-------+ +--------+---+---+ | Given | 12/20/19 | 1 drop | | | | | 19 2:18 | | | | | | PM PST | | | | +-------+ +--------+---+---+ | Given | 12/20/19 | 1 drop | | | | | 19 2:15 | | | | | | PM PST | | | | +-------+ +--------+---+---+ +---+---+ | | | +---+---+ documented in this encounter
--- OUTSIDE RECORDS SUMMARY | ~2020-08-07 | XMS | Encounter Summary ---
Demographics + + + | Address | [address] | | | [place] [address] | + + + | Home Phone | | + + + | Preferred Language | Unknown | + + + | Marital Status | | + + + | Congregational Affiliation | 1027 | + + + | Race | White | + + + | Ethnic Group | Not or | + + + Author + + + | Author | [facility] | | | and [place] | + + + | Organization | [facility] | | | [...] Team Providers + +------+ + | Care Fur Feeder Name | Role | Phone | + [...] | | | | Diagnoses | | [place], | | | | | Chronic | | Jean-Pierre Ruby MD | | | | | pansinusitis | | [address] | | | | | Polyp of | | [address] | | | | | nasal cavity | | [place], | | | | | Procedures | | [place] [address] | | | | | IN EXPLORE | | Phone: | | | | | 3+ SINUSES | | [phone] | | | | | IN EXCISION | | Fax: | | | | | NOSE | | [phone] | | | | | POLYP(S),EXT | [...] Description | +--------+---------+ + + + | 06/27/ | Surgery | [facility] | Jean-Pierre Boston, | Bilateral | | 2020 | | MED CTR OR INTRA OP | [address] | pansinusotomies with | | | | [address] | [address] [place], | polypectomies | | | | [place], [place] | [place] [address] | | | | | [address] | [phone] | | | | | [phone] | | | +--------+---------+ + + + [...] + + + | Blood Pressure | 154/63 | 06/27/2020 10:05 AM | | | | | PDT | | + + + + + | Pulse | 69 | 06/27/2020 10:05 AM | | | | | PDT | | + + + + + | Temperature | 36.2 C (97.2 F) | 06/27/2020 9:45 AM | | | | | PDT | | + + + + + | Respiratory Rate | 14 | 06/27/2020 10:05 AM | | | | | PDT | | + + + + + | Oxygen Saturation | 97% | 06/27/2020 10:05 AM | | | | | PDT [...] Boston MD - 06/27/2020 9:55 [address] [address] [address] OPERATIVE REPORT JEAN-PIERRE BOSTON MD Patient: RULA SHELLEY Admitting: JEAN-PIERRE BOSTON MR #: [id number] LOC: PT TYPE: Adm Date: 06/27/2020 : 1940 OUTPATIENT SURGERY LOCATION: [facility]. DATE OF SERVICE: 06/27/2020. PREOPERATIVE DIAGNOSES: Pansinusitis, polyposis. POSTOPERATIVE DIAGNOSES: Pansinusitis, polyposis. PROCEDURES PERFORMED: Bilateral pansinusotomies, polypectomies. SURGEON: Jean-Pierre Boston MD. ANESTHESIA: General LMA. Luciano aPtel MD. PREOPERATIVE HISTORY: Rula is a 80-year-old [...] 09:55:37 Transcribed on 06/27/2020 10:04:08 by job# [id number] Confirmation #: [id number] cc: GARFIELD MOSS MD rief Op Note - Jean-Pierre Boston MD - 06/27/2020 9:47 AM PDTFormatting of this note mi ght be different from the original. BRIEF OPERATIVE NOTE [facility] Pt. Name/Age/: Rula Shelley 80 y.o. 1940 Med. 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] Surgeon: Jean-Pierre Boston MD Active Directory Engineer: None Anesthesia Provider(s): Anesthesiologist: Luciano Patel MD [...] Jean-Pierre Boston MD - 06/27/2020 8:48 AM [facility] INTERIM HISTORY AND PHYSICAL [...] Jean-Pierre Boston MD, 06/27/2020 8:48 AM PDT [facility] documented in this e ncounter Plan of Treatment +--------+ + + + + | Date | Type | Specialty | Care Team | Description | +--------+ + + + + | 08/14/ | Appointment | Radiology | Jonathan Farhana | | | 2019 | | | [address] | | | | | | [place] | | | | | | [place] [address] | | | | | | [phone] | | | | | | | | +--------+ + + + + | 09/13/ | Office | Cardiology | Farhana Castillo | | | 2019 | Visit | | [address] | | | | | | [place] | | | | | | [place] [address] | | | | | | [phone] | | | | | | | [...] | | | | TASIA DUPONT MD ([id number]) | | | | | | on [...] | | | | | g/dL | FARHANA | | | | | | [...] | + + + + + | [facility] | [address] | [place] | [phone] | | [facility] | | [address] | | | - LABORATORY | | [...] contents: - Inflammatory polyps. | | | DN:[facility]:C2NR MICROSCOPIC EXAMINATION: Histologic sections of all | [...] | | | component was performed by [facility], [address] [place] [address], | | | [facility] [address] (Deli Cook: Casie George MD; CLIA# [id number]). | | | Professional interpretation was performed by [facility], | | | [address] | | | [place] [address] (CLIA#: [id number]). Diagnostician: Rinku | | | Etta [place] CID Pathologist Electronically Signed 06/28/2020 | | + + + + +---------+ + + | Performing | Address | City/State/Inscription [facility] Centercode | Phone Number | | Organization | | | | + +---------+ + + | [place] [facility] | | | | | [facility] | | | | + +---------+ + + documented in this encounter Visit Diagnoses + + | Diagnosis | + + | Chronic pansinusitis Other chronic sinusitis | + + | Polyp of nasal cavity | + + documented in this encounter [...] Wheezing, | | | Starting Thu06/27/20 at 0758, | | | For 1 [...] | | + +---+ + +-------+ + +---+ + | bacitracin topical ointment | Given | 06/27/20 | 1 | | Surgical | | PRN, Starting Thu06/27/20 at | | 20 9:42 | Applicat | | Site | | 0942, Intra-op | | AM PDT | ion | | | + +-------+ + +---+ + + +---+ | | | + [...] | | | | | | longer, qxoflc-tsk-wmytz use of | | | | | [...] +---+---+ +-------+ + +---+---+ | Given | 20 | 3 sprays | | | | | 20 8:10 | | | | | | AM PDT | | | | +-------+ + +---+---+ +---+---+ | | | +---+---+ documented in this encounter
--- OUTSIDE RECORDS SUMMARY | ~2020-08-07 | XMS | Encounter Summary ---
Demographics + + + | Address | [address] | | | [place] [address] | + + + | Home Phone [...] + + + | Author | [facility] | | | and [place] | + + + | Organization | [facility] | | | and [place] | + [...] Team Providers + +------+ + | Care Leaf Stripper Name | Role | Phone | + +------+ + | Agustin Palomares MD | PCP | | + +------+ + Reason for Visit + + + | Reason | Comments | + + + | Screening For | | | Communicable Disease | | + + + Encounter Details +--------+ + + + + | Date | Type | Department | Care Team | Description | +--------+ + + + + | 06/24/ | Clinical | [facility] | Galen Santos, | Preop testing | | 2020 | Support | CARE [address] | [address] | (Primary Dx) | | | | [place] | [place] | | | | | [address] | [address] | | | | | [phone] | | | +--------+ + + + [...] documented as of this encounter Progress Notes Shazia Ayala RN - 06/24/2020 11:00 AM PDTPRE-PROCEDURE COVID TEST (Asymptomatic Test ing Only) Affix Patient Label [] Photo ID Verified Patient Name:Rulamichelle Reece Provider:Galen Santos MD :1940 Date:06/24/20 MyChart: Activated Symptom Screen: [] Patient identified as having at least one of the symptoms below: ? Cough, Shortness of Breath, Fever >100.4, Chills, Sore Throat, Body Aches or Muscle Pain, Headache, nausea, vomiting, diarrhea, change in smell and/or taste [] Patient is not symptomatic of symptoms consistent with COVID-19 Testing Protocol: MA/RN Proceed to testing if ANY of the following conditions are present: DRIVE THRU SWAB SCREENING [x] Asymptomatic, regardless of age, pre-procedure screening only [] Asymptomatic - testing requested by authorized [facility] personnel, [facility] Infection Prevention Nurse or Caregiver Health [] Asymptomatic, regardless of age, pre-travel screening only [] Asymptomatic, regardless of age, housing screening PROVIDER EVALUATION REQUIRED [] Patient identified as having symptoms associated with COVID-19, patient encouraged to notify their PCP or procedure ordering physician of symptoms. Discharge: [x] Social Distancing/Quarantine Guidelines documented in this encounter Plan of Treatment +--------+ + + + + | Date | Type | Specialty | Care Team | Description | +--------+ + + + + | 08/14/ | Appointment | Radiology | Farhana Castillo | | | 2019 | | | [address] | | | | | | [place] | | | | | | [place] [address] | | | | | | [phone] | | | | | | | | +--------+ + + + + | 09/13/ | Office | Cardiology | Farhana Castillo | | | 2019 | Visit | | [address] | | | | | | [place] | | | | | | [place] [address] | | | | | | [phone] | | | | | | | [...] + + documented in this encounter Results Coronavirus (COVID-19) NAAT (06/24/2020 11:00 AM PDT) [...] + + | Performed at: [facility] [address], | REFERENCE LAB | | [place], [place] [id number] Office Rn: Twin Briscoe MD, Phone: | [facility] | | [phone] | | + + + + + + + + | Performing | Address | City/State/Zipcode | Phone Number | | Organization | | | | + + + + + | REFERENCE LAB | [address] | [place], [place] | [phone] | | [facility] | [facility] | [address] | | + + + + + documented in this encounter Visit Diagnoses + + | Diagnosis | + + | Preop testing - Primary Preoperative examination, unspecified | + + documented in this encounter"
--- OUTSIDE RECORDS SUMMARY | ~2020-08-07 | XMS | Encounter Summary ---
Demographics + + + | Address | [address] | | | [place] [address] | + + + | Home Phone | | + + + | Preferred Language | Unknown | + + + | Marital Status | | + + + | Buddhism Affiliation | 1027 | + + + | Race | White | + + + | Ethnic Group | Not or | + + + Author + + + | Author | [facility] | | | and [place] | + + + | Organization | [facility] | | | [...] Team Providers + +------+ + | Care Automotive Mechanical Engineer Name | Role | Phone | + +------+ + | Garfield Palomares MD | PCP | | + +------+ + Encounter Details +--------+ + + + + | Date | Type | Department | Care Team | Description | +--------+ + + + + | 12/20/ | Hospital | [facility] | Lela Kim, | | | 2019 | Encounter | MED CTR OR INTRA OP | MD [address] | | | | | [address] | [place], [place] | | | | | [place], [place] | [address] | | | | | [address] | | | | | | [phone] | | | +--------+ + + + [...] + + | Pulse | 68 | 12/20/2018 5:13 PM | | | | | PST [...] + | Oxygen Saturation | 98% | 12/20/2018 5:13 PM | | | | | PST [...] You can't be awakened Date Last Reviewed: 08/19/201619996713-2609 [employer]. [address] [place] [address]. All righ ts reserved. This information is [...] Lela Kim MD - 12/20/2018 2:39 PM [facility]Pro[facility] SURGICAL/PROCEDURALINTERVAL HISTORY AND PHYSICAL NOTE Pt. Name/Age/: [...] Electronically signed by: Lela Kim, 12/20/2018 14:39 [facility] - 12/14/2018 5:[address] [address] HISTORY AND PHYSICAL LELA KIM MD Patient: RULA SHELLEY Admitting: LELA KIM MR #: [id number] LOC: PT TYPE: Adm Date: : 1940 [...] Transcribed on 12/14/2018 19:35:15 by in job# [id number] Confirmation #: [id number] cc: GARFIELD PALOMARES MD [facility] - 12/04/2018 11:[address] [address] HISTORY AND PHYSICAL LELA KIM MD Patient: RULA SHELLEY Admitting: LELA KIM MR #: [id number] LOC: PT TYPE: Adm Date: : 1940 [...] Transcribed on 12/04/2018 23:56:40 by in job# [id number] Confirmation #: [id number] cc: GARFIELD PALOMARES MD documented in this [...] 24.5 diopter PCBOO intraocular lens serial number [id number] via a temporal clear corneal incision. SURGEON: Lela Kim MD STORAGE ARCHITECT: None. ANESTHESIA: General due to tremor ESTIMATED [...] were administered to the operative eye. The AdultSpace phacoemulsification system was primed and found to [...] with viscodilation to not need a pupillary voltmeter operator. A 2.4 mm self-sealing temporal clear corneal incision was made using a guarded be aver blade and a keratome. A continuous curvilinear capsulorhexis was created using capsulo rhexis forceps. Hydrodissection and hydrodelineation were achieved by injection of BSS usin g a Finch cannula. The lens was rotated without difficulty. Nucleofractis was performed by phacoemulsification using the ncnr-cws-yiuk technique with a CDE of 5.4. A [...] Note Rula Shelley 78 y.o. female 1940 [id number] Proc. Date 12/20/2018 Preop Dx Age-related nuclear cataract of right eye [H25.11] Postop Dx * Age-related nuclear cataract of right eye [H25.11] Procedure RIGHT EXTRACTION CATARACT WITH LENS IMPLANT (Right) Anesthesia General Surgeon Lela Kim MD - Primary Car Construction Superintendent EBL Minimal Findings Findings consistent with scheduled procedure. No other abnormalities found. Complications none Specimens * No specimens in log * Drains Electronically signed by: Lela Kim MD 12/20/2018 16:21 [facility] Lela [facility] MD at 4:22 [...] [place] | | | | | | [place] [address] | | | | | | [phone] | | | | | | | | +--------+ + + + + | 09/13/ | Office | Cardiology | Farhana Castillo | | | 2019 | Visit | | [address] | | | | | | [place] | | | | | | [place] [address] | | | | | | [phone] | | | | | | | [...] | | | + +---+ | glycopyrrolate (ROBINUL) | | | injection 0.2 mg 0.2 [...] MIN PRN, | | | Pain, Starting 12/20/18 at | | | 1618, Maximum total [...] | | | | | | Starting Thu12/20/18 at 1406, For | | | | [...]
--- OUTSIDE RECORDS SUMMARY | ~2020-08-07 | XMS | Encounter Summary ---
Demographics + + + | Address | [address] | | | [place] [address] | + + + | Home Phone [...] + + + | Author | [facility] | | | and [place] | + + + | Organization | [facility] | | | [...] Team Providers + +------+ + | Care Geophysical Laboratory Director Name | Role | Phone | + +------+ + | Agustin Palomares MD | PCP | | + +------+ + Encounter Details +--------+ + + + + | Date | Type | Department | Care Team | Description | +--------+ + + + + | 12/04/ | Orders Only | [facility] | Rinku Kim, | Age-related nuclear | | 2019 | | MED CTR PROVIDER | [address] | cataract of left eye | | | | SURGICAL [address] | [place], [place] | (Primary Dx) | | | | [place], | [id number] | | | | | [place] [address] | | | | | | [phone] | | | +--------+ + + + [...] [address] | | | | | | [place] [address] | | | | | | [phone] | | | | | | | | +--------+ + + + + | 09/13/ | Office | Cardiology | Farhana Castillo | | | 2019 | Visit | | [address] | | | | | | [place] | | | | | | [place] [address] | | | | | | [phone] | | | | | | | | +--------+ + + + + documented as of this encounter Visit Diagnoses + + | Diagnosis | + + | Age-related nuclear cataract of left eye - Primary Senile nuclear sclerosis | + + documented in this encounter"
--- OUTSIDE RECORDS SUMMARY | ~2020-08-07 | XMS | Encounter Summary ---
Demographics + + + | Address | [address] | | | [place] [address] | + + + | Home Phone [...] Author + + + | Author | [facility] | + + + | Organization | [facility] | + + + | Address | Unknown | + + + | Phone | Unavailable | + + + Support + + + + + | Name | Relationship | Address | Phone | + + + + + | Petrona Reece | ECON | [address] | | | | | [place] | | | | | [address] | | + + + + + | Michael Reece | ECON | [address] | | | | | [place] | | | | | [address] | | + + + + + | Wolf Reece | ECON | [address] | | | | | [place] | | | | | [address] | | + + + + + Care Team Providers + +------+ + | Care Cyber Analyst Name | Role | Phone | + +------+ + | Agustin Palomares MD | PCP | | + +------+ + Encounter Details +--------+ + + + + | Date | Type | Department | Care Team | Description | +--------+ + + + + | 07/20/ | Procedure | 6A Intra Op [address] | | | | 2019 | Pass | [facility] | | | | | | Rd [facility] Main | | | | | | Hospital Admitting | | | | | | Desk Located on the | | | | | | 9th floor | | | | | | [place], [place] | | | | | | [address] | | | +--------+ + + + [...] [address] | | | | | | [place] | | | | | | [address] | | | | | | [phone] | | | | | | | | +--------+ + + + + documented as of this encounter Visit Diagnoses Not on filedocumented in this encounter"
--- OUTSIDE RECORDS SUMMARY | ~2020-08-07 | XMS | Encounter Summary ---
Demographics + + + | Address | [address] | | | [place] [address] | + + + | Home Phone | | + + + | Preferred Language | Unknown | + + + | Marital Status | Single | + + + | Mandaeism Affiliation | LDS | + + + [...] [address] | | | | | [place], [place] | | | | | [address] | | + + + + + | Michael Reece | ECON | [address] | | | | | [place], [place] | | | | | [address] | | + + + + + | Wolfjose Reece | ECON | [address] | | | | | [place] | | | | | [address] | | + + + + + Care Team Providers + +------+ + | Care Optical Laboratory Technician Name | Role | Phone | + +------+ + | Agustin Palomares MD | PCP | | + +------+ + Encounter Details +--------+--------+ + + + | Date | Type | Department | Care Team | Description | +--------+--------+ + + + | 08/31/ | Travel | | | | | [...] [address] | | | | | | [place], [place] | | | | | | [address] | | | | | | [phone] | | | | | | | | +--------+ + + + + documented as of this encounter Visit Diagnoses Not on filedocumented in this encounter"
--- OUTSIDE RECORDS SUMMARY | ~2020-08-07 | XMS | Encounter Summary ---
Demographics + + + | Address | [address] | | | [place] [address] | + + + | Home Phone [...] + + + | Author | [facility] | + + + | Organization | [facility] | + + + | Address | Unknown | + + + | Phone | Unavailable | + + + Support + + + + + | Name | Relationship | Address | Phone | + + + + + | Petrona Reece | ECON | [address] | | | | | [place] | | | | | [address] | | + + + + + | Michael Reece | ECON | [address] | | | | | [place] | | | | | [address] | | + + + + + | Wolf Reece | ECON | [address] | | | | | [place] | | | | | [address] | | + + + + + Care Team Providers + +------+ + | Care County Demonstrator Name | Role | Phone | + +------+ + | Agustin Palomares MD | PCP | | + +------+ + Reason for Visit + + + | Reason | Comments | + + + | New patient | | | consultation | | + + + | Tremor | | + + + Consultation (Routine) +--------+--------+ + + + + | Status | Reason | Specialty | Diagnoses / | Referred By | Referred To | | | | | Procedures | Contact | Contact | +--------+--------+ + + + + | Closed | | Neurological | Diagnoses | Moe, | Paola, | | | | Surgery | Disabling | MD Cristopher | MD [address] | | | | | essential | [address] | [address] | | | | | tremor | Ave | [place], [place] | | | | | Procedures | [facility] [place] | [address] | | | | | CONSULT TO | [address] | Phone: | | | | | NEUROSURGERY | Phone: | [phone] | | | | | NE NEW | [phone] | Fax: | | | | | PATIENT | Fax: | [phone] | | | | | LEVEL V NE | [phone] | | | | | | EST PATIENT | | | | | | | LEVEL V | | | +--------+--------+ + + + + Encounter Details +--------+---------+ + + + | Date | Type | Department | Care Team | Description | +--------+---------+ + + + | 02/22/ | Office | Neurosurgery at | Ne Guevara MD | Disabling essential | | 2019 | Visit | [facility] [address] | [address] | tremor (Primary Dx) | | | | [facility] | [place], [place] | | | | | [facility], | [address] | | | | | [facility] | [phone] | | | | | [place], [place] | | | | | | [address] | | | | | | [phone] | | | +--------+---------+ + + + [...] + + + | Blood Pressure | 168/77 | 02/22/2019 1:59 PM | | | | | PDT | | + + + + + | Pulse | 76 | 02/22/2019 1:59 PM | | | | | PDT | | + + + + + | Temperature | 37.1 C (98.8 F) | 02/22/2019 1:59 PM | | | | | PDT [...] + + + + | Weight | 86.3 kg (190 lb 4.1 | 02/22/2019 1:59 PM | | | | oz) | PDT | | + + + + + | Height | 162.6 cm (5' 4") | 02/22/2019 1:59 PM | | | | | PDT | | + + + + + | Body Mass Index | 32.66 | 02/22/2019 1:59 PM | | | | | PDT | | + + + + + documented in this encounter Progress Notes Ne Guevara MD - 02/22/2019 3:00 PM PDTDapuma comes today to discuss DBS for essential tr emor. She has had this since her teen years, and now has prominent tremor in both UE's as w ell as neck, jaw and vocal tremor. We discussed the fact that DBS does not have as good sup pressive effect on "midline" tremors in the neck, jaw and voice, but is very helpful for upp er limb tremor. She has had neurocognitive testing today, results pending. We reviewed the workflow of DBS implantation here at [facility]. This involves two separate proc edures, usually a few days apart, both conducted under general anesthesia. The first stage involves a pre-operative MRI study, followed by pre-operative planning, then implantation of the DBS leads using CT guidance. Following the procedure, and after recovery, the patient then returns to [facility] overnight. In the morning we typically send the patient out of the hosp ital with family. The second stage is completed on an outpatient basis, with the patient le aving the day of surgery with family. I shared the implanted hardware with the patient, steve cribed in detail how it is implanted, and the expected incisions. The patient has a whole-h ead haircut for the procedure. We discussed in detail the risks of infection (around 3%), a nd minor risks of bleeding, stroke, and neurologic deficits. There is a small risk of trans ient seizure(s). The first programming session is usually at around one month after the Sta ge 2 implantation. You will return in about two weeks to our clinic for a wound check. I also counseled the patient regards the use of anticoagulants, antiplatelet drugs, aspirin , non-steroidal antiinflamatory agents, and nutritional supplements such as ginko biloba, fi sh oil, and herbal preparations. The patient understands specifically that aspirin must be stopped more than two weeks prior to surgery, and NSAIDs 3-4 days prior to surgery. Formal anticoagulants must be managed according to their half-life, such that coagulation function is fully restored prior to DBS surgery. She is not taking ASA or any anticoagulants. She is eager to pursue DBS, pending the resul ts of her neuropsych testing. I spent 30 minutes with the patient. Greater than 50% of the time was spent counseling the patient regarding DBS for essential tremor. documented in this enco unter Plan of Treatment +--------+ + + + + | Date | Type | Specialty | Care Team | Description | +--------+ + + + + | 08/22/ | Procedure | Neurology | Cristopher Rosa, | | | 2019 | | | [address] | | | | | | [place], [place] | | | | | | [address] | | | | | | [phone] | | | | | | | | +--------+ + + + + documented as of this encounter Visit Diagnoses + + | Diagnosis | + + | Disabling essential tremor - Primary Essential and other specified forms of tremor | + + documented in this encounter
--- OUTSIDE RECORDS SUMMARY | ~2020-08-07 | XMS | Encounter Summary ---
Demographics + + + | Address | [address] | | | [place] [address] | + + + | Home Phone | | + + + | Preferred Language | Unknown | + + + | Marital Status | | + + + | Baptist Affiliation | 1027 | + + + | Race | White | + + + | Ethnic Group | Not or | + + + Author + + + | Author | [facility] | | | and [place] | + + + | Organization | [facility] | | | [...] Team Providers + +------+ + | Care Tank Tester Name | Role | Phone | + +------+ + | Agustin Palomares MD | PCP | | + +------+ + Reason for Visit +---------+--------+ + | Reason | Onset | Comments | | | Date | | +---------+--------+ + | Results | 08/02/ | | | | 2020 | | +---------+--------+ + Encounter Details +--------+ + + + + | Date | Type | Department | Care Team | Description | +--------+ + + + + | 08/02/ | Telephone | [facility] | GracepaulineFarhana alford | Results | | 2020 | | CARDIOLOGY MALLIE | [address] | | | | | [address] | [address] | | | | | [place], [place] | [place] [address] | | | | | [address] | [phone] | | | | | [phone] | | | +--------+ + + + [...] this encounter Miscellaneous Notes Telephone Encounter - Tess Anderson CMA - 08/02/2020 12:48 PM PDTCalled patient to let her know what Farhana Bruno had said, and she said "Thank you" and that she would talk to her da ughter in law and call her doctor. No further questions. PH ----- Message from Farhana Bruno HAN Castillo sent at 08/02/2020 9:08 AM PDT ----- Regarding: sleep study Carlita, Can you please call her and let her know I saw her sleep study, at least the one per formed in March, and she does have sleep apnea , and this should be treated, as will help her palpitations. Let her know she should schedule follow up with sleep clinic. I still want her to have her stress test though . Thanks Ginny documented in this encounter Plan of Treatment +--------+ + + + + | Date | Type | Specialty | Care Team | Description | +--------+ + + + + | 08/14/ | Appointment | Radiology | Farhana Castillo | | 2019 | | | [address] | | | | | | [address] | | | | | | [place] [address] | | | | | | [phone] | | | | | | | | +--------+ + + + + | 09/13/ | Office | Cardiology | Farhana Castillo | 2019 | Visit | | Kiana, LOG HANDLING EQUIPMENT OPERATOR [address] | | | | | | [address] | | | | | | [place] [address] | | | | | | [phone] | | | | | | | | +--------+ + + + + documented as of this encounter Visit Diagnoses Not on filedocumented in this encounter
--- OUTSIDE RECORDS SUMMARY | ~2020-08-07 | XMS | Encounter Summary ---
Demographics + + + | Address | [address] | | | [place] [address] | + + + | Home Phone | | + + + | Preferred Language | Unknown | + + + | Marital Status | | + + + | Lutheran Affiliation | 1027 | + + + | Race | White | + + + | Ethnic Group | Not or | + + + Author + + + | Author | [facility] | | | and [place] | + + + | Organization | [facility] | | | [...] Team Providers + +------+ + | Care Neighborhood Worker Name | Role | Phone | + +------+ + | Agustin Palomares MD | PCP | | + +------+ + Encounter Details +--------+ + + + + | Date | Type | Department | Care Team | Description | +--------+ + + + + | 04/01/ | Orders Only | [facility] | Christel RowenaDO | | | 2018 | | [address] | [address] | | | | | [address] | [place], [place] | | | | | [place], [place] | [address] | | | | | [address] | | | | | | [phone] | | | +--------+ + + + [...] [address] | | | | | | [place] [address] | | | | | | [phone] | | | | | | | | +--------+ + + + + | 09/13/ | Office | Cardiology | Farhana Castillo | | | 2020 | Visit | | [address] | | | | | | [address] | | | | | | [place] [address] | | | | | | [phone] | | | | | | | | +--------+ + + + + documented as of this encounter Procedures + +--------+ + + + | Procedure Name | Priori | Date/Time | Associated Diagnosis | Comments | | | ty | | | | + +--------+ + + + | ECHO INTERPRETATION | Routin | 04/01/2019 | | Results for this | | OF OUTSIDE FILMS | e | 7:23 AM | | procedure are in the | | | | PDT | | results section. | + +--------+ + + + documented in this encounter Results ECHO Interpretation of Outside Films (04/01/2019 7:23 AM PDT) + + | Specimen | + + | | + + + + + | Impressions | Performed At | + + + | 1. Left ventricular systolic function is hyperdynamic with an | | | estimated EF of >70%. 2. The left ventricle cavity size is normal. | | | 3. The right ventricle is normal in size and function. 4. The left | | | and right atria are mildly enlarged. 5. There are no hemodynamically | | | significant valve abnormalities. | | + + + + + + | Narrative | Performed At | + + + | Patient Name: Rula Reece Date of : 1940 | | | Performing Physician: Rowena Kearney | | | | | | INDICATIONS Atrial premature depolarization | | | CONCLUSIONS 1. Left ventricular systolic function is | | | hyperdynamic with an estimated EF of >70%. 2. The left ventricle | | | cavity size is normal. 3. The right ventricle is normal in size and | | | function. 4. The left and right atria are mildly enlarged. 5. There | | | are no hemodynamically significant valve abnormalities. FINDINGS | | | -------- ECG rhythm: Sinus rhythm. Study: A 2-dimensional | | | transthoracic echocardiogram with m-mode, spectral and color flow | | | Doppler was perfomed. Study: This was a technically adequate study. | | | Left Ventricle: Left ventricular systolic function is hyperdynamic | | | with an estimated EF of >70%. Left Ventricle: The left ventricle | | | cavity size is normal. Left Ventricle: Left ventricular wall | | | thickness is normal. Left Ventricle: No regional wall motion | | | abnormalities. Left Ventricle: The diastolic filling pattern is | | | normal for the age of the patient. Right Ventricle: The right | | | ventricle is normal in size and function. Left Atrium: The left | | | atrium is mildly enlarged. Right Atrium: The right atrium is mildly | | | enlarged. Aortic Valve: The aortic valve appears to be trileaflet. | | | Aortic Valve: There is mild aortic valve sclerosis without stenosis. | | | Aortic Valve: Trace amount of aortic regurgitation. Aortic Valve: | | | Aortic valve is mildly thickened. Mitral Valve: The mitral valve is | | | normal. Mitral Valve: There is trace mitral regurgitation. Tricuspid | | | Valve: The tricuspid valve appears structurally normal. Tricuspid | | | Valve: Pulmonary artery systolic pressure could not be assessed due to | | | the absence of adequate TR jet. Pulmonic Valve: The pulmonic valve | | | was not well visualized. Pulmonic Valve: Trace pulmonic | | | regurgitation. Pericardium: There is no pericardial effusion. | | | IVC/Hepatic Veins: The IVC is normal size (1.5-2.5cm) and collapses | | | >50% with sniff, consistent with central venous pressures of 5-10mmHg. | | | Aorta: The aortic root, ascending aorta and aortic arch are normal. | | | Mass: No mass visualized Thrombus: No clot visualized Thrombus: No | | | vegetation visualized. Septum: No ASD observed. Septum: No VSD | | | observed. MEASUREMENTS Ao asc: 3.32 cm Ao | | | Diam: 3.35 cm Ao sinus: 3.[address] junct: 3.13 cm IVC: | | | 1.97 cm LA Major: 5.32 cm EDV(Teich): 76.60 ml IVSd: | | | 1.00 cm LVIDd: 4.15 cm LVPWd: 0.99 cm LVOT Diam: 1.97 cm | | | %FS: 49.83 % EF(Teich): 81.54 % ESV(Teich): 14.14 ml | | | LVIDs: 2.08 cm SV(Teich): 62.46 ml RA Major: 5.41 cm RV | | | Major: 7.38 cm RV Minor: 3.37 cm RV Minor: 2.26 cm LVEF | | | MOD A2C: 75.83 % SV MOD A2C: 47.80 ml LVEF MOD A4C: 72.93 % | | | SV MOD A4C: 44.63 ml EF Biplane: 74.08 % LVEDV MOD BP: | | | 61.96 ml LVESV MOD BP: 16.06 ml LVEDV MOD A2C: 63.04 ml LVLd | | | A2C: 7.71 cm LVEDV MOD A4C: 61.20 ml LVLd A4C: 7.77 cm | | | LVESV MOD A2C: 15.23 ml LVLs A2C: 6.43 cm LVESV MOD A4C: | | | 16.56 ml LVLs A4C: 6.20 cm LAESV(A-L): 72.72 ml LAESV Index | | | (A-L): 37.87 ml/m2 LAAs A2C: 18.97 cm2 LAESV A-L A2C: 60.89 | | | ml LAESV MOD A2C: 59.26 ml LALs A2C: 5.01 cm LAAs A4C: | | | 22.65 cm2 LAESV A-L A4C: 79.00 ml LAESV MOD A4C: 77.97 ml | | | LALs A4C: 5.51 cm RAAs: 20.01 cm2 RAESV A-L: 62.64 ml | | | RAESV MOD: 59.78 ml RALs: 5.42 cm TAPSE: 2.97 cm AV | | | Env.Ti: 299.59 ms AV maxP.29 mmHg AV meanP.31 mmHg | | | AV Vmax: 2.01 m/s AV Vmean: 1.33 m/s AV VTI: 40.08 cm | | | SHAZIA Vmax: 2.24 cm2 SHAZIA (VTI): 2.49 cm2 AVAI Vmax: 0.00 | | | cm2/m2 AVAI (VTI): 0.00 cm2/m2 LVOT Env.Ti: 305.24 ms LVOT | | | maxP.81 mmHg LVOT meanP.12 mmHg LVSI Dopp: 51.99 | | | ml/m2 LVSV Dopp: 99.83 ml LVOT Vmax: 1.48 m/s LVOT Vmean: | | | 1.07 m/s LVOT VTI: 32.68 cm MV A Arcenio: 1.13 m/s MV Dec Ellsworth: | | | 5.13 m/s2 MV DecT: 200.54 ms MV E Arcenio: 1.02 m/s MV E/A | | | Ratio: 0.90 E/E' Sept: 15.28 E' Lat: 0.07 m/s E' Sept: | | | 0.06 m/s RV S': 0.19 m/s Web Software Engineer: Authenticated by: | | | Rowena Kearney Report Date/Time: 04-04-2019 20:48:58 | | + + + + + | Procedure Note | + + | Ezra Garcia Conversion - 06/23/2019 2:13 PM PDT Patient Name: Michelet Reece of | | : 1940 Performing Physician: Rowena | | ye INDICATIONS | | -Atrial premature depolarization CONCLUSIONS 1. Left ventricular systolic | | function is hyperdynamic with an estimated EF of >70%.2. The left ventricle cavity size | | is normal.3. The right ventricle is normal in size and function.4. The left and right | | atria are mildly enlarged.5. There are no hemodynamically significant valve | | abnormalities. FINDINGS--------ECG rhythm: Sinus rhythm.Study: A 2-dimensional | | transthoracic echocardiogram with m-mode, spectral and color flow Doppler was | | perfomed.Study: This was a technically adequate study.Left Ventricle: Left ventricular | | systolic function is hyperdynamic with an estimated EF of >70%.Left Ventricle: The left | | ventricle cavity size is normal.Left Ventricle: Left ventricular wall thickness is | | normal.Left Ventricle: No regional wall motion abnormalities.Left Ventricle: The | | diastolic filling pattern is normal for the age of the patient.Right Ventricle: The | | right ventricle is normal in size and function.Left Atrium: The left atrium is mildly | | enlarged.Right Atrium: The right atrium is mildly enlarged.Aortic Valve: The aortic | | valve appears to be trileaflet.Aortic Valve: There is mild aortic valve sclerosis | | without stenosis.Aortic Valve: Trace amount of aortic regurgitation.Aortic Valve: Aortic | | valve is mildly thickened.Mitral Valve: The mitral valve is normal.Mitral Valve: There | | is trace mitral regurgitation.Tricuspid Valve: The tricuspid valve appears structurally | | normal.Tricuspid Valve: Pulmonary artery systolic pressure could not be assessed due to | | the absence of adequate TR jet.Pulmonic Valve: The pulmonic valve was not well | | visualized.Pulmonic Valve: Trace pulmonic regurgitation.Pericardium: There is no | | pericardial effusion.IVC/Hepatic Veins: The IVC is normal size (1.5-2.5cm) and collapses | | >50% with sniff, consistent with central venous pressures of 5-10mmHg.Aorta: The aortic | | root, ascending aorta and aortic arch are normal.Mass: No mass visualizedThrombus: No | | clot visualizedThrombus: No vegetation visualized.Septum: No ASD observed.Septum: No VSD | | observed. MEASUREMENTS Ao asc: 3.32 cmAo Diam: 3.35 cmAo sinus: 3.29 | | cmAo st junct: 3.13 cmIVC: 1.97 cmLA Major: 5.32 cmEDV(Teich): 76.60 mlIVSd: | | 1.00 cmLVIDd: 4.15 cmLVPWd: 0.99 cmLVOT Diam: 1.97 cm%FS: 49.83 %EF(Teich): | | 81.54 %ESV(Teich): 14.14 mlLVIDs: 2.08 cmSV(Teich): 62.46 mlRA Major: 5.41 cmRV | | Major: 7.38 cmRV Minor: 3.37 cmRV Minor: 2.26 cmLVEF MOD A2C: 75.83 %SV MOD A2C: | | 47.80 mlLVEF MOD A4C: 72.93 %SV MOD A4C: 44.63 mlEF Biplane: 74.08 %LVEDV MOD | | BP: 61.96 mlLVESV MOD BP: 16.06 mlLVEDV MOD A2C: 63.04 mlLVLd A2C: 7.71 cmLVEDV | | MOD A4C: 61.20 mlLVLd A4C: 7.77 cmLVESV MOD A2C: 15.23 mlLVLs A2C: 6.43 cmLVESV | | MOD A4C: 16.56 mlLVLs A4C: 6.20 cmLAESV(A-L): 72.72 mlLAESV Index (A-L): 37.87 | | ml/m2LAAs A2C: 18.97 [id number] A-L A2C: 60.89 mlLAESV MOD A2C: 59.26 mlLALs A2C: | | 5.01 cmLAAs A4C: 22.65 [id number] A-L A4C: 79.00 mlLAESV MOD A4C: 77.97 mlLALs A4C: | | 5.51 cmRAAs: 20.01 [id number] A-L: 62.64 mlRAESV MOD: 59.78 mlRALs: 5.42 | | cmTAPSE: 2.97 cmAV Env.Ti: 299.59 msAV maxP.29 mmHgAV meanP.31 mmHgAV | | Vmax: 2.01 m/Elvira Vmean: 1.33 m/Elvira VTI: 40.08 cmAVA Vmax: 2.24 cm2AVA (VTI): | | 2.49 [id number] Vmax: 0.00 cm2/m2AVAI (VTI): 0.00 cm2/m2LVOT Env.Ti: 305.24 msLVOT | | maxP.81 mmHgLVOT meanP.12 mmHgLVSI Dopp: 51.99 ml/m2LVSV Dopp: 99.83 | | mlLVOT Vmax: 1.48 m/sLVOT Vmean: 1.07 m/sLVOT VTI: 32.68 cmMV A Arcenio: 1.13 m/sMV | | Dec Ellsworth: 5.13 m/s2MV DecT: 200.54 msMV E Arcenio: 1.02 m/sMV E/A Ratio: 0.90E/E' | | Sept: 15.28E' Lat: 0.07 m/sE' Sept: 0.06 m/sRV S': 0.19 m/s | | Web Software Engineer:Authenticated by: Rowena Steven Date/Time: 04-04-2019 20:48:58 | | IMPRESSION: 1. Left ventricular systolic function is hyperdynamic with an estimated EF | | of >70%.2. The left ventricle cavity size is normal.3. The right ventricle is normal in | | size and function.4. The left and right atria are mildly enlarged.5. There are no | | hemodynamically significant valve abnormalities. | | | |MEASUREMENTS | | | |Ao asc: 3.32 cm | |Ao Diam: 3.35 cm | |Ao sinus: 3.29 cm | |Ao st junct: 3.13 cm | |IVC: 1.97 cm | |LA Major: 5.32 cm | |EDV(Teich): 76.60 ml | |IVSd: 1.00 cm | |LVIDd: 4.15 cm | |LVPWd: 0.99 cm | |LVOT Diam: 1.97 cm | |%FS: 49.83 % | |EF(Teich): 81.54 % | |ESV(Teich): 14.14 ml | |LVIDs: 2.08 cm | |SV(Teich): 62.46 ml | |RA Major: 5.41 cm | |RV Major: 7.38 cm | |RV Minor: 3.37 cm | |RV Minor: 2.26 cm | |LVEF MOD A2C: 75.83 % | |SV MOD A2C: 47.80 ml | |LVEF MOD A4C: 72.93 % | |SV MOD A4C: 44.63 ml | |EF Biplane: 74.08 % | |LVEDV MOD BP: 61.96 ml | |LVESV MOD BP: 16.06 ml | |LVEDV MOD A2C: 63.04 ml | |LVLd A2C: 7.71 cm | |LVEDV MOD A4C: 61.20 ml | |LVLd A4C: 7.77 cm | |LVESV MOD A2C: 15.23 ml | |LVLs A2C: 6.43 cm | |LVESV MOD A4C: 16.56 ml | |LVLs A4C: 6.20 cm | |LAESV(A-L): 72.72 ml | |LAESV Index (A-L): 37.87 ml/m2 | |LAAs A2C: 18.97 cm2 | |LAESV A-L A2C: 60.89 ml | |LAESV MOD A2C: 59.26 ml | |LALs A2C: 5.01 cm | |LAAs A4C: 22.65 cm2 | |LAESV A-L A4C: 79.00 ml | |LAESV MOD A4C: 77.97 ml | |LALs A4C: 5.51 cm | |RAAs: 20.01 cm2 | |RAESV A-L: 62.64 ml | |RAESV MOD: 59.78 ml | |RALs: 5.42 cm | |TAPSE: 2.97 cm | |AV Env.Ti: 299.59 ms | |AV maxP.29 mmHg | |AV meanP.31 mmHg | |AV Vmax: 2.01 m/s | |AV Vmean: 1.33 m/s | |AV VTI: 40.08 cm | |SHAZIA Vmax: 2.24 cm2 | |SHAZIA (VTI): 2.49 cm2 | |AVAI Vmax: 0.00 cm2/m2 | |AVAI (VTI): 0.00 cm2/m2 | |LVOT Env.Ti: 305.24 ms | |LVOT maxP.81 mmHg | |LVOT meanP.12 mmHg | |LVSI Dopp: 51.99 ml/m2 | |LVSV Dopp: 99.83 ml | |LVOT Vmax: 1.48 m/s | |LVOT Vmean: 1.07 m/s | |LVOT VTI: 32.68 cm | |MV A Arcenio: 1.13 m/s | |MV Dec Ellsworth: 5.13 m/s2 | |MV DecT: 200.54 ms | |MV E Arcenio: 1.02 m/s | |MV E/A Ratio: 0.90 | |E/E' Sept: 15.28 | |E' Lat: 0.07 m/s | |E' Sept: 0.06 m/s | |RV S': 0.19 m/s | | | |Web Software Engineer: | |Authenticated by: Rowena Kearney | |Report Date/Time: 04-04-2019 20:48:58 | | | |IMPRESSION: | |1. Left ventricular systolic function is hyperdynamic with an estimated EF of >70%. | |2. The left ventricle cavity size is normal. | |3. The right ventricle is normal in size and function. | |4. The left and right atria are mildly enlarged. | |5. There are no hemodynamically significant valve abnormalities. | + + documented in this encounter Visit Diagnoses Not on filedocumented in this encounter"
--- OUTSIDE RECORDS SUMMARY | ~2020-08-07 | XMS | Encounter Summary ---
Demographics + + + | Address | [address] | | | [place] [address] | + + + | Home Phone | | + + + | Preferred Language | Unknown | + + + | Marital Status | Single | + + + | Taoist Affiliation | LDS | + + + [...] [place] | | | | | [address] | | + + + + + | Michael Reece | ECON | [address] | | | | | [place] | | | | | [address] | | + + + + + | Wolf Reece | ECON | [address] | | | | | [place] | | | | | [address] | | + + + + + Care Team Providers + +------+ + | Care Design Eng Name | Role | Phone | + +------+ + | Agustin Paolmares MD | PCP | | + +------+ + Reason for Visit + +--------+ + | Reason | Onset | Comments | | | Date | | + +--------+ + | housing accomodation | 06/06/ | | | | 2018 | | + +--------+ + Encounter Details +--------+ + + + + | Date | Type | Department | Care Team | Description | +--------+ + + + + | 06/06/ | Telephone | SOCIAL WORK | Christopher Barr, | housing accomodation | | 2018 | | AMBULATORY [address] | [address] | | | | | [address] | [address] | | | | | Mailcode: [address] | [place], [place] | | | | | [place], [place] | [address] | | | | | [address] | | | | | | [phone] | | | +--------+ + + + [...] Notes Telephone Encounter - Lemuel Lubin - 06/06/2019 2:46 PM PDTPatient meets all scre ening criteria for Ellie Housing Placement (RPV) RPV [facility] on-line screening intake completed and RPV eligibility effective date: 06/06/2019 Name of the adults (18 and over) screened: Patient; Murali Reece, son; Dariela ReeceANU ADA/Service animal requirements indicated (please explain if yes): maciej johnson Financial eligibility (full $50 payment or FA eligible): $50 payment Payment source: self pay Initial RPV reservation dates requested: 07/18/2019-07/24/2019 RPV reservation dates obtained: 07/18/2019-07/24/2019 Referral active until 06/06/2020 documented in this encounter Plan of Treatment +--------+ + + + + | Date | Type | Specialty | Care Team | Description | +--------+ + + + + | 08/22/ | Procedure | Neurology | Cristopher Rosa, | | | 2019 | | | [address] | | | | | | [place], [place] | | | | | | [address] | | | | | | [phone] | | | | | | | | +--------+ + + + + documented as of this encounter Visit Diagnoses Not on filedocumented in this encounter"
--- OUTSIDE RECORDS SUMMARY | ~2020-08-07 | XMS | Encounter Summary ---
Demographics + + + | Address | [address] | | | [place] [address] | + + + | Home Phone | | + + + | Preferred Language | Unknown | + + + | Marital Status | | + + + | Adventist Affiliation | 1027 | + + + | Race | White | + + + | Ethnic Group | Not or | + + + Author + + + | Author | [facility] | | | and [place] | + + + | Organization | [facility] | | | [...] Team Providers + +------+ + | Care Supervising Chef Name | Role | Phone | + +------+ + | Agustin Palomares MD | PCP | | + +------+ + Reason for Visit + +--------+ + | Reason | Onset | Comments | | | Date | | + +--------+ + | Appointment | 12/30/ | Telemedicine | | | 2019 | | + +--------+ + Encounter Details +--------+ + + + + | Date | Type | Department | Care Team | Description | +--------+ + + + + | 12/30/ | Telephone | [facility] | Zonia Barrientos | Appointment | | 2019 | | [facility] | (Telemedicine) | | | | [facility] [address] | | | | | | [address] [place], | | | | | | [place] [address] | | | | | | [phone] | | | +--------+ + + + [...] this encounter Miscellaneous Notes Telephone Encounter - Zonia Barrientos RN - 12/30/2018 1:29 PM Andrew jennings to confirm telemedicine appointment at [facility] with Other Provider [facility] Movement Disorder [facility] Clinic for Date: January 05 Time: 9:15am Arrival time: 8:45am Advised pt. labs are not needed. Zonia Barrientos RN 1:3 1 PM PSTdocumented in this encounter Plan of Treatment +--------+ + + + + | Date | Type | Specialty | Care Team | Description | +--------+ + + + + | 08/14/ | Appointment | Radiology | Farhana Castillo | | | 2019 | | | [address] | | | | | | [address] | | | | | | [place] [address] | | | | | | [phone] | | | | | | | | +--------+ + + + + | 09/13/ | Office | Cardiology | Farhana Castillo | | | 2019 | Visit | | [address] | | | | | | [address] | | | | | | [place] [address] | | | | | | [phone] | | | | | | | | +--------+ + + + + documented as of this encounter Visit Diagnoses Not on filedocumented in this encounter"
--- OUTSIDE RECORDS SUMMARY | ~2020-08-07 | XMS | Encounter Summary ---
Demographics + + + | Address | [address] | | | [place] [address] | + + + | Home Phone [...] [place] | | | | | [address] | | + + + + + | Michael Reece | ECON | [address] | | | | | [place] | | | | | [address] | | + + + + + | Wolf Reece | ECON | [address] | | | | | [place] | | | | | [address] | | + + + + + Care Team Providers + +------+ + | Care Imaging Manager Name | Role | Phone | + +------+ + | Agustin Palomares MD | PCP | | + +------+ + Encounter Details +--------+ + + + + | Date | Type | Department | Care Team | Description | +--------+ + + + + | 07/21/ | Pharmacy | [facility] | | | | 2019 | Visit | [facility] | | | | | | [address] | | | | | | Mailcode: [place] | | | | | | [facility] | | | | | | [facility], [place] [address] | | | | | | [place], [place] | | | | | | [address] | | | | | | [phone] | | | +--------+ + + + [...] | 2019 | | | [address] | | | | | | [place] | | | | | | [address] | | | | | | [phone] | | | | | | | | +--------+ + + + + documented as of this encounter Visit Diagnoses Not on filedocumented in this encounter"
--- OUTSIDE RECORDS SUMMARY | ~2020-08-07 | XMS | Encounter Summary ---
Demographics + + + | Address | [address] | | | [place] [address] | + + + | Home Phone | | + + + | Preferred Language | Unknown | + + + | Marital Status | Single | + + + | Bahai Affiliation | LDS | + + + | Race | White | + + + | Ethnic Group | Not or | + + + Author + + + | Author | [facility] | + + + | Organization | [facility] | + + + | Address | Unknown | + + + | Phone | Unavailable | + + + Support + + + + + | Name | Relationship | Address | Phone | + + + + + | Petrona Reece | ECON | [address] | | | | | [place] | | | | | [address] | | + + + + + | Michael Reece | ECON | [address] | | | | | [place] | | | | | [address] | | + + + + + | Wolf Reece | ECON | [address] | | | | | [place] | | | | | [address] | | + + + + + Care Team Providers + +------+ + | Care Edging Machine Operator Name | Role | Phone | + +------+ + | Unknown | PCP | Unavailable | + +------+ + Reason for Visit + +--------+ + | Reason | Onset | Comments | | | Date | | + +--------+ + | Scheduling | 01/20/ | | | | 2019 | | + +--------+ + Encounter Details +--------+ + + + + | Date | Type | Department | Care Team | Description | +--------+ + + + + | 01/20/ | Telephone | Neurology Movement | Cristopher Rosa, | Scheduling | | 2019 | | Disorders Clinic at | MD [address] | | | | | [facility] | [place], [place] | | | | | and Healing [address] | [address] | | | | | [address] [facility] | [phone] | | | | | Health and Healing, | | | | | | [facility] | | | | | | [place], [place] | | | | | | [address] | | | | | | [phone] | | | +--------+ + + + [...] this encounter Miscellaneous Notes Telephone Encounter - Jerrod Yee LPN - 01/20/2019 9:43 AM PDTSpoke with patient rafia ruby telemedicine visit with Dr. Rosa. Patient confirmed that she is available to meet with Dr. Rosa via telemedicine visit on 02/03/19 @ 11 am. documented in this encounter Plan of Treatment +--------+ + + + + | Date | Type | Specialty | Care Team | Description | +--------+ + + + + | 08/22/ | Procedure | Neurology | Cristopher Rosa, | | | 2019 | | | [address] | | | | | | [place] | | | | | | [address] | | | | | | [phone] | | | | | | | | +--------+ + + + + documented as of this encounter Visit Diagnoses Not on filedocumented in this encounter"
--- OUTSIDE RECORDS SUMMARY | ~2020-08-07 | XMS | Encounter Summary ---
Demographics + + + | Address | [address] | | | [place] [address] | + + + | Home Phone | | + + + | Preferred Language | Unknown | + + + | Marital Status | Single | + + + | Mormonism Affiliation | LDS | + + + | Race | White | + + + | Ethnic Group | Not or | + + + Author + + + | Author | [facility] | + + + | Organization | [facility] | + + + | Address | Unknown | + + + | Phone | Unavailable | + + + Support + + + + + | Name | Relationship | Address | Phone | + + + + + | Petrona Reece | ECON | [address] | | | | | [place] | | | | | [address] | | + + + + + | Michael Reece | ECON | [address] | | | | | [place] | | | | | [address] | | + + + + + | Wolf Reece | ECON | [address] | | | | | [place] | | | | | [address] | | + + + + + Care Team Providers + +------+ + | Care Technical Agronomist Name | Role | Phone | + [...] + + + + | 07/20/ | Hospital | [facility] [address] | Ne Guevara MD | | | 2019 - | Encounter | [place] | [address] | | | | | [id number] [facility] | [place], [place] | | | 07/21/ | | [facility] [place], | [address] | | | 2019 | | [place] [address] | [phone] | | | | | [phone] | | | +--------+ + + + [...] + + + | Blood Pressure | 117/54 | 07/21/2019 11:24 AM | | | | | PDT | | + + + + + | Pulse | 62 | 07/21/2019 11:24 AM | | | | | PDT | | + + + + + | Temperature | 36.4 C (97.5 F) | 07/21/2019 11:24 AM | | | | | PDT | | + + + + + | Respiratory Rate | 18 | 07/21/2019 11:24 AM | | | | | PDT | | + + + + + | Oxygen Saturation | 98% | 07/21/2019 11:24 AM | | | | | PDT [...] mg by mouth | | 0 | /08/21 | | | oral capsule | once [...] incisions on frontal scalp, small incisions from hogshead builder. All absorbable. C/D/I, no erythema or edema Neurological Examination: Mental status: A+Ox3, speech with slight stuttering Cranial nerves: PERRL, EOMI, face w L periorbital edema Motor: Gas Or Water Meter Installer Bicep Tricep Delt R 5 5 5 [...] s/p bilateral VIM DBS electrode placement with Webyog. Plan: Neuro: exam stable, continue home meds [...] DC today, back tomorrow for Stage 2 [facility] [address] [place] [address] Pg. [id number] Jorge Peter MD,MPH - 07/20/2019 11:55 AM [...] STIMULATOR GENERATOR on 07/22/2019 Proposed Procedure Location: [facility] HISTORY OF PRESENT ILLNESS: Rula Reece [...] barone f/u with Dr. Kearney cardiology in [place], [place]. 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 Low activity, water [...] failure no electrolyte abnormalities no di alysis Urology/Correctional Counselor/Case Manager: Urologic Conditions: bladder spasms Endo: no Diabetes: [...] HR:64 normal EKG Outside records reviewed from [facility] and "media" tab. Findings pertinent to this pr eoperative visit are as follows: Echo done on 04/04/2019--[facility] Impression 1. Left ventricular systolic function [...] is also currently scheduled at [facility] and is meeting inclusion criteria for that [...] barone f/u with Dr. Kearney cardiology in [place], [place]. Hypertension--well controlled Asthma--mild, optimized on daily inhaler HLD--continue statin therapy. GERD--diet controlled and OTC prn At high risk for JOANNE based on today's assessment Frail elderly patient but medically stable Thank you for the opportunity to contribute to this patient's care. HAN Luong [facility] [address] [place] [address] [place] [address] I spent time counseling the pt [...] 07/20/2019 3:50 PM PDTAssociated Order(s): TEACHING PHYSICIANDate of [facility]: 07/20/2019 Attending Surgeon:Ne Guevara MD Share Holder(s): MD Jorge Alcocer MD, MPH Pursuant to Federal Medicare billing regulations, I certify that I was present for and part icipated in the critical parts of the procedure including computer-assisted stereotactic harry igation, placement of left and right VIM DBS electrodes, and closure. I further certify alejandro sury I was the principal surgeon for this procedure. Preoperative Diagnosis: Essential tremor. Postoperative Diagnosis: Essential tremor. Procedure: 1.Computer-assisted stereotactic navigation. 2.Placement of left ventralis intermedius (VIM) deep brain stimulation (DBS) electrode. 3.Placement of right VIM DBS electrode. Ne Guevara MD KB/MODL /[id number] signed by Ne Guevara MD at 07/21/2019 7:54 AM PD Tdocumented in this encounter Miscellaneous Notes Plan of Care - Marimar Pro RN - 07/21/2019 2:03 PM PDTPIVs were removed. Belongings were collected and sent taken with family and patient. Meds were sent to pharmacy at 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 AVS was reviewed with family and patient, all ques tions were answered. Pt was taken off the floor by and daughter in WC. Nelly - Carolyn Cat RN - 2:41 AM PDTNursing Handoff OH IP NURSE HANDOFF: Penny hospital course events: [...] Barriers to discharge: Tomorrow 07/21 lan of Janeen - Obed López RCP - 07/20/2019 2:46 PM PDT Problem: RT Goals & Interventions Goal: Evaluation Flowsheets (Taken 07/20/2019 3549) $ Patient Evaluated This Shift?: Yes Note: [...] for treatme nt under home maintenance therapy. Nelly - Asaf Greenberg RN - 07/20/2019 12:21 PM PDTMeets [...] Additional pain medication information: Functional Epidural: No TURKEY FARMER: No Respiratory: RR: 15 , O2 Sat: 96 % , O2 Delivery: Nasal cannula Breath Sounds: WDL MARGE: LLL: RUL: RLL: JOANNE No Comment: Cardiac: BP: 137/55 HR: 50 GI: Nausea/Vomiting Status: No Signs/Symptoms: Interventions: Assessment: Comments: tolerating PO fluids : Last void: preop - bladder scanned in [place] Contact Name: daughter in law Petrona Contact Number: [phone] Family contacted: Yes Comment:clcyzbxe-gh-soh Rubi updated Belongings:no belongings in PACU p Note - Trang Patel MD - 07/20/2019 10:51 AM PDTFormatting of this note might be different from the origin al. Patient: Rula Reece : 1940 Date of procedure: 07/20/2019 Time Time In Time Out Procedure Start 824 Location: [facility] Surgeon(s) and Role: * Ne Guevara MD - Primary * Abimael Patel MD - Fellow Staff: Traffic Personnel Supervisor: Kacey Vann RN Scrub: ST [employer] Traffic Personnel Supervisor Relief: Tess Murphy RN Correctional Officer Captain: Jorge Strange MD,MPH Clinical Navigation Specialist: Nina Lopez Pre Op Dx Essential Tremor Post Op Dx: Same Procedure: Bilateral VIM DBS electrode placement ([place]) Anesthesia: General Complications: None Estimated Blood Loss: 150cc Drains: * No LDAs found * Specimens None Implants/Grafts Implant Name Type Inv. Item Serial No. Tanning Wheel Operator Lot No. LRB No. Used Action SureTek [place] Hole Cover Kit DRESSBOOM [id number] Left 1 Implanted Vercise Cartesia 45cm 8 Contact DBS Lead Kit [id number] [employer] Left 1 Implanted SureTek Clarissa Hole Cover Kit [employer] [id number] Right 1 Implanted Vercise Cartesia 45cm 8 Contact DBS Lead Kit [id number] [employer] Enchere [employer] Right 1 Implanted Indications For Procedure: Ms. [...] with the head affixed with a Jeanne hogshead builder. The Jeanne pins were tightened with a [...] incisions in preparation for tunneling. Next, a seed expert drill was used to fashion a clarissa [...] the entry point was updated on the [facility] and the "distance to target" was used [...] target. The inner stylet was removed. The Mobile PatrolEM system was then registered t o the [...] out, irrigated, and closed with a single plmdzd-ek-xyswf Vicryl Rapide stitch. The drapes were then removed and the head was carefully taken out of the Jeanne hogshead builder. The patient was turned over to Anesthesia [...] In Time Out Procedure Start 824 Location: [facility] Surgeon(s) and Role: * Ne Guevara MD - Primary * Abimael Patel MD - Fellow Staff: Traffic Personnel Supervisor: Kacey Vann RN Scrub: ST [employer] Traffic Personnel Supervisor Relief: Tess Murphy RN Correctional Officer Captain: Jorge Strange MD,MPH Clinical Navigation Specialist: Nina Lopez Pre Op Dx Essential Tremor Post Op Dx: Same Procedure: Bilateral VIM DBS electrode placement ([place] [place]) Anesthesia: General Estimated Blood Loss: 150cc Specimens None Implants/Grafts Implant Name Type Inv. Item Serial No. Tanning Wheel Operator Lot No. LRB No. Used Action SureTek [place] Hole Cover Kit [employer] [id number] Left 1 Implanted Vercise Cartesia 45cm 8 Contact DBS Lead Kit [id number] [employer] Left 1 Implanted SureTek Clarissa Hole Cover Kit [employer] [id number] Right 1 Implanted Vercise Cartesia 45cm 8 Contact DBS Lead Kit [id number] [employer] Right 1 Implanted Complications: None apparent Abimael [...] [address] | | | | | | [place], [place] | | | | | | [address] | | | | | | [phone] | | | | | | | [...] 07/20/2019 Attending | | Surgeon:Ne Guevara MD Share Holder(s): MD Jorge Alcocer MD, MPH | | [...] of right VIM DBS electrode.Ne | | MD PaolaKB/MODLDD: 07/20/2019 15:35:16DT: 07/20/2019 15:50:20Job #: | | [id number] | | | |Preoperative Diagnosis: Essential tremor. | | | |Postoperative Diagnosis: Essential tremor. | | | |Procedure: | |1.Computer-assisted stereotactic navigation. | |2.Placement of left ventralis intermedius (VIM) deep brain stimulation (DBS) electrode. | |3.Placement of right VIM DBS electrode. | | | | | | | |Ne Guevara MD | |NAYLA/MODL | | | | | | /[id number] | + + CT PORTABLE HEAD WO [...] + + + + + | [facility]ANE[facility]AC[facility] | [address] | [place], [place] | | | [facility] [facility] [place] | [facility] | [address] | | | TESTS | | | [...] in this encounter Administered Medications + +--------+ + +------+------+ | Medication Order | MAR | Action | Dose | Rate | Site | | | Action | Date | | | | + +--------+ + +------+------+ | acetaminophen (TYLENOL) tablet | Given | 07/20/20 | 1,000 mg | | | | 1,000 mg 1,000 mg, oral, ONCE, 1 | | 19 7:13 | | | | | dose, 07/20/19 at 0615 | | AM PDT | | | | + +--------+ + +------+------+ +---+---+ | | | +---+---+ + +-------+ +--------+---+---+ | acetaminophen (TYLENOL) tablet | Given | [...] +-------+ +--------+---+---+ +-------+ +--------+---+---+ | Given | 07/21/20 | [...] | | | | | 07/20/19 at 1330, Until | | | | | | | Discontinued | | | | | | + +-------+ + +---+---+ +-------+ + +---+---+ | Given | 07/20/20 | 1 tablet | | | | | 19 8:03 | | | | | | PM PDT | | | | +-------+ + +---+---+ +---+---+ | | | +---+---+ + +---------+ +-----+---+---+ | ceFAZolin IV 2 gram in dextrose | New Bag | 07/20/20 | 2 g | | | | (RTU) 2 g, intravenous, EVERY 8 | | 19 11:36 | | | | | HOURS, 2 doses, First dose on | | PM PDT | | | | | 07/20/19 at 1600, Last dose on | | | | | | | Brunilda 07/21/19 at 0000 | | | | | | + +---------+ +-----+---+---+ +---------+ +-----+-------+---+ | New Bag | 07/20/20 | 2 g | 200 | | | | 19 6:11 | | mL/hr | | | | PM PDT | | | | +---------+ +-----+-------+---+ +---+---+ | | | +---+---+ + +-------+ [...] (SUBLIMAZE) injection | Given | 07/20/20 | 25 mcg | | | | 25-50 mcg 25-50 mcg, | | 19 12:04 | | | | | intravenous, POSTPROCEDURE PRN, 8 | | PM PDT | | | | | doses, Starting 07/20/19 at | | | | | | | 0851, Until Thu07/20/19 at 1422, | | | | | | | severe pain while in Phase I | | | | | | | Recovery | | | | | | + +-------+ +--------+---+---+ +-------+ +--------+---+---+ | Given | 07/20/20 | 25 mcg | | | | | 19 11:59 | | | | | | AM PDT | | | | +-------+ +--------+---+---+ +---+---+ | | | +---+---+ + +-------+ +--------+---+---+ | gabapentin (NEURONTIN) capsule | Given | 07/20/20 | 600 mg | | | | 600 mg 600 mg, oral, ONCE, 1 | | 19 7:13 | | | | | dose, Thu07/20/19 at 0615 | | AM PDT | | | [...] | | | | | | Until Thu07/21/19 at 2033, | | | | | [...] | | | | | Thu07/20/19 at 0615, Until Wed | iology | [...] + +---+---+---+ +---+---+ | | | +---+---+ + [...]
--- OUTSIDE RECORDS SUMMARY | ~2020-08-07 | XMS | Encounter Summary ---
Demographics + + + | Address | [address] | | | [place] [address] | + + + | Home Phone | | + + + | Preferred Language | Unknown | + + + | Marital Status | Single | + + + | Evangelical Affiliation | LDS | + + + | Race | White | + + + | Ethnic Group | Not or | + + + Author + + + | Author | [facility] | + + + | Organization | [facility] | + + + | Address | Unknown | + + + | Phone | Unavailable | + + + Support + + + + + | Name | Relationship | Address | Phone | + + + + + | Petrona Reece | ECON | [address] | | | | | [place] | | | | | [address] | | + + + + + | Michael Reece | ECON | [address] | | | | | [place] | | | | | [address] | | + + + + + | Wolf Reece | ECON | [address] | | | | | [place] | | | | | [address] | | + + + + + Care Team Providers + +------+ + | Care Lead Game Designer Name | Role | Phone | + +------+ + | Agustin Palomares MD | PCP | | + +------+ + Encounter Details +--------+---------+ + + + | Date | Type | Department | Care Team | Description | +--------+---------+ + + + | 08/31/ | Office | Neurology at | Cristopher Rosa, | Essential tremor | | 2019 | [facility] MD [address] | (Primary Dx) | | | | and Healing [address] | [place], [place] | | | | | [place] | [address] | | | | | Health and Healing, | [phone] | | | | | [address] | | | | | | [place], [place] | | | | | | [address] | | | | | | [phone] | | | +--------+---------+ + + + [...] + + + | Blood Pressure | 135/80 | 08/31/2019 9:32 AM | | | | | PDT | | + + + + + | Pulse | 75 | 08/31/2019 9:32 AM | | | | | PDT [...] + + + + | Weight | 86.2 kg (190 lb) | 08/31/2019 9:31 AM | | | | | PDT | | + + + + + | Height | - | - | | + + + + + | Body Mass Index | 32.61 | 07/22/2019 6:00 AM | | | | | PDT | | + + + + + documented in this encounter Patient Instructions Patient Instructions Cristopher Rosa MD - 08/31/2019 9:15 AM PDTReduce propanolol to jus t 1 tablet twice/day. "Diathermy" is contraindicated, and you should never have this. Your pulse generator is not compatable with MRI. documented in this encounter Progress Notes Cristopher Rosa MD - 08/31/2019 9:15 AM PDTFormatting of this note might be different fr om the original. History Rula Reece is a 79 y.o. female with disabling essential tremor. She is s/p DBS VIM DBS surgery on 07/20/19 at [facility]. Presents with her son and daughter in low for initial programmin g appointment. Hospital course: per procedure note, intraoperative CT confirmation of electrode placement revealed. She developed some aphasia postoperatively, but this has gradually cleared and improved ove r the past month, and her speech/language is back to baseline. She has continued to take propanolol 80 mg BID. She's not had side effects with this. Current Medication List Name Sig ACETAMINOPHEN ORAL Take 650 mg by mouth. Indications: Per patient, 2x daily AM, 2x daily PM BENZONATATE ORAL Take 100 mg by mouth. CARBIDOPA 10 MG-LEVODOPA 100 MG TABLET 1 tablet two times daily. CHOLECALCIFEROL (VITAMIN D3) 1,000 UNIT CAPSULE Take 1,000 Units by mouth once daily. DILTIAZEM CD 180 MG CAPSULE,EXTENDED RELEASE 24 HR Take 180 mg by mouth once daily. FLUTICASONE PROPIONATE 110 MCG/ACTUATION HFA AEROSOL INHALER Inhale 1 puff by mouth two rosalie es daily. GABAPENTIN 300 MG CAPSULE Take 600 mg by mouth once daily at bedtime. NITROGLYCERIN 0.[address] 0.4 mg under tongue every five minutes as need ed for chest pain. Place under tongue and allow to dissolve. Administer every 5 minutes, ma x of 3 doses in 15 minutes. ONDANSETRON 4 MG DISINTEGRATING TABLET Dissolve 2 tablets on tongue and swallow every eight hours as needed. POLYETHYLENE GLYCOL 3350 17 GRAM ORAL POWDER PACKET Mix 1 packet and take orally once daily as needed (1st line - for no BM for 2 days). PROMETHAZINE 25 MG TABLET Take 25 mg by mouth. PROPRANOLOL 40 MG TABLET 80 mg two times daily. SIMVASTATIN 20 MG TABLET 20 mg once daily in the evening. SUMATRIPTAN 100 MG TABLET Take 100 mg by mouth. TAMSULOSIN 0.4 MG CAPSULE 0.4 mg once daily at bedtime. Past Medical History: Past Medical History: Diagnosis Date Arrhythmia Asthma HLD (hyperlipidemia) Hypertension Migraine Pneumonia due to organism SVT (supraventricular tachycardia) (HCC) Tremor Surgical history: Past Surgical History Procedure Laterality Date Appendectomy Tonsillectomy Left total knee arthroplasty Hip arthroplasty Bilateral Hysterectomy D&c (dilatation and curettage) x3 Cataract surgery Bilateral Sinus surgery Physical exam: Blood Pressure Readings: 08/31/2019 9:31 AM 08/31/2019 9:32 AM BP: 162/74 135/80 BMI: 32.61 kg/(m^2) BP 135/80 (BP Location: Left upper arm, Patient Position: Standing) | Pulse 75 | Wt 86.2 kg (190 lb) | BMI 32.61 kg/m | BSA 1.97 m GA: well appearing in NAD Skin: incisions c/d/i, skin over DBS system intact without erythema, edema or tissue breakd own Procedure: Electrode type [employer]/Ombu with IPG located in the left chest Electrode impedance check: Left hemisphere: No electrodes out of range Right hemisphere: No electrodes out of range Pulse width set at 60 usec; Frequency set at 185 Hz Left VIM Monopolar review C+1- TW 0.5 to 0.9 mA C+2/3/4- TW 0.5 to 1.2 mA C+ 5/6/7- TW 0.5 to 0.9 mA C+8- TW 0.5 to 0.9 mA With each side effect threshold, she developed R wrist and hand sensory symptoms that were uncomfortable. The 3/4/5- axial plane gave the widest therapeutic window. Further programming with segments was then assessed. C+ 3/4- configuration gave best tremor control and widest TW. Current was split 50%/50% between the 3 and 4 segments, with Case + Current was set to, and there was excellent tremor control achieved at 0.9 mA. Right VIM Monopolar review C+9- TW 0.8 to 1.0 mA C+10/11/12- TW 0.8 to 1.1 mA C+13/14/15- TW 0.7 to 1.5 mA C+16- 1.0 to 1.4 mA Further programming with segments 13/14/15 was then assessed. C+ 13/14- gave the best tremor control and widest TW, 0.9 to 1.5 mA Current was split 50%/50% between the 13 and 14 segments, with Case + Current was set at 1.6 mA Final settings: left VIM C+ 3/4- 60 usec 185 Hz 0.9 mA Right VIM C+ 13/14- 60 usec 185 Hz 1.6 mA Plan: Procedure: Programming adjustments as discussed above. Patient educated on use of patient nichol haskins. Patient educated on safety issues including but not limited to MRI, diathermy,c ardioversion/defibrillators, and surgical procedures. I did not program a range of current for her to adjust at this visit; this is something we may explore at her next programming visit. 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 Medication changes: Taper propanolol to 40mg BID. RTC: In 2 months Cristopher Rosa MD NEUROLOGY AT [facility] I spent 110 minutes with the patient programming the neurostimulator for her essential trem or. documented in this e ncounter Plan of Treatment +--------+ + + + + | Date | Type | Specialty | Care Team | Description | +--------+ + + + + | 08/22/ | Procedure | Neurology | Cristopher Rosa, | | | 2019 | | | [address] | | | | | | [place], [place] | | | | | | [address] | | | | | | [phone] | | | | | | | | +--------+ + + + + documented as of this encounter Procedures + +--------+ + + + | Procedure Name | Priori | Date/Time | Associated Diagnosis | Comments | | | ty | | | | + +--------+ + + + | NC ELECTRONIC | Routin | 08/31/2019 | Essential tremor | | | ANALYSIS BRAIN | e | 11:06 AM | | | | NEUROSTIMULATOR PGT, | | PDT | | | | EA ADDL 15 MIN | | | | | + +--------+ + + + | NC ELECTRONIC | Routin | 08/31/2019 | Essential tremor | | | ANALYSIS BRAIN | e | 11:06 AM | | | | NEUROSTIMULATOR PGT, | | PDT | | | | 15 MIN | | | | | + +--------+ + + + documented in this encounter Visit Diagnoses + + | Diagnosis | + + | Essential tremor - Primary Essential and other specified forms of tremor | + + documented in this encounter
--- OUTSIDE RECORDS SUMMARY | ~2020-08-07 | XMS | Encounter Summary ---
Demographics + + + | Address | [address] | | | [place] [address] | + + + | Home Phone [...] Author | [facility] | + + + | Organization | [facility] | + + + | Address | Unknown | + + + | Phone | Unavailable | + + + Support + + + + + | Name | Relationship | Address | Phone | + + + + + | Petrona Reece | ECON | [address] | | | | | [place] | | | | | [address] | | + + + + + | Michael Reece | ECON | [address] | | | | | [place] | | | | | [address] | | + + + + + | Wolf Reece | ECON | [address] | | | | | [place] | | | | | [address] | | + + + + + Care Team Providers + +------+ + | Care Radio Board Operator Announcer Name | Role | Phone | + +------+ + | Agustin Palomares MD | PCP | | + +------+ + Encounter Details +--------+ + + + + | Date | Type | Department | Care Team | Description | +--------+ + + + + | 04/06/ | Telephone | Neurosurgery at | Ne Guevara MD | | | 2019 | | [facility] [address] | [address] | | | | | Ave [facility] | [place], [place] | | | | | Health and Healing, | [address] | | | | | [facility] | [phone] | | | | | floor [place], [place] | | | | | | [address] | | | | | | [phone] | | | +--------+ + + + [...] Telephone Encounter - Elizabeth Bustillo PA-C - 04/12/2019 4:21 PM PDTVIM [place] [facility] per Dr Osmani Rosa elephone Encounter - Kacie Ramirez PA-C - 04/06/2019 1:[address] Rosa to [facility] testing and contact family with final decision re candidacy. KACIE RAMIREZ PA-C elephone Encount er - Jailene Carvalho - 04/06/2019 10:19 AM PDTPt's daughter calls in to check status of DBS process. Relayed that I haven't received surgery orders yet. Per candidacy spreadsheet, I a m unable to tell if pt has been deemed a candidate or not. Please advise and call pt back. E lectronically signed by Jailene Carvalho at 04/06/2019 10:21 AM PDTdocumented in this encount er Plan of Treatment +--------+ + + + + | Date | Type | Specialty | Care Team | Description | +--------+ + + + + | 08/22/ | Procedure | Neurology | Cristopher Rosa, | | | 2019 | | | [address] | | | | | | [place], [place] | | | | | | [address] | | | | | | [phone] | | | | | | | | +--------+ + + + + documented as of this encounter Visit Diagnoses Not on filedocumented in this encounter"
[~2020-08-07 19:04] MED LIST changes: +SIMVASTATIN20 MG PO; +ZOFRAN ODT4 MG SL
[2020-08-07] MEDS ORDERED: NITROFURANTOIN100 M1 PO (19:24)
[2020-08-07] MEDS ORDERED: DILTIAZEM ER180 M1 PO (19:24)
[2020-08-07] MEDS ORDERED: ROPINIROLE HCL0.5 MG PO (19:25)
[2020-08-07] MEDS ORDERED: PROPRANOLOL HCL40 MG PO (19:25)
[2020-08-07] MEDS ORDERED: SERTRALINE HCL25 MG PO (19:26)
[2020-08-07] MEDS ORDERED: TAMSULOSIN HCL0.4 MG PO (19:26)
[2020-08-07] MEDS ORDERED: DICLOFENAC SOD100 G1 TOP (19:27)
[2020-08-07] MEDS ORDERED: ROPINIROLE HCL1 MG PO (19:27)
[2020-08-07] MEDS ORDERED: FLOVENT HFA12 GM INH (19:27)
[2020-08-07] MEDS ORDERED: OMEPRAZOLE20 MG PO (19:28)
[2020-08-07] MEDS ORDERED: SUMATRIPTAN SU100 MG PO (19:28)
[2020-08-07] MEDS ORDERED: CENTRUM SILVER1 EAC5 PO (19:28)
[2020-08-07] MEDS ORDERED: COLACE100 MG PO (19:28)
[2020-08-07] MEDS ORDERED: PROMETHAZINE HC25 M1 PO (19:29)
--- NOTE | 2020-08-08 07:17 | EKG ---
[facility] [address] [facility] [place] [address] Signed Sinus tachycardia with premature supraventricular complexes Low voltage QRS Borderline ECG When compared with ECG of 01-AUG-2018 21:44, Previous ECG has undetermined rhythm, needs review ST no longer depressed in Anterior leads Non-specific change in ST segment in Lateral leads Nonspecific T wave abnormality has replaced inverted T waves in Anterior leads Confirmed by NAHOMY MÁRQUEZ MD ([id number]) on 08/08/2020 7:17:16 AM Electronically Signed By: NAHOMY MÁRQUEZ MD 08/08/20 0717 PATIENT NAME: LINDSEY SHELLEY Electrocardiogram DATE OF : 42 PHYSICIAN: NAHOMY MÁRQUEZ MD REPORT #: [id number] REPORT IS CONFIDENTIAL AND NOT TO BE RELEASED WITHOUT AUTHORIZATION
== END 2020-08-07 21:10 | disposition home or self-care (01) ==
LOC: ED 19:04
DX: R07.89 Other chest pain (principal); Z88.8 Allergy status to other drugs, medicaments and biological substances; Z88.2 Allergy status to sulfonamides; Z79.899 Other long term (current) drug therapy
CPT/HCPCS: 71045; 80053; 80162; 83735; 84484; 85025; 93005; 93010; 96374; 96375; 99285-25; J1170; J2405

== ENCOUNTER 2021-04-05 22:09 | Emergency (ER) | payer MEDICARE, OTHER ==
[~2021-04-05] VITALS: Ht 167.6 cm; Wt 80.7 kg
[~2021-04-05 22:09] MED LIST changes: +CENTRUM SILVER1 EAC5 PO; +COLACE100 MG PO; +DICLOFENAC SOD100 G1 TOP; +DILTIAZEM ER180 M1 PO; +FLOVENT HFA12 GM INH; +NITROFURANTOIN100 M1 PO; +OMEPRAZOLE20 MG PO; +PROPRANOLOL HCL40 MG PO; +ROPINIROLE HCL0.5 MG PO; +ROPINIROLE HCL1 MG PO; +SERTRALINE HCL25 MG PO; +SUMATRIPTAN SU100 MG PO; +TAMSULOSIN HCL0.4 MG PO
[2021-04-05] MEDS ORDERED: CEPHALEXIN500 MG PO (22:29)
[2021-04-05] MEDS ORDERED: MELOXICAM15 MG PO (22:29)
[2021-04-05] MEDS ORDERED: FLUTICASONE PRO16 GM NAS (22:31)
[2021-04-05] MEDS ORDERED: 8 HOUR650 MG PO ×2 (22:32)
--- NOTE | 2021-04-06 07:36 | EKG ---
[facility] [address] [facility] [place], [place] [address] Signed Sinus rhythm with premature atrial complexes Nonspecific ST abnormality Abnormal ECG When compared with ECG of 07-AUG-2020 19:10, No significant change was found Confirmed by NAHOMY MÁRQUEZ MD ([id number]) on 04/06/2021 7:36:34 AM Electronically Signed By: NAHOMY MÁRQUEZ MD 04/06/21 0736 PATIENT NAME: KARSTENLINDSEYEdna MARTI Electrocardiogram DATE OF : 42 PHYSICIAN: NAHOMY MÁRQUEZ MD REPORT #: [id number] REPORT IS CONFIDENTIAL AND NOT TO BE RELEASED WITHOUT AUTHORIZATION
== END 2021-04-06 02:19 | disposition home or self-care (01) ==
LOC: ED 22:09
DX: N39.0 Urinary tract infection, site not specified (principal); I10 Essential (primary) hypertension; I48.91 Unspecified atrial fibrillation; Z88.2 Allergy status to sulfonamides; Z88.8 Allergy status to other drugs, medicaments and biological substances; Z79.899 Other long term (current) drug therapy
CPT/HCPCS: 71045; 80053; 81001; 83605; 83735; 84484; 85025; 87077; 87088; 87186; 93005; 93010; 96365; 99284-25; J0696; J7030

== ENCOUNTER 2021-06-06 17:45 | Emergency (ER) | payer MEDICARE ==
[~2021-06-06] VITALS: Ht 167.6 cm; Wt 99.8 kg
[~2021-06-06 17:45] MED LIST changes: +8 HOUR650 MG PO; +CEPHALEXIN500 MG PO; +FLUTICASONE PRO16 GM NAS; +MELOXICAM15 MG PO
--- OUTSIDE RECORDS SUMMARY | 2021-06-06 17:48 | XMS ---
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 EYanick VISIT COUNT (12 MO.) 3 DOMO Hurt TOTAL 3 NOTE: Visits indicate total known visits. ED/UCC VISIT TRACKING (12 MO.) 06/06/2021 17:46 DOMO [facility] [place] TYPE: Emergency COMPLAINT: - CHEST PAIN 04/05/2021 22:09 DOMO [facility] [place] TYPE: Emergency COMPLAINT: - FALL/LOW BLOOD PRESSURE DIAGNOSES: - Other intermission coordinator (current) drug therapy - Urinary tract infection, site not specified - Unspecified atrial fibrillation - Essential (primary) hypertension - Allergy status to sulfonamides - Allergy status to other drugs, medicaments and biological substances - Dizziness and giddiness 08/07/2020 19:05 DOMO [facility] [place] TYPE: Emergency COMPLAINT: - CHEST PAIN DIAGNOSES: - Chest pain, unspecified - Allergy status to sulfonamides - Allergy status to sulfonamides - Other custodial (current) drug therapy - Allergy status to other drugs, medicaments and biological substances - Other chest pain - Allergy status to other drugs, medicaments and biological substances INPATIENT VISIT TRACKING (12 MO.) No inpatient visits to display in this time frame [email or web address]
--- NOTE | 2021-06-08 09:00 | EKG ---
[facility] [address] [place] [address] Signed Normal sinus rhythm Low voltage QRS Borderline ECG When compared with ECG of 05-APR-2021 22:47, premature atrial complexes are no longer present Confirmed by SHYANN CASTAÑEDA MD ([id number]) on 06/08/2021 8:59:51 AM Electronically Signed By: SHYANN CASTAÑEDA MD 06/08/21 0900 PATIENT NAME: LINDSEY SHELLEY Electrocardiogram DATE OF : 42 PHYSICIAN: SHYANN CASTAÑEDA MD REPORT #: [id number] REPORT IS CONFIDENTIAL AND NOT TO BE RELEASED WITHOUT AUTHORIZATION
== END 2021-06-06 22:00 | disposition home or self-care (01) ==
LOC: ED 17:45
DX: R07.89 Other chest pain (principal); I10 Essential (primary) hypertension; I48.91 Unspecified atrial fibrillation; Z88.2 Allergy status to sulfonamides; Z88.8 Allergy status to other drugs, medicaments and biological substances; Z79.899 Other long term (current) drug therapy
CPT/HCPCS: 71046; 80053; 83735; 84484; 85025; 93005; 93010; 96374; 96375; 99285-25; J1170; J2405

== ENCOUNTER 2023-12-08 07:50 | Inpatient (IN) | payer MEDICARE, OTHER ==
[~2023-12-08] VITALS: Ht 167.6 cm; Wt 105.6 kg
[~2023-12-08 07:50] MED LIST changes: -FLOVENT HFA12 GM INH; +FLUTICASONE PRO12 GM INH; -OMEPRAZOLE20 MG PO; +PRILOSEC OTC20 MG PO; +SERTRALINE HCL100 MG PO; -SERTRALINE HCL25 MG PO; +TYLENOL EXTRA500 MG PO
--- OUTSIDE RECORDS SUMMARY | 2023-12-08 07:54 | XMS ---
PreManage Notification: LINDSEY SHELLEY Security Manager City Events No recent Security Events currently on file CRITERIA MET - MARELY CARE PROVIDERS Karl Bert Process Equipment Operator/Web Applications Architect 11/02/2023-Current PHONE: [phone] AJAY [facility] 03/26/2021-Current PHONE: Unknown -[place]- Dentist: Band Saw Marker [facility] PHONE: [phone] Paresh has no Care Guidelines for this patient. E.D. VISIT COUNT (12 MO.) 1 DOMO Hurt TOTAL 1 NOTE: Visits indicate total known visits. ED/UCC VISIT TRACKING (12 MO.) 12/08/2023 07:51 ODMO [facility] [place] TYPE: Emergency COMPLAINT: - LOWER BACK/LEG PAIN INPATIENT VISIT TRACKING (12 MO.) No inpatient visits to display in this time frame [id number]
[2023-12-08] MEDS ORDERED: ACETAMINOPHEN 500 MG TAB PO ONE (08:30)
[2023-12-08] MEDS ORDERED: ONDANSETRON 4 MG TAB ODT SL ONE (08:30)
[2023-12-08] MEDS ORDERED: HYDROmorphone HCL 1 MG/ML SYR IM ONE (08:30)
[2023-12-08 10:30] LABS: BASOPHILS 0.5 % (0-2); EOSINOPHILS 2.5 % (0-6); HEMOGLOBIN 10.7 g/dL (12.0-18.0); LYMPHOCYTES 10.9 % (24-44); MCH 30.7 (27-36); MCHC 33.4 g/dl (30-36); MCV 91.8 fl (81-99); MONOCYTES 6.9 % (0-12); NEUTROPHILS 79.2 % (39-80); PLATELET COUNT 353 K/uL (140-440); RBC 3.48 M/ul (4.3-5.7); RDW 13.6 (10.5-15.0)
[2023-12-08 10:44] LABS: ALBUMIN 2.7 g/dL (3.4-5.0); ALBUMIN/GLOBULIN RATIO 0.75 (1.1-2.4); ANION GAP 10.8 (7-21); BILIRUBIN, TOTAL 0.4 ng/dL (0.2-1.0); BUN/CREATININE RATIO 8.69 (6.0-28.6); CALCIUM 8.8 mg/dL (8.5-10.1); CREATININE, SERUM 1.15 mg/dL (0.55-1.02); POTASSIUM 3.8 mmol/L (3.5-5.1); PROTEIN, TOTAL 6.3 g/dL (6.4-8.2)
[2023-12-08] MEDS ORDERED: CEFADROXIL500 MG PO (11:33)
[2023-12-08] MEDS ORDERED: CETIRIZINE HCL5 MG PO ×2 (11:33→15:36)
[2023-12-08] MEDS ORDERED: FEROSUL325 MG PO (11:34)
[2023-12-08] MEDS ORDERED: FLUTICASONE PRO12 GM INH (11:36)
[2023-12-08] MEDS ORDERED: HYDROCORTISO453.6 GM TOP (11:39)
[2023-12-08] MEDS ORDERED: LEVOFLOXACIN750 MG PO (11:39)
[2023-12-08] MEDS ORDERED: NYSTOP60 GM TOP (11:40)
[2023-12-08] MEDS ORDERED: POTASSIUM CHLO20 ME2 PO (11:41)
[2023-12-08] MEDS ORDERED: TIZANIDINE HCL2 MG PO (11:43)
[2023-12-08] MEDS ORDERED: TRAMADOL HCL50 MG PO (11:44)
[2023-12-08] MEDS ORDERED: DAPTOmycin 500 MG/10 ML VIAL IV SCH (11:52)
[2023-12-08] MEDS ORDERED: VITAMIN C250 M1 PO (11:59)
[2023-12-08] MEDS ORDERED: BIOFREEZE89 ML TOP (12:00)
[2023-12-08] MEDS ORDERED: HYDROmorphone HCL 1 MG/ML SYR IV PRN (12:00)
[2023-12-08] MEDS ORDERED: BENADRYL25 MG PO (12:00)
[2023-12-08] MEDS ORDERED: CEFEPIME HCL/D5W 2 GM/100 ML PIGGYBACK IV ONE (12:00)
[2023-12-08] MEDS ORDERED: METROGEL60 GM TOP (12:01)
[2023-12-08] MEDS ORDERED: CORICIDIN HBP1 EAC2 PO (12:02)
[2023-12-08] MEDS ORDERED: LASIX20 MG PO (12:03)
[2023-12-08] MEDS ORDERED: IPRATROPIU0.2 MG/1 M INH (12:03)
[2023-12-08] MEDS ORDERED: ondansetron HCL 4 MG/2 ML VIAL IV ONE (12:45)
[2023-12-08 12:47] LABS: LACTIC ACID, BLOOD 0.3 mmol/L (0.4-2.0)
[2023-12-08] MEDS ORDERED: TRAMADOL HCL 50 MG TAB PO PRN (13:30)
[2023-12-08] MEDS ORDERED: ROPINIROLE HCL 1 MG TAB PO SCH (13:30)
[2023-12-08] MEDS ORDERED: PROPRANOLOL HCL 10 MG TAB PO ONE (13:45)
[2023-12-08] MEDS ORDERED: ondansetron HCL 4 MG/2 ML VIAL IV PRN (14:00)
[2023-12-08] MEDS ORDERED: PROCHLORPERAZINE EDISYLATE 10 MG/2 ML VIAL IV PRN (14:00)
[2023-12-08] MEDS ORDERED: ACETAMINOPHEN 500 MG TAB PO PRN (14:00)
[2023-12-08 14:12] VITALS: BP 156/95
--- NOTE | 2023-12-08 14:20 | NUR ---
Patient arrives to med surg unit via stretcher. VSS. A+O. Family at bedside to assist with health history information. Ordered medications administered, PRN tramadol administered for 8/10 back pain. IV flushes well. Gaviria catheter in place, chronic use. Patient on 2L O2 NC chronic. Skin assessment performed with Olesya GOODRICH. Pt oriented to room/call light. Fresh water and warm blankets provided. Call light in patient's hand.
[2023-12-08 14:30] VITALS: BP 156/95
[2023-12-08] MEDS ORDERED: METRONIDAZOLE500 MG PO (15:40)
[2023-12-08] MEDS ORDERED: ZOCOR20 MG PO (15:44)
[2023-12-08] MEDS ORDERED: CEFACLOR500 MG PO (15:46)
[2023-12-08] MEDS ORDERED: FLONASE ALLERG9.9 ML NAS (15:48)
[2023-12-08] MEDS ORDERED: VENTOLIN HFA18 GM INH (15:58)
[2023-12-08] MEDS ORDERED: NASAL MOISTURIZ88 ML NAS (16:04)
[2023-12-08] MEDS ORDERED: VOLTAREN ARTHRI20 GM TOP (16:06)
--- NOTE | 2023-12-08 16:07 | NUR ---
MED REC COMPLETE
--- NOTE | 2023-12-08 16:15 | NUR ---
Verbal order received from Dr Piedra for topical antifungal and anti itch cream as well as PO benadryl for patient's itching
[2023-12-08] MEDS ORDERED: TRIAMCINOLONE 0.1% 15 GM TUBE TOP PRN (16:30)
[2023-12-08] MEDS ORDERED: diphenhydrAMINE HCL 25 MG CAP PO PRN (16:30)
--- NOTE | 2023-12-08 17:26 | NUR ---
Patient complaining of weakness. Dr Piedra at bedside. Patient states "did not sleep at all last night", took tramadol approx 1 hour ago. Patient sitting up eating dinner, states feeling "okay" and has no further needs.
[2023-12-08 18:12] VITALS: BP 110/92
--- NOTE | 2023-12-08 18:15 | NUR ---
PATIENT STOOD AT BEDSIDE WITH FWW WHILE CELINE LOO WAS PLACED ON BED. PATIENT TOLERATED STANDING WELL. THIS SR. MANAGER AND RN IN ROOM AT THIS TIME. PATIENT BACK TO LAYING IN BED. WARM BLANKETS GIVEN. VITALS AND I&O'S CHARTED. CALL LIGHT IN REACH. NO FURTHER NEEDS AT THIS TIME.
[2023-12-08 18:47] VITALS: BP 110/92
--- NOTE | 2023-12-08 19:54 | NUR ---
REPORT RECEIVED FROM DAY SHIFT RN. PT LYING IN BED RESTING WITH EYES CLOSED. AWAKENS EASILY. DENIES NEEDS. REPORTS SHE IS "COMFORTABLE CAN BE" NO FURTHER NEEDS. CALL LIGHT IN REACH. WHITE BOARD UPDATED.
[2023-12-08 20:56] VITALS: BP 142/65
[2023-12-08] MEDS ORDERED: ROPINIROLE HCL 0.25 MG TAB PO SCH (21:00)
[2023-12-08] MEDS ORDERED: GABAPENTIN 300 MG CAP PO SCH (21:00)
[2023-12-08] MEDS ORDERED: MICONAZOLE 2% 30 GM TUBE TOP SCH (21:00)
[2023-12-08] MEDS ORDERED: MELATONIN 3 MG TAB PO PRN (21:00)
[2023-12-08] MEDS ORDERED: SERTRALINE HCL 25 MG TAB PO SCH (21:00)
--- NOTE | 2023-12-08 21:15 | NUR ---
PT UP TO BSC WITH FOUR WHEEL WALKER AND SBA ASSIST TO ATTEMPT BM WITH NO RESULTS. ELLIS CARE DONE. SMALL OPEN AREA NOTED ON LEFT INTERGLUTEAL CLEFT. SKIN CLEANSED AND BARRIER CREAM APPLIED. BACK TO BED, BRANDON WELL. REPORTS SOB WITH HX OF ASTHMA. MD AT NURSES STATION. NEW VERBAL ORDERS RECEIVED VERIFIED WITH READBACK METHOD. PT ON 2L/NC CHRONIC. SpO2 99%. RESPIRATIONS EVEN.
[2023-12-08] MEDS ORDERED: ALBUTEROL SULFATE 0.083% 3 ML VIAL INH PRN (21:30)
[2023-12-08] MEDS ORDERED: CEFEPIME HCL/D5W 1 GM/100 ML PIGGYBACK IV SCH (22:00)
--- NOTE | 2023-12-08 23:54 | NUR ---
PT RESTING IN BED WITH EYES CLOSED. RESPIRATIONS EVEN. CALL LIGHT IN REACH.
--- NOTE | 2023-12-08 23:55 | NUR ---
EVENING ASSESSMENT COMPLETE. SCHEDULED MEDS ADMIN PER EMAR. NO C/O OF PAIN OR NAUSEA AT THIS TIME. RT IN FOR BREATHING TX. 2PA TO REPOSITION IN BED. WAFFLE MATTRESS IN PLACE. WARM BLANKET PROVIDED. PT DENIES FURTHER NEEDS. CALL LIGHT IN REACH.
[2023-12-09] VITALS (8 sets, daily range): BP systolic 120–154; BP diastolic 48–87
--- NOTE | 2023-12-09 00:25 | NUR ---
ORDER PLACED FOR WOUND CONSULT PER REQUEST OF PRIMARY RN. pt HAS OPEN ABRASION/BLISTER TO LEFT INNER/POSTERIOR THIGH ALONG WITH SMALL OPEN AREA TO INTERGLUTEAL CLEFT. PHOTOS OBTAINED BY DAYSHIFT AND IN CHART. SCRIPT EDITOR NAM JOAQUIN.
--- NOTE | 2023-12-09 02:25 | NUR ---
PT RESTING WITH EYES CLOSED. AWAKENS EASILY. VS AND I&O OBTAINED. PT REPORTS SHE IS RESTING COMFORTABLE. NO NEEDS AT THIS TIME. CALL LIGHT IN REACH. BED ALARM FOR SAFETY.
[2023-12-09 05:35] LABS: HEMOGLOBIN 10.9 g/dL (12.0-18.0)
[2023-12-09 05:39] LABS: HEMATOCRIT 32.3 % (35.0-50.0); MCH 31.3 (27-36); MCHC 33.9 g/dl (30-36); MCV 92.3 fl (81-99); PLATELET COUNT 332 K/uL (140-440); RDW 13.8 (10.5-15.0)
[2023-12-09 05:47] LABS: ANION GAP 9.1 (7-21); BUN/CREATININE RATIO 7.69 (6.0-28.6); CALCIUM 9.1 mg/dL (8.5-10.1); CREATININE, SERUM 1.04 mg/dL (0.55-1.02); POTASSIUM 4.1 mmol/L (3.5-5.1)
[2023-12-09 05:49] LABS: BANDS, MANUAL DIFF 6; EOSINOPHILS, MANUAL DIFF 1; LYMPHOCYTES, MANUAL DIFF 14; MONOCYTES, MANUAL DIFF 3; NEUTROPHILS, MANUAL DIFF 76
--- NOTE | 2023-12-09 06:22 | NUR ---
VS AND I&O OBTAINED. 2PA TO REPOSITION IN BED. PT ITCHING CHEST/BACK/LEGS. PRN FOR ITCHING AND PAIN ADMIN PER EMAR. IV ABX INFUSING PER EMAR. NO FURTHER NEEDS. CALL LIGHT IN REACH.
--- NOTE | 2023-12-09 07:42 | NUR ---
RECEIVED REPORT FROM KP HERNANDEZ. ASSUMING CARE OF PT.
--- NOTE | 2023-12-09 08:03 | NUR ---
PT REQUESTED THAT SHE HAS A BED BATH TODAY. SHE REQUESTED THIS BEFORE LUNCH. PT ALSO ACCEPTED A WARM WASH CLOTH TO WASH OFF HER FACE. PT ASKED FOR ASSISTANCE SITTING UP IN BED AND MOVING OVER TO THE SIDE. HARDWARE INSTALLER GOT PT FRESH ICE WATER. CALL LIGHT IS WITHIN REACH NO FURTHER COMPLAINTS OR CONCERNS
--- NOTE | 2023-12-09 08:34 | NUR ---
PT UP TO CHAIR WITH 1PA AND FWW. PT STATES NO NEEDS AT THIS TIME, CALL LIGHT WITHIN REACH.
--- NOTE | 2023-12-09 08:54 | NUR ---
NURSING STUDENTS ASSISTED WITH PT CARES. PT IS SITTING IN RECLINER ENJOYING BREAKFAST. NO COMLPAINTS OR CONCERNS. CALL LIGHT WITHIN REACH
[2023-12-09] MEDS ORDERED: FUROSEMIDE 20 MG TAB PO SCH (09:00)
[2023-12-09] MEDS ORDERED: ROPINIROLE HCL 1 MG TAB PO SCH (09:00)
[2023-12-09] MEDS ORDERED: POTASSIUM CHLORIDE 10 MEQ TABCR PO SCH (09:00)
[2023-12-09] MEDS ORDERED: PANTOPRAZOLE SODIUM 40 MG TABEC PO SCH (09:00)
--- NOTE | 2023-12-09 09:37 | NUR ---
PT TAKES PO MEDICATIONS WITHOUT DIFFICULTY. FAMILY AT THE BEDSIDE. PHYSICAL THERAPY AND OT AT THE BEDSIDE. PT STATES NO QUESTIONS OR NEEDS AT THIS TIME.
--- NOTE | 2023-12-09 09:58 | NUR ---
PT WAS FINISHED WITH EATING BREAKFAST, REQUESTED THAT SHE BE ABLE TO KEEP A FEW ORANGE SLICES SO THAT SHE MAY EAT THEM LATER PSYCHOLOGIST PERSONNEL REFILLED PT WATER CUP AND RECORDED HOW MUCH SHE HAD PREVIOUSLY DRANK. PSYCHOLOGIST PERSONNEL REMOVED THE BREAKFAST TRAY, RECORDED VITAL SIGNS, AND RECORDED INTAKES AND OUTPUTS. PSYCHOLOGIST PERSONNEL EMPTIED ARREAGA CATH. PT HAD NO COMPLAINTS OR CONCERNS. PT REQUESTED A PILLOW BE PUT UNDERNEATH HER LEGS ON THE RECLINER. CALL LIGHT IS WITHIN REACH
--- NOTE | 2023-12-09 10:20 | NUR ---
PT CONTINUES WORKING WITH PHYSICAL THERAPY, FAMILY AT THE BEDSIDE.
--- NOTE | 2023-12-09 10:30 | NUR ---
PT UP TO CHAIR AWAKE. A+O X4. FAMILY AND FRIENDS AT THE BEDSIDE. DR COUCH TO BEDSIDE, STATES TO PLACE ORDER FOR LIDOCAINE PATCH FOR BURSITIS IN PT'S L SHOULDER, REPEAT BACK PERFORMED, ORDERS ENTERED. LEGS ELEVATED ON PILLOW IN CHAIR. ARREAGA CATHETER IN PLACE, CLEAR YELLOW URINE IN ARREAGA BAG. PT REQUESTS FULL SKIN ASSESSMENT TO BE DONE AFTER VISIT WITH FRIEND FOR PRIVACY. PT STATES NO FURTHER QUESTIONS OR NEEDS AT THIS TIME, CALL LIGHT WITHIN REACH.
--- NOTE | 2023-12-09 10:47 | NUR ---
UR Review - 12/09/2023 Pt meets inpt criteria for Cellulitis, Goal Length of Stay (GLOS) 2 days if pt progresses without a variance to recovery. ([facility] guidelines).
--- NOTE | 2023-12-09 11:00 | NUR ---
Notified by PT they are recommending a SNF for this pt.
[2023-12-09] MEDS ORDERED: LIDOCAINE HCL 4% 1 EACH PATCH TD SCH (11:15)
[2023-12-09] MEDS ORDERED: PHARMACY RENAL DOSE ADJUSTMENT 1 DOSE MISC PO SCH (12:00)
--- NOTE | 2023-12-09 12:01 | NUR ---
PT STATES SHE FEELS TIRED AFTER PHYSICAL THERAPY AND HER VISITORS THIS MORNING, REQUESTS TO DO SHOWER AND SKIN CARE THIS AFTERNOON. DISCUSSED POC WITH PT, PT VERBALIZES UNDERSTANDING.
--- NOTE | 2023-12-09 12:30 | NUR ---
Spoke with Rula. She lives at [facility]. Pt is independent and walks 150 feet to the dinning room. 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 Pt has a catheter and wound care. She see [facility]. Pt is a medicaid pt and is on halfway care with medicaid for placement at [facility]. She has a walker and 02 from [place]. She denies use of othe DME. Pt plans on return to [facility] on dc as she likes them and the care they provide.
--- NOTE | 2023-12-09 12:50 | NUR ---
PT UP TO CHAIR, STATES SHE IS FINISHED WITH HER LUNCH. PT STATES SHE WOULD LIKE TO REST, THIS RN DISCUSSES GOING TO BED D/T PT LEANING HEAD FORWARD WHEN SLEEPING IN CHAIR. PT REFUSES GETTING TO BED, STATES SHE WOULD LIKE TO REST IN CHAIR, CHAIR LEANED BACK, PILLOW PLACED TO SUPPORT NECK. PT STATES NO FURTHER NEEDS AT THIS TIME, CALL LIGHT WITHIN REACH.
--- NOTE | 2023-12-09 13:30 | NUR ---
Spoke with Rula and updated PT is recommending a Skilled facility. Pt is not interested in this and wants to return to [facility]. We discussed need for PT for her weakness, she states she will use [facility]. I let her know they cannot visit her 5 times a week. I can call to check if they can see her 3xw. I called and spoke with Meng and she states they could see 3x w for PT and 2 xw for OT for strengthening. They will cont.wound care 1xwand catheter change q 3 weeks. I let Rula know and she was delighted. I asked if I could call her family and she consented. I called and spoke with her DIL, Nate. Nate states the family are on board with whatever Rula decides. She states she will not follow any requests from them. She feels if pt wants to remain at [facility] and use HH for PT this is the best action. She also states pt will not participate if they attempt to interfere. I will update Dr. Lemons in the AM.
--- NOTE | 2023-12-09 13:48 | NUR ---
PT HAD A DROP IN BP AND MAP SINCE LAST TIME VITALS WERE TAKEN. PT REPORTS FEELING EXTREMELY SLEEPY. PT REFUSED TO GO INTO HER BED, SAID SHE WISHED TO STAY IN HER RECLINER. RN WAS NOTIFIED. PT WAS HAVING A HARD TIME STAYING AWAKE WHILE DOPER OPERATOR WAS IN HER ROOM. NO FURTHER COMPLAINTS OR CONCERNS, CALL LIGHT IS WITHIN REACH.
[2023-12-09] MEDS ORDERED: CEFEPIME HCL/D5W 1 GM/100 ML PIGGYBACK IV SCH (14:00)
--- NOTE | 2023-12-09 14:03 | NUR ---
PT STATES SHE FEELS VERY "ITCHY", REQUESTS BENADRYL, GIVEN. PT STATES NO FURTHER NEEDS AT THIS TIME, CALL LIGHT WITHIN REACH.
--- NOTE | 2023-12-09 15:14 | NUR ---
PT UP TO SHOWER WITH X2PA AND FWW. PT CONTINUES TO BE ON 1L O2 VIA NC. PT SHOWERS WITH ASSISTANCE IN SHOWER CHAIR. NEW GOWN, NEW NON SLIP SOCKS IN PLACE. ALLEVYN REPLACED ON UPPER LEFT THIGH, BARRIER CREAM PLACED ON THIGHS AND BUTTOCKS D/T BLANCHABLE REDNESS. ALLEVYN PLACED ON WOUNDS ON LEFT POSTERIOR CALF. ANTIFUNGAL CREAM PLACED UNDER BREASTS AND PANNUS, MILD REDNESS SEEN UNDER PANNUS. CREAM APPLIED TO "ITCHY" AREAS AT PT REQUEST. PT BACK TO CHAIR WITH X2PA AND FWW. PT STATES NO NEEDS AT THIS TIME, CALL LIGHT WITHIN REACH, BLE ELEVATED ON PILLOWS IN CHAIR. [employer] COMBING PT'S HAIR.
--- NOTE | 2023-12-09 16:00 | NUR ---
LICENSE INSPECTOR ASSISTED RN WITH A SHOWER. PT DID MOST OF THE WASING HERSELF, LICENSE INSPECTOR HELPED WITH HER HAIR AND HER BACK. PT WAS GIVEN A NEW GOWN AND NEW SOCKS. PT STATES NO OTHER COMPLAINTS OR CONCERNS. CALL LIGHT AND PHONE WITHIN REACH
--- NOTE | 2023-12-09 17:57 | NUR ---
PATIENT RESTING WITH NO NEEDS AT THIS TIME. RR EVEN AND UNLABORED. CALL LIGHT IN REACH.
--- NOTE | 2023-12-09 18:58 | NUR ---
PT WAS SITTING IN HER RECLINER REFUSED TO LAY DOWN IN HER BED. PT FINISHED EATING DINNER. SUBGRADE TESTER CHARTED HER VITALS AND I&OS. ARREAGA CATH BAG EMPTIED. PT STATES NO OTHER FURTHER COMPLAINTS OR CONCERNS. CALL LIGHT AND PHONE ARE IN REACH
--- NOTE | 2023-12-09 19:35 | NUR ---
REPORT RECIEVED FROM DAY SHIFT RN. PATIENT RESTING IN BED. PATIENT REPORTS PAIN AND NAUSEA.
--- NOTE | 2023-12-09 20:45 | NUR ---
SCHEDULED AND PRN MEDICATIONS ADMINISTERED. VS AND I&Os OBTAINED AND RECORDED. NO FURTHER NEEDS. CALL LIGHT IN REACH.
[2023-12-09] MEDS ORDERED: LIDOCAINE PATCH REMOVAL 1 EA TD SCH (21:00)
--- NOTE | 2023-12-09 21:32 | NUR ---
L AC IV INFILTRATED. L AC IV DCd WNL WITH TIP INTACT. THIS RN PLACED NEW IV IN RIGHT FOREARM. RIGHT FOREARM IV WNL AND BLOOD RETURN. PATIENT BRANDON WELL. PATIENT REQUESTED SLEEPING MEDICATION, SLEEPING MEDICATION ADMINISTERED, SEE MAR. PATIENT RESTING IN CHAIR. WARM BLANKET PROVIDED. LEGS ELEVATED ON PILLOW WITH FEET UP IN CHAIR. IV ABX INFUSING PER ORDER. FRESH WATER PROVIDED. PATIENT HAS NO FURTHER NEEDS. CALL LIGHT IN REACH.
--- NOTE | 2023-12-09 22:36 | NUR ---
PATIENT RESTING IN CHAIR WITH EYES CLOSED. RESPIRATIONS EVEN AND UNLABORED. CALL LIGHT IN REACH.
--- NOTE | 2023-12-10 02:00 | NUR ---
PATIENT RESTING IN CHAIR WITH EYES CLOSED. RESPIRATIONS EVEN AND UNLABORED. IV ABX INFUSING PER ORDER. NO FURTHER NEEDS. CALL LIGHT IN REACH.
--- NOTE | 2023-12-10 03:15 | NUR ---
PATIENT RESTING IN CHAIR WITH EYES CLOSED. RESPIRATIONS EVEN AND UNLABORED. CALL LIGHT IN REACH.
--- NOTE | 2023-12-10 05:00 | NUR ---
PATIENT RESTING IN CHAIR WITH EYES CLOSED. RESPIRATIONS EVEN AND UNLABORED. CALL LIGHT IN REACH.
[2023-12-10 06:44] VITALS: BP 154/77
--- NOTE | 2023-12-10 06:52 | NUR ---
PATIENT RESING IN CHAIR. ARREAGA CATH CARE PROVIDED PER PROTOCOL. VS AND I&Os OBTAINED AND RECORDED. ASSESSMENT COMPLETE. PATIENT REPORTS NO CURRENT PAIN. BLE ELEVATED ON PILLOW. NO FURTHER NEEDS. CALL LIGHT IN REACH.
--- NOTE | 2023-12-10 07:30 | NUR ---
Recieved shift report. pt awake in bed, denies further needs. call light in reach.
--- NOTE | 2023-12-10 08:45 | NUR ---
SESSIONS CLERK GAVE PT A WARM WASHCLOTH FOR HER FACE, SOME LOTION, AND SOME CHAPSTICK. SESSIONS CLERK ALSO REFILLED PT WATER. PT RECEIVED NEW SOCKS FOR HER FEET. PT STILL COMPLAINING OF LOWER LEG PAIN AND ITCHING RN IS AWARE. NO FURTHER COMPLAINTS OR CONCERNS, CALL LIGHT AND PHONE ARE WITHIN REACH
--- NOTE | 2023-12-10 09:15 | NUR ---
THIS RN, CHALINO ([facility] INSTRUCTOR), AND STUDENTS IN ROOM GIVING MEDS. PT BEGAN GRABBING CHEST AND AND FEELING SOB. PT STATES SHE HAS FELT THIS FEELING BEFORE. STATES IT COMES AND GOES, AND ONLY HAPPENS WHEN SHE IS RELAXED. WHEN HER AFIB ACTS UP. THIS RN UNAWARE OF HISTORY OF AFIB. BP 149/62 HR 110, HR IRREGULAR. NOTIFIED MD. VERBAL EKG OBTAINED. FAMILY ARRIVED, CANELO, DAUGHTER EXPLAINED PT DOES HAVE A HX OF AFIB, BLACKSOUT, AND COMES IN CYCLES OF 4.
[2023-12-10 09:43] VITALS: BP 149/62
[2023-12-10 10:14] VITALS: BP 149/62
--- NOTE | 2023-12-10 10:27 | NUR ---
ROUNDS. PT IN CONFERENCE WITH MEDICAL STAFF. DID NOT INTERRUPT. PROVIDED PRAYER.
[2023-12-10] MEDS ORDERED: POLYETHYLENE GLYCOL 3350 1 PACKET PO SCH (11:40)
[2023-12-10] MEDS ORDERED: SENNOSIDES/DOCUSATE 1 EA TAB PO SCH (11:42)
--- NOTE | 2023-12-10 12:02 | NUR ---
PT GIVEN MIRALAX AND PO TYLENOL, BEGAN TO COUGH. STATES SHE CAN TAKE PILLS FINE AND W/O DIFFICULTY. DAUGHTER STATES SHE HAS COUGHING SPELLS WITH CERTAIN TEXTURES. COUGHING SUBSIDED.
[2023-12-10 14:05] VITALS: BP 128/56
--- NOTE | 2023-12-10 15:00 | NUR ---
GOT REPORT FROM KP ARELLANO.
--- NOTE | 2023-12-10 15:43 | NUR ---
INTO CHECK ON PATIENT. STUDENT NURSE IN ROOM WITH PATIENT AT THE TIME. PATIENT SITTING UP IN THE CHAIR TALKING. NC ON WITH 2L. PATIENT WOULD LIKE THE ULTRAM FOR HER LEG PAIN. FOCUS ASSESSMENT DONE. ROOM CLEANED UP. PATIENT HAS IV ANTIBIOTICS RUNNING. PATIENT DENIES ANY OTHER CARES AT THIS TIME. PATIENT HAS HER CALL LIGHT WITHIN REACH.
--- NOTE | 2023-12-10 16:00 | NUR ---
Spoke with Rula. She plans on dc tomorrow. Plans on SN, PT, OT ST from [facility] to resume care. She will dc to [facility]. They are will for her to return whenever she is ready for dc. Pt denies other needs. Home when cleared by Hospitalist.
--- NOTE | 2023-12-10 16:02 | NUR ---
Pt stood + walked a few steps with PT this afternoon. Tolerating antibiotics as ordered, IV site intact, denies pain at IV site. Skin check completed when patient stood with PT, no rednedd to coccyx noted. 02 saturations maintained at 2L via NC. Assessed pain, she states she may need her PRN tramadol, notified Mimi primary RN. Bowel sounds normal, Miralax provided- see eMAR. Last BM reported by patient 12/07/23, passed gas x 4 when working with PT.
--- NOTE | 2023-12-10 16:52 | NUR ---
WOUND CARE NURSE IN WITH PATIENT.
--- NOTE | 2023-12-10 17:31 | NUR ---
ASSISTED PT WITH A BED BATH AND A SHAMPOO SHOWER CAP. PT SAID SHE WAS FEELING WEAK AND DID NOT WANT TO TRY AND STAND UP IN THE SHOWER. PT REPORTED NO PAIN. CATHETER CARE WAS DONE. CALL LIGHT WITHIN REACH
[2023-12-10 18:00] VITALS: BP 139/88
--- NOTE | 2023-12-10 18:15 | NUR ---
AT 1815 A RAPID RESPONSE WAS CALLED TO ROOM 120. STUDENT NURSE WAS IN ROOM WITH PATIENT WHEN SHE COMPLAINED OF SOB AND CHEST PAIN. PATIENT HAS A HX OF AFIB, HAS THESE EPISODES AT HOME AND WILL PASS OUT AT TIMES. THIS WAS ADVISED TO US BY THE FAMILY. HOSPITALIST WAS CALLED UNABLE TO REACH, RT WAS ON WAY TO GIVE PRN NEBULIZER. PATIENT CONTINUED TO COMPLAIN OF CHEST PAIN SO RAPID RESPONSE WAS CALLED. BLOOD PRESSUE WHEN RAPID WAS CALLED: 139/88, PULSE 129, OXYGEN 95% ON CHRONIC 2L. DOCTOR ARRIVED AND ORDERED NITRO 0.4MG TO BE GIVEN AND ANOTHER 5 MINUTES LATER. THIS WAS GIVEN AT 1825. PATIENT GOT MORPHINE 2MG AT 1830. SHE THEN GOT LOPRESSOR AT 1840. A SECOND IV WAS PLACED IN PATIENTS LEFT AC. TWO EKGS WERE DONE. ONE AT THE START OF RAPID AND ONE AT THE END AFTER MEDICATIONS GIVEN. PATIENT HAD A CHEST XRAY DONE AT 1830. PATIENT WAS GIVEN ATIVAN 0.5MG AT 1850. ORDERED A PRN ATIVAN FOR PATIENTS CHART. PATIENT GOT EMOTIONAL AFTER THE MORPHINE AND WAS GETTING ANXIOUS. PATIENT WAS PLACED ON TELE #8. 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 RAPID RESPONSE WAS DONE AT 1900. PATIENT HAS IMPROVED. NO LONGER HAVING CHEST PAIN. PULSE HAS COME DOWN BELOW 100. HOSPITALIST ORDERED A TROPONIN TO BE DONE IN 2 HOURS AND 4 HOURS FROM THE FIRST ONE. ORDERS PLACED. VITALS DURING RAPID: 149/62 128/56 139/88 120/61 PULSE RAN BETWEEN 120-130S OXYGEN RAN BETWEEN 98-100.
[2023-12-10] MEDS ORDERED: MORPHINE SULFATE 4 MG/ML VIAL ONE (18:27)
[2023-12-10] MEDS ORDERED: NITROGLYCERIN 0.4 MG SUBL SL ONE ×2 (18:30→18:45)
[2023-12-10] MEDS ORDERED: MORPHINE SULFATE 4 MG/ML VIAL IV ONE (18:30)
[2023-12-10 18:31] LABS: BASOPHILS 0.7 % (0-2); EOSINOPHILS 3.2 % (0-6); HEMATOCRIT 33.6 % (35.0-50.0); HEMOGLOBIN 11.2 g/dL (12.0-18.0); LYMPHOCYTES 13.3 % (24-44); MCHC 33.3 g/dl (30-36); MONOCYTES 6.6 % (0-12); NEUTROPHILS 76.2 % (39-80); PLATELET COUNT 353 K/uL (140-440); RBC 3.61 M/ul (4.3-5.7); RDW 13.4 (10.5-15.0)
[2023-12-10] MEDS ORDERED: LORazepam 2 MG/ML VIAL IV ONE (18:45)
[2023-12-10] MEDS ORDERED: METOPROLOL TARTRATE 5 MG/5 ML VIAL IV ONE (18:45)
--- NOTE | 2023-12-10 18:45 | NUR ---
INTO CHECK ON PATIENT. PAIN IS GETTING WORSE BUT SHE DOES NOT WANT ANYTHING FOR IT YET. ADVISED HER THAT WE WANT TO KEEP ON TOP OF THE PAIN. SHE UNDERSTANDS AND WILL LET ME KNOW.
[2023-12-10 18:55] LABS: ALBUMIN 2.8 g/dL (3.4-5.0); ALBUMIN/GLOBULIN RATIO 0.7 (1.1-2.4); ANION GAP 9.8 (7-21); BILIRUBIN, TOTAL 0.3 ng/dL (0.2-1.0); BUN/CREATININE RATIO 10.4 (6.0-28.6); CALCIUM 9.2 mg/dL (8.5-10.1); CREATININE, SERUM 1.25 mg/dL (0.55-1.02); POTASSIUM 3.8 mmol/L (3.5-5.1); PROTEIN, TOTAL 6.8 g/dL (6.4-8.2)
--- NOTE | 2023-12-10 19:41 | NUR ---
REPORT RECEIVED FROM DAY SHIFT RN. PATIENT RESTING IN BED. PATIENT HAS NO CURRENT NEEDS. CALL LIGHT IN REACH.
[2023-12-10] MEDS ORDERED: LORazepam 2 MG/ML VIAL IV PRN (19:45)
[2023-12-10 20:36] VITALS: BP 125/58
[2023-12-10] MEDS ORDERED: SERTRALINE HCL 100 MG TAB PO SCH (21:00)
--- NOTE | 2023-12-10 21:00 | NUR ---
PATIENT RESTING IN BED. SCHEDULED AND PRN MEDICAITONS ADMINISTERED. PATIENT REPORTS NEEDING TO HAVE A BM. PATIENT UP TO BSC WITH 1PA AND FWW. BED BATH GIVEN TO PATIENT WHILE ON BSC. NEW GOWN PROVIDED. ANTI ITCH CREAM APPLIED. PATIENT UNABLE TO HAVE BM. THIS RN CHANGED CHAIR LINENS AND TRINA. PATIENT BACK TO CHAIR. CHAIR ALARM IN PLACE. LEGS ELEVATED ON PILLOW. NEW LINENS PLACED ON BED, AND WAFFLE MATTRESS PUMPED UP. ARREAGA CATH CARE PROVIDED PER PROTOCOL. LAB IN ROOM FOR BLOOD DRAW.
[2023-12-10] MEDS ORDERED: CEFAZOLIN SODIUM 2 GM/20 ML SYR IV SCH (22:00)
--- NOTE | 2023-12-10 22:10 | NUR ---
PATIENT RESTING IN CHAIR. IVs FLUSHED AND WNL. ABX ADMINISTERED PER ORDER. PATIENT BRANDON WELL. ASSESSMENT COMPLETE. PATIENT REPORTS FEELING COMFORTABLE. BLE ELEVATED WITH PILLOWS. CHAIR ALARM ON FOR SAFETY. PATIENT HAS NO FURTHER NEEDS. CALL LIGHT IN REACH.
--- NOTE | 2023-12-11 00:19 | NUR ---
PATIENT RESTING IN CHAIR WITH EYES CLOSED. RESPIRATIONS EVEN AND UNLABORED. CALL LIGHT IN REACH.
[2023-12-11 02:10] VITALS: BP 140/72
--- NOTE | 2023-12-11 02:40 | NUR ---
PATIENT RESTING IN CHAIR WITH EYES CLOSED. REPIRATIONS EVEN AND UNLABORED. CALL LIGHT IN REACH.
--- NOTE | 2023-12-11 04:23 | NUR ---
PATIENT RESTING IN CHAIR WITH EYES CLOSED. RESPIRATIONS EVEN AND UNLABORED. CALL LIGHT IN REACH.
[2023-12-11 05:16] VITALS: BP 166/84
--- NOTE | 2023-12-11 05:37 | NUR ---
PATIENT RESTING IN CHAIR. VS AND I&Os OBTAINED AND RECORDED. PATIENT REPOSITIONED IN CHAIR WITH PILLOWS UNDER BLE. R FOREARM IV INFILTRATED. R FOREARM IV DCd WNL WITH TIP INTACT. ABX ADMINSTERED PER ORDER. ASSESSMENT COMPLETE. PATIENT DENIES SHORTNESS OF BREATH. PATIENT REPORTS ITCHINESS IN BLE. NO FURTHER NEEDS. CALL LIGHT IN REACH.
--- NOTE | 2023-12-11 05:44 | NUR ---
PRN PAIN MEDICATION AND ITCH MEDICATION ADMINISTERED. NO FURTHER NEEDS.
[2023-12-11 08:10] VITALS: BP 133/97
[2023-12-11 09:45] VITALS: BP 143/81
--- NOTE | 2023-12-11 10:47 | NUR ---
Awake + alert, sitting in chair. Assisted patient with opening up containers and cutting up food for breakfast. Pt reminded to replace oyxgen when it falls off, and she demonstrates ability to do so. No coughing noted when she took her pills and drank fluids. Encouraged fluid intake, fresh ice water provided. B/L groin and area under pannus cleaned, dried, and cream applied per DEC. Pt took Miralax this morning, agreeable to prune juice with lunch if no bowel movement by then. Reminded to use call vernon for assistance.
[2023-12-11] MEDS ORDERED: CEFACLOR500 MG PO (11:13)
--- NOTE | 2023-12-11 11:19 | NUR ---
CALLED [facility], SPOKE WITH COLE. INFORMED HER PATIENT WOULD BE DISCHARGING TODAY BACK TO FACILITY.
--- NOTE | 2023-12-11 12:53 | NUR ---
SPOKE WITH PATIENT, SON AND [id number] REGARDING SNF VERSUS RETURNING TO [facility] WITH HOME HEALTH. SON AND [id number] CONCERNED PATIENT WILL BE NONCOMPLIANT WITH CARES IF SHE RETURNS TO [facility]. PATIENT ASKS QUESTIONS REGARDING SNF, ANSWERED ALL QUESTIONS, VERBALIZES UNDERSTANDING. STATES SHE WOULD PREFER TO RETURN TO [facility], MULTIPLE TIMES DURING CONVERSATION. SON AND [id number]-DQO'S QUESTIONS ANSWERED WELL, VERBALIZE UNDERSTANDING. PATIENT STATES HER DECISION IS TO RETURN TO [facility] AND NOT GO TO A SNF. DISCUSSED HER LIFE ALERT, OXYGEN, MEDICATIONS AND IMPORTANCE OF COMPLIANCE. VERBALIZES UNDERSTANDING. ORDERS FAXED TO [facility] AND [facility].
--- NOTE | 2023-12-12 11:54 | EKG ---
[facility] [address] [place], [place] [address] Signed Atrial fibrillation with rapid ventricular response Inferior infarct , age undetermined Abnormal ECG No previous ECGs available Confirmed by Lainey Llanos MD ([id number]) on 12/12/2023 11:54:31 AM Electronically Signed By: LAINEY LLANOS 12/12/23 1154 PATIENT NAME: LINDSEY SHELLEY Electrocardiogram DATE OF : 42 PHYSICIAN: LAINEY LLANOS REPORT #: [id number] REPORT IS CONFIDENTIAL AND NOT TO BE RELEASED WITHOUT AUTHORIZATION
--- NOTE | 2023-12-12 11:56 | EKG ---
[facility] [address] [facility] [place] [address] Signed Normal sinus rhythm Inferior infarct (cited on or before 10-DEC-2023) Abnormal ECG When compared with ECG of 10-DEC-2023 18:19, (Unconfirmed) Sinus rhythm has replaced Atrial fibrillation Nonspecific T wave abnormality no longer evident in Inferior leads Confirmed by Lainey Llanos MD ([id number]) on 12/12/2023 11:56:14 AM Electronically Signed By: LAINEY LLANOS 12/12/23 1156 PATIENT NAME: LINDSEY SHELLEY Electrocardiogram DATE OF : 42 PHYSICIAN: LAINEY LLANOS REPORT #: [id number] REPORT IS CONFIDENTIAL AND NOT TO BE RELEASED WITHOUT AUTHORIZATION
--- NOTE | 2023-12-12 11:56 | EKG ---
[facility] [address] [facility] [place] [address] Signed Sinus tachycardia with premature atrial complexes Cannot rule out Anterior infarct , age undetermined Abnormal ECG When compared with ECG of 06-JUN-2021 17:49, premature atrial complexes are now present Vent. rate has increased BY 46 BPM Nonspecific T wave abnormality now evident in Inferior leads Confirmed by Lainey Llanos MD ([id number]) on 12/12/2023 11:55:56 AM Electronically Signed By: LAINEY LLANOS 12/12/23 1156 PATIENT NAME: LINDSEY SHELLEY Electrocardiogram DATE OF : 42 PHYSICIAN: LAINEY LLANOS REPORT #: [id number] REPORT IS CONFIDENTIAL AND NOT TO BE RELEASED WITHOUT AUTHORIZATION
== END 2023-12-11 13:25 | disposition home or self-care (01) | DRG 603 ==
LOC: ED 07:50 → MS 13:26
PROVIDERS: Emergency Medicine; Internal Medicine; ADMIT Internal Medicine; ATTEND Internal Medicine
DX: L03.115 Cellulitis of right lower limb (principal); N39.0 Urinary tract infection, site not specified; E87.1 Hypo-osmolality and hyponatremia; Z66 Do not resuscitate; L03.116 Cellulitis of left lower limb; I10 Essential (primary) hypertension; R29.6 Repeated falls; M54.40 Lumbago with sciatica, unspecified side; I48.91 Unspecified atrial fibrillation; Z98.890 Other specified postprocedural states; Z88.2 Allergy status to sulfonamides; Z88.8 Allergy status to other drugs, medicaments and biological substances; Z96.643 Presence of artificial hip joint, bilateral; Z79.899 Other long term (current) drug therapy; Z79.2 Long term (current) use of antibiotics; Z79.01 Long term (current) use of anticoagulants
CPT/HCPCS: 36415; 71045; 72131; 73502; 80048; 80053; 83605; 84484; 85025; 93005; 93010; 94640; 94760; 96374; 96375; 97162; 97167; 99285-25; A9270; J0690; J0692; J0878; J1170; J2060; J2270; J2405

== ENCOUNTER 2024-07-15 20:50 | Emergency (ER) | payer MEDICARE, OTHER ==
[~2024-07-15] VITALS: Ht 167.6 cm; Wt 102.0 kg
[~2024-07-15 20:50] MED LIST changes: +BANOPHEN25 MG PO; +BENADRYL25 MG PO; +BIOFREEZE89 ML TOP; +CEFACLOR500 MG PO; +CEFADROXIL500 MG PO; +CETIRIZINE HCL5 MG PO; +CORICIDIN HBP1 EAC2 PO; +FEROSUL325 MG PO; +FLONASE ALLERG9.9 ML NAS; +HYDROCORTISO453.6 GM TOP; +IPRATROPIU0.2 MG/1 M INH; +LASIX20 MG PO; +LEVOFLOXACIN750 MG PO; +MACROBID 100 M100 MG PO; +METROGEL60 GM TOP; +METRONIDAZOLE500 MG PO; +NASAL MOISTURIZ88 ML NAS; +NYSTOP60 GM TOP; +POTASSIUM CHLO20 ME2 PO; +PROPRANOLOL HCL20 MG PO; -PROPRANOLOL HCL40 MG PO; +TIZANIDINE HCL2 MG PO; +TRAMADOL HCL50 MG PO; +VENTOLIN HFA18 GM INH; +VITAMIN C250 M1 PO; +VOLTAREN ARTHRI20 GM TOP
[2024-07-15] MEDS ORDERED: ASPERFLEX1 EACH TOP (21:13)
[2024-07-15] MEDS ORDERED: PROPRANOLOL HCL40 MG PO (21:14)
[2024-07-15] MEDS ORDERED: ROPINIROLE HCL0.5 MG PO (21:15)
[2024-07-15] MEDS ORDERED: VOLTAREN ARTHRI20 GM TOP (21:16)
[2024-07-15] MEDS ORDERED: ZOCOR20 MG PO (21:17)
[2024-07-15] MEDS ORDERED: BANOPHEN25 MG PO (21:19)
[2024-07-15 21:20] LABS: BASOPHILS 0.2 % (0-2); EOSINOPHILS 2.5 % (0-6); HEMATOCRIT 33.9 % (35.0-50.0); HEMOGLOBIN 11.2 g/dL (12.0-18.0); LYMPHOCYTES 12.8 % (24-44); MCH 31.7 (27-36); MCHC 33.1 g/dl (30-36); MCV 95.8 fl (81-99); MONOCYTES 7.4 % (0-12); NEUTROPHILS 77.1 % (39-80); PLATELET COUNT 319 K/uL (140-440); RBC 3.54 M/ul (4.3-5.7); RDW 13.4 (10.5-15.0)
[2024-07-15] MEDS ORDERED: BIOFREEZE89 ML TOP (21:20)
[2024-07-15 21:36] LABS: ALBUMIN/GLOBULIN RATIO 0.81 (1.1-2.4); ANION GAP 11.2 (7-21); BILIRUBIN, TOTAL 0.4 ng/dL (0.2-1.0); BUN/CREATININE RATIO 18.84 (6.0-28.6); CREATININE, SERUM 1.38 mg/dL (0.55-1.02); MAGNESIUM 2.2 mg/dL (1.8-2.4); POTASSIUM 4.2 mmol/L (3.5-5.1); PROTEIN, TOTAL 6.7 g/dL (6.4-8.2)
[2024-07-15] MEDS ORDERED: XANAX0.5 MG PO (22:38)
[2024-07-15 23:10] VITALS: BP 153/75
[2024-07-15] MEDS ORDERED: LORazepam 1 MG HOME.PACK PO ONE (23:15)
== END 2024-07-15 23:10 | disposition home or self-care (01) ==
LOC: ED 20:50
PROVIDERS: Family Medicine
DX: R25.1 Tremor, unspecified (principal); I10 Essential (primary) hypertension; Z88.2 Allergy status to sulfonamides; Z88.8 Allergy status to other drugs, medicaments and biological substances; Z79.899 Other long term (current) drug therapy
CPT/HCPCS: 36415; 80053; 83735; 85025; 99285

== ENCOUNTER 2024-08-25 09:55 | Inpatient (IN) | payer MEDICARE, OTHER ==
[~2024-08-25] VITALS: Ht 167.6 cm; Wt 96.6 kg
[~2024-08-25 09:55] MED LIST changes: +ASPERFLEX1 EACH TOP; +PROPRANOLOL HCL40 MG PO; +XANAX0.5 MG PO
[2024-08-25] MEDS ORDERED: CEFTRIAXONE/SODIUM CHLORIDE 2 GM/100 ML PIGGYBACK IV ONE (10:00)
[2024-08-25] MEDS ORDERED: LACTATED RINGER'S 1,000 ML IV ONE (10:00)
[2024-08-25 10:30] LABS: BASOPHILS 0.3 % (0-2); EOSINOPHILS 1.3 % (0-6); HEMATOCRIT 36.6 % (35.0-50.0); HEMOGLOBIN 12.3 g/dL (12.0-18.0); LYMPHOCYTES 3.1 % (24-44); MCH 31.6 (27-36); MCHC 33.6 g/dl (30-36); MCV 93.8 fl (81-99); MONOCYTES 2.8 % (0-12); NEUTROPHILS 92.5 % (39-80); PLATELET COUNT 381 K/uL (140-440); RDW 13.5 (10.5-15.0)
[2024-08-25] MEDS ORDERED: LIDOCAINE 2% VISCOUS 6 ML SYR TOP ONE (10:30)
[2024-08-25 10:40] LABS: INR 0.97 (0.80-1.30); PROTIME 12.5 Sec (11.2-14.2)
[2024-08-25 10:42] LABS: PARTIAL THROMBOPLASTIN TIME 24.5 Sec (22.9-41.3)
[2024-08-25 10:46] LABS: ALBUMIN 2.9 g/dL (3.4-5.0); ALBUMIN/GLOBULIN RATIO 0.66 (1.1-2.4); ANION GAP 14.8 (7-21); BILIRUBIN, TOTAL 0.6 ng/dL (0.2-1.0); CALCIUM 9.1 mg/dL (8.5-10.1); CREATININE, SERUM 1.2 mg/dL (0.55-1.02); POTASSIUM 3.8 mmol/L (3.5-5.1); PROTEIN, TOTAL 7.3 g/dL (6.4-8.2)
[2024-08-25 10:49] LABS: BILIRUBIN, URINE NEGATIVE (negative); BLOOD/HGB, URINE TRACE-I (Negative); KETONE, URINE NEGATIVE (Negative); LEUK ESTERASE, URINE MODERATE (negative); NITRITE, URINE NEGATIVE (negative)
[2024-08-25 10:50] LABS: LACTIC ACID, BLOOD 1.1 mmol/L (0.4-2.0)
[2024-08-25 11:00] LABS: BACTERIA, URINE RARE /hpf (negative); CASTS, URINE NONE SEEN \\lpf; COLLECTION TYPE, URINE CATH; CRYSTALS, URINE NONE SEEN (0-1+); EPITHELIAL CELLS, URINE OCCASIONAL /lpf (0-1+); REFLEX CULTURE, URINE Yes (No)
[2024-08-25 11:01] LABS: PH, VENOUS 7.355 (7.31-7.41)
[2024-08-25 11:25] LABS: INFLUENZA B NAA NEGATIVE (NEGATIVE); RESPIRATORY SYNCYTIAL VIR NAA NEGATIVE (NEGATIVE)
[2024-08-25] MEDS ORDERED: ACETAMINOPHEN 500 MG TAB PO ONE (13:30)
[2024-08-25] MEDS ORDERED: DEXAMETHASONE SOD PHOS 10 MG/ML VIAL IV ONE (13:30)
--- NOTE | 2024-08-25 15:32 | EKG ---
[facility] [address] [place], [place] [address] Signed Sinus tachycardia Low voltage QRS Possible Inferior infarct (cited on or before 10-DEC-2023) Abnormal ECG When compared with ECG of 10-DEC-2023 18:45, No significant change was found Confirmed by Bartolo Khanna MD ([id number]) on 08/25/2024 3:32:00 PM Electronically Signed By: BARTOLO KHANNA MD 08/25/24 1532 PATIENT NAME: LINDSEY SHELLEY Electrocardiogram DATE OF : 42 PHYSICIAN: BARTOLO KHANNA MD REPORT #: [id number] REPORT IS CONFIDENTIAL AND NOT TO BE RELEASED WITHOUT AUTHORIZATION
[2024-08-25] MEDS ORDERED: LACTATED RINGER'S 1,000 ML IV SCH (15:45)
[2024-08-25] MEDS ORDERED: ACETAMINOPHEN 325 MG TAB PO PRN (15:45)
--- NOTE | 2024-08-25 17:00 | NUR ---
Pt arrived to room at about 1700 hours, transferred here from ED via stretcher by this RN and Cathie Clemons. Pt was sheet transferred by 4 staff from stretcher to bed. Pt is A&O x4, reports pain in her hips at her baseline of 3 out of 10. Two RN skin assessment performed by this RN and KP Conde (See chart). Pt oriented to room and call light, side rails up x4.
--- NOTE | 2024-08-25 17:45 | NUR ---
Dr. Frost in with pt
[2024-08-25] MEDS ORDERED: ALBUTEROL SULFATE 0.083% 3 ML VIAL INH PRN (18:00)
[2024-08-25] MEDS ORDERED: AZITHROMYCIN 250 MG TAB PO SCH (18:58)
[2024-08-25] MEDS ORDERED: REMDESIVIR 200 MG in SODIUM CHLORIDE 0.9% 210 ML IV ONE ×2 (19:00→22:00)
[2024-08-25] MEDS ORDERED: LIDOCAINE HCL 4% 1 EACH PATCH TD SCH (19:04)
[2024-08-25 19:14] VITALS: BP 141/64
[2024-08-25] MEDS ORDERED: DICLOFENAC 1% TOPICAL GEL TOP PRN (19:15)
--- NOTE | 2024-08-25 19:30 | NUR ---
SHIFT REPORT RECEIVED FROM DAYSHIFT KP CRABTREE. pt AWAKE AND RESTING IN BED, ON 2LNC. CPOX IN ROOM. SPO2 99%, HR 104. pt DENIES NEEDS OR CONCERNS AT THIS TIME, CALL LIGHT AND PERSONAL BELONGINGS IN REACH.
[2024-08-25 20:14] VITALS: BP 141/78
--- NOTE | 2024-08-25 20:23 | NUR ---
TABLEAU ANALYST OBTAINED VITALS AND I&O. PT STATES THAT HER "LEGS ARE BOTHERING ME" AND REQUESTING HER RESTLESS LEG SYNDROME MED. PT ALSO STATES THAT HER CHEST IS HURTING AND THAT IT FELT DIFFERENT THAN HER AFIB. SOCIAL MEDIA CONTENT SPECIALIST AND PRIMARY RN NOTIFED.
--- NOTE | 2024-08-25 20:25 | NUR ---
IN ROOM pt REPORTING "CHEST PAIN" PER MAPPING PILOT. SCHEDULED GABAPENTIN AND RLS MEDICATION GIVEN PER pt REQUEST, CPOX REMAINS IN ROOM AND SPO2 IN MID TO UPPER 90'S AND HR 105 PER MONITOR. APICAL HEART RATE OBTAINED, DISTANT WITH AUSCULTATION AND APPEAR REGULAR-RATE 98. pt REPORTS SHE HAS BEEN COUGHING "SOMETIMES", DENIES CHEST PAIN WITH COUGH, DESCRIBES "A ROCK HITTING" WHEN ASKED. pt REMAINS FIDGETY AND CONTINUES TO DESCRIBE HER LAST HOSPITALIZATION HERE "THE WORST NIGHT OF SLEEP, MY LEGS HURT SO BAD THAT NIGHT". AT APPROX 2034 DR SCHROEDER UPDATED ON ABOVE INFORMATION-TELEPHONE ORDER READ BACK FOR REPEAT STAT EKG, STAT TROPONIN. IMAGING ALSO CALLED AND TO COME IN TO COLLET CHEST CT.
[2024-08-25] MEDS ORDERED: ALPRAZolam 0.5 MG TAB PO PRN (20:45)
[2024-08-25 21:00] VITALS: BP 141/78
[2024-08-25] MEDS ORDERED: GABAPENTIN 300 MG CAP PO SCH (21:00)
[2024-08-25] MEDS ORDERED: ROPINIROLE HCL 0.25 MG TAB PO SCH (21:00)
[2024-08-25] MEDS ORDERED: MELATONIN 3 MG TAB PO PRN (21:00)
[2024-08-25] MEDS ORDERED: LIDOCAINE PATCH REMOVAL 1 EA TD SCH (21:00)
--- NOTE | 2024-08-25 21:05 | NUR ---
pt TO CT AT THIS TIME, DR SCHROEDER ROUNDED ON pt AND REVIEWED EKG RESULTS. PER DR SCHROEDER, RHYTHM SINUS TACHY. VERBAL ORDER READ BACK, PLACE pt ON TELE AFTER CT IS DONE AND pt BACK TO FLOOR. NYLON MACHINE OPERATORKP OLSEN UPDATED AND AWARE.
[2024-08-25] MEDS ORDERED: SODIUM CHLORIDE 0.9% 250 ML IV ONE (21:58)
--- NOTE | 2024-08-25 22:40 | NUR ---
LIDOCAINE PATCH TO RIGHT LOWER BACK, DATED AND INITIALED. IV SITE WNL, CPOX REMAINS IN PLACE AND TELE-SINUS RHYTHM PER TELE MONITOR. pt REPORTS EARLIER REPORTED CHEST PAIN "IS ALL GONE". NO DISTRESS NOTED, pt WAS RESTING QUIETLY IN BED WITH EYES CLOSED, AWOKE EASILY TO VOICE. SECOND RN TEE IN ROOM FOR SKIN ASSESSMENT-ALLEVYN X2 NOTED TO RLE NEAR ANKLE AREA. ALLEVYNS REMAIN INTACT, CMS INTACT PER pt., SIN WARM TO THE TOUCH AND DRY, CMS INTACT. pt DENIES NUMBNESS AND TINGLING. CAP REFILL WNL. ALEVYN ALSO NOTED BELOW LEFT BUTTOCKS NEAR UPPER PORTION OF HAMSTRING AREA-ALLEVYN C/D/I. pt HAS WOUND CONSULT ALREADY ORDERED-DISCUSSED WITH LUMBER PILERKP OLSEN. ALLEVYNS LEFT IN PLACE AT THIS TIME FOR WOUND CERTIFICED RN TO EVAL ON UPCOMING DAYSHIFT.
[2024-08-26] VITALS (10 sets, daily range): BP systolic 138–151; BP diastolic 63–86
--- NOTE | 2024-08-26 00:51 | NUR ---
ROUNDED ON pt, pt RESTING QUIETLY IN BED WITH EYES CLOSED. O2 REMAINS IN PLACE, SPO2 IN THE 90'S AND HR 90'S WELL. NO DISTRESS NOTED. CALL LIGHT IN REACH ALONG WITH PERSONAL BELONGINGS.
--- NOTE | 2024-08-26 02:00 | NUR ---
MILLWRIGHT HELPER OBTAINED VITALS AND I&O. CATH BAG EMPTIED. PT STATES NO NEEDS AT THIS TIME. CALL LIGHT WITHIN REACH AND BED ALARM ON.
--- NOTE | 2024-08-26 02:23 | NUR ---
rounded on pt, pt awake and resting in bed. aerial installer recently out of room and collected vs and i&o's. cath care done. focused assessment completed, pt denies chest pain and sob. cpox remains in place, remains on 3lnc. lung sounds clear, somewhat diminished in lower lobes. allevyn to left posterior upper thigh remains c/d/i. allevyn to right lateral le near ankle remains intact-with small amount brown shadowing-no change from start of shift. medial allevyn to rle remains c/d/i. pt able to turn and change positions in bed, fresh ice water provided per pt request. no additional needs or concerns verbalized, call light in reach.
--- NOTE | 2024-08-26 05:30 | NUR ---
ROUNDED ON pt, pt RESTING QUIETLY IN BED AM VS REENTLY COMPLETED. CPOX AT BEDSIDE AND pt REMAINS ON 3LNC. BED ALARM ON AND CALL LIGHT IN REACH.
[2024-08-26 05:35] LABS: BASOPHILS 0.2 % (0-2); HEMATOCRIT 29.2 % (35.0-50.0); LYMPHOCYTES 3.5 % (24-44); MCH 32.4 (27-36); MCHC 34.3 g/dl (30-36); MCV 94.5 fl (81-99); MONOCYTES 3.5 % (0-12); NEUTROPHILS 92.8 % (39-80); PLATELET COUNT 260 K/uL (140-440); RBC 3.09 M/ul (4.3-5.7); RDW 13.4 (10.5-15.0)
[2024-08-26 05:53] LABS: ANION GAP 9.7 (7-21); BUN/CREATININE RATIO 15.84 (6.0-28.6); CALCIUM 8.8 mg/dL (8.5-10.1); CREATININE, SERUM 1.01 mg/dL (0.55-1.02); MAGNESIUM 1.8 mg/dL (1.8-2.4); POTASSIUM 3.7 mmol/L (3.5-5.1)
--- NOTE | 2024-08-26 06:03 | NUR ---
CALL LIGHT ANSWERED. PT NEEDED TO HAVE BM. THIS FREE LANCE ARTIST AND FREE LANCE ARTIST LELA ASSISTED PT TO BSC. PT HAD MEDIUM BM. PT ASSISTED WITH PUTTING ON NEW BREIF. PT 2PA BACK TO BED. NEW CHUCKS PAD AND DRAW SHEET PLACED ON BED. PT STATES NO FURTHER NEEDS AT THIS TIME. CALL LIGHT WITHIN REACH AND BED ALARM ON.
--- NOTE | 2024-08-26 06:57 | NUR ---
Pt report received from KP Veras. Pt is resting in bed with eyes closed, mouth agape, breathing is regular, even, and non-labored. Call light is in reach, side rails up x4.
--- NOTE | 2024-08-26 08:08 | NUR ---
med rec complete.
--- NOTE | 2024-08-26 08:51 | NUR ---
Breakfast tray was brought in by JUNIOR MECHANICAL ENGINEER. Another aid was brought in to boost the patient in bed. They requested a cup and straw for their orange juice that was then given. Tray was then set up and no other cares were requested.
[2024-08-26] MEDS ORDERED: REMDESIVIR 100 MG in SODIUM CHLORIDE 0.9% 230 ML IV SCH (09:00)
[2024-08-26] MEDS ORDERED: ENOXAPARIN SODIUM 40 MG/0.4 ML SYR SUB-Q SCH (09:00)
[2024-08-26] MEDS ORDERED: CEFTRIAXONE/SODIUM CHLORIDE 2 GM/100 ML PIGGYBACK IV SCH (09:00)
[2024-08-26] MEDS ORDERED: SERTRALINE HCL 100 MG TAB PO SCH (09:00)
[2024-08-26] MEDS ORDERED: PANTOPRAZOLE SODIUM 40 MG TABEC PO SCH (09:00)
[2024-08-26] MEDS ORDERED: PROPRANOLOL HCL 20 MG TAB PO SCH (09:00)
--- NOTE | 2024-08-26 10:37 | NUR ---
RT in room. TELE battery replaced. RN notified of IV pump alarm.
--- NOTE | 2024-08-26 10:41 | NUR ---
PT NOT AVAILABLE FOR VISIT. PROVIDED PRAYER.
[2024-08-26] MEDS ORDERED: CEPHALEXIN500 MG PO (10:52)
[2024-08-26] MEDS ORDERED: FLUTICASONE PRO12 GM INH (10:54)
--- NOTE | 2024-08-26 11:25 | NUR ---
CALL TO RT, WILL AWAIT PT SYMPTOMS TO IMPROVE, PLAN TO DO PFT TESTING TOMORROW. MD NOTIFIED AND AGREES WITH PLAN. PRIMARY RN NOTIFIED.
--- NOTE | 2024-08-26 11:27 | NUR ---
UR CLINICAL REVIEW: 2MN NINA-MEETS INPT MEDICARE INPT 08/25/24 @ 1547 ORDER MATCHES REG NO AUTH REQUIRED PER MEDICARE RULES PLAN TO DC TO [facility] WHEN STABLE.
--- NOTE | 2024-08-26 11:41 | NUR ---
MED REC COMPLETE
[2024-08-26] MEDS ORDERED: PHARMACY RENAL DOSE ADJUSTMENT 1 DOSE MISC PO SCH (12:00)
--- NOTE | 2024-08-26 13:25 | NUR ---
IN ROOM TO ASSIST PATIENT TO BEDSIDE COMMODE WITH KP SALINAS. ELLIS CARE PROVIDED, BREIF CHANGED. VITALS ASSESSED. PATIENT DENIES ADDITIONAL NEEDS AT THIS TIME. CALL LIGHT IN REACH.
--- NOTE | 2024-08-26 14:29 | NUR ---
RECEIVED CALL FOR CCU ABOUT THE TELEMETRY, THEY REPORT SINUS TACH WHEN LEADS ARE WORKING BUT THEY ARE SO ON/OFF. PER MD, OKAY TO DISCONTINUE THE TELEMETRY AT THIS TIME. ORDERS UPDATED, PRIMARY RN NOTIFIED.
--- NOTE | 2024-08-26 14:47 | NUR ---
PT in the room and getting patient settled in their chair with RN. Charge nurse entered and TELE was removed and returned to CCU. No other cares were requested.
--- NOTE | 2024-08-26 15:50 | NUR ---
Spoke with Rula. She recognizes me from her last admission. She cont. to live at [facility]. States her battery for her DBS ran out and she went to a appt this week. She began feeling unwell and was not able to stand or walk. She came to the ER yesterday and was + for covid and has a UTI. Pt uses a walker in her room at [facility] and a wc when she goes to other parts of the building. She would like to return to [facility], but will need to be a 1 person assist to return. She is agreeable to go to [facility] if she remains a 2 person assist. As she has covid, she would not be able to admit there until she is 5 days out from +test and asymptomatic. Plan was made with pt to review on Thursday how she is feeling and if she is back to baseline walking. If not we will consider placement to a [facility] SNF on or Thu. She would need to be asymptomatic. I will fax her chart to [facility] for review on Thursday. She denies needs, c/o weakness and exhaustion. States concern for a vascular wound on her leg. Her DrOsmani will not replace the battery in her DBS until her wound heals. Pt does have significant tremors. Will fu with pt on Thursday.
--- NOTE | 2024-08-26 16:41 | NUR ---
Received a call from Cari at [facility]. UPdated given. She states concern pt will be returned over the weekend. UPdated pt is a 2 person assist and we are aware she is over their level of care. PT is recommending SNF, but she cannot admit to them for at least 5 days due to her Covid + status. We will review on Thursday and update. Chart faxed to [facility] to Siomara for review on Thursday.
[2024-08-26] MEDS ORDERED: IPRATROPIUM BROMIDE 2.5 ML VIAL INH PRN (17:15)
--- NOTE | 2024-08-26 17:43 | NUR ---
Imaging in room when dinner was brought. No cares were needed.
--- NOTE | 2024-08-26 18:05 | NUR ---
pt in bed ate half a sandwich for dinner, does not want her lights on in her room at this time.
--- NOTE | 2024-08-26 19:24 | NUR ---
Received report from KP Sharp. Pt resting in bed. Pt inquiring about new anxiety meds ord. Airborne prec in place.
--- NOTE | 2024-08-26 19:37 | NUR ---
PRODUCTION ASSEMBLY SUPERVISOR OBTAINED VITALS AND I&O. ARREAGA CATH EMPTIED. PT STATES NO NEEDS AT THIS TIME. CALL LIGHT WITHIN REACH AND BED ALARM ON. ICE WATER REFILLED.
--- NOTE | 2024-08-26 20:45 | NUR ---
PT RESTING COMFORTABLY IN BED. ORIENTED X 4. VSS. DENIES PAIN. USES CALL LIGHT APPROPRIATELY. AIRBORE PRECAUTIONS IN PLACE FOR COVID (+). NOTED W/ COARSE TREMORS X 4, PT REPORTS WORSENING TREMORS EACH DAY. LSC DIM TO BASES. 3L O2 NC IN PLACE. CPOX IN PLACE. DENIES SOB. SHIRRING TENDER COUGH OCCASIONALLY. HRR, MURMUR. BTA, REPORTS LBM TODAY. ARREAGA IN PLACE-CLEAR YELLOW URINE. CATHETER CARE PROVIDED. DRSGS X 2 TO RLE CDI. SMALL REDDENED AREA TO LEFT GLUTEAL CLEFT. ELLIS AREA W/ BARRIER CREAM IN PLACE. NOTED SKIN FOLDS TO GROIN, PANNUS AND BREASTS MOIST, SLIGHTLY REDDENED-AREAS CLEANSED AND DRIED. LOTION APPLIED TO BLE PER PT REQUEST. SL RAC. CALL LIGHT WITHIN REACH.
--- NOTE | 2024-08-26 21:20 | NUR ---
DR. SCHROEDER OK'D ORDER FOR PRN VISTARIL PER PT REQUEST FOR ADD'L ANXIETY MED AND ORD NEW DESENEX ANTI-FUNGAL POWDER FOR SKIN FOLDS.
[2024-08-26] MEDS ORDERED: hydrOXYzine pamoate 25 MG CAP PO PRN (21:45)
--- NOTE | 2024-08-26 22:37 | NUR ---
SLEEPING SOUNDLY. APPEARS COMFORTABLE. CALL LIGHT WITHIN REACH.
--- NOTE | 2024-08-26 23:30 | NUR ---
PT AWAKE, DENIES NEEDS. REPOSITIONED TO LEFT SIDE W/ 2 ASSIST.
[2024-08-27] VITALS (9 sets, daily range): BP systolic 110–177; BP diastolic 65–90
--- NOTE | 2024-08-27 01:43 | NUR ---
SLEEPING SOUNDLY. APPEARS COMFORTABLE. CPOX IN PLACE, SATS 96% ON 3L O2.
--- NOTE | 2024-08-27 03:35 | NUR ---
PT AWAKE, REQUESTING REPOSITION IN BED. PT SUPINE, HEELS FLOATED ON PILLOWS. CALL LIGHT WITHIN REACH.
--- NOTE | 2024-08-27 05:29 | NUR ---
CALL LIGHT ANSWERED. PT WANTED A WARM BLANKET. SPOT SPRAYER BROUGHT WARM BLANKET AND REFILLED PT ICE WATER. SPOT SPRAYER THEN OBTIANED AND DOCUMENTED VITALS AND I&O. PT ARREAGA BAG EMPTIED. PT STATES NO FURTHER NEEDS AT THIS TIME AND CALL LIGHT WITHIN REACH AND BED ALARM ON.
--- NOTE | 2024-08-27 07:21 | NUR ---
REPORT RECEIVED FROM KP HE. PT RESTING EYES CLOSED RR EVEN AND UNLABORED, CPOX 95%. NO NEEDS AT THIS TIME, CALL LIGHT IN REACH.
[2024-08-27] MEDS ORDERED: MICONAZOLE NITRATE 1 EA BTL TOP SCH (09:00)
[2024-08-27 09:32] LABS: PROCALCITONIN 0.44 ng/mL (())
--- NOTE | 2024-08-27 10:44 | NUR ---
INITIAL ASSESSMENT AND MEDICATIONS PER MAR COMPLETE. PT FIRST BEING SEEN BY RESPIRATORY THERAPY, THEN BY DR SCHROEDER. PT ASKING QUESTIONS AND ENGAGED IN HER CARES. KAITLYNN BEASLEY, RN IS PRESENT DOING DRESSING CHANGES ON PTs TWO RLE WOUNDS. PT HAS AN EPISODE OF 50ML EMESIS AFTER ORDERED ABX FINISHES, CURRENTLY REPORTS NO LINGERING NAUSEA. SKIN CLEANSED BENEATH BILAT BREASTS AND POWDER APPLIED PER ORDERS. PT WITH NC IN PLACE, CPOX AT BEDSIDE READS SPO2 OF 99% ON 3L. NO OTHER NEEDS AT THIS TIME, CALL LIGHT IN REACH, BED ALARM ON.
--- NOTE | 2024-08-27 11:30 | NUR ---
WOUND CARE CONSULTED FOR WOUNDS TO THE RLE. HISTORY OF PRESENT ILLNESS: PT IS AN 84 YEAR OLD FEMALE ADMITTED ON 08/25/24 FOR COVID AND SEPSIS RELATED TO UTI. ULCER NOTED TO LATERAL ASPECT OF RLE. PT STATES THIS WOUND INITIALLY OCCURRED AFTER BUMPING HER RLE ON A WIRE STICKING OUT OF HER WALKER. PT REPORTS THE WOUND HAS BEEN PRESENT, NON-HEALING FOR SEVERAL MONTHS. PT [facility], WHERE [facility] VISITS AND MANAGES THE WOUND CARE. SMALL PUNCTURE WOUND NOTED ON MEDIAL ASPECT OF RLE. WOUND RELATED TO ENDOVASCULAR PROCEDURE - VENASEAL OF THE RLE ON 08/23/24 AT [facility] ENDOVASCULAR SURGERY BY DR. MARTHA VILLALOBOS MD IN [place], [place]. 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 CHRONIC ARREAGA CATHETER. PFT ON 08/27/24 SHOWS SEVERE OBSTRUCTIVE AIRWAY DISEASE. PT CURRENTLY ON 3L O2 NC. ALLERGIES: SULFA WOUND ASSESSMENT: RIGHT LATERAL LOWER EXTREMITY, SUSPECTED ETIOLOGY MIXED VENOUS AND ARTERIAL INSUFFICIENCY. CLASSIFICATION: FULL THICKNESS SIZE: 5 CM X 3.2 CM X 0.5 CM WOUND BASE: 25% PINK MOIST GRANULATION TISSUE, 75% YELLOW, ADHERENT SLOUGH. EDGES: OPEN IRREGULAR EXUDATE: Yellow tinge serous, MODERATE AMOUNT. ELLIS WOUND SKIN: INTACT PINK DRY WARM LE ASSESSMENT: BLE PALE FROM ANKLES TO TOES, MANAGER TAX >3 SECONDS. DP AND PT PULSES PER DOPPLER - MONOPHASIC. NO EDEMA NOTED. DRESSING IN PLACE REMOVED. WOUND CLEANSED WITH NS. DEBRISOFT LOLLY MONOFILAMENT DEBRIDER USED TO REMOVE LOOSELY ADHERENT SLOUGH. WOUND PATTED DRY. SKIN PREP APPLIED TO PERIWOUND SKIN AND ALLOWED TO DRY. MAXORB SILVER ALGINATE PLACED IN WOUND BED AND SECURED WITH BORDERED FOAM DRESSING. PT TOLERATED WELL. WOUND ASSESSMENT: RIGHT MEDIAL LOWER EXTREMITY PUNCTURE WOUND. ETIOLOGY SURGICAL. WOUND CURRENTLY CLOSED, ECCHYMOSIS PRESENT. TREATMENT RECOMMENDATIONS RIGHT LATERAL LOWER EXTREMITY WOUND: CLEANSE WITH NS AND DEBRISOFT LOLLY TO REMOVE YELLOW SLOUGH. STOP USE OF DEBRISOFT LOLLY ONCE THERE IS NO SLOUGH LEFT IN THE WOUND BASE. PAT DRY. APPLY SKIN PREP TO PERIWOUND SKIN AND ALLOW TO DRY. CUT MAXORB SILVER ALGINATE TO FIT WOUND BASE AND SECURE WITH BORDERED ADHESIVE FOAM DRESSING. CHANGE DRESSING THREE TIMES WEEKLY ON THURSDAY, THURSDAY AND THURSDAY AND WHEN SOILED OR LOOSE. RIGHT MEDIAL PUNCTURE WOUND: OKAY TO KEEP OPEN TO AIR. DO NOT SOAK OR SUBMERGE IN WATER. RECOMMEND TO CONTINUE OUTPATIENT WOUND CARE WITH HOME HEALTH AFTER DISCHARGE. GOALS: HEAL. DECREASE TOPICAL BACTERIAL BURDEN AND REMOVE SLOUGH. WOUND CARE SIGNING OFF. PLEASE RE-CONSULT FOR ANY NEW CONCERNS.
--- NOTE | 2024-08-27 12:04 | NUR ---
PT HAS INCONTINENCE EPISODE OF STOOL. PERICARE PROVIDED, BED LINENS CHANGED. PHYSICAL THERAPY IN ROOM TO ASSIST AND EVALUATE PT. PT UP TO BSC WITH 2 PERSON ASSIST AND FWW. PT O2 SAT DECREASES WITH ACTIVITY BUT RECOVERS QUICKLY WITH REST. PT PASSES PARTIAL BM IN BSC, PERICARE PROVIDED. PT TO RECLINER WITH 2 PERSON ASSIST AND FWW. CHAIR ALARM IN PLACE, CALL LIGHT IN REACH. NO FURTHER REQUESTS AT THIS TIME.
--- NOTE | 2024-08-27 12:49 | NUR ---
OXYGEN HUMIDIFIER IN PLACE FOR PT COMFORT, OXYGEN AT 3L VIA NC. PT BEGINS WORKING ON LUNCH. MODERATE TREMOR NOTED. PT FEEDING SELF INDEPENDENTLY SITTING UP IN RECLINER. NO OTHER NEEDS AT THIS TIME, CALL LIGHT IN REACH.
--- NOTE | 2024-08-27 13:51 | NUR ---
PT ASSISTED TO BSC WITH 2PA AND FWW. ELLIS-CARE PROVIDED, BARRIER CREAM APPLIED. PT ASSISTED BACK TO RECLINER, BLE ELEVATED ON A PILLOW, ARREAGA CATH DRAINING FREELY. PT REQUESTING PRN ANXIETY MEDICATION, PROVIDED. PT WITH NO OTHER NEEDS AT THIS TIME. CHAIR ALARM ON, CALL LIGHT IN REACH.
--- NOTE | 2024-08-27 15:52 | NUR ---
CALLED DR SCHROEDER TO REQUEST PRN NAUSEA/VOMITING MEDICATION FOLLOWING PTs COMPLAINT OF NAUSEA AND EPISODE OF EMESIS THIS MORNING. DR SCHROEDER PLACES ORDER.
[2024-08-27] MEDS ORDERED: ONDANSETRON 4 MG TAB ODT SL PRN (16:00)
--- NOTE | 2024-08-27 16:08 | NUR ---
SECOND ASSESSMENT COMPLETE. PT REMAINS UP IN RECLINER, CPOX IN PLACE AT CHAIRSIDE AT 97%, 3L NC IN PLACE. FRESH ICE WATER PROVIDED. PT REPORTS L SIDED PAIN, RATES HER PAIN 4/10 BUT DECLINES PHARMALOGICAL INTERVENTION AT THIS TIME. PT PLEASANTLY CONVERSANT, TREMOR NOTED IN HANDS, FEET, AND CHIN. CALL LIGHT IN LAP, NO OTHER NEEDS AT THIS TIME.
[2024-08-27] MEDS ORDERED: AMOXICILLIN/CLAVULANATE K 875 MG TAB PO SCH (17:00)
--- NOTE | 2024-08-27 17:34 | NUR ---
MEDICATION ADMINISTRATION PER DEC. PT UP IN RECLINER, SUPPER ALSO DELIVERED. PT SWALLOWS MEDICATION WITHOUT ISSUE, STARTS WORKING ON SUPPER. CPOX AT CHAIRSIDE READS 95% SPO2 WITH 3L NC. PT CONVERSANT. CALL LIGHT IN REACH, CHAIR ALARM ON, NO OTHER NEEDS AT THIS TIME.
--- NOTE | 2024-08-27 19:18 | NUR ---
RECEIVED REPORT FROM HILLARY RN'S. PT RESTING IN BED, NO COMPLAINTS OR NEEDS AT THIS TIME. [facility].
--- NOTE | 2024-08-27 20:27 | NUR ---
PATIENT IN BED RESTING AT THIS TIME. VITALS AND I&O'S DONE AND CHARTED. SKIN CARE DONE. CALL LIGHT IN REACH. NO FURTHER NEEDS AT THIS TIME.
[2024-08-27] MEDS ORDERED: PRIMIDONE 50 MG TAB PO SCH (21:00)
--- NOTE | 2024-08-27 21:00 | NUR ---
PT RESTING IN BED. VSS. DENIES PAIN. 3L O2 N/C IN PLACE. CPOX IN PLACE. LS DIM T/O. NO SOB. AIRBORNE PREC FOR COVID. HRR. BTA. ARREAGA IN PLACE-CLEAR YELLOW URINE. CATHETER CARE DONE BY RN. PT HAS COARSE TREMORS X 4 AND MOUTH. DRSG TO RLE MEDIAL DC'D-VERY SMALL PUNCTURE INC W/ SCAB. RLE LATERAL DRSG CDI. RASH TO BILAT BREAST, PANNUS, GROIN-CLEANSED W/ SOAP AND WATER AND ANTI-FNGAL APPLIED PER EMAR. LW SL IN PLACE. NO OTHER NEEDS IDENTIFIED. CALL LIGHT WITHIN REACH.
--- NOTE | 2024-08-27 21:36 | NUR ---
PT REPORTED MISSING CLOTHES AND DEEP BRAIN STIM REMOTE. PT'S BELONGINGS FOUND AND RETURNED TO HER ROOM. PT PLEASED.
--- NOTE | 2024-08-27 22:42 | NUR ---
PT SLEEPING SOUNDLY. CPOX IN PLACE, O2 SAT 96%. CALL LIGHT WITHIN REACH.
[2024-08-28] VITALS (9 sets, daily range): BP systolic 95–174; BP diastolic 53–94
--- NOTE | 2024-08-28 00:10 | NUR ---
PT SLEEPING SOUNDLY. LIGHTLY SNORING. CPOX IN PLACE, O2 SATS 96%.
--- NOTE | 2024-08-28 02:57 | NUR ---
PT SLEEPING SOUNDLY. CPOX IN PLACE-96% ON 3L O2. CALL LIGHT WITHIN REACH.
--- NOTE | 2024-08-28 04:49 | NUR ---
SLEEPING SOUNDLY. CPOX = 97% ON 3L O2. CALL LIGHT WITHIN REACH.
--- NOTE | 2024-08-28 04:52 | NUR ---
SLEPT WELL OVERNIGHT. AIRBORNE PRECAUTIONS IN PLACE. 3L O2. CPOX ON. TREMORS X 4, NEW PRIMIDONE ORD. DBS BATTERY . CHRONIC ARREAGA. RLE ULCER-CHANGE JEANNETTE Ruby-W-Romario.
[2024-08-28 05:40] LABS: BASOPHILS 0.1 % (0-2); EOSINOPHILS 0.1 % (0-6); HEMATOCRIT 32.4 % (35.0-50.0); HEMOGLOBIN 10.7 g/dL (12.0-18.0); LYMPHOCYTES 12.3 % (24-44); MCH 31.3 (27-36); MCHC 33.1 g/dl (30-36); MCV 94.6 fl (81-99); MONOCYTES 10.4 % (0-12); NEUTROPHILS 77.1 % (39-80); PLATELET COUNT 315 K/uL (140-440); RBC 3.43 M/ul (4.3-5.7); RDW 13.3 (10.5-15.0)
--- NOTE | 2024-08-28 05:43 | NUR ---
CPOX ALARMING, O2 SAT 88% WHILE SLEEPING. PT AWAKENED, ENC TO DB & C. O2 SATS BACK TO 94%. NO FURTHER COMPLAINTS OR NEEDS.
[2024-08-28 05:52] LABS: ANION GAP 9.3 (7-21); BUN/CREATININE RATIO 15.9 (6.0-28.6); CALCIUM 8.8 mg/dL (8.5-10.1); CREATININE, SERUM 0.88 mg/dL (0.55-1.02); POTASSIUM 3.3 mmol/L (3.5-5.1)
--- NOTE | 2024-08-28 07:07 | NUR ---
BEDSIDE REPORT RECEIVED FROM KP HE. PT IN ROOM, RESTS IN BED AWAKE AND ALERT, DENIES NEEDS AT THIS TIME.
--- NOTE | 2024-08-28 08:00 | NUR ---
patient boosted in the bed w/ oracio parra. breakfast cut up, water and juice given. pt has no other requests at this time. call light within reach.
[2024-08-28] MEDS ORDERED: POTASSIUM CHLORIDE 40 MEQ,LIDOCAINE HCL 1% 40 MG in DEXTROSE 5% 250 ML IV ONE (08:30)
[2024-08-28] MEDS ORDERED: POTASSIUM BICARBONATE/CIT AC 20 MEQ TABEF PO ONE (08:30)
[2024-08-28] MEDS ORDERED: AMLODIPINE BESYLATE 5 MG TAB PO SCH (09:00)
--- NOTE | 2024-08-28 10:45 | NUR ---
PT ASSISTED TO BSC WITH 1 PERSON SBA AND FWW. PT PASSES BM. MACRINA SMITH AND LETY RIOS. PT ASSISTED TO RECLINER. O2 SATS DECREASES WITH ACTIVITY BUT RECOVER QUICKLY WITH REST. PT SUSTAINS O2 SATS AT 99% ON [address] CALL LIGHT AND BELONGINGS IN REACH. CHAIR ALARM IN PLACE.
--- NOTE | 2024-08-28 11:10 | NUR ---
PT RETURNS TO MED-SURG ROOM 121 AT 1107. BEDSIDE REPORT RECEIVED FROM KP BRITO. PT IS DROWSY, ROUSES TO VOICE, DENIES PAIN OR NAUSEA. SCDS IN PLACE TO BLE. PT ON RA, SATS 96%, VS STABLE TO PT BASELINE. FAMILY X2 IN ROOM AT BEDSIDE. BED ALARM ON. PT RE-ORIENTED TO ROOM, CALL LIGHT IN REACH. DRESSINGS OVER LAP SITES ON ABDOMEN X4, C/D/I.
--- NOTE | 2024-08-28 12:36 | NUR ---
PT SITS UP IN RECLINER, FEEDS SELF LUNCH. TREMORS HAVE IMPROVED SINCE YESTERDAY. FRESH ICE WATER PROVIDED. CHAIR ALARM ON, CALL LIGHT IN REACH. IV INFUSING, NO REDNESS, LEAKING OR SWELLING NOTED. NO REQUESTS AT THIS TIME.
--- NOTE | 2024-08-28 13:15 | NUR ---
PATIENT UP TO BSC, 1PA FWW. VITALS AND I/O'S COMPLETED. PT HAS NO OTHER NEEDS AT THIS TIME. ARREAGA DRAINED AND DOCUMENTED. PT IN ROOM. CALL LIGHT WITHIN REACH.
--- NOTE | 2024-08-28 13:51 | NUR ---
PT USES CALL LIGHT. UPON ENTERING ROOM NOTED PATIENT HAS SEVERE TREMORING OF BUE, BLE AND HEAD. PT STATES, "I DON'T FEEL GOOD." O2 SATS ON CPOX IN 70'S, O2 INCREASED VIA NC TO 6 LPM, O2 SATS INCREASE OVER TIME TO 100%, O2 SATS NOW MAINTAINED AT 94% ON 5 LPM. PT REPORTS PAINS 5/10, POINTS TO STERNUM. VS OBTAINED, PT HYPOTENSIVE. DR. SCHROEDER NOTIFIED, NEW ORDERS FOR EKG, LABS AND BOLUS RECEIVED. BOLUS INFUSING, RT AT BEDSIDE PERFORMS EKG, LAB IN ROOM TO DRAW BLOOD. PT REMAINS ALERT, HAS DIFFICULTY MAKING FULL SENTENCES THROUGH HER TREMORS. DR. SCHROEDER ARRIVES TO BEDSIDE. NEW LAB ORDERS RECEIVED.
[2024-08-28] MEDS ORDERED: LIDOCAINE & ANTACID 35 ML BTL PO ONE (14:00)
[2024-08-28] MEDS ORDERED: NITROGLYCERIN PACKET TOP ONE (14:00)
[2024-08-28] MEDS ORDERED: LACTATED RINGER'S 500 ML IV ONE (14:00)
[2024-08-28 14:13] LABS: BASOPHILS 0.1 % (0-2); EOSINOPHILS 0.1 % (0-6); HEMATOCRIT 35.7 % (35.0-50.0); HEMOGLOBIN 11.9 g/dL (12.0-18.0); LYMPHOCYTES 5.6 % (24-44); MCH 31.6 (27-36); MCHC 33.5 g/dl (30-36); MCV 94.3 fl (81-99); MONOCYTES 3.2 % (0-12); PLATELET COUNT 387 K/uL (140-440); RBC 3.78 M/ul (4.3-5.7); RDW 13.5 (10.5-15.0)
--- NOTE | 2024-08-28 14:15 | NUR ---
GI COCKTAIL RECEIVED, NITRO PASTE IN PLACE ON CHEST ORDERED. RESPIRATORY THERPAY IN ROOM PROVIDING TREATMENT TO PT. NO WHEEZES NOTED WITH AUSCULTATION, OCCASIONAL AUDITORY STRIDOR NOTED. PT STATES SHE HEARS, "WHEEZES."
[2024-08-28 14:25] LABS: ANION GAP 10.3 (7-21); BUN/CREATININE RATIO 15.62 (6.0-28.6); CALCIUM 8.8 mg/dL (8.5-10.1); CREATININE, SERUM 0.96 mg/dL (0.55-1.02); MAGNESIUM 1.8 mg/dL (1.8-2.4); POTASSIUM 4.3 mmol/L (3.5-5.1)
[2024-08-28 14:26] LABS: LACTIC ACID, BLOOD 1.5 mmol/L (0.4-2.0)
--- NOTE | 2024-08-28 14:41 | NUR ---
NOTED SWELLING AT IV SITE IN LEFT WRIST, INFUSION STOPPED. NEW IV ESTABLISHED IN LAC, PT TOLERATED WELL. BOLUS INFUSION CONTINUED IN LAC. IV IN LEFT WRIST REMOVED, TIP INTACT, GAUZE AND COBAN DRESSING APPLIED TO SITE. PT SPEAKS ON CELL PHONE CURRENTLY. PT SITS UP IN RECLINER, TREMOR PRESENT BUT LESS INTENSE THAN PREVIOUS.
--- NOTE | 2024-08-28 14:48 | NUR ---
ALPRAZOLAM RECEIVED FOR REPORT OF ANXIETY PER PT. SEE EMAR.
--- NOTE | 2024-08-28 15:06 | NUR ---
500 ML LR BOLUS COMPLETE. BP NOW 147/66, NO LONGER HYPOTENSIVE. TREMORS IN BLE, BUE AND HEAD CONTINUE.
--- NOTE | 2024-08-28 15:11 | NUR ---
PT RESTS IN RECLINER, CALL LIGHT IN REACH, VSS. 3LPM O2 IN PLACE VIA NC, CPOX IN PLACE, PT SATS 93%.
[2024-08-28] MEDS ORDERED: PHENAZOPYRIDINE HCL 95 MG TAB PO PRN (16:30)
--- NOTE | 2024-08-28 17:20 | NUR ---
PYRIDIUM RECEIVED FOR REPORT OF URINARY IRRITATION. PT SITS UP IN RECLINER AND FEEDS SELF DINNER. PT SATS 97% ON 3 LPM WHILE EATING. CALL LIGHT IN REACH. NO REQUESTS AT THIS TIME.
--- NOTE | 2024-08-28 19:20 | NUR ---
REPORT RECEIVED FROM KP CALDERÓN. pt UP IN CHAIR. TREMORS NOTED. IV SL AT THIS TIME, IV Deonte RODRIGUEZ COMPLETE. pt HAS CALL LIGHT IN REACH.
[2024-08-28] MEDS ORDERED: ALBUTEROL/IPRATROPIUM 3 ML NEB INH SCH (20:00)
--- NOTE | 2024-08-28 20:36 | EKG ---
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
--- NOTE | 2024-08-28 20:41 | EKG ---
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
--- NOTE | 2024-08-28 20:51 | EKG ---
[facility] [address] [facility] [place] [address] Signed Normal sinus rhythm Normal ECG When compared with ECG of 25-AUG-2024 20:36, (Unconfirmed) Sinus rhythm has replaced Atrial fibrillation T wave inversion no longer evident in Anterior leads Confirmed by Kiara Schroeder MD ([id number]) on 08/28/2024 8:51:38 PM Electronically Signed By: KIARA SCHROEDER DO 08/28/242050 PATIENT NAME: LINDSEY SHELLEY Electrocardiogram DATE OF : 42 PHYSICIAN: KIARA SCHROEDER DO REPORT #: [id number] REPORT IS CONFIDENTIAL AND NOT TO BE RELEASED WITHOUT AUTHORIZATION
[2024-08-28] MEDS ORDERED: PRIMIDONE 50 MG TAB PO SCH (21:00)
--- NOTE | 2024-08-28 21:01 | NUR ---
pt SITTING UP IN CHAIR. ASSESSMENT COMPLETE. IV FLUSHED WNL, SL. pt RATES PAIN 3.5/10 "ALL OVER". PRN TYLENOL AND ANXIETY MEDICATIONS ADMINISTERED WITH SCHEDULED MEDICATIONS. pt ON ROOM AIR WHEN RN ENTERS ROOM, PUTS OXYGEN OFF AND ON, SPO2 95-96% ON RA. pt DENIES SOB. COARSNESS LLL WITH AUSCULTATION. RT ANTOINE NOW IN ROOM FOR BREATHING TREATMENT. ICE WATER REFILLED AND PO SNACK PROVIDED. CALL LIGHT IN REACH.
--- NOTE | 2024-08-28 22:22 | NUR ---
CPOX ALARMING, IN TO CHECK ON pt. pt HAS UNLOCKED RECLINER, SCOOTING TOWARD BED. CNAS IN ROOM TO ASSIST pt BACK TO BED.
--- NOTE | 2024-08-28 22:56 | NUR ---
ARREAGA CARE DONE. ICE WATER REFILLED. BED ALARM SET ON FOR SAFETY. CPOX AND O2 IN PLACED.
--- NOTE | 2024-08-28 22:58 | NUR ---
PT WAS WANTING TO GET INTO BED FROM HER RECLINER. SHE WAS NOT ABLE TO STAND UP ON HER OWN. BOTH OPERATING ROOM ASSISTANT'S HAD TO ASSIST BY LIFTING UNDER THE ARMS. ONCE UP, PT SEEMED UNABLE TO FULLY STAND ON HER OWN OR MOVE HER FEET. PT STATED THAT SHE DIDN'T HAVE THE ENERGY TO CONTINUE. THE OPERATING ROOM ASSISTANT'S SWITCHED TO A [id number] AND WAS ABLE TO GET PT IN BED.
[2024-08-29] VITALS (8 sets, daily range): BP systolic 106–157; BP diastolic 46–94
--- NOTE | 2024-08-29 00:33 | NUR ---
CHECKED ON pt. RESTING IN BED WITH EYES CLOSED, SNORING. SPO2 98% WITH 2L OXYGEN BY NC IN PLACE. BED ALARM ON.
--- NOTE | 2024-08-29 02:38 | NUR ---
CHECKED ON Pt. RESTING IN BED WITH EYES CLOSED, SPO2 98% WITH 2L OXYGEN BY NC IN PLACE. HR 61 ON CPOX. NO DISTRESS NOTED.
--- NOTE | 2024-08-29 04:25 | NUR ---
pt RESTING IN BED WITH EYES CLOSED. SPO2 WNL WITH 2L OXYGEN BY NC IN PLACE. NO DISTRESS NOTED. BED ALARM ON.
--- NOTE | 2024-08-29 06:54 | NUR ---
pt SLEEPING, OXYGEN OFF AT THIS TIME, SPO2 95-98% ON RA, CPOX IN PLACE. pt AWAKENS TO VOICE. ICE WATER REFILLED. ARREAGA EMPTIED. pt DENIES ANY DISCOMFORT. VSS. CALL LIGHT IN REACH. BED ALARM ON.
--- NOTE | 2024-08-29 08:33 | NUR ---
Board has been updated and call light has been placed within reach. Patient is ready for breakfeast, tray has been set, and towel has been placed across patint chest for eating. No further reequest from patient at this time
--- NOTE | 2024-08-29 09:38 | NUR ---
LIDOCAINE PATCH IN PLACE TO BACK UPON ASSESSMENT REMOVED. NEW LIDOCAINE PATCH APPLIED AT ORDERED, SEE EMAR.
--- NOTE | 2024-08-29 10:03 | NUR ---
PYRIDIUM RECEIVED FOR REPORT URINARY DISCOMFORT.
--- NOTE | 2024-08-29 10:22 | NUR ---
PT UP TO BSC WITH PHYSICAL THERAPY. THIS RN ASSISTS. PT PASSES LOOSE BM, ELLIS CARE PROVIDED, NEW BREIF DONNED. PT TO RECLINER WITH FWW, ASSISTED BY PHYSICAL THERAPY. PT TOLERATES ACTIVITY WELL ON RA. CURRENT O2 SATS 92%. NITRO PASTE IN PLACE TO CHEST REMOVED. MICONAZOLE POWDER APPLIED TO MOIST SKIN FOLDS ORDERED. DRESSING TO RIGHT LATERAL LOWER LEG WOUND CHANGED. OLD DRESSING REMOVED, GREEN TINGED SEROUS DRAINAGE NOTED NOTED ON DRESSING. WOUND BASE IS PINK WITH GRANULATION TISSUE. SLOUGH IN WOUND BASE HAS DECREASED SINCE LAST DRESSING CHANGE. PERIWOUND SKIN IS PINK, DRY AND INTACT. WOUND BASE CLEANSED WITH NS AND DEBRISOFT LOLLY. WOUND BASE PATTED DRY. WOUND BASE FILLED WITH MAXORB SILVER ALGINATE. SKIN PREP APPLIED TO PERIWOUND SKIN. DRESSING SECURED WITH BORDERED FOAM DRESSING. PT TOLERATED WELL. PT SITS UP IN RECLINER, CHAIR ALARM ON, CALL LIGHT AND BELONGINGS IN PLACE. IN REQUESTS AT THIS TIME.
--- NOTE | 2024-08-29 10:45 | NUR ---
Today when I enter the room Rula is up in her chair, she is a bit teary about her current medical condtion. We discussed at length the option of returning to [facility] vs going to a SNF for some rehabilitation. PT also consulted as requested by Rula to determine if they felt a SNF would be beneficial for her, which they did. Further discussion with Rula who is now agreeing to go to a SNF for rehab therapy for a couple of weeks before returning to [facility]. Updated notes to be sent to as per Rula's request as a place for her to go for further rehab and strengthening. aware and in agreement with this plan. Pt's RN was also in the room during this discussion. Rula did sign her second IMM letter and a signed copy was left in the room for her further review if needed.
--- NOTE | 2024-08-29 10:58 | NUR ---
TYLENOL RECEIVED FROM REPORT OF PAIN, ANTIANXIETY MEDICATION RECEIVED, SEE EMAR. VOLTAREN CREAM APPLIED TO HANDS AND SHOULDERS PER PT REQUEST. CASE MANAGEMENT IN ROOM TO SPEAK WITH PT ABOUT DISCHARGE PLAN. CALL LIGHT IN REACH. PT SATS 97% ON RA.
--- NOTE | 2024-08-29 11:13 | NUR ---
UPDATED CLINICALS FAXED TO [facility].
--- NOTE | 2024-08-29 11:42 | NUR ---
ACCEPTANCE FOR [facility]. ABLE TO ACCEPT THIS AFTERNOON OR TOMORROW. PATIENT NOTIFIED. SHE WILL NEED [facility] FOR TRANSPORT. CALLED [facility], WILL CALL BACK WITH SCHEDULED TIME.
--- NOTE | 2024-08-29 12:10 | NUR ---
CALLED AND SPOKE WITH HIEN, SON. INFORMED PATIENT HAS BEEN ACCEPTED TO [facility]. [facility] POTENTIALLY ABLE TO TRANSPORT AT 1330 THIS AFTERNOON VIA [facility], PENDING COVID DISCLOSURE, THEY WILL LET STAFF KNOW FOR SURE. STAFF AND PHYSICIAN NOTIFIED.
[2024-08-29] MEDS ORDERED: LIDOCAINE HCL SUB-Q ONE (12:30)
[2024-08-29] MEDS ORDERED: TRIAMCINOLONE ACET 40 MG/ML VIAL 1 ML IM ONE ×2 (12:30)
--- NOTE | 2024-08-29 12:31 | NUR ---
[facility], [facility], UNABLE TO TRANSPORT COVID PATIENTS. CALLED SON TO NOTIFY AND SEE IF FAMILY MEMBER WOULD BE ABLE TO TRANSPORT PATIENT TODAY OR TOMORROW.
--- NOTE | 2024-08-29 13:22 | NUR ---
RECEIVED CALL FROM HIEN, FAMILY CAN TRANSPORT HER TOMORROW BETWEEN 10-1030.
--- NOTE | 2024-08-29 13:42 | NUR ---
PT UP TO BSC WITH 1 PERSON MODERATE ASSIST. PT PASSES MEDIUM SOFT/LIQUID STOOL. PERICARE PROVIDED, MACRINA SMITH DONNED. PT BACK TO RECLINER. CALL LIGHT IN REACH, CHAIR ALARM ON, BLANKET PROVIDED. NO REQUESTS AT THIS TIME.
--- NOTE | 2024-08-29 14:29 | NUR ---
PT TO BED WITH FWW AND [address] SCHROEDER IN ROOM PERFORMS INJECTIONS TO BILATERAL HIPS, PT TOLERATES THIS WELL. BED ALARM ON, CALL LIGHT IN REACH. PT SATS 94% ON RA. NO REQUESTS AT THIS TIME.
--- NOTE | 2024-08-29 14:50 | NUR ---
PT NOT AVAILABLE FOR VISIT. PROVIDED PRAYER.
[2024-08-29] MEDS ORDERED: TIZANIDINE HCL 4 MG TABLET PO PRN (16:45)
--- NOTE | 2024-08-29 17:18 | NUR ---
ADMINISTERED MUSCLE RELAXER PER ORDER. PT STATED HER ARREAGA WAS LEAKING AROUND AND SHE WAS WET. CHANGED DEPENDS AND BEDDING. ASSISTED TO SIT UP IN BED FOR DINNER AND HELPED WITH EHR TRAY.
--- NOTE | 2024-08-29 19:30 | NUR ---
REPORT RECEIVED FROM DAY SHIFT RN. PT LYING IN BED ALERT AND ORIENTED. DENIES NEEDS. WHITE BOARD UPDATED. CALL LIGHT IN REACH.
--- NOTE | 2024-08-29 21:59 | NUR ---
EVENING ASSESSMENT COMPLETE. SCHEDULED MEDS ADMIN PER EMAR. PRN FOR PAIN AND ANXIETY ADMIN PER REQUEST. IV ABX INFUSING WNL. ARREAGA PATENT WITH QS URINE. ARREAGA CARE DONE. 2PA TO REPOSITION IN BED. RLE DRESSING CDI. BLE ELEVATED ON PILLOWS. PT ON RA. SpO2 MID 90'S. OCCASIONAL DRY COUGH NOTED. LUNGS CLEAR THROUGHOUT. CPOX IN PLACE. EVENING SNACK PROVIDED. PT DENIES QUESTIONS OR CONCERNS. CALL LIGHT IN REACH. BED ALARM FOR SAFETY.
--- NOTE | 2024-08-30 00:18 | NUR ---
IV PUMP ALARMING, IV ANTIBIOTIC COMPLETE. IV SL WNL. pt AWAKENS BRIEFLY THEN CLOSES EYES. SPO2 93% ON RA. CALL LIGHT WITHIN REACH.
--- NOTE | 2024-08-30 01:38 | NUR ---
PT RESTING IN BED WITH EYES CLOSED. RESPIRATIONS EVEN. SpO2 94% ON RA. BED ALARM FOR SAFETY. CALL LIGHT IN REACH.
--- NOTE | 2024-08-30 03:12 | NUR ---
PT RESTING IN BED WITH EYES CLOSED. RESPIRATIONS EVEN. SpO2 94% ON RA. HR 60'S. BED ALARM IN PLACE. CALL LIGHT IN REACH.
[2024-08-30 05:45] VITALS: BP 169/85
[2024-08-30 05:46] VITALS: BP 169/85
[2024-08-30 05:57] LABS: HEMOGLOBIN 10.6 g/dL (12.0-18.0)
[2024-08-30 05:59] LABS: HEMATOCRIT 31.9 % (35.0-50.0); MCH 31.2 (27-36); MCHC 33.2 g/dl (30-36); PLATELET COUNT 343 K/uL (140-440); RBC 3.39 M/ul (4.3-5.7); RDW 13.7 (10.5-15.0)
--- NOTE | 2024-08-30 06:03 | NUR ---
PT RESTING WITH EYES CLOSED. AWAKENS EASILY. VS AND I&O OBTAINED. LAB IN ROOM FOR MORNING DRAW. WARM BLANKET PROVIDED. PT DENIES NEEDS. CALL LIGHT IN REACH.
[2024-08-30 06:06] LABS: ANION GAP 9.2 (7-21); BUN/CREATININE RATIO 17.04 (6.0-28.6); CALCIUM 8.6 mg/dL (8.5-10.1); CREATININE, SERUM 0.88 mg/dL (0.55-1.02); POTASSIUM 4.2 mmol/L (3.5-5.1)
[2024-08-30 06:13] LABS: BANDS, MANUAL DIFF 1; LYMPHOCYTES, MANUAL DIFF 18; MONOCYTES, MANUAL DIFF 6; NEUTROPHILS, MANUAL DIFF 75
[2024-08-30 09:30] VITALS: BP 166/71
[2024-08-30 09:32] VITALS: BP 166/71
[2024-08-30 09:34] VITALS: BP 166/71
--- NOTE | 2024-08-30 10:28 | NUR ---
PT RECEIVES PRN MEDICATION FOR ANXIETY AND URINARY IRRITATION. VOLTAREN APPLIED TO SHOULDERS PER PT REQUEST. MICONAZOLE POWDER APPLIED TO MOIST SKIN FOLDS. PT UP TO BSC WITH 1 PERSON MODERATED ASSIST. NO BM PASSED. PT ASSISTED TO DRESS IN HER OWN CLOTHES. TOLERATES ACTIVITY WELL. PT ASSISTED TO WHEELCHAIR. INFUSION ACTIVE IN LFA IV. FAMILY X2 ARRIVES. DISCUSSED DISCHARGE PLAN WITH FAMILY AND PT, BOTH VERBALIZE UNDERSTANDING. CALL LIGHT IN REACH. BELONGINGS GATHERED IN SAH BAG.
--- NOTE | 2024-08-30 10:30 | NUR ---
Spoke with Rula. She is aware she is discharging today. Let her know, her ride with be 30 min. late. I spoke with Nabila and we do not have any 02 tanks in house for [place]. I spoke with granddaughter and she will stop at [facility] and mushroom picker a tank for the pt. They deny needs. Dc to [facility].
--- NOTE | 2024-08-30 10:30 | NUR ---
PT NOT AVAILABLE FOR VISIT. VISITED WITH FAMILY DURING SPIRITUAL CARE ROUNDS. FAMILY RELAYED INFORMATION FROM CARE TEAM, EXPRESSED OPTIMISM AND HOPE FOR RECOVERY. HVAC TECHNICIAN RESIDENTIAL PROVIDED SUPPORTIVE PRESENCE, HOSPITALITY, PRAYER, FACILITATED INTERACTION WITH THERAPY ANIMAL.
--- NOTE | 2024-08-30 10:45 | NUR ---
I had the opportunity to visit with Rula prior to her discharge today to [facility]. Rula is up in her chair, she is oriented to person, place and time, and she is "ready to work at the plan I have to get stronger." Rula expresses gratitude for the care that she has received while here in the hospital and she is very impressed with the hospitalist, stating "he has been so good to me, I even consider him to be a friend." Rula has also been very complimentary about the nursing care, and feels that "they have done a very good job taking care of the wounds on my legs." Rula's granddaughter Queta is here to transport Rula to [facility]. 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
--- NOTE | 2024-08-30 11:00 | NUR ---
INFUSION COMPELTE. IV TO . SITE C/D/I, COVERED WITH GAUZE AND COBAN. IV TO REMAIN IN PLACE FOR FURTHER IV THERAPY AT FACILITY. BHUPINDER TAKES PT'S BELONGINGS INCLUDING WAFFLE STATIC OVERLAY AND PUMP. PT LEAVES UNIT VIA WHEELCHAIR ESCORTED BY MAN ALLEN, TO PRIVATE CAR DRIVEN BY BHUPINDER.
--- NOTE | 2024-08-30 14:45 | NUR ---
TELEPHONE REPORT PROVIDED TO LLOYD AT [facility]. ALL QUESTIONS ANSWERED. DR. SCHROEDER PROVIDES STOP DATE OF DOXYCYCLINE OF Sep STOP DATE.
== END 2024-08-30 11:00 | DRG 871 ==
LOC: ED 09:55 → MS 16:01
PROVIDERS: Emergency Medicine; ADMIT Student in an Organized Health Care Education/Training Program; ATTEND Student in an Organized Health Care Education/Training Program
PROC: 3E0333Z Introduction of Anti-inflammatory into Peripheral Vein, Percutaneous Approach (ICD-10-PCS; 2024-08-25)
PROC: 3E0D73Z Introduction of Anti-inflammatory into Mouth and Pharynx, Via Natural or Artificial Opening (ICD-10-PCS; principal; 2024-08-26)
DX: A41.89 Other specified sepsis (principal); J12.82 Pneumonia due to coronavirus disease 2019; U07.1 COVID-19; J96.01 Acute respiratory failure with hypoxia; N39.0 Urinary tract infection, site not specified; I48.91 Unspecified atrial fibrillation; Z66 Do not resuscitate; G89.29 Other chronic pain; J45.909 Unspecified asthma, uncomplicated; K21.9 Gastro-esophageal reflux disease without esophagitis; I10 Essential (primary) hypertension; I87.2 Venous insufficiency (chronic) (peripheral); M70.62 Trochanteric bursitis, left hip; M70.61 Trochanteric bursitis, right hip; A41.59 Other Gram-negative sepsis; G25.81 Restless legs syndrome; G25.0 Essential tremor; G62.9 Polyneuropathy, unspecified; F32.9 Major depressive disorder, single episode, unspecified; Z88.2 Allergy status to sulfonamides; Z88.8 Allergy status to other drugs, medicaments and biological substances; Z79.899 Other long term (current) drug therapy
CPT/HCPCS: 36415; 51702; 71045; 71260; 80048; 80053; 81001; 82607; 82803; 83605; 83735; 83880; 84484; 85025; 85610; 85730; 87040; 87077; 87088; 87186; 87502; 93005; 93010; 93306; 93971; 94060; 94640; 94762; 97162; 97167; 97530; 97535; 99285-25; A9270; J0248; J0696; J1100; J1650; J3301; J3480; J3490; J7050; J7060; J7121; J8540; Q9967; U0002

== ENCOUNTER 2024-11-02 08:54 | Emergency (ER) | payer MEDICARE, OTHER ==
[~2024-11-02] VITALS: Ht 167.6 cm; Wt 99.8 kg
[2024-11-02 09:22] LABS: BASOPHILS 0.3 % (0-2); EOSINOPHILS 4.5 % (0-6); HEMATOCRIT 35.1 % (35.0-50.0); HEMOGLOBIN 11.9 g/dL (12.0-18.0); LYMPHOCYTES 17.3 % (24-44); MCH 31.9 (27-36); MCHC 33.8 g/dl (30-36); MCV 94.5 fl (81-99); MONOCYTES 8.2 % (0-12); NEUTROPHILS 69.7 % (39-80); PLATELET COUNT 437 K/uL (140-440); RBC 3.71 M/ul (4.3-5.7)
[2024-11-02 09:24] LABS: PROTIME 13.1 Sec (11.2-14.2)
[2024-11-02] MEDS ORDERED: METOPROLOL TARTRATE 5 MG/5 ML VIAL IV ONE ×3 (09:30→14:45)
[2024-11-02 09:41] LABS: ALBUMIN 2.6 g/dL (3.4-5.0); ALBUMIN/GLOBULIN RATIO 0.72 (1.1-2.4); ANION GAP 8.3 (7-21); BILIRUBIN, TOTAL 0.4 ng/dL (0.2-1.0); BUN/CREATININE RATIO 11.45 (6.0-28.6); CALCIUM 8.7 mg/dL (8.5-10.1); CREATININE, SERUM 0.96 mg/dL (0.55-1.02); MAGNESIUM 1.8 mg/dL (1.8-2.4); POTASSIUM 3.3 mmol/L (3.5-5.1); PROTEIN, TOTAL 6.2 g/dL (6.4-8.2)
[2024-11-02 10:45] LABS: INFLUENZA B NAA NEGATIVE (NEGATIVE); RESPIRATORY SYNCYTIAL VIR NAA NEGATIVE (NEGATIVE)
[2024-11-02 11:48] LABS: BILIRUBIN, URINE NEGATIVE (negative); BLOOD/HGB, URINE TRACE-I (Negative); KETONE, URINE NEGATIVE (Negative); LEUK ESTERASE, URINE LARGE (negative); NITRITE, URINE POSITIVE (negative)
[2024-11-02 11:54] LABS: BACTERIA, URINE 3+ /hpf (negative); CASTS, URINE NONE SEEN \\lpf; COLLECTION TYPE, URINE CLEAN CATCH; CRYSTALS, URINE NONE SEEN (0-1+); EPITHELIAL CELLS, URINE SQUAMOUS 1+ /lpf (0-1+); RED BLOOD CELLS, URINE 0-1 /hpf (0-5); REFLEX CULTURE, URINE Yes (No); WHITE BLOOD CELLS, URINE >50 /HPF (0-5)
[2024-11-02] MEDS ORDERED: CEFDINIR 300 MG CAP PO ONE (15:30)
[2024-11-02] MEDS ORDERED: DOXYCYCLINE HYCLATE 100 MG CAP PO ONE (15:45)
[2024-11-02] MEDS ORDERED: DOXYCYCLINE HY100 MG PO (16:11)
[2024-11-02] MEDS ORDERED: CEFDINIR300 MG PO (16:11)
[2024-11-02] MEDS ORDERED: ONDANSETRON 4 MG TAB ODT SL ONE (16:30)
[2024-11-02 16:39] VITALS: BP 158/83
--- NOTE | 2024-11-02 20:37 | EKG ---
[facility] [address] [place] [address] Signed Sinus tachycardia with premature atrial complexes Low voltage QRS Possible Inferior infarct , age undetermined Cannot rule out Anterior infarct , age undetermined Abnormal ECG When compared with ECG of 28-AUG-2024 13:41, premature atrial complexes are now present Nonspecific T wave abnormality now evident in Inferior leads Nonspecific T wave abnormality now evident in Anterior leads Confirmed by Kiara Schroeder DO ([id number]) on 11/02/2024 8:37:23 PM Electronically Signed By: KIARA SCHROEDER DO 11/02/242036 PATIENT NAME: LINDSEY SHELLEY Electrocardiogram DATE OF : 42 PHYSICIAN: KIARA SCHROEDER DO REPORT #: [id number] REPORT IS CONFIDENTIAL AND NOT TO BE RELEASED WITHOUT AUTHORIZATION
== END 2024-11-02 16:35 | disposition home or self-care (01) ==
LOC: ED 08:54
PROVIDERS: Emergency Medicine
DX: L03.115 Cellulitis of right lower limb (principal); L03.116 Cellulitis of left lower limb; R00.0 Tachycardia, unspecified; N39.0 Urinary tract infection, site not specified; R22.43 Localized swelling, mass and lump, lower limb, bilateral; I10 Essential (primary) hypertension; Z88.2 Allergy status to sulfonamides; Z88.8 Allergy status to other drugs, medicaments and biological substances; Z79.899 Other long term (current) drug therapy; Z11.52 Encounter for screening for COVID-19
CPT/HCPCS: 36415; 51702; 80053; 81001; 83735; 83880; 84484; 85025; 85610; 85730; 87088; 87502; 93005; 93010; 93970; 99285-25; A9270; U0002

== ENCOUNTER 2024-12-14 13:18 | Inpatient (IN) | payer MEDICARE, OTHER ==
[~2024-12-14] VITALS: Ht 167.6 cm; Wt 84.1 kg
[~2024-12-14 13:18] MED LIST changes: +CEFDINIR300 MG PO; +DOXYCYCLINE HY100 MG PO; +IPRAT-ALBUT 0.5-3 ML INH; -IPRATROPIU0.2 MG/1 M INH; -PROPRANOLOL HCL20 MG PO; +PROPRANOLOL HCL60 M1 PO; +ROPINIROLE HC0.25 MG PO
[2024-12-14] MEDS ORDERED: AMLODIPINE BESYL5 MG PO (14:58)
[2024-12-14] MEDS ORDERED: PRIMIDONE50 MG PO (15:00)
[2024-12-14] MEDS ORDERED: SPIRONOLACTONE25 MG PO (15:00)
[2024-12-14] MEDS ORDERED: HYDROCORTISON TP (15:01)
[2024-12-14] MEDS ORDERED: BANOPHEN50 MG PO (15:02)
[2024-12-14] MEDS ORDERED: ONDANSETRON ODT4 MG PO (15:02)
[2024-12-14] MEDS ORDERED: BISACODYL5 MG PO (15:02)
[2024-12-14] MEDS ORDERED: MILK OF MA400 MG/5 M PO (15:02)
[2024-12-14 15:15] LABS: BASOPHILS 0.6 % (0-2); EOSINOPHILS 2.2 % (0-6); HEMATOCRIT 38.6 % (35.0-50.0); HEMOGLOBIN 13.1 g/dL (12.0-18.0); LYMPHOCYTES 17.2 % (24-44); MCH 31.7 (27-36); MCV 93.2 fl (81-99); PLATELET COUNT 525 K/uL (140-440); RBC 4.14 M/ul (4.3-5.7); RDW 14.7 (10.5-15.0)
[2024-12-14 15:30] LABS: ALBUMIN 2.9 g/dL (3.4-5.0); ALBUMIN/GLOBULIN RATIO 0.71 (1.1-2.4); ANION GAP 11.5 (7-21); BILIRUBIN, TOTAL 0.8 ng/dL (0.2-1.0); BUN/CREATININE RATIO 10.92 (6.0-28.6); CALCIUM 8.9 mg/dL (8.5-10.1); CREATININE, SERUM 1.19 mg/dL (0.55-1.02); MAGNESIUM 1.4 mg/dL (1.8-2.4); POTASSIUM 2.5 mmol/L (3.5-5.1)
[2024-12-14] MEDS ORDERED: MAGNESIUM SULFATE 2 GM/50 ML BAG IV ONE (15:45)
[2024-12-14] MEDS ORDERED: POTASSIUM CHLORIDE 20 MEQ/15 ML CUP PO ONE ×2 (15:45→19:30)
[2024-12-14] MEDS ORDERED: POTASSIUM CHLORIDE 10 MEQ/100 ML BAG IV SCH (15:45)
[2024-12-14 18:24] LABS: ANION GAP 9.1 (7-21); BUN/CREATININE RATIO 10.71 (6.0-28.6); CALCIUM 8.7 mg/dL (8.5-10.1); CREATININE, SERUM 1.12 mg/dL (0.55-1.02); POTASSIUM 3.1 mmol/L (3.5-5.1)
[2024-12-14] MEDS ORDERED: DILTIAZEM HCl/D5W 125 ML IV SCH (19:00)
[2024-12-14] MEDS ORDERED: SODIUM CHLORIDE 0.9% 500 ML IV PRN (19:00)
[2024-12-14] MEDS ORDERED: ondansetron HCL 4 MG/2 ML VIAL IV PRN (19:15)
[2024-12-14] MEDS ORDERED: ACETAMINOPHEN 325 MG TAB PO PRN (19:15)
[2024-12-14] MEDS ORDERED: LACTATED RINGER'S 1,000 ML IV SCH (19:15)
[2024-12-14 19:35] LABS: TSH, 3RD GENERATION 2.631 uIU/mL (0.358-3.740)
--- NOTE | 2024-12-14 20:45 | NUR ---
PATIENT ARRIVED TO THE UNIT VIA STRETCHER. PATIENT ABLE TO STAND PIVOT TO THE BED WITH 1PA. PATIENT IS WEAK BUT KNOWS HER OWN LIMITS. PATIENT IS AAOX4. HR 130-150; AFIB. CARDIZEM PREVIOUSLY AT 15 MG/HR; CURRENTLY STOPPED DUE TO POOR IV ACCESS. PATIENT DENIED FEELING SOB. LUNG SOUNDS ARE CLEAR. TOLERATING ROOM AIR. ABD IS SOFT; DENIED GI UPSET. DOES REPORT OCCATIONAL EMESIS WHEN TAKING PO MEDS OR FOOD. PATIENT BELIVES THIS TO BE RELATED TO HER TREMOR. 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 2+ PITTING EDEMA NOTED IN ALAN LOWER EXTREMITIES. PATIENT REPORTS THIS SWELLING IS LESS THAN IT HAS BEEN. OPEN WOUND ON RIGHT HUERTA NOTED. PATIENT REPORTS SUPERVISOR HARVESTING WOUND CARE ON THIS AREA DONE BY AND WOUND CARE NURSES. NO DRESSING CURRENTLY IN PLACE. VACUUM EXTRACTOR OPERATOR IN ROOM TO ASSIST WITH IV ACCESS; IODASORB AND ALYVEN PLACED. PICTURES IN CHART. PATIENT'S FAMILY AT BEDSIDE.
[2024-12-14 20:59] VITALS: BP 101/72
[2024-12-14] MEDS ORDERED: APIXABAN 5 MG TAB PO SCH (21:00)
[2024-12-14] MEDS ORDERED: MELATONIN 3 MG TAB PO PRN (21:00)
--- NOTE | 2024-12-14 21:30 | NUR ---
ULTRASOUND IV ESTABLISHED IN RIGHT FOREARM. CARDIZEM INFUSING AT 10 MG/HR. HR 100-130; AFIB. ADEQUATE BP. PATIENT PROVIDED SCHEDULED MEDS AND PRN TYLENOL FOR JOINT PAIN. PATIENT TOOK MEDS WITHOUT ISSUE. BUT SHE DOES REPORT THE PILLS TAKING A WHILE TO GET DOWN DUE TO HER TREMOR MAKING IT DIFFICULT TO SWALLOW.
[2024-12-14 21:45] VITALS: BP 113/63
[2024-12-14 22:00] VITALS: BP 150/76
--- NOTE | 2024-12-14 22:29 | NUR ---
UPDATE PROVIDED TO PROVIDER. IN TO SEE PATIENT.
[2024-12-14 22:30] VITALS: BP 131/57
[2024-12-14] MEDS ORDERED: TRAZODONE HCL 50 MG TAB PO PRN (22:45)
--- NOTE | 2024-12-14 22:54 | EKG ---
[facility] [address] [facility] [place] [address] Signed Sinus tachycardia with premature atrial complexes versus A.fib [difficult to assess d/t significant artifact] Inferior infarct , age undetermined Abnormal ECG No previous ECGs available Confirmed by Chano Schroeder DO ([id number]) on 12/14/2024 10:54:41 PM Electronically Signed By: CHANO SCHROEDER DO 12/14/24 2254 PATIENT NAME: KARSTENLINDSEYEdna MARTI Electrocardiogram DATE OF : 42 PHYSICIAN: CHANO SCHROEDER DO REPORT #: [id number] REPORT IS CONFIDENTIAL AND NOT TO BE RELEASED WITHOUT AUTHORIZATION
[2024-12-14 23:00] VITALS: BP 97/62
[2024-12-14] MEDS ORDERED: ALBUTEROL/IPRATROPIUM 3 ML NEB INH PRN (23:15)
[2024-12-14] MEDS ORDERED: ROPINIROLE HCL 0.25 MG TAB PO SCH (23:15)
[2024-12-15] VITALS (18 sets, daily range): BP systolic 97–142; BP diastolic 47–90
--- NOTE | 2024-12-15 00:15 | NUR ---
PATIENT REPORTS THAT SHE WEARS 2L NC AT NIGHT AT HOME. REQUEST 2L NC AT THIS TIME. Sp02 HAS BEEN >90% ON ROOM AIR. PLACED ON 2L NC. PATIENT VS STABLE. DILT DRIP PER FLOW SHEET. IV FLUIDS PER ORDER. PATIENT DENIED ANY CONCERNS. ENCOURAGED TO REST. CALL LIGHT IN REACH.
[2024-12-15] MEDS ORDERED: ALBUTEROL SULFATE 0.083% 3 ML VIAL INH PRN (00:30)
--- NOTE | 2024-12-15 02:47 | NUR ---
PATIENT REPORTS FEELING RESTLESS. ASSISTED TO REPOSITION IN THE BED. PATIENT DENIED ANY FURTHER NEEDS. WOULD LIKE TO GET UP TO CHAIR PRIOR TO BREAKFAST. VS STABLE. IV SITE WNL. CALL LIGHT IN REACH.
--- NOTE | 2024-12-15 04:00 | NUR ---
PATIENT RESTING IN BED. DENIED GI UPSET OR PAIN. ASSISTED TO REPOSITION FOR COMFORT. IVF PER ORDER, DILT DRIP PER FLOWSHEET. IV SITE WNL. PATIENT VS STABLE. PATIENT WEARING 2L NC FOR COMFORT.
[2024-12-15 05:39] LABS: BASOPHILS 0.5 % (0-2); EOSINOPHILS 6.2 % (0-6); HEMATOCRIT 32.3 % (35.0-50.0); HEMOGLOBIN 10.7 g/dL (12.0-18.0); LYMPHOCYTES 17.8 % (24-44); MCH 31.4 (27-36); MCHC 33.1 g/dl (30-36); MCV 94.7 fl (81-99); MONOCYTES 7.9 % (0-12); NEUTROPHILS 67.6 % (39-80); PLATELET COUNT 370 K/uL (140-440); RBC 3.41 M/ul (4.3-5.7); RDW 14.6 (10.5-15.0)
[2024-12-15 05:56] LABS: ANION GAP 12.3 (7-21); BUN/CREATININE RATIO 9.67 (6.0-28.6); CALCIUM 8.1 mg/dL (8.5-10.1); CREATININE, SERUM 0.93 mg/dL (0.55-1.02); MAGNESIUM 2.2 mg/dL (1.8-2.4); POTASSIUM 3.3 mmol/L (3.5-5.1)
--- NOTE | 2024-12-15 06:35 | NUR ---
PATIENT REPORTS ONGOING ITCHING; WHICH IS SOMETHING SHE EXPERIENCES DAILY. PATIENT REQUEST PO BENADRYL. DISCUSSED WITH MD. VERIFIED ORDERS VIA REPEAT BACK.
[2024-12-15] MEDS ORDERED: diphenhydrAMINE HCL 25 MG CAP PO PRN (06:45)
--- NOTE | 2024-12-15 07:56 | NUR ---
UR CLINICAL REVIEW: 2 MN FOR VERSALUS-MEETS INPT CRITERIA FOR HYPOKALEMIA/AFIB MEDICARE INPT 12/14/24 @ 1912 ORDER MATCHES REG NO AUTH REQUIRED PER MEDICARE GUIDELINES DISCHARGE TO HOME WHEN STABLE.
--- NOTE | 2024-12-15 07:57 | NUR ---
REPORT RECIEVED FROM [employer] CONSULTANT RN. PER RN PATIENT RESTING IN THE CHAIR. PATIENT HAD A MEDIUM LOOSE INCONT. STOOL THAT STAFF WERE IN TO HELP CLEAN PATIENT.
[2024-12-15] MEDS ORDERED: ALBUTEROL/IPRATROPIUM 3 ML NEB INH SCH (08:00)
[2024-12-15] MEDS ORDERED: POTASSIUM CHLORIDE 40 MEQ,LIDOCAINE HCL 1% 40 MG in DEXTROSE 5% 250 ML IV ONE (09:00)
[2024-12-15] MEDS ORDERED: MICONAZOLE NITRATE 1 EA BTL TOP SCH (09:00)
[2024-12-15] MEDS ORDERED: PANTOPRAZOLE SODIUM 40 MG/10 ML VIAL IV SCH (09:00)
[2024-12-15] MEDS ORDERED: SERTRALINE HCL 100 MG TAB PO SCH (09:00)
[2024-12-15] MEDS ORDERED: SPIRONOLACTONE 25 MG TAB PO SCH (09:00)
[2024-12-15] MEDS ORDERED: AMLODIPINE BESYLATE 5 MG TAB PO SCH (09:00)
[2024-12-15] MEDS ORDERED: AZO STANDARD95 MG PO (09:27)
--- NOTE | 2024-12-15 09:30 | NUR ---
PATIENT ATE ONLY APPROX 20% OF MEAL. PATIENT HAS NOT HAD AN VOMITING WITH MEAL BUT IS WORRIED ABOUT FOOD COMING BACK UP BECAUSE THIS HAS BEEN A RECURRENT ISSUE. PATIENT HAS A CHRONIC ARREAGA IN PLACE. PATIENT ATTENDS CHANGED WITH THIS RN AND METAL DEALER. PATIENT SITITNG BACK IN THE CHAIR AND REPOSITIONED. CALL LIGHT IN REACH. PATIENT ASKED FOR IVAN HER TO BE NOTIFIED THAT SHE IS HERE AND TO COME SEE HER WHEN POSSIBLE. CALL LIGHT IN REACH. NO OTHER NEEDS AT THIS TIME.
[2024-12-15] MEDS ORDERED: NITROSTAT0.4 MG SL (09:34)
[2024-12-15] MEDS ORDERED: MIRALAX17 GM PO (09:37)
[2024-12-15] MEDS ORDERED: SALINE NASAL SP44 ML NAS (09:38)
[2024-12-15] MEDS ORDERED: SENNA8.6 MG PO (09:39)
[2024-12-15] MEDS ORDERED: LASIX40 MG PO (09:43)
[2024-12-15] MEDS ORDERED: VITAMIN D325 MCG PO (09:46)
[2024-12-15] MEDS ORDERED: TYLENOL325 MG PO (09:57)
[2024-12-15] MEDS ORDERED: MELATONIN3 MG PO (10:02)
[2024-12-15] MEDS ORDERED: PROPRANOLOL HCL 10 MG TAB PO SCH (10:15)
--- NOTE | 2024-12-15 10:15 | NUR ---
MED REC COMPLETE
--- NOTE | 2024-12-15 10:29 | NUR ---
ALERT AND ORIENTED, UP IN RECLINER. LIVES AT [facility]. HAS A WALKER, WHEELCHAIR, SHOWER CHAIR, OXYGEN (SHE BELIEVES THROUGH [employer]). SHE DOES NOT DRIVE BUT DOES HAVE ASSISTANCE WITH TRANSPORTATION. DENIES CM NEEDS AT THIS TIME. PATIENT PLANS TO RETURN TO [facility] WHEN MEDICALLY CLEARED.
--- NOTE | 2024-12-15 11:00 | NUR ---
PHARMACY APPROVED ALL MEDICATIONS WITH HOME RX. PATIENT TOELRATED MEDICATIONS WELL. PRN ZOFRAN GIVEN TO PREVENT PATIENT FROM VOMITING UP MEDICATIONS. PATIENT TOELRATED WELL. THIS RN IN TO BEDSIDE AND VISITING WITH PATIENT. PATIENT REPORTS RESTLESSNESS AND TALKING WITH RN ABOUT THE PROCEDURE SHE HAD DONE.
[2024-12-15] MEDS ORDERED: PHARMACY RENAL DOSE ADJUSTMENT 1 DOSE MISC PO SCH (12:00)
--- NOTE | 2024-12-15 12:07 | NUR ---
PT NOT AVAILABLE FOR VISIT. PROVIDED PRAYER.
--- NOTE | 2024-12-15 13:00 | NUR ---
PATIENT HAD LUNCH IN THE CHAIR. PATIENT HAS BEEN REPOSITIONED IN CHAIR EVERY 1-2 HOURS. PATIENTS RESTLESSNESS AND HR ARE MUCH IMPROVED SINCE HOME PROPANOLOL WAS RESTARTED. ZOFRAN GIVEN WITH MEDICATIONS THIS AM. NO NAUSEA NOTED TODAY.
--- NOTE | 2024-12-15 15:30 | NUR ---
[facility]AFF. PATIENT TOLERATED WELL AND IS STEADY TO STAND. PATIENT ATTENDS CHANGED. NEW LINEN IN CHAIR. PATIENT RESTING BACK IN THE CHAIR.
--- NOTE | 2024-12-15 17:41 | NUR ---
PATIENT SITITNG UP IN THE CHAIR AND REPOSITIONED IN CHAIR FOR DINNER. PATIENT DENIES ANY OTHER NEEDS AT THIS TIME. FOOD CUT FOR PATIENT. CALL LIGHT IN REACH.
--- NOTE | 2024-12-15 19:20 | NUR ---
SHIFT REPORT RECEIVED. PATIENT RESTING IN BED WATCHING TV. VS STABLE. PATIENT DENIED NEEDS.
--- NOTE | 2024-12-15 20:15 | NUR ---
PATIENT IS AAOX4. ASKING APPROPRIATE QUESTIONS ABOUT HER PLAN OF CARE. UPDATED PATIENT ON LABS AND CURRENT PLANS. PATIENT REPORTS ONGOING ITCHING AND HAS SIGNS OF SKIN IRRITATION FROM HER NAILS. ENCOURAGED PATIENT TO NOT USE HER NAILS FOR SCRATCHING. PRN BENADRYL PROVIDED. LOTION APPLIED TO EXTREMITIES. DESENEX POWDER UNDER BREAST, PANIS AND IN GROIN. ARREAGA CARE DONE. PATIENT DENIED GI UPSET AT THIS TIME. PRN TYLENOL FOR GENERAL JOINT PAINS. PATIENT TOOK MEDS WELL WITH APPLE SAUCE AND SIPS OF WATER. IV FLUIDS INFUSING PER ORDER, SITE WNL. PATIENT TOLERATING ROOM AIR. HAS OCCATIONAL COUGH. LUNG SOUNDS ARE CLEAR.; DIM IN THE BASES. WOUND ON RIGHT LEG IS COVERED WITH ALYVEN.
[2024-12-15] MEDS ORDERED: GABAPENTIN 300 MG CAP PO SCH (21:00)
--- NOTE | 2024-12-15 21:00 | NUR ---
PATIENT REPOSITIONED IN BED. LIGHTS DIMMED PER REQUEST. PATIENT RESTING WATCHING TV. DENIED ANY NEEDS OR CONCERNS. CALL LIGHT IN REACH.
--- NOTE | 2024-12-15 21:24 | NUR ---
UPDATED MD ON PATIENT'S URINE OUTPUT TREND. REVIEWED IV FLUIDS.
--- NOTE | 2024-12-15 22:03 | NUR ---
PATIENT PROVIDED PRN TRAMADOL TO AID IN SLEEP. PATIENT REPORTS DIFFICULTY RESTING AND REPORTS NOT SLEEPING WELL LAST NIGHT OR AT ALL TODAY. ASSISTED PATIENT TO POSITION FOR COMFORT. PATIENT PLACED ON 2L NC PER HER NORMAL ROUTINE AND REQUEST. CALL LIGHT IN REACH.
[2024-12-16] VITALS (7 sets, daily range): BP systolic 93–137; BP diastolic 49–85
--- NOTE | 2024-12-16 00:15 | NUR ---
PATIENT APPEARS RESTFUL IN BED. EYES CLOSED. VS STABLE. IV FLUIDS PER ORDER. SITE WNL. CALL LIGHT IN REACH.
--- NOTE | 2024-12-16 02:30 | NUR ---
PATIENT CALLED FOR WARM BLANKET WHICH WAS PROVIDED. ASSISTED PATIENT TO POSITION FOR COMFORT. VS STABLE. IV FLUIDS PER ORDER. PATIENT DENIED FURTHER NEEDS OR CONCERNS. CALL LIGHT IN REACH.
--- NOTE | 2024-12-16 04:30 | NUR ---
PATIENT RESTING IN BED WITH EYES CLOSED. WAKES EASILY WHEN RN IN ROOM. PATIENT DENIED ANY NEEDS OR CONCERNS. IV FLUIDS PER ORDER. SITE WNL. CALL LIGHT IN REACH.
[2024-12-16 05:27] LABS: BASOPHILS 0.5 % (0-2); EOSINOPHILS 8.8 % (0-6); HEMATOCRIT 30.3 % (35.0-50.0); HEMOGLOBIN 10.2 g/dL (12.0-18.0); LYMPHOCYTES 18.7 % (24-44); MCH 31.5 (27-36); MCHC 33.8 g/dl (30-36); MCV 93.4 fl (81-99); MONOCYTES 7.4 % (0-12); NEUTROPHILS 64.6 % (39-80); PLATELET COUNT 338 K/uL (140-440); RBC 3.25 M/ul (4.3-5.7); RDW 14.7 (10.5-15.0)
[2024-12-16 05:45] LABS: ALBUMIN/GLOBULIN RATIO 0.69 (1.1-2.4); ANION GAP 10.7 (7-21); BILIRUBIN, TOTAL 0.4 ng/dL (0.2-1.0); BUN/CREATININE RATIO 7.95 (6.0-28.6); CALCIUM 8.5 mg/dL (8.5-10.1); CREATININE, SERUM 0.88 mg/dL (0.55-1.02); MAGNESIUM 1.9 mg/dL (1.8-2.4); POTASSIUM 3.7 mmol/L (3.5-5.1); PROTEIN, TOTAL 4.9 g/dL (6.4-8.2)
--- NOTE | 2024-12-16 06:47 | NUR ---
PATIENT RESTING, EYES CLOSED. VS STABLE. ARREAGA EMPTIED AT THIS TIME. CALL LIGHT IN REACH.
--- NOTE | 2024-12-16 08:00 | NUR ---
PATIENT REPORT RECIEVED FROM BILLET GRINDER RN. PATIENT IN BED ON 2L NC AT THIS TIME. PATIENT REPORTS SHE SLEPT WELL LAST NIGHT. ROSALINDA IN TO DO MORNING MEDICATIONS.
--- NOTE | 2024-12-16 08:37 | NUR ---
VSS, PATIENT REPOSITIONED IN BED WITH PRIMARY NURSE. AM MEDICATIONS ADMINSTERED WITH APPLESAUCE. PATIENT EATING BREAKFAST AT THIS TIME. NO FURTHER NEEDS. CALL LIGHT WITHIN REACH.
[2024-12-16] MEDS ORDERED: PANTOPRAZOLE SODIUM 40 MG TABEC PO SCH (09:00)
[2024-12-16] MEDS ORDERED: DIATRIZOATE MEGLU/DIATRIZO SOD 15 ML BTL PO ONE ×2 (10:15→13:00)
--- NOTE | 2024-12-16 10:16 | NUR ---
MD INTO SEE PATIENT AND DISCUSS PLAN OF CARE. PATIENT UNABLE TO GET BARIUM/GASTROGRAM TODAY D/T NO RADIOLOGY. PER SPEECH IT CAN BE SET UP THROUGH HER PRIMARY CARE PROVIDER OUTPATIENT. PATIENT HAS A FOLLOW UP WITH PROVIDER ON THURSDAY. PATIENT WILL GO DOWN FOR CT TODAY PRIOR TO DC TO CHECK FOR CONCERNS OF CANCER PER PCP D/T N/V/D AND SIGNIFICANT WEIGHT LOSS AND POOR APPEITE. PATIENT AGREEABLE TO PLAN OF CARE. CALL LIGHT IN REACH. PATIENT RESTING IN BED AT THIS TIME.
--- NOTE | 2024-12-16 10:26 | NUR ---
LET [facility] KNOW PATIENT WILL BE DISCHARGING TODAY. WILL FAX ORDERS WHEN AVAILABLE. PATIENT AGREEABLE AND WHEELCHAIR VAN WILL BE HERE BETWEEN [phone].
--- NOTE | 2024-12-16 10:43 | NUR ---
PT NOT AVAILABLE FOR VISIT. PROVIDED PRAYER.
--- NOTE | 2024-12-16 10:51 | NUR ---
PATIENT REPOSITIONED IN BED. SKIN CARE PROVIDED, NOTED REDNESS UNDER RIGHT BREAST AND LEFT PANNUS. POWDER APPLIED. CATHERTER CARE PROVIDED. NOTED SMALL BM. PATIENT WITH NEW BREIF. NO FURTHER NEEDS AT THIS TIME. CALL LIGHT WITHIN REACH.
[2024-12-16] MEDS ORDERED: ONDANSETRON ODT4 MG PO (11:13)
[2024-12-16] MEDS ORDERED: POTASSIUM CHLO20 ME2 PO (11:13)
--- NOTE | 2024-12-16 13:00 | NUR ---
CT CALLED AND REPROTED PATIENT NEEDS ANOTHER DOSE OF GI CONTRAST. PATIENT TOLERATED DRINKING IT WELL. ARREAGA EMPTIED AND PATIENT TV ON FOR COMFORT. PATIENT DENEIS ANY OTHER NEEDS AT THIS TIME.
--- NOTE | 2024-12-16 14:11 | NUR ---
FAXED OVER ORDERS TO [facility].
--- NOTE | 2024-12-16 14:30 | NUR ---
PATIENT RESTING IN BED EATING. DENIES ANY NEEDS AT THIS TIME. CALL LIGHT WITHIN REACH.
--- NOTE | 2024-12-16 15:20 | NUR ---
PATIENT IV SITES X 2 REMOVED WNL. PATIENT PROVIDED EDUCATION AND DISCHARGE INSTRUCTIONS. PATIENT DISCHARGED VIA W/C WITH ALL PERSONAL BELONGINGS. REPORT CALLED TO [facility] STAFF BY THIS RN. DISCHARGE PACKET SENT WITH PATIENT.
== END 2024-12-16 15:20 | disposition home or self-care (01) | DRG 641 ==
LOC: ED 13:18 → CCU 19:33
PROVIDERS: Internal Medicine; ADMIT Student in an Organized Health Care Education/Training Program; ATTEND Student in an Organized Health Care Education/Training Program
DX: E87.6 Hypokalemia (principal); I47.10 Supraventricular tachycardia, unspecified; I48.20 Chronic atrial fibrillation, unspecified; A08.4 Viral intestinal infection, unspecified; E78.5 Hyperlipidemia, unspecified; J44.9 Chronic obstructive pulmonary disease, unspecified; G89.29 Other chronic pain; J45.909 Unspecified asthma, uncomplicated; I10 Essential (primary) hypertension; K21.9 Gastro-esophageal reflux disease without esophagitis; G25.81 Restless legs syndrome; E83.42 Hypomagnesemia; R13.19 Other dysphagia; F32.9 Major depressive disorder, single episode, unspecified; G62.9 Polyneuropathy, unspecified; Z66 Do not resuscitate; Z90.49 Acquired absence of other specified parts of digestive tract; Z96.82 Presence of neurostimulator; Z98.890 Other specified postprocedural states; Z88.2 Allergy status to sulfonamides; Z88.8 Allergy status to other drugs, medicaments and biological substances; Z79.899 Other long term (current) drug therapy
CPT/HCPCS: 36415; 71045; 74177; 80048; 80053; 83735; 83880; 84100; 84439; 84443; 85025; 93005; 93010; 94640; A9270; J2405; J2470; J3475; J3480; J3490; J7040; J7060; J7121; Q9967

== ENCOUNTER 2025-01-28 11:11 | Emergency (ER) | payer MEDICARE, OTHER ==
[~2025-01-28] VITALS: Ht 167.6 cm; Wt 84.1 kg
[~2025-01-28 11:11] MED LIST changes: +AMLODIPINE BESYL5 MG PO; +AZO STANDARD95 MG PO; +BANOPHEN50 MG PO; +BISACODYL5 MG PO; +HYDROCORTISON TP; +LASIX40 MG PO; +MELATONIN3 MG PO; +MILK OF MA400 MG/5 M PO; +MIRALAX17 GM PO; +NITROSTAT0.4 MG SL; +ONDANSETRON ODT4 MG PO; +SALINE NASAL SP44 ML NAS; +SPIRONOLACTONE25 MG PO; +TYLENOL325 MG PO; +VITAMIN D325 MCG PO
[2025-01-28 14:06] LABS: BILIRUBIN, URINE NEGATIVE (negative); BLOOD/HGB, URINE TRACE-I (Negative); KETONE, URINE NEGATIVE (Negative); LEUK ESTERASE, URINE MODERATE (negative); NITRITE, URINE NEGATIVE (negative)
[2025-01-28 14:11] LABS: BACTERIA, URINE RARE /hpf (negative); CASTS, URINE NONE SEEN \\lpf; COLLECTION TYPE, URINE CATH; CRYSTALS, URINE NONE SEEN (0-1+); RED BLOOD CELLS, URINE 0-1 /hpf (0-5); REFLEX CULTURE, URINE Yes (No); WHITE BLOOD CELLS, URINE >50 /HPF (0-5)
[2025-01-28] MEDS ORDERED: LEVOFLOXACIN750 MG PO (14:39)
[2025-01-28] MEDS ORDERED: levoFLOXacin 750 MG TAB PO ONE (14:45)
[2025-01-28 15:10] VITALS: BP 114/75
== END 2025-01-28 15:05 | disposition home or self-care (01) ==
LOC: ED 11:11
PROVIDERS: Emergency Medicine
DX: T83.511A Infection and inflammatory reaction due to indwelling urethral catheter, initial encounter (principal); N39.0 Urinary tract infection, site not specified; L89.151 Pressure ulcer of sacral region, stage 1; I10 Essential (primary) hypertension; Z79.899 Other long term (current) drug therapy; Z79.51 Long term (current) use of inhaled steroids; Z88.2 Allergy status to sulfonamides; Z88.8 Allergy status to other drugs, medicaments and biological substances
CPT/HCPCS: 51702; 81001; 99283